=== PATIENT | female | born 1975 | race Caucasian/White ===

== ENCOUNTER 2019-09-02 22:47 | Emergency (ER) | payer OTHER, SELFPAY ==
[2019-09-02 22:51] VITALS: BP 122/77; PULSE 116; RESP 20; TEMP 36.3; O2SAT 97
--- NOTE | 2019-09-02 23:15 | ED.DENTAL ---
HPI - Dental/Oral General Chief complaint: Dental/Oral Stated complaint: bleeding from mouth/18 teeth removed today Time Seen by Provider: 09/02/19 23:15 Source: patient Mode of arrival: ambulatory Limitations: no limitations History of Present Illness HPI Narrative: The pt is a 44 y/o female who presents to the ED with c/o bleeding from the gums that began today. The pt states that she had 18 teeth extracted earlier today by a [facility] oral surgeon and her gums have not stopped bleeding since. She notes that she has been biting down on gauze and that she is not on blood thinners. MD Complaint: tooth injury (bleeding from gums after tooth extraction) Onset (ago): hour(s) (today) Context: other (tooth extraction earlier today) Associated symptoms: other (none) Treatment prior to arrival: other (gauze) Related Data Allergies Allergy/AdvReac Type Severity Reaction Status Date / Time codeine Allergy Intermediate HIVES, Verified 03/24/18 22:32 TONGUE SWELLING cephalexin Allergy Mild Verified 03/24/18 22:32 clavulanic acid Allergy Mild BETA Verified 03/24/18 22:32 LACTAMASE INHIBITORS doxycycline Allergy Mild Verified 03/24/18 22:32 erythromycin base Allergy Mild Verified 03/24/18 22:32 prochlorperazine Allergy Mild Verified 03/24/18 22:32 Sulfa (Sulfonamide Allergy Mild Verified 03/24/18 22:32 Antibiotics) tetracycline Allergy Mild Verified 03/24/18 22:32 AMOXICILLIN TRIHYDRATE Allergy Mild Uncoded 03/24/18 22:32 POTASSIUM CLAVULANATE Allergy Mild Uncoded 03/24/18 22:32 Contrast Media Allergy Unknown Uncoded 03/24/18 22:32 Review of Systems Review of Systems: All systems reviewed & are unremarkable except as noted in HPI and below ENT: Reports other (bleeding from gums) [facility] Past Medical History Medical History (Updated 09/03/19 @ 02:31 by Coy Cole DO) Anemia Anxiety Asthma Back pain Bipolar disorder Bronchitis Cervical cancer COPD (chronic obstructive pulmonary disease) Depression Emphysema lung Endometriosis Fibroids Fractures bilateral legs, ribs GERD (gastroesophageal reflux disease) Gum disease peridontal Hepatitis C Hypertension Kidney stones Neuropathy Peptic ulcer PID (acute pelvic inflammatory disease) Pneumonia PTSD (post-traumatic stress disorder) Seizures Shingles Sinus problem Surgical History Surgical History (Updated 09/02/19 @ 23:20 by Jamia Tabares) H/O tubal ligation History of partial hysterectomy Hx of section Hx of cholecystectomy Social History Social History (Updated 09/02/19 @ 23:20 by Jamia Tabares) Smoking packs per day: 1 Smoking cigarettes per day: 20.0 Smoking status: Current every day smoker Tobacco type: cigarettes Gender identity (if verbalized by the patient): Female Exam Narrative: Exam Narrative: APPEARANCE: No acute distress, nontoxic, resting in bed EYES: EOMI HEENT: Normocephalic, atraumatic, all teeth removed from upper and lower gumline, there is blood clots and oozing throughout the gums airway patent oral mucosa moist RESPIRATORY: No respiratory distress Clear to auscultation bilaterally with no rhonchi wheezing or rales. CARDIOVASCULAR: Regular rate and rhythm without murmurs rubs or gallops. ABDOMINAL: Soft, nontender, MUSCULOSKELETAl: Moves all extremities. No clubbing, cyanosis or edema. NEURO: Awake and alert. Following commands, speech normal, no focal deficits SKIN:: Warm, dry. No rashes lesions or abrasions PSYCHIATRIC: Normal affect/mood, Course Course Emergency Course: Called and discussed with Dr. Villar at [facility]. Recommends using Afrin-soaked gauze. States that if this does not work may use any sort of direct pressure and/or suturing After thorough evaluation of the gumline and able to remove several areas of clotting patient was noted to have oozing out of the front gum where the gum had been from tooth removal anteriorly. Direct pressure was a
[2019-09-03 00:02] LABS: Blood Urea Nitrogen 13 mg/dL (7-17); Carbon Dioxide 27 mmol/L (22-30); Chloride 100 mmol/L (98-107); Estimated Glomerular Filt Rate > 60; Glucose 124 mg/dL (65-105); Potassium 3.6 mmol/L (3.4-5.0); Sodium 139 mmol/L (137-145)
[2019-09-03 00:05] LABS: Prothrombin Time 13.2 Seconds (11.1-14.7)
[2019-09-03 00:06] LABS: Partial Thromboplastin Time 32.2 SECONDS (22.3-36.8)
[2019-09-03 00:13] LABS: Basophils Absolute Auto 0.1 K/mm3 (0.0-0.1); Basophils Percent Auto 0.5 % (0.2-1.2); Eosinophils Absolute Auto 0.3 K/mm3 (0-0.3); Eosinophils Percent Auto 2.3 % (0-4.4); Hematocrit 47.3 % (37.0-47.0); Hemoglobin 15.5 g/dL (12.0-15.0); Immature Granulocyte Absolute 0.05 K/mm3 (0.00-0.031); Immature Granulocyte Percent A 0.3 % (0-0.5); Lymphocytes Percent Auto 16.8 % (18.3-44.2); Mean Corpuscular HGB Conc 32.8 g/dl (32-36); Mean Corpuscular Hemoglobin 27.6 pg (26-34); Mean Corpuscular Volume 84.3 fl (80-100); Mean Platelet Volume 8.9 fl (7.4-10.4); Monocytes Percent Auto 6.8 % (2.6-8.5); Neutrophils Absolute Auto 10.9 K/mm3 (1.3-6.7); Neutrophils Percent Auto 73.3 % (45.5-73.1); Platelet Count Result 476 k/mm3 (150-375); Red Blood Count 5.61 M/mm3 (4.2-5.4); Red Cell Distribution Width 15.2 % (11.5-14.5); White Blood Count 14.8 K/mm3 (4.5-10.0)
[2019-09-03 00:48] VITALS: BP 127/87; PULSE 78; RESP 15; TEMP 36.7; O2SAT 97
[2019-09-03] MEDS: LIDO 1%/EPINEPHRINE 1:100,000 20 ML VIAL (01:08)
[2019-09-03 02:39] VITALS: BP 117/79; PULSE 88; RESP 17; O2SAT 97
== END 2019-09-03 02:40 | disposition home or self-care (01) ==
PROVIDERS: Emergency Provider Emergency Medicine; PCP Family Medicine
DX: K91.840 Postprocedural hemorrhage of a digestive system organ or structure following a digestive system procedure (principal); J45.909 Unspecified asthma, uncomplicated; Z85.41 Personal history of malignant neoplasm of cervix uteri; K21.9 Gastro-esophageal reflux disease without esophagitis; Z86.19 Personal history of other infectious and parasitic diseases; Z87.442 Personal history of urinary calculi; J43.9 Emphysema, unspecified; N80.9 Endometriosis, unspecified; F17.210 Nicotine dependence, cigarettes, uncomplicated
CPT/HCPCS: 36415; 41899; 80048; 85025; 85610; 85730; 99283; A9270

== ENCOUNTER 2019-11-29 15:11 | Outpatient (CLI) | payer OTHER, SELFPAY ==
--- NOTE | ~2019-11-29 | MM_ITS ---
EXAMINATION: MM screening alek BI w harshad HISTORY: Screening mammogram TECHNIQUE: Craniocaudal and mediolateral oblique 3-D tomosynthesis images were obtained and synthetic 2-D images were generated. CAD analysis was submitted and interpreted. COMPARISON: No prior mammogram is available for comparison at this institution. BREAST PARENCHYMAL COMPOSITION: There are scattered areas of fibroglandular density. FINDINGS: There is a low-density mass measuring 1.9 cm in the lower inner quadrant of the right breas t. There is no mammographic evidence for malignancy in the left breast. IMPRESSION: 1. 1.9 cm right breast mass, lower inner quadrant. 2. Additional mammographic views and possible breast ultrasound are recommended. BI-RADS Category 0: Incomplete: Needs additional imaging evaluation. Reviewed, dictated and finalized at location A. IMPRESSION: 1. 1.9 cm right breast mass, lower inner quadrant. 2. Additional mammographic views and possible breast ultrasound are recommended . BI-RADS Category 0: Incomplete: Needs additional imaging evaluation.
== END 2019-11-29 15:12 | disposition home or self-care (01) ==
PROVIDERS: PCP Family Medicine; Visit Provider Family Medicine
DX: Z12.31 Encounter for screening mammogram for malignant neoplasm of breast (principal); R92.8 Other abnormal and inconclusive findings on diagnostic imaging of breast
CPT/HCPCS: 77063; 77067

== ENCOUNTER 2020-01-21 17:10 | Emergency (ER) | payer OTHER, SELFPAY ==
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
[2020-01-21 17:17] VITALS: BP 125/94; PULSE 82; RESP 20; TEMP 36.8; O2SAT 96
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
[2020-01-21] MEDS: ACETAMINOPHEN 500 MG TABLET 1000 MG PO (19:26)
[2020-01-21 19:32] VITALS: BP 131/84; PULSE 75; RESP 16; O2SAT 99
[2020-01-21 20:01] VITALS: BP 130/85; PULSE 79; RESP 16; O2SAT 99
== END 2020-01-21 20:02 | disposition home or self-care (01) ==
PROVIDERS: Emergency Provider Emergency Medicine; PCP Family Medicine
DX: S16.1XXA Strain of muscle, fascia and tendon at neck level, initial encounter (principal); M54.5 Low back pain; R07.81 Pleurodynia; Z85.41 Personal history of malignant neoplasm of cervix uteri; J43.9 Emphysema, unspecified; N80.9 Endometriosis, unspecified; Z87.442 Personal history of urinary calculi; F17.210 Nicotine dependence, cigarettes, uncomplicated; M47.816 Spondylosis without myelopathy or radiculopathy, lumbar region; V49.40XA Driver injured in collision with unspecified motor vehicles in traffic accident, initial encounter
CPT/HCPCS: 70450; 71046; 71110; 72125; 72131; 73590; 96372; 99284; A9270; J3360; L0140

== ENCOUNTER 2020-01-31 13:31 | Outpatient (CLI) | payer OTHER, SELFPAY ==
--- NOTE | ~2020-01-31 | MM_ITS ---
EXAMINATION: MM diagnostic alek BI w harshad HISTORY: 1. Lower inner quadrant 1.9 cm right breast mass reported on 11/29/2019 screening mammogram 2. New complaint of left breast lump TECHNIQUE: Additional 3-D tomosynthesis images of the right breast and ML, MLO and cc Tomosynthesis v iews of the left breast were performed and synthetic 2-D images were generated. CAD analysis was subm itted and interpreted. COMPARISON: 11/29/2019 bilateral digital screening mammogram BREAST PARENCHYMAL COMPOSITION: The breasts are almost entirely fatty. FINDINGS: There is an approximately 1.6 cm circumscribed low-density opacity at mid depth in the inne r mid right breast. There are 2 additional approximately 4 mm circumscribed low-density opacities in the posterior inner right breast on CC projection. Right breast ultrasound examination is recommended. No suspicious mass, architectural distortion, malignant calcification, skin thickening or retraction of the left breast is evident. Targeted ultrasound of the left breast at the area of clinical rate of breast lump is recommended. IMPRESSION: 1. 1.6 cm and two 4 mm circumscribed opacities of the inner right breast 2. Ultrasound of the inner right breast for correlation with mammographic findings and targeted ultra sound of left breast at the area of complaint of left breast lump is recommended. BI-RADS Category 0: Incomplete: Needs additional imaging evaluation. Reviewed, dictated and finalized at location A. IMPRESSION: 1. 1.6 cm and two 4 mm circumscribed opacities of the inner right breast 2. Ultrasound of the inner right breast for correlation with mammographic findi ngs and targeted ultrasound of left breast at the area of complaint of left sergio ast lump is recommended. BI-RADS Category 0: Incomplete: Needs additional imaging evaluation.
== END 2020-01-31 13:32 | disposition home or self-care (01) ==
LOC: ANHIMG 13:34
PROVIDERS: PCP Family Medicine; Visit Provider Family Medicine
DX: R92.8 Other abnormal and inconclusive findings on diagnostic imaging of breast (principal)
CPT/HCPCS: 77062; 77066; G0279

== ENCOUNTER 2020-03-02 23:30 | Emergency (ER) | payer OTHER, SELFPAY ==
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
[2020-03-02 23:34] VITALS: BP 127/76; PULSE 100; RESP 20; TEMP 36.7; O2SAT 95
[2020-03-03 00:54] VITALS: BP 126/86; PULSE 86; RESP 20; O2SAT 98
[2020-03-03] MEDS: ONDANSETRON HCL ODT 4 MG TABLET PO (02:03)
[2020-03-03] MEDS: KETOROLAC (*BKC) 60 MG/2 ML VIAL IM (02:52)
[2020-03-03 02:55] LABS: Basophils Absolute Auto 0.1 K/mm3 (0.0-0.1); Basophils Percent Auto 0.5 % (0.2-1.2); Eosinophils Absolute Auto 0.2 K/mm3 (0-0.3); Eosinophils Percent Auto 0.6 % (0-4.4); Hematocrit 49.2 % (37.0-47.0); Hemoglobin 16.4 g/dL (12.0-15.0); Immature Granulocyte Absolute 0.26 K/mm3 (0.00-0.031); Immature Granulocyte Percent A 1.1 % (0-0.5); Lymphocytes Absolute Auto 2.81 K/mm3 (0.9-3.2); Lymphocytes Percent Auto 11.3 % (18.3-44.2); Mean Corpuscular HGB Conc 33.3 g/dl (32-36); Mean Corpuscular Hemoglobin 28.2 pg (26-34); Mean Corpuscular Volume 84.7 fl (80-100); Mean Platelet Volume 8.8 fl (7.4-10.4); Monocytes Absolute Auto 1.7 K/mm3 (0.1-0.6); Monocytes Percent Auto 6.9 % (2.6-8.5); Neutrophils Absolute Auto 19.7 K/mm3 (1.3-6.7); Neutrophils Percent Auto 79.6 % (45.5-73.1); Platelet Count Result 488 k/mm3 (150-375); Red Blood Count 5.81 M/mm3 (4.2-5.4); Red Cell Distribution Width 13.3 % (11.5-14.5); White Blood Count 24.8 K/mm3 (4.5-10.0)
[2020-03-03 02:59] VITALS: BP 124/89; PULSE 84; RESP 18; TEMP 36.4; O2SAT 98
[2020-03-03 03:11] LABS: Alkaline Phosphatase 114 U/L (38-126); Anion Gap 13 mmol/L (8-16); Aspartate Amino Transferase 46 U/L (14-36); Bilirubin,Total 0.6 mg/dL (0.2-1.3); Blood Urea Nitrogen 6 mg/dL (7-17); Calcium 9.9 mg/dL (8.4-10.2); Carbon Dioxide 22 mmol/L (22-30); Chloride 101 mmol/L (98-107); Creatine Kinase 35 U/L (30-135); Estimated CRCL calculation 110 ml/min; Estimated Glomerular Filt Rate > 60; Glucose 195 mg/dL (65-105); Potassium 3.5 mmol/L (3.4-5.0); Sodium 136 mmol/L (137-145)
[2020-03-03 03:16] LABS: Alanine Aminotransferase 27 U/L (4-35)
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
[2020-03-03 03:38] VITALS: BP 124/83; PULSE 82; RESP 16; O2SAT 96
--- NOTE | 2020-03-03 07:31 | ED.OVERDOSE ---
HPI - Overdose General Chief Complaint: Overdose Stated Complaint: od Time Seen by Provider: 03/03/20 01:47 Source: patient Mode of arrival: EMS History of Present Illness HPI Narrative: This patient is a 45 year old female with history of heroin, fentanyl addition who presents via EMS for accidental overdose. Patient reports she has been using fentanyl for a long time due to an addition. Tonight she took 3 fentanyl pills and she reports she felt as if she was going to pass out so she gave herself narcan. She called 911 and she was given some more narcan. . She now complains of pain all over, nausea, vomiting, and diarrhea. complaint: accidental overdose Related Data Allergies Allergy/AdvReac Type Severity Reaction Status Date / Time codeine Allergy Intermediate HIVES, Verified 01/21/20 18:13 TONGUE SWELLING cephalexin Allergy Mild Unknown Verified 01/21/20 18:13 clavulanic acid Allergy Mild BETA Verified 01/21/20 18:13 LACTAMASE INHIBITORS doxycycline Allergy Mild Unknown Verified 01/21/20 18:13 erythromycin base Allergy Mild Unknown Verified 01/21/20 18:13 prochlorperazine Allergy Mild Unknown Verified 01/21/20 18:13 Sulfa (Sulfonamide Allergy Mild Unknown Verified 01/21/20 18:13 Antibiotics) tetracycline Allergy Mild Unknown Verified 01/21/20 18:13 Contrast Media Allergy Unknown Unknown Uncoded 01/21/20 18:13 Review of Systems Constitutional: Constitutional: Denies chills, Reports fatigue and Denies fever(s) Cardiovascular: Cardiovascular: Denies chest pain Respiratory: Respiratory: Denies cough and Denies dyspnea Gastrointestinal: Gastrointestinal: Reports abdominal pain, Reports diarrhea, Reports nausea and Reports vomiting Musculoskeletal: Musculoskeletal: Reports myalgias PMFSH Past Medical History Medical History Anemia Anxiety Asthma Back pain Bipolar disorder Bronchitis Cervical cancer COPD (chronic obstructive pulmonary disease) Depression Emphysema lung Endometriosis Fibroids Fractures bilateral legs, ribs GERD (gastroesophageal reflux disease) Gum disease peridontal Hepatitis C Hypertension Kidney stones Neuropathy Peptic ulcer PID (acute pelvic inflammatory disease) Pneumonia PTSD (post-traumatic stress disorder) Seizures Shingles Sinus problem Surgical History Surgical History (Updated 09/02/19 @ 23:20 by Jamia Tabares) H/O tubal ligation History of partial hysterectomy Hx of section Hx of cholecystectomy Social History Social History (Updated 09/02/19 @ 23:20 by Jamia Tabares) Smoking packs per day: 1 Smoking cigarettes per day: 20.0 Smoking status: Current every day smoker Tobacco type: cigarettes Gender identity (if verbalized by the patient): Female Exam Const: Orientation/consciousness: patient oriented x3 Other: disheveled, lethargic HENMT: Head: normocephalic and atraumatic Face and sinus: face symmetric Eyes: Pupils: Equal, round and reactive pupils present EOM: EOMs intact bilaterally Chest: Chest palpation & inspection: normal inspection of the chest Resp: Effort & Inspection: normal respiratory effort and no retractions Auscultation: clear to auscultation bilaterally Cardio: Rate: regular rate Rhythm: regular rhythm Heart sounds: no murmurs GI: GI Palp: Yes Soft to palpation, Yes Tenderness to palpation present (GI) (diffuse), No Guarding due to palpation present (GI) and No Rigid due to palpation Back/Spine/Pelvis: Back: no CVA tenderness Skin: General skin exam: normal color Rashes: no rashes Neuro: General: patient oriented x3 and moves all extremities Extrem: Other: bruising to all extremities and track rosario to bilateral arms. Course Reevaluation(s) Reevaluation #1: Nursing staff reports patient's daughter placed patient in wheelchair and they have left department. PAtient going out door before i could talk to
== END 2020-03-03 03:38 | disposition left against medical advice (07) ==
PROVIDERS: Emergency Provider General Practice; PCP Family Medicine
DX: T40.4X1A Poisoning by other synthetic narcotics, accidental (unintentional), initial encounter (principal); J43.9 Emphysema, unspecified; F31.9 Bipolar disorder, unspecified; Z85.41 Personal history of malignant neoplasm of cervix uteri; N80.9 Endometriosis, unspecified; K21.9 Gastro-esophageal reflux disease without esophagitis; I10 Essential (primary) hypertension; Z86.19 Personal history of other infectious and parasitic diseases; G62.9 Polyneuropathy, unspecified; F43.10 Post-traumatic stress disorder, unspecified; F17.210 Nicotine dependence, cigarettes, uncomplicated
CPT/HCPCS: 36415; 71045; 80053; 82550; 85025; 96372; 99283; A9270; J1885

== ENCOUNTER 2020-03-04 06:37 | Inpatient (IN) | payer OTHER, SELFPAY ==
--- NOTE | ~2020-03-04 | CT_ITS ---
EXAMINATION: CT brain wo con DATE: 03/04/2020 08:51 INDICATION: Fall with head injury TECHNIQUE: Computed tomography (CT) of the head was performed without intravenous contrast. Sagittal and coronal reconstructions were performed. The mA was adjusted according to patient size. Iterative reconstruction technique was employed. The dose-length product was 605.33 mGy-cm. COMPARISON: head CT dated 01/21/2020 FINDINGS: No fracture. No acute intracranial hemorrhage, acute infarction or abnormal extra axial fluid collect ion. Ventricles are normal and symmetric. No mass/mass effect. The orbits, paranasal sinuses and mast oid air cells are normal. IMPRESSION: 1. No fracture. Normal brain. Reviewed, dictated and finalized at location A.
--- NOTE | ~2020-03-04 | XR_ITS ---
EXAMINATION: XR chest 2V DATE: 03/04/2020 08:53 INDICATION: Chest pain TECHNIQUE: frontal and lateral views of the chest were obtained. COMPARISON: Chest radiograph dated 03/03/2020 FINDINGS: Mild bibasilar atelectasis. No pulmonary edema, pleural effusion or pneumothorax. The cardiomediastin al silhouette is normal. Visualized bones and soft tissues are unremarkable. IMPRESSION: 1. Minimal bibasilar atelectasis. Reviewed, dictated and finalized at location A.
--- NOTE | ~2020-03-04 | MMUS_ITS ---
EXAMINATION: US GUIDED NEEDLE BIOPSY WITH VACUUM ASSISTANCE DATE: 03/07/2020 12:33 CDT INDICATION: Right breast mass seen on prior examination. Ultrasound-guided core biopsy is requested to evaluate for malignancy. TECHNIQUE AND FINDINGS: The risks and potential benefits of the procedure were discussed with the patient, and written inform ed consent was obtained. After sterile preparation of the right breast, 1% lidocaine was utilized fo r local anesthesia. 1% lidocaine with epinephrine was used for deep anesthesia. A 10G vacuum-assisted biopsy gun needle was advanced through to the outer edge of the region of inter est from a medial approach utilizing sonographic guidance. The mass is located in the upper inner jose antonio drant. A total of three tissue core samples were obtained through the lesion. An Inrad tissue marker clip was then placed at the biopsy site. Hemostasis was achieved. The patient tolerated procedure well and there was no evidence of immediate complication. The patien t was given verbal instructions partly is from the department. Right breast mammograms to document t issue marker clip placement. The tissue samples were submitted to surgical pathology for histologic a nalysis.] IMPRESSION: 1. Successful ultrasound-guided vacuum-assisted biopsy of right breast mass with tissue marker place ment. Please refer to pathology report for histologic analysis. Reviewed, dictated and finalized at location A. IMPRESSION: 1. Successful ultrasound-guided vacuum-assisted biopsy of right breast mass wi th tissue marker placement. Please refer to pathology report for histologic augusto lysis.
--- NOTE | ~2020-03-04 | CT_ITS ---
EXAMINATION: CT abdomen pelvis wo con DATE: 03/04/2020 08:52 INDICATION: Left lower quadrant abdominal pain. TECHNIQUE: Computed tomography (CT) of the abdomen and pelvis was performed without intravenous contr ast. Automated exposure control and iterative reconstruction technique were employed. The dose-length product was 1253.32 mGy-cm. COMPARISON: 05/17/2017 FINDINGS: Mild atelectasis anteriorly at the lingula and right middle lobe and in the dependent bilateral lower lobes. 6 mm nodule in the right lower lobe. Heart size is normal. No pericardial or pleural effusion . 1.5 cm mass with smooth margins at the medial right breast. Focal hepatic steatosis at the ligament um teres. 8 mm low-attenuation hepatic cyst. Cholecystectomy clips at the gallbladder fossa. Spleen, pancreas and bilateral adrenal glands are normal. Punctate bilateral nephrolithiasis with single 1 mm stone at the lower pole of the right kidney and a couple 1 mm stones in the mid and lower left kidne y. No hydronephrosis. No stones seen along the normal ureters. Normal appendix. There is fluid throug hout the mid to distal colon with mild wall thickening at the sigmoid colon. There is additional wall thickening along a couple segments of ileum. No pneumatosis. No abscess or free intraperitoneal gas or fluid. Bladder is normal. The uterus is not identified and has likely been surgically resected. No pathologically enlarged abdominal or pelvic lymphadenopathy. Very small fat-containing umbilical her harpreet. Bone island at the greater trochanter of the right femur. IMPRESSION: 1. Wall thickening along a couple segments of ileum including the terminal ileum as well as at the si gmoid colon suggesting an enterocolitis which could be either infectious or Crohn's disease. 2. Bilateral nonobstructing nephrolithiasis. 3. 1.5 cm mass with smooth margins at the inner right breast. Further review of prior mammography rep ort this was identified and further evaluation with directed breast ultrasound was recommended. 4. 6 mm nodule in the right lower lobe. Recommend follow-up 612 month low-dose noncontrast chest CT. Reviewed, dictated and finalized at location A. IMPRESSION: 1. Wall thickening along a couple segments of ileum including the terminal ileu m as well as at the sigmoid colon suggesting an enterocolitis which could be ei ther infectious or Crohn's disease. 2. Bilateral nonobstructing nephrolithiasis. 3. 1.5 cm mass with smooth margins at the inner right breast. Further review of prior mammography report this was identified and further evaluation with [facility] breast ultrasound was recommended. 4. 6 mm nodule in the right lower lobe. Recommend follow-up 612 month low-dose noncontrast chest CT.
--- NOTE | ~2020-03-04 | CT_ITS ---
EXAMINATION: CT cervical spine wo con DATE: 03/04/2020 08:51 INDICATION: Fall with head injury TECHNIQUE: Computed tomography (CT) of the cervical spine was performed without intravenous contrast. Automated exposure control and iterative reconstruction technique were employed. The dose-length pro duct was 481.19 mGy-cm. COMPARISON: None FINDINGS: Mild cervical levocurvature. Reversal of the normal cervical lordosis. Vertebral body heights are nor mal. Moderate disc height loss at C5-C6 with associated posterior disc osteophyte complex resulting i n mild central canal stenosis at this level. Moderate right-sided and mild to moderate left-sided unc overtebral osteoarthritis resulting in mild bilateral neural foraminal stenosis at this level. Mild d isc height loss at C4-C5 and C6-C7. There is mild uncovertebral and mild facet osteoarthritis through out much of the remaining cervical spine. There are a few tiny nodules and tree-in-bud opacities at t he bilateral apices. IMPRESSION: 1. No acute osseous abnormality. 2. Moderate spondylosis with mild central canal stenosis at C5-C6. Mild spondylosis throughout the re mainder of the cervical spine. 3. A few tiny nodules and scattered tree-in-bud pattern at the bilateral apices which could represent respiratory bronchiolitis interstitial lung disease or sequela of infection. Reviewed, dictated and finalized at location A. IMPRESSION: 1. No acute osseous abnormality. 2. Moderate spondylosis with mild central canal stenosis at C5-C6. Mild spondyl osis throughout the remainder of the cervical spine. 3. A few tiny nodules and scattered tree-in-bud pattern at the bilateral apices which could represent respiratory bronchiolitis interstitial lung disease or s equela of infection.
--- NOTE | ~2020-03-04 | US_ITS ---
US breast BI limited 03/05/2020 13:53 Indication: Follow-up right breast mass. Palpable left breast lump. Procedure: High-resolution bilateral breast ultrasound Comparison: Mammogram dated 01/31/2020 Findings: Right breast ultrasound: At 2:00, 6 cm from the nipple, there is an oval hypoechoic mass with posterior shadowing. No signific ant internal vascularity. This mass measures 1.3 x 1.3 x 1 cm. This corresponds to the mass identifie d on mammography. Left breast ultrasound: At 12:00 there is a 6 mm cyst. No suspicious masses to suggest malignancy. Impression: 1: Oval hypoechoic shadowing 1.3 cm right breast mass at 2:00, 6 cm from the nipple corresponding to the mass seen on mammogram. Ultrasound-guided right breast biopsy recommended. BI-RADS CATEGORY 4-SUSPICIOUS ABNORMALITY RECOMMENDATION: Ultrasound-guided right breast biopsy recommended. Reviewed, dictated and finalized at location A. Impression: 1: Oval hypoechoic shadowing 1.3 cm right breast mass at 2:00, 6 cm from the ni pple corresponding to the mass seen on mammogram. Ultrasound-guided right breas t biopsy recommended. BI-RADS CATEGORY 4-SUSPICIOUS ABNORMALITY RECOMMENDATION: Ultrasound-guided right breast biopsy recommended.
[2020-03-04 06:40] VITALS: BP 141/107; PULSE 96; RESP 20; TEMP 36.9; O2SAT 97
--- NOTE | 2020-03-04 07:02 | ED.NAVMDI ---
HPI - Nausea/Vomiting/Diarrhea General Chief complaint: Nausea/Vomiting/Diarrhea Stated complaint: n/v/d, abd pain Time Seen by Provider: 03/04/20 07:02 Source: patient and family Mode of arrival: ambulatory Limitations: no limitations History of Present Illness HPI Narrative: Patient is a 45-year-old female with a history of opiate substance abuse, hypertension who presents for evaluation of headache pain, chest pain, abdominal pain. Patient reports her abdominal pain is located in her left lower abdomen, described as a sharp, stabbing pain which is been present and worsening over the past 24 hours. Is associated with numerous episodes of nonbloody, nonbilious emesis. Patient also reports watery diarrhea that is not black nor does appear to have any blood present per the patient. Patient denies fever, she reports chills. She also reports chest pain over the center of her chest for over the past 24 hours. Pain is minimal currently, she stays her abdominal pain is severe. No jaw pain or neck pain. No shoulder pain. No current shortness of breath. No cough, fever, recent loss of taste of sense or smell. Patient's daughter also reports that initially when they called an ambulance on the to come to the emergency department for all of the symptoms, the ambulance reportedly dropped to the patient and she fall and hit her head. She has been reporting headache pain and neck pain since that fall. Related Data Home Medications Medication Instructions Recorded Confirmed albuterol sulfate 90 mcg INHALATION 03/04/20 clonidine HCl 0.1 mg PO 03/04/20 gabapentin 300 mg PO 03/04/20 hydroxyzine pamoate 50 mg PO 03/04/20 mirtazapine 45 mg PO 03/04/20 montelukast 10 mg PO 03/04/20 ondansetron 8 mg PO 03/04/20 Allergies Allergy/AdvReac Type Severity Reaction Status Date / Time codeine Allergy Intermediate HIVES, Verified 03/04/20 06:45 TONGUE SWELLING cephalexin Allergy Mild Unknown Verified 03/04/20 06:45 clavulanic acid Allergy Mild BETA Verified 03/04/20 06:45 LACTAMASE INHIBITORS doxycycline Allergy Mild Unknown Verified 03/04/20 06:45 erythromycin base Allergy Mild Unknown Verified 03/04/20 06:45 prochlorperazine Allergy Mild Unknown Verified 03/04/20 06:45 Sulfa (Sulfonamide Allergy Mild Unknown Verified 03/04/20 06:45 Antibiotics) tetracycline Allergy Mild Unknown Verified 03/04/20 06:45 Contrast Media Allergy Unknown Unknown Uncoded 01/21/20 18:13 Review of Systems Review of Systems: Narrative: CONSTITUTIONAL: Denies fever, chills, or sweats. EYES: Denies visual changes, redness, or discharge. ENT: Denies rhinorrhea, congestion, sore throat, or otalgia. CARDIOVASCULAR: Reports mild chest pain RESPIRATORY: Denies cough or dyspnea. GASTROINTESTINAL: Reports abdominal pain, nausea vomiting and diarrhea GENITOURINARY: Denies dysuria or hematuria. SKIN: Denies rash or itching. MUSCULOSKELETAL: Denies back pain, joint pain, or myalgia. NEUROLOGIC: Denies headache, numbness, or weakness. FOR[facility]LY [facility] Past Medical History Medical History (Updated 03/04/20 @ 10:19 by Viviane Burns MD) Anemia Anxiety Asthma Back pain Bipolar disorder Bronchitis Cervical cancer COPD (chronic obstructive pulmonary disease) Depression Emphysema lung Endometriosis Fibroids Fractures bilateral legs, ribs GERD (gastroesophageal reflux disease) Gum disease peridontal Hepatitis C Hypertension Kidney stones Neuropathy Opioid abuse Peptic ulcer PID (acute pelvic inflammatory disease) Pneumonia PTSD (post-traumatic stress disorder) Seizures Shingles Sinus problem Surgical History Surgical History H/O tubal ligation History of partial hysterectomy Hx of section Hx of cholecystectomy Social History Social History Smoking packs per day: 1 Smoking cigarettes per day: 20.0 Smoking status:
--- NOTE | 2020-03-04 07:24 | ECG_ITS ---
Measurements Intervals [place] Rate: 78 P: -4 MD: 152 QRS: 31 QRSD: 92 T: 67 QT: 423 QTc: 483 Interpretive Statements SINUS RHYTHM BORDERLINE ST-T WAVE ABNORMALITY- ANTEROLAT/HIGH LAT LEADS BORDERLINE ECG Electronically Signed On 03-04-2020 12:32:20 CDT by Korey Carbajal D.O.
[2020-03-04] MEDS: SODIUM CHLORIDE 0.9% IV 2,000 ML 999 ML IV CONT (07:41)
[2020-03-04] MEDS: ONDANSETRON INJ 4 MG/2 ML VIAL IV PUSH ×3 (07:41→23:07)
[2020-03-04] MEDS: diphenhydrAMINE HCl INJ 50 MG/ML VIAL 25 MG IV PUSH (07:41)
[2020-03-04 07:58] LABS: Hematocrit 51.5 % (37.0-47.0); Hemoglobin 17.6 g/dL (12.0-15.0); Mean Corpuscular HGB Conc 34.2 g/dl (32-36); Mean Corpuscular Hemoglobin 28.1 pg (26-34); Mean Corpuscular Volume 82.3 fl (80-100); Mean Platelet Volume 8.6 fl (7.4-10.4); Platelet Count Result 548 k/mm3 (150-375); Red Blood Count 6.26 M/mm3 (4.2-5.4); Red Cell Distribution Width 13.7 % (11.5-14.5); White Blood Count 23.4 K/mm3 (4.5-10.0)
[2020-03-04 08:17] LABS: Eosinophils Absolute Manual 0.23 K/mm3 (0.02-0.5); Eosinophils Percent Manual 1 % (0-4); INR 1.1; Lymphocytes Absolute Manual 3.74 K/mm3 (1.1-4.5); Monocytes Absolute Manual 1.63 K/mm3 (0.1-0.90); Monocytes Percent Manual 7 % (3-9); Neutrophils Percent Manual 76 % (46-73); Platelet Estimate Increased (Adequate); Prothrombin Time 13.5 Seconds (11.1-14.7); Total Cells Counted 100
[2020-03-04 08:18] LABS: Hypochromasia 2+ (NORMAL); Partial Thromboplastin Time 29.7 SECONDS (22.3-36.8)
[2020-03-04 08:25] LABS: Lactic Acid Reflex 3.7 mmol/L (0.7-2.1)
[2020-03-04 08:26] LABS: Alanine Aminotransferase 40 U/L (4-35); Albumin Level 4.7 g/dL (3.5-5.1); Alkaline Phosphatase 130 U/L (38-126); Anion Gap 15 mmol/L (8-16); Aspartate Amino Transferase 36 U/L (14-36); Bilirubin,Total 0.7 mg/dL (0.2-1.3); Blood Urea Nitrogen 18 mg/dL (7-17); Calcium 9.8 mg/dL (8.4-10.2); Carbon Dioxide 30 mmol/L (22-30); Chloride 92 mmol/L (98-107); Estimated CRCL calculation 72 ml/min; Estimated Glomerular Filt Rate > 60; Glucose 144 mg/dL (65-105); Lipase 44 U/L (23-300); Potassium 3.5 mmol/L (3.4-5.0); Sodium 137 mmol/L (137-145)
[2020-03-04 08:35] LABS: Troponin I < 0.012 ng/mL (0.000-0.034)
[2020-03-04 09:14] VITALS: BP 151/99; PULSE 83; RESP 18; O2SAT 94
[2020-03-04 09:39] LABS: Add Urine Microscopic? YES; Appearance Urine Cloudy (Clear); Bacteria Urine Trace /hpf; Bilirubin Urine Negative (Negative); Blood Urine Negative (Negative); Color Urine Amber (Yellow); Glucose Urine UA Negative (Negative); Ketones Urine Negative (Negative); Leukocyte Esterase Ur Trace LEU/UL (Negative); Mucus Urine Few /lpf; Nitrate Urine Negative (Negative); Protein Urine 1+ mg/dL (Negative); RBC Urine 0-2 /hpf (0-2); Specific Grav Ur 1.026 (1.001-1.035); Squamous Epithelial Cell Urine Many /hpf (Few)
[2020-03-04] MEDS: METOCLOPRAMIDE HCL INJ 10 MG/2 ML VIAL IV PUSH (09:40)
[2020-03-04] MEDS: SODIUM CHLORIDE 0.9% IV 1,000 ML 999 ML IV CONT (10:39)
[2020-03-04 10:42] VITALS: BP 113/70; PULSE 69; RESP 18; O2SAT 98
[2020-03-04 10:55] LABS: Reflex Lactic Acid Yes or No Add Lactic
--- NOTE | 2020-03-04 11:58 | PC.NURSE ---
This patient, Sheri Dunne, was admitted to Medical Room 251-. Patient/family oriented to hospital policies and general routines including ID bracelet, bed and alarms, visiting hours, pain management, procedures, bathroom and other care routines, personal items, smoking policy, room service/diet, and visiting hours. Valuables list has been completed. Information on how to activate the Rapid Response Team has been discussed. Patient/Family are encouraged to report perceived risks to care and to ask questions if they do not understand what they are told or what they should do.
[2020-03-04] MEDS: LACTATED RINGERS 1,000 ML 125 ML IV CONT ×2 (12:35→21:42)
[2020-03-04 13:42] VITALS: BP 114/77; PULSE 64; RESP 17; TEMP 37.5; O2SAT 94; BMI 33.3
[2020-03-04 14:00] VITALS: BP 101/59; PULSE 59; RESP 15; TEMP 37.2; O2SAT 94
--- NOTE | 2020-03-04 17:57 | PM.IMHP ---
H&P: HPI History of Present Illness Date/Time: 03/04/20 17:57 Chief complaint: Sepsis, Colitis Narrative: Sheri Dunne is a 45 year old female Has a history of heroin abuse. The patient was in the emergency room here yesterday where she had taken 3 pills of fentanyl. The patient felt like she had overdosed in taken too much. She said she took 2 fentanyl pills and did feel anything so she took the 3rd 1 and felt that it was really junky and that she had gotten a lot of fentanyl and felt like she was going to so she gave herself narcan and called the ambulance. The patient stated that she fell and hit her head yesterday in our neck is hurting. 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 The patient stated that she had been on subaxone for a long time and had just gotten off of it. the patient stated that she had a relapse and use the fentanyl. Today the patient is hurting all over. She denies any fever chills. She does have a history of depression and anxiety. Patient stated that she was anxious about a breast nodule that she found that she fears that she may have breast cancer. She had cervical cancer in the past and had to have chemotherapy. The patient stated that her drug addiction started after she had her partial hysterectomy. She stated that she had been and a lot of pain and got addicted to the opioids at that time. The patient stated that she has been addicted to narcotics for a long time. She would like to seek help for her addiction. This is the 2nd time that patient has overdosed on narcotics. Patient is very tearful and is asking for help. The patient came into the emergency room today complaining of left lower abdominal pain that is sharp and stabbing and worsened last [address] of the abdomen was read as a following 1. Wall thickening along a couple segments of ileum including the terminal ileum as well as at the sigmoid colon suggesting an enterocolitis which could be either infectious or Crohn's disease. 2. Bilateral nonobstructing nephrolithiasis. 3. 1.5 cm mass with smooth margins at the inner right breast. Further review of prior mammography report this was identified and further evaluation with directed breast ultrasound was recommended. 4. 6 mm nodule in the right lower lobe. Recommend follow-up 612 month low-dose noncontrast chest CT. CT of the spine cervical was read as the following 1. No acute osseous abnormality. 2. Moderate spondylosis with mild central canal stenosis at C5-C6. Mild spondylosis throughout the remainder of the cervical spine. 3. A few tiny nodules and scattered tree-in-bud pattern at the bilateral apices which could represent respiratory bronchiolitis interstitial lung disease or sequela of infection. the patient was given IV Ativan, IV fluids, Zofran, Benadryl, Reglan, and started on Zosyn. Date of service 03/04/2020 Review of Systems Review of Systems: All systems reviewed & are unremarkable except as noted in HPI and below Constitutional: Constitutional: Reports as per HPI and Reports no additional constitutional complaints Eyes: Eyes: Reports as per HPI and Reports no additional eye complaints ENT: Reports system reviewed and no additional complaints, except as documented and Reports Normal hearing present Cardiovascular: Cardiovascular: Reports no additional cardiovascular complaints Respiratory: Respiratory: Reports no additional respiratory complaints and Reports no additional respiratory complaints Gastrointestinal: Gastrointestinal: Reports as per HPI and Reports no additional gastrointestinal complaints Musculoskeletal: Musculoskeletal: Reports no additional musculoskeletal complaints Integumentary/Breasts: Skin/Breast: Reports system reviewed and no additional complaints, except as docu and Reports as per HPI Neurologic: Reports system reviewed and no additional complaints, except as documented, Reports as per HPI and Reports Normal hearing present Psychiatric:
[2020-03-04] MEDS: NICOTINE (*PBKC) 21 MG PATCH 1 PATCH TRANSDERM (18:47)
[2020-03-04] MEDS: hydrOXYzine pamoate 25 MG CAPSULE 100 MG PO (18:58)
[2020-03-04 22:00] VITALS: BP 116/64; PULSE 68; RESP 18; TEMP 36.3; O2SAT 97
[2020-03-05 00:04] LABS: IFOB Positive Control Positive; Immunochemical Fecal Occult Bl Negative (N)
[2020-03-05] MEDS: ONDANSETRON INJ 4 MG/2 ML VIAL IV PUSH ×2 (05:17→09:32)
[2020-03-05] MEDS: traZODone HCL 50 MG TABLET 200 MG PO (05:17)
[2020-03-05 06:00] VITALS: BP 144/82; PULSE 60; RESP 21; TEMP 36.6; O2SAT 100
[2020-03-05] MEDS: NICOTINE (*PBKC) 21 MG PATCH 1 PATCH TRANSDERM (08:06)
[2020-03-05] MEDS: cloNIDine 0.1 MG/24 HR PATCH 1 PATCH TRANSDERM (08:43)
[2020-03-05] MEDS: HYOSCYAMINE SULFATE 0.125 MG TABLET SUBLINGUAL (08:49)
[2020-03-05] MEDS: LACTATED RINGERS 1,000 ML 125 ML IV CONT ×2 (09:28→23:43)
--- NOTE | 2020-03-05 09:34 | WPDGICN ---
Assessment and Plan Assessment and plan (1) Enterocolitis: Code(s): K52.9 - Noninfective gastroenteritis and colitis, unspecified Status: Acute Assessment and Plan: Enterocolitis identified by CT scan. Manifested by diarrhea. Likely infectious in etiology. Plan is for stool cultures agree with broad-spectrum antibiotic coverage. Would defer GI endoscopy unless symptoms persist long-term. Continue follow and treat symptomatic Kothari at this time. IV rehydration. (2) Hepatitis C: Code(s): B19.20 - Unspecified viral hepatitis C without hepatic coma Status: Chronic Assessment and Plan: Patient is reported to be hepatitis C positive. Would recommend referral to [facility] as an outpatient electively for treatment. (3) Opioid abuse: Code(s): F11.10 - Opioid abuse, uncomplicated Status: Chronic (4) Anxiety: Code(s): F41.9 - Anxiety disorder, unspecified Status: Chronic GI Consult Note Consult date/time: 03/05/20 09:34 HPI: Sheri Dunne is a 45 year old female Seen in evaluation at the request of the emergency room. Patient reports diarrhea for 1 week. She has a history of substance abuse. Recently has had significant abuse of narcotic medications. She states her stools have been loose and watery over the last week. She denies any bleeding or weight loss. Upon presenting to the emergency room a CT scan suggested thickening of the ileum in portions of the sigmoid colon. She states she usually does not have diarrhea. She denies any fever or bleeding in her stools. Patient states she is known to have been tested positive for hepatitis C. she has not yet been treated. Review of Systems Review of Systems: All systems reviewed & are unremarkable except as noted in HPI and below PMFSH Past Medical History Medical History Anemia Anxiety Asthma Back pain Bipolar disorder Bronchitis Cervical cancer with chemotherapy and partial hysterectomy COPD (chronic obstructive pulmonary disease) Depression Emphysema lung Endometriosis Fibroids Fractures bilateral legs, ribs GERD (gastroesophageal reflux disease) Gum disease peridontal Hepatitis C not yet treated History of cervical cancer Hypertension Kidney stones Neuropathy Opioid abuse last used yesterday fentanyl 03/03/2020 Peptic ulcer PID (acute pelvic inflammatory disease) Pneumonia PTSD (post-traumatic stress disorder) Seizures Shingles Sinus problem Surgical History Surgical History H/O tubal ligation History of partial hysterectomy Hx of section x1 Hx of cholecystectomy Family History Family History Sibling Acute myocardial infarction Father Hypertension Lung cancer Mother Hypertension Lung cancer Social History Social History (Updated 03/04/20 @ 18:23 by Skyla Harmon NP) Social History: the patient is single and has two children. one is 17 and the other one is 20. she lives in the same house with the father for children but they are not together in a relationship. 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 She has shot up heroin in the past but states that she cannot find heroin. She said that she initially got addicted to narcotics after her hysterectomy. She denies any alcohol use. She smokes a pack a cigarettes a day. She desires to be a full code. She does not have a durable power tax attorney for healthcare. She does occasionally use marijuana. Smoking packs per day: 1 Smoking cigarettes per day: 20.0 Years smoked: 20 Smoking pack-years: 20.00 Smoking status: Current every day smoker Tobacco type: cigarettes Alcohol intake: never Substance use: current Substance use type: misty
[2020-03-05 09:45] LABS: Basophils Absolute Auto 0.1 K/mm3 (0.0-0.1); Basophils Percent Auto 0.4 % (0.2-1.2); Eosinophils Absolute Auto 0.4 K/mm3 (0-0.3); Eosinophils Percent Auto 3.2 % (0-4.4); Hematocrit 39.9 % (37.0-47.0); Hemoglobin 13.4 g/dL (12.0-15.0); Immature Granulocyte Absolute 0.07 K/mm3 (0.00-0.031); Immature Granulocyte Percent A 0.5 % (0-0.5); Lymphocytes Absolute Auto 2.88 K/mm3 (0.9-3.2); Lymphocytes Percent Auto 21.4 % (18.3-44.2); Mean Corpuscular HGB Conc 33.6 g/dl (32-36); Mean Corpuscular Hemoglobin 27.7 pg (26-34); Mean Corpuscular Volume 82.6 fl (80-100); Mean Platelet Volume 8.6 fl (7.4-10.4); Monocytes Absolute Auto 0.8 K/mm3 (0.1-0.6); Monocytes Percent Auto 5.9 % (2.6-8.5); Neutrophils Absolute Auto 9.2 K/mm3 (1.3-6.7); Neutrophils Percent Auto 68.6 % (45.5-73.1); Platelet Count Result 394 k/mm3 (150-375); Red Blood Count 4.83 M/mm3 (4.2-5.4); Red Cell Distribution Width 13.5 % (11.5-14.5); White Blood Count 13.5 K/mm3 (4.5-10.0)
[2020-03-05 10:04] LABS: Lactic Acid Reflex 1.9 mmol/L (0.7-2.1)
[2020-03-05 10:06] LABS: Alanine Aminotransferase 30 U/L (4-35); Albumin Level 3.6 g/dL (3.5-5.1); Alkaline Phosphatase 95 U/L (38-126); Anion Gap 7 mmol/L (8-16); Aspartate Amino Transferase 40 U/L (14-36); Bilirubin,Total 1.1 mg/dL (0.2-1.3); Blood Urea Nitrogen 9 mg/dL (7-17); Calcium 8.4 mg/dL (8.4-10.2); Carbon Dioxide 24 mmol/L (22-30); Chloride 106 mmol/L (98-107); Estimated CRCL calculation 92 ml/min; Estimated Glomerular Filt Rate > 60; Glucose 132 mg/dL (65-105); Potassium 3.3 mmol/L (3.4-5.0); Sodium 137 mmol/L (137-145)
[2020-03-05] MEDS: GABAPENTIN 300 MG CAPSULE PO ×2 (12:39→17:48)
[2020-03-05] MEDS: POTASSIUM CHLORIDE 20 MEQ PACKET (FOR LIQUID) 40 MEQ PO (17:47)
[2020-03-05 18:57] VITALS: BP 110/60; PULSE 72; RESP 18; TEMP 36.7; O2SAT 96
--- NOTE | 2020-03-05 21:22 | PM.IMPN ---
Progress Note: A&P Assessment and Plan (1) Enterocolitis: Code(s): K52.9 - Noninfective gastroenteritis and colitis, unspecified Status: Acute Assessment and Plan: presumed to be bacterial. Patient was started on Zosyn and I continued with that. She does have an elevated white count however she had overdosed on fentanyl yesterday and had a traumatic event as well. So it is difficult to tell as the white count is from infectious process or reactive. . Continue with IV fluids and will have a trial of clear liquids. GI has seen and feels that her symptoms are more acute and not related to any Crohn's. Cultures are pending and concern a lot of her GI symptoms may simply be withdrawal from narcotics to although that would not account for her CT findings (2) Dehydration: Code(s): E86.0 - Dehydration Status: Acute Assessment and Plan: Continue with IV fluids. bun already falling with rehydration. replace K+ (3) Opioid abuse: Code(s): F11.10 - Opioid abuse, uncomplicated Status: Chronic Assessment and Plan: The patient had been on suboxone in the past and she had been on these for 1 year and was going to transition to something different. However the patient had a relapse and started using fentanyl again. Yesterday was the 2nd time that the patient had overdose. . She is agreeable to go to drug rehab. she states that her symptoms are identical to symptoms she has had with withdrawal in the past. she is very agitated and will continue with clonidine, anti spasmatics, and a 3 date tapering course of methadone (4) Hepatitis C: Code(s): B19.20 - Unspecified viral hepatitis C without hepatic coma Status: Chronic Assessment and Plan: The patient was IV drug user and now uses pill form and snorts it. She has multiple rosario on her arms and was diagnosed with hepatitis C. She stated that she is not able to get treatment for hepatitis C as she is not been clean From using drugs. as per GI should follow-up for hep C treatment after discharge (5) Asthma: Code(s): J45.909 - Unspecified asthma, uncomplicated Status: Chronic Assessment and Plan: Continue with her inhaler (6) Bipolar disorder: Code(s): F31.9 - Bipolar disorder, unspecified Status: Chronic Assessment and Plan: patient needs to seek professional help from his psychiatric facility. She is on trazodone at night as needed. I gave her some p.r.n. Ativan of her blood pressure will allow for this. Patient will need treatment for her underlying mental disease. (7) Anxiety: Code(s): F41.9 - Anxiety disorder, unspecified Status: Chronic Assessment and Plan: P.r.n. Ativan. and continue trazodone (8) COPD (chronic obstructive pulmonary disease): Code(s): J44.9 - Chronic obstructive pulmonary disease, unspecified Status: Chronic Assessment and Plan: Continue with her inhaler (9) Breast mass: Code(s): N63.0 - Unspecified lump in unspecified breast Status: Acute Assessment and Plan: sonogram confirmed recent mammogram lesion and biopsy is indicated probable a later date when is over present illness Subjective Date/time seen: 03/05/20 21:22 Interval history: 45-year-old with narcotic addiction admitted with abdominal cramping and diarrhea. CT T scan revealed but looked to be enteritis around the terminal ileum. She now complains of abdominal pain and diarrhea and states I am going through withdrawal she will not tell me exactly how much narcotics she has been recently using and when she did last use. Exam Narrative: Exam Narrative: blood pressure 150/ 76 pulse is 84 and regular she is afebrile pupils are equal and reactive sclera is anicteric lungs clear CV tachy no murmurs abdomen soft bowel sounds are present no local tenderness extremities without edema distal pulses 1+ neuro aler
[2020-03-05 21:26] VITALS: BP 115/72; PULSE 56; RESP 16; TEMP 37; O2SAT 97
[2020-03-06] MEDS: HYOSCYAMINE SULFATE 0.125 MG TABLET SUBLINGUAL (04:03)
[2020-03-06] MEDS: ONDANSETRON INJ 4 MG/2 ML VIAL IV PUSH ×2 (04:05→20:32)
[2020-03-06] MEDS: hydrOXYzine pamoate 25 MG CAPSULE 100 MG PO (04:21)
[2020-03-06 05:42] LABS: Basophils Absolute Auto 0.1 K/mm3 (0.0-0.1); Basophils Percent Auto 0.6 % (0.2-1.2); Eosinophils Absolute Auto 0.7 K/mm3 (0-0.3); Eosinophils Percent Auto 6.4 % (0-4.4); Hematocrit 38.3 % (37.0-47.0); Hemoglobin 12.6 g/dL (12.0-15.0); Immature Granulocyte Absolute 0.03 K/mm3 (0.00-0.031); Immature Granulocyte Percent A 0.3 % (0-0.5); Lymphocytes Absolute Auto 4.14 K/mm3 (0.9-3.2); Lymphocytes Percent Auto 39.2 % (18.3-44.2); Mean Corpuscular HGB Conc 32.9 g/dl (32-36); Mean Corpuscular Hemoglobin 27.9 pg (26-34); Mean Corpuscular Volume 84.9 fl (80-100); Mean Platelet Volume 8.9 fl (7.4-10.4); Monocytes Absolute Auto 0.6 K/mm3 (0.1-0.6); Monocytes Percent Auto 5.5 % (2.6-8.5); Neutrophils Absolute Auto 5.1 K/mm3 (1.3-6.7); Platelet Count Result 373 k/mm3 (150-375); Red Blood Count 4.51 M/mm3 (4.2-5.4); Red Cell Distribution Width 13.8 % (11.5-14.5); White Blood Count 10.6 K/mm3 (4.5-10.0)
[2020-03-06 06:00] VITALS: BP 117/97; PULSE 62; RESP 16; TEMP 37.2; O2SAT 98
[2020-03-06 06:03] LABS: Hemoglobin A1C 5.1 % (<5.7)
[2020-03-06 06:08] LABS: Alanine Aminotransferase 27 U/L (4-35); Albumin Level 3.3 g/dL (3.5-5.1); Alkaline Phosphatase 73 U/L (38-126); Anion Gap 5 mmol/L (8-16); Aspartate Amino Transferase 36 U/L (14-36); Blood Urea Nitrogen 10 mg/dL (7-17); Calcium 8.3 mg/dL (8.4-10.2); Carbon Dioxide 25 mmol/L (22-30); Chloride 107 mmol/L (98-107); Creatine Kinase 32 U/L (30-135); Estimated CRCL calculation 92 ml/min; Estimated Glomerular Filt Rate > 60; Glucose 95 mg/dL (65-105); Magnesium 1.7 mg/dL (1.6-2.3); Phosphorus 3.9 mg/dL (2.5-4.5); Potassium 3.6 mmol/L (3.4-5.0); Sodium 137 mmol/L (137-145)
--- NOTE | 2020-03-06 08:16 | WPDGIPROGNO ---
Progress Note: A&P Additional Plan Patient more alert and appropriate this morning. Less anxious. She reports diarrhea is gone and no longer present. She denies abdominal pain. Tolerating regular diet. Physical exam reveals patient to be alert. Vital signs stable. HEENT exam unremarkable. Lungs are clear to auscultation and percussion. Heart is without murmur or extra sounds. Abdominal exam is soft nontender with no hepatosplenomegaly. Impression 1. Diarrhea. This appears to correlate with colitis seen on CT scan. Infectious etiology is likely. Plan is to compete 7-10 day course of broad-spectrum antibiotics. High-fiber diet advised. No additional workup warranted at this time. 2. Drug abuse. This likely contributes to her overall poor health. Rehab is strongly encouraged and avoidance of narcotics encouraged. 3. Hepatitis C. patient followed by hepatology elsewhere. She has been encouraged to abstain from alcohol prior to treatment. Follow up with her established residence director after discharge encouraged. Subjective Date/time seen: 03/06/20 08:16 Objective Data Vital Signs Vital Signs: Vital Signs - 24 hr 03/05/20 18:57 03/05/20 21:26 03/06/20 06:00 Temperature 98.1 F 98.6 F 98.9 F Pulse Rate 72 56 L 62 Respiratory Rate 18 16 16 Blood Pressure 110/60 115/72 117/97 H Pulse Oximetry 96 97 98 Intake/Output Intake/Output: Intake & Output 03/03/20 03/04/20 03/05/20 03/06/20 23:59 23:59 23:59 23:59 Intake Total 3600 3440 200 Output Total 1100 300 Balance 3600 2340 -100 Meds/Results Medications: Active Medications Generic Name Dose Route Start Last Admin Trade Name Freq PRN Reason Stop Dose Admin Albuterol 2 puff 03/04/20 17:44 Proventil Hfa INHALATION Q4H PRN Shortness Of Breath Clonidine HCl 1 patch 03/05/20 09:00 03/05/20 08:43 [id number] TRANSDERM 1 patch WEEKLY JULIANA Administration Cyclobenzaprine HCl 10 mg 03/04/20 17:44 Flexeril PO TID PRN Muscle Spasm Gabapentin 300 mg 03/05/20 09:00 03/05/20 17:48 Neurontin PO 300 mg TID JULIANA Administration Hydroxyzine Pamoate 100 mg 03/04/20 17:56 03/06/20 04:21 Vistaril Capsule PO 100 mg QID PRN Administration Anxiety Hyoscyamine 0.125 mg 03/05/20 08:11 03/06/20 04:03 Levsin Tablet SUBLINGUAL 0.125 mg Q4H PRN Administration Abdominal Cramping Lactated Ringer's 1,000 mls @ 125 mls/hr 03/04/20 10:25 03/05/20 23:43 Lr - Lactated Ringers Iv IV CONT 125 mls/hr .Q8H JULIANA Administration Piperacillin/Tazobactam/Dextrose 3.375 gm in 50 mls @ 100 mls/hr 03/04/20 18:00 03/06/20 06:00 Zosyn 3.375 Gm/D5w 50ml Pm IVPB Infused Q6HR JULIANA Infusion Lorazepam 1 mg 03/05/20 09:51 03/05/20 17:48 Ativan Inj IV PUSH 1 mg Q4H PRN Administration Anxiety Methadone HCl 10 mg 03/07/20 09:00 Methadone Hcl PO 03/07/20 22:00 BID JULIANA Methadone HCl 15 mg 03/06/20 09:00 Methadone Hcl PO 03/06/20 22:00 BID JULIANA Mirtazapine 45 mg 03/05/20 09:00 03/05/20 08:05 Remeron PO Not Given DAILY JULIANA Montelukast Sodium 10 mg 03/05/20 09:00 03/05/20 08:05 Singulair PO Not Given DAILY [facility] Nicotine 1 patch 03/04/20 17:55 03/05/20 08:06 Nicoderm Cq 21 Mg TRANSDERM 1 patch QAM JULIANA Administration Ondansetron HCl 4 mg 03/04/20 10:22 03/06/20 04:05 Zofran Inj IV PUSH 4 mg Q4H PRN Administration Nausea Tizanidine HCl 4 mg 03/04/20 17:44 Zanaflex PO Q8H PRN Muscle Pain Trazodone HCl 200 mg 03/04/20 17:44 03/05/20 05:17 Desyrel PO 200 mg HS PRN Administration Insomnia Radiology Results: ITS Impressions Head CT 03/04/20 08:55 IMPRESSION: 1. No fracture. Normal brain. Chest X-Ray 03/04/20 09:02 IMPRESSION: 1. Minimal bibasilar atelectasis. Cervical Spine CT 03/04/20 09:03 IMPRESSION: 1. No acute osseous abnormality. 2. Modera
[2020-03-06] MEDS: METHADONE HCL 5 MG 15 MG PO ×2 (08:33→16:58)
[2020-03-06] MEDS: LACTATED RINGERS 1,000 ML 125 ML IV CONT (08:34)
[2020-03-06] MEDS: MONTELUKAST SODIUM 10 MG TABLET PO (08:37)
[2020-03-06] MEDS: GABAPENTIN 300 MG CAPSULE PO ×3 (08:37→16:58)
[2020-03-06] MEDS: MIRTAZAPINE 15 MG TABLET 45 MG PO (08:38)
[2020-03-06] MEDS: NICOTINE (*PBKC) 21 MG PATCH 1 PATCH TRANSDERM (08:38)
[2020-03-06 14:00] VITALS: BP 137/90; PULSE 72; RESP 16; TEMP 36.7; O2SAT 96
[2020-03-06] MEDS: VANCOMYCIN ORAL 500 MG/10 ML SYRUP PO (18:59)
--- NOTE | 2020-03-06 19:52 | PM.IMPN ---
Progress Note: A&P Assessment and Plan (1) Sepsis: Code(s): A41.9 - Sepsis, unspecified organism Status: Acute Assessment and Plan: Present on admission with elevated WBC and elevated lactic acid. No evidence of organ disfunction. Korbel related to the infectious enterocolitis. (2) Enterocolitis: Code(s): K52.9 - Noninfective gastroenteritis and colitis, unspecified Status: Acute Assessment and Plan: Presumed to be bacterial but consider ischemic related to recent drug use and possible HoTN. BP stable here since admission. Patient was started on Zosyn. She does have an elevated white count however she had overdosed on fentanyl and had a traumatic event as well. GI folowing and feel that her symptoms are more acute and not related to any Crohn's. Stool studies showing indeterminate for CDiff so will add oral Vanco until results known. (3) Dehydration: Code(s): E86.0 - Dehydration Status: Acute Assessment and Plan: Labs are normal. WIll stop IV fluids. (4) Opioid abuse: Code(s): F11.10 - Opioid abuse, uncomplicated Status: Chronic Assessment and Plan: The patient had been on suboxone in the past and she had been on these for 1 year and was going to transition to something different. However the patient had a relapse and started using fentanyl again. This was the 2nd time that the patient had overdose. She is agreeable to go to drug rehab. she states that her symptoms are identical to symptoms she has had with withdrawal in the past. She is currently more stable. Continue with clonidine, anti spasmatics, and a 3 date tapering course of methadone. (5) Hepatitis C: Code(s): B19.20 - Unspecified viral hepatitis C without hepatic coma Status: Chronic Assessment and Plan: The patient was IV drug user and now uses pill form and snorts it. She has multiple rosario on her arms and legs some relatively neew appearing. She was diagnosed with hepatitis C. She stated that she is not able to get treatment for hepatitis C as she is not been clean from using drugs. Plan per GI is for patient to follow-up for hep C treatment after discharge. (6) Asthma: Code(s): J45.909 - Unspecified asthma, uncomplicated Status: Chronic Assessment and Plan: Stable. Continue with her inhaler (7) Bipolar disorder: Code(s): F31.9 - Bipolar disorder, unspecified Status: Chronic Assessment and Plan: Patient needs to seek professional help from his psychiatric facility. She is on trazodone at night as needed. Patient will need treatment for her underlying mental disease. (8) Anxiety: Code(s): F41.9 - Anxiety disorder, unspecified Status: Chronic Assessment and Plan: Mood stable. Continue P.r.n. Ativan; continue prn trazodone (9) COPD (chronic obstructive pulmonary disease): Code(s): J44.9 - Chronic obstructive pulmonary disease, unspecified Status: Chronic Assessment and Plan: Lungs clear. Continue with her inhaler (10) Breast mass: Code(s): N63.0 - Unspecified lump in unspecified breast Status: Acute Assessment and Plan: sonogram confirmed recent mammogram lesion and biopsy is indicated. Khalif arrange for general surgery to see. (11) DVT prophylaxis: Code(s): Z29.9 - Encounter for prophylactic measures, unspecified Status: Acute Assessment and Plan: SCDs Subjective Date/time seen: 03/06/20 19:52 Interval history: 45-year-old female with narcotic addiction admitted with abdominal cramping and diarrhea. CT scan of the abdomen revealed enteritis around the terminal ileum. assuming care. Chart reviewed. Patient having occasional abdominal pain at this time. Overall her abdominal pain is better. She is eating okay. No nausea or vomiting with the exception that she has slight nausea after eati
[2020-03-06 20:00] VITALS: BP 143/81; PULSE 68; RESP 20; TEMP 36.6; O2SAT 95
[2020-03-07] MEDS: VANCOMYCIN ORAL 500 MG/10 ML SYRUP PO ×5 (00:46→23:36)
[2020-03-07] MEDS: traZODone HCL 50 MG TABLET 200 MG PO (01:13)
[2020-03-07 04:00] VITALS: BP 142/93; PULSE 63; RESP 18; TEMP 36.4; O2SAT 96
[2020-03-07] MEDS: MIRTAZAPINE 15 MG TABLET 45 MG PO (08:12)
[2020-03-07] MEDS: GABAPENTIN 300 MG CAPSULE PO ×3 (08:12→17:22)
[2020-03-07] MEDS: MONTELUKAST SODIUM 10 MG TABLET PO (08:12)
[2020-03-07] MEDS: NICOTINE (*PBKC) 21 MG PATCH 1 PATCH TRANSDERM (08:13)
--- NOTE | 2020-03-07 08:18 | PM.CNGS ---
Assessment and Plan Assessment and plan (1) Abnormal finding on breast imaging: Code(s): R92.8 - Other abnormal and inconclusive findings on diagnostic imaging of breast Status: Chronic Assessment and Plan: breast exam negative. The nodule is not palpable. There are no palpable nodules in either breast. There is no lymphadenopathy of the axilla with cervical or supraclavicular areas either. Will proceed with ultrasound-guided needle core biopsy of right breast lesion. Patient does not have to stay in the hospital for this. If suitable for discharge, she can follow up with me as an outpatient. (2) Opioid abuse: Code(s): F11.10 - Opioid abuse, uncomplicated Status: Chronic (3) Enterocolitis: Code(s): K52.9 - Noninfective gastroenteritis and colitis, unspecified Status: Acute (4) Hepatitis C: Code(s): B19.20 - Unspecified viral hepatitis C without hepatic coma Status: Chronic (5) Bipolar disorder: Code(s): F31.9 - Bipolar disorder, unspecified Status: Chronic History of Present Illness Consult details Consult date: 03/07/20 Reason for consult: other ( Abnormal breast imaging) Narrative: patient is a 45-year-old woman who is currently admitted with left lower quadrant pain thought to be due to colitis. She is also a heroin addict and has bipolar affective disorder. She had a mammogram around the end of January which showed a concerning lesion in the right breast. This lesion showed up on her CT scan of the abdomen and pelvis on admission. A right breast ultrasound was done on 03/05/2020 which showed a 1.3 cm lesion at 2:00 a.m., upper inner quadrant, of the right breast. Left breast imaging is negative although there is a benign cyst at 12:00 p.m. in the left breast. Patient is seen in consultation regarding this right breast lesion which has been designated BI-RADS 4. Patient has family history of breast cancer in that hurt too and says, her mother's sisters, have both had bilateral mastectomies for cancer. Her mother did not have breast cancer but did of lung cancer in her 60s. The patient does have a history of cervical cancer. Review of Systems Review of Systems: All systems reviewed & are unremarkable except as noted in HPI and below Constitutional: Constitutional: Reports as per HPI, Denies headache(s) and Denies weakness Integumentary/Breasts: Skin/Breast: Denies breast skin changes, Denies breast pain, Denies breast mass, Denies change in breast shape, Denies non-healing lesions, Denies erythema and Denies rash Neurologic: Denies Sensory deficit (Neuro) [facility] Past Medical History Medical History Anemia Anxiety Asthma Back pain Bipolar disorder Bronchitis Cervical cancer with chemotherapy and partial hysterectomy COPD (chronic obstructive pulmonary disease) Depression Emphysema lung Endometriosis Fibroids Fractures bilateral legs, ribs GERD (gastroesophageal reflux disease) Gum disease peridontal Hepatitis C not yet treated History of cervical cancer Hypertension Kidney stones Neuropathy Opioid abuse last used yesterday fentanyl 03/03/2020 Peptic ulcer PID (acute pelvic inflammatory disease) Pneumonia PTSD (post-traumatic stress disorder) Seizures Shingles Sinus problem Surgical History Surgical History H/O tubal ligation History of partial hysterectomy Hx of section x1 Hx of cholecystectomy Family History Family History Sibling Acute myocardial infarction Father Hypertension Lung cancer Mother Hypertension Lung cancer Social History Social History Social History: the patient is single and has two children. one is 17 and the other one is 20. she lives in the same house with the father f
--- NOTE | 2020-03-07 08:41 | WPDGIPROGNO ---
Progress Note: A&P Additional Plan Patient alert and comfortable this morning. She reports no additional diarrhea. Has not had a formed stool yet however. Physical exam reveals her to be alert. She remains at bed rest. HEENT exam she is anicteric. Abdomen is soft and nontender. Impression 1. Diarrhea appears resolved. Nonspecific colitis on CT scan. Would recommend high-fiber diet. Complete 7-10 day course of broad-spectrum antibiotics as an outpatient. I would defer vancomycin Unless C difficile infection is confirmed. 2. Hepatitis-C. Patient followed by hepatology elsewhere. Agree with her plans to treat this after she abstains from alcohol and other drugs. 3. Drug abuse. Rehab strongly encourage. 4. Bipolar illness. Subjective Date/time seen: 03/07/20 08:41 Objective Data Vital Signs Vital Signs: Vital Signs - 24 hr 03/06/20 14:00 03/06/20 20:00 03/07/20 04:00 Temperature 98.0 F 97.8 F 97.6 F Pulse Rate 72 68 63 Respiratory Rate 16 20 18 Blood Pressure 137/90 143/81 H 142/93 H Pulse Oximetry 96 95 96 Intake/Output Intake/Output: Intake & Output 03/04/20 03/05/20 03/06/20 03/07/20 23:59 23:59 23:59 23:59 Intake Total 3600 3440 2380 790 Output Total 1100 1150 2200 Balance 3600 2340 1230 -1410 Meds/Results Medications: Active Medications Generic Name Dose Route Start Last Admin Trade Name Freq PRN Reason Stop Dose Admin Albuterol 2 puff 03/04/20 17:44 Proventil Hfa INHALATION Q4H PRN Shortness Of Breath Clonidine HCl 1 patch 03/05/20 09:00 03/05/20 08:43 [id number] TRANSDERM 1 patch WEEKLY JULIANA Administration Cyclobenzaprine HCl 10 mg 03/04/20 17:44 Flexeril PO TID PRN Muscle Spasm Gabapentin 300 mg 03/05/20 09:00 03/07/20 08:12 Neurontin PO 300 mg TID JULIANA Administration Hydroxyzine Pamoate 100 mg 03/04/20 17:56 03/06/20 04:21 Vistaril Capsule PO 100 mg QID PRN Administration Anxiety Hyoscyamine 0.125 mg 03/05/20 08:11 03/06/20 04:03 Levsin Tablet SUBLINGUAL 0.125 mg Q4H PRN Administration Abdominal Cramping Piperacillin/Tazobactam/Dextrose 3.375 gm in 50 mls @ 100 mls/hr 03/04/20 18:00 03/07/20 06:40 Zosyn 3.375 Gm/D5w 50ml Pm IVPB Infused Q6HR JULIANA Infusion Lorazepam 1 mg 03/05/20 09:51 03/06/20 20:24 Ativan Inj IV PUSH 1 mg Q4H PRN Administration Anxiety Methadone HCl 10 mg 03/07/20 09:00 03/07/20 08:12 Methadone Hcl PO 03/07/20 22:00 10 mg BID JULIANA Administration Mirtazapine 45 mg 03/05/20 09:00 03/07/20 08:12 Remeron PO 45 mg DAILY JULIANA Administration Montelukast Sodium 10 mg 03/05/20 09:00 03/07/20 08:12 Singulair PO 10 mg DAILY JULIANA Administration Nicotine 1 patch 03/04/20 17:55 03/07/20 08:13 Nicoderm Cq 21 Mg TRANSDERM 1 patch QAM JULIANA Administration Ondansetron HCl 4 mg 03/04/20 10:22 03/06/20 20:32 Zofran Inj IV PUSH 4 mg Q4H PRN Administration Nausea Tizanidine HCl 4 mg 03/04/20 17:44 Zanaflex PO Q8H PRN Muscle Pain Trazodone HCl 200 mg 03/04/20 17:44 03/07/20 01:13 Desyrel PO 200 mg HS PRN Administration Insomnia Vancomycin HCl 500 mg 03/06/20 18:00 03/07/20 06:00 Vancomycin Oral PO 500 mg Q6HR JULIANA Administration Radiology Results: ITS Impressions Head CT 03/04/20 08:55 IMPRESSION: 1. No fracture. Normal brain. Chest X-Ray 03/04/20 09:02 IMPRESSION: 1. Minimal bibasilar atelectasis. Cervical Spine CT 03/04/20 09:03 IMPRESSION: 1. No acute osseous abnormality. 2. Moderate spondylosis with mild central canal stenosis at C5-C6. Mild spondylosis throughout the remainder of the cervical spine. 3. A few tiny nodules and scattered tree-in-bud pattern at the bilateral apices which could represent respiratory bronchiolitis interstitial lung disease or sequela of infection. Abdomen/Pelvis CT 03/04/20 09:
--- NOTE | 2020-03-07 10:08 | PM.IMPN ---
Progress Note: A&P Assessment and Plan (1) Sepsis: Code(s): A41.9 - Sepsis, unspecified organism Status: Acute Assessment and Plan: Present on admission with elevated WBC and elevated lactic acid. No evidence of organ disfunction. [place] related to the infectious enterocolitis. (2) Enterocolitis: Code(s): K52.9 - Noninfective gastroenteritis and colitis, unspecified Status: Acute Assessment and Plan: Presumed to be bacterial but consider ischemic related to recent drug use and possible HoTN. BP stable here since admission. Patient was started on Zosyn. Elevated white count to 25K and has since dropped to near normal. GI following and feel that her symptoms are more acute and not related to Crohn's. Stool studies showing indeterminate for CDiff so oral Vanco added. BCx NGTD. Other stool studies pending. (3) Dehydration: Code(s): E86.0 - Dehydration Status: Acute Assessment and Plan: Labs are normal. IV fluids stopped. She is eating well. (4) Opioid abuse: Code(s): F11.10 - Opioid abuse, uncomplicated Status: Chronic Assessment and Plan: The patient was educated about the benefits of abstaining from drug use. The patient had been on suboxone in the past and she had been on these for 1 year and was going to transition to something different. However the patient had a relapse and started using fentanyl again. This was the 2nd time that the patient had overdose. She is agreeable to go to drug rehab. she states that her symptoms are identical to symptoms she has had with withdrawal in the past. She is currently more stable. Continue with clonidine, anti spasmatics, and a 3 day tapering course of methadone. She is requesting the methadone be continued but will stop this after today and monitor. (5) Hepatitis C: Code(s): B19.20 - Unspecified viral hepatitis C without hepatic coma Status: Chronic Assessment and Plan: The patient was IV drug user and now uses pill form and snorts it. She has multiple rosario on her arms and legs some relatively new appearing. She was diagnosed with hepatitis C. She stated that she is not able to get treatment for hepatitis C as she is not been clean from using drugs. Plan per GI is for patient to follow-up for HepC treatment after discharge. (6) Asthma: Code(s): J45.909 - Unspecified asthma, uncomplicated Status: Chronic Assessment and Plan: Stable. Continue with her inhaler (7) Bipolar disorder: Code(s): F31.9 - Bipolar disorder, unspecified Status: Chronic Assessment and Plan: Patient needs to follow up with psychiatria. She is on trazodone at night as needed. Patient will need treatment for her underlying psychiatric disorder and for her addiction. (8) Anxiety: Code(s): F41.9 - Anxiety disorder, unspecified Status: Chronic Assessment and Plan: Mood stable. Continue P.r.n. Ativan. (9) COPD (chronic obstructive pulmonary disease): Code(s): J44.9 - Chronic obstructive pulmonary disease, unspecified Status: Chronic Assessment and Plan: Lungs clear. Continue with her inhaler (10) Breast mass: Code(s): N63.0 - Unspecified lump in unspecified breast Status: Acute Assessment and Plan: Sonogram confirmed recent mammogram lesion and biopsy is indicated. General surgery consult for biopsy (11) DVT prophylaxis: Code(s): Z29.9 - Encounter for prophylactic measures, unspecified Status: Acute Assessment and Plan: SCDs Subjective Date/time seen: 03/07/20 10:08 Interval history: Date of service: 03/07 45-year-old female with narcotic addiction admitted with abdominal cramping and diarrhea. CT scan of the abdomen revealed enteritis around the terminal ileum. Patient slept poorly. She feels depressed denies suicidal ideation. She denie
--- NOTE | 2020-03-07 10:24 | PCPTNOTE ---
Attempted PT eval. Pt refused, states she didn't sleep well last night and is too tired. Will try agaiin at later time.
[2020-03-07] MEDS: TIZANIDINE HCL 4 MG TABLET PO (10:35)
[2020-03-07] MEDS: hydrOXYzine pamoate 25 MG CAPSULE 100 MG PO (12:36)
--- NOTE | 2020-03-07 13:19 | PCPTNOTE ---
Attempted PT eval. Pt refused, states she had biopsy done and did not want to do therapy. Will try again tomorrow.
[2020-03-07 14:00] VITALS: BP 122/74; PULSE 60; RESP 14; TEMP 36.8; O2SAT 96
--- NOTE | 2020-03-07 16:04 | PC.NURSE ---
DR ORDOÑEZ NOTIFIED OF POSITIVE C DIFF RESULTS
[2020-03-07] MEDS: ONDANSETRON INJ 4 MG/2 ML VIAL IV PUSH (17:25)
[2020-03-07] MEDS: LORazepam 0.5 MG TABLET PO ×2 (17:25→23:38)
[2020-03-07 20:00] VITALS: PULSE 55; RESP 16; O2SAT 95
[2020-03-07 21:19] VITALS: BP 143/89; PULSE 55; RESP 16; TEMP 36.4; O2SAT 95
[2020-03-08] MEDS: ONDANSETRON INJ 4 MG/2 ML VIAL IV PUSH (04:08)
[2020-03-08 05:17] VITALS: BP 140/82; PULSE 67; RESP 16; TEMP 36.4; O2SAT 95
[2020-03-08 05:55] LABS: Basophils Absolute Auto 0.1 K/mm3 (0.0-0.1); Basophils Percent Auto 0.6 % (0.2-1.2); Eosinophils Absolute Auto 0.6 K/mm3 (0-0.3); Eosinophils Percent Auto 5.9 % (0-4.4); Hematocrit 39.1 % (37.0-47.0); Hemoglobin 12.8 g/dL (12.0-15.0); Immature Granulocyte Absolute 0.04 K/mm3 (0.00-0.031); Immature Granulocyte Percent A 0.4 % (0-0.5); Lymphocytes Absolute Auto 3.51 K/mm3 (0.9-3.2); Lymphocytes Percent Auto 34.3 % (18.3-44.2); Mean Corpuscular HGB Conc 32.7 g/dl (32-36); Mean Corpuscular Hemoglobin 27.8 pg (26-34); Mean Platelet Volume 9.6 fl (7.4-10.4); Monocytes Absolute Auto 0.5 K/mm3 (0.1-0.6); Monocytes Percent Auto 5.2 % (2.6-8.5); Neutrophils Absolute Auto 5.5 K/mm3 (1.3-6.7); Neutrophils Percent Auto 53.6 % (45.5-73.1); Platelet Count Result 331 k/mm3 (150-375); Red Cell Distribution Width 13.4 % (11.5-14.5); White Blood Count 10.2 K/mm3 (4.5-10.0)
[2020-03-08] MEDS: VANCOMYCIN ORAL 500 MG/10 ML SYRUP PO ×2 (06:04→12:55)
[2020-03-08 06:08] LABS: Anion Gap 7 mmol/L (8-16); Blood Urea Nitrogen 8 mg/dL (7-17); Calcium 8.7 mg/dL (8.4-10.2); Carbon Dioxide 29 mmol/L (22-30); Chloride 103 mmol/L (98-107); Estimated CRCL calculation 92 ml/min; Estimated Glomerular Filt Rate > 60; Glucose 123 mg/dL (65-105); Potassium 3.8 mmol/L (3.4-5.0); Sodium 139 mmol/L (137-145)
[2020-03-08] MEDS: HYOSCYAMINE SULFATE 0.125 MG TABLET SUBLINGUAL (06:36)
[2020-03-08] MEDS: LORazepam 0.5 MG TABLET PO (06:36)
--- NOTE | 2020-03-08 06:44 | PM.PNGS ---
Progress Note: A&P Assessment and Plan (1) Abnormal finding on breast imaging: Code(s): R92.8 - Other abnormal and inconclusive findings on diagnostic imaging of breast Status: Chronic Assessment and Plan: ultrasound-guided core biopsy done yesterday. Will follow peripherally. If pathology comes back tomorrow will discuss with patient. Probably it won't come back until next week. If patient still in the hospital, will discuss with her at that time. Otherwise she will need to see me in the office in 7-10 days to discuss. Subjective Subjective Date/Time Seen: 03/08/20 06:44 Patient reports: no new complaints ( Had ultrasound-guided core biopsy right breast yesterday) Review of Systems Review of Systems: All systems reviewed & are unremarkable except as noted in HPI and below Constitutional: Constitutional: Denies headache(s) Cardiovascular: Cardiovascular: Denies chest pain and Denies dyspnea Respiratory: Respiratory: Denies cough and Denies dyspnea Gastrointestinal: Gastrointestinal: Reports as per HPI and Reports other ( stool tested positive for C diff, on precautions) Neurologic: Denies confusion and Denies headache(s) Exam Chest: Breast/axilla inspection: abnormal inspection of the breast ( right breast dressing dry and intact, no hematoma) Objective Data Vital Signs Vital Signs: Vital Signs - 24 hr 03/07/20 14:00 03/07/20 20:00 03/07/20 21:19 Temperature 36.8 C 36.4 C L Pulse Rate 60 55 L 55 L Respiratory Rate 14 16 16 Blood Pressure 122/74 143/89 H Pulse Oximetry 96 95 95 03/08/20 05:17 Temperature 36.4 C Pulse Rate 67 Respiratory Rate 16 Blood Pressure 140/82 Pulse Oximetry 95 Intake/Output Intake/Output: Intake & Output 03/05/20 03/06/20 03/07/20 03/08/20 23:59 23:59 23:59 23:59 Intake Total 3440 2380 2360 340 Output Total 1100 1150 3700 700 Balance 2340 1230 -5400 -360 Meds/Results Medications: Active Medications Generic Name Dose Route Start Last Admin Trade Name Freq PRN Reason Stop Dose Admin Albuterol 2 puff 03/04/20 17:44 Proventil Hfa INHALATION Q4H PRN Shortness Of Breath Clonidine HCl 1 patch 03/05/20 09:00 03/05/20 08:43 [id number] TRANSDERM 1 patch WEEKLY JULIANA Administration Cyclobenzaprine HCl 10 mg 03/04/20 17:44 Flexeril PO TID PRN Muscle Spasm Gabapentin 300 mg 03/05/20 09:00 03/07/20 17:22 Neurontin PO 300 mg TID JULIANA Administration Hydroxyzine Pamoate 100 mg 03/04/20 17:56 03/07/20 12:36 Vistaril Capsule PO 100 mg QID PRN Administration Anxiety Hyoscyamine 0.125 mg 03/05/20 08:11 03/08/20 06:36 Levsin Tablet SUBLINGUAL 0.125 mg Q4H PRN Administration Abdominal Cramping Lorazepam 0.5 mg 03/07/20 10:17 03/08/20 06:36 Ativan Tablet PO 0.5 mg Q6H PRN Administration Anxiety Mirtazapine 45 mg 03/05/20 09:00 03/07/20 08:12 Remeron PO 45 mg DAILY JULIANA Administration Montelukast Sodium 10 mg 03/05/20 09:00 03/07/20 08:12 Singulair PO 10 mg DAILY JULIANA Administration Nicotine 1 patch 03/04/20 17:55 03/07/20 08:13 Nicoderm Cq 21 Mg TRANSDERM 1 patch QAM JULIANA Administration Ondansetron HCl 4 mg 03/04/20 10:22 03/08/20 04:08 Zofran Inj IV PUSH 4 mg Q4H PRN Administration Nausea Tizanidine HCl 4 mg 03/04/20 17:44 03/07/20 10:35 Zanaflex PO 4 mg Q8H PRN Administration Muscle Pain Trazodone HCl 200 mg 03/04/20 17:44 03/07/20 01:13 Desyrel PO 200 mg HS PRN Administration Insomnia Vancomycin HCl 500 mg 03/06/20 18:00 03/08/20 06:04 Vancomycin Oral PO 500 mg Q6HR JULIANA Administration Radiology Results: ITS Impressions Head CT 03/04/20 08:55 IMPRESSION: 1. No fracture. Normal brain. Chest X-Ray 03/04/20 09:02 IMPRESSION: 1. Minimal bibasilar atelectasis. Cervical Spine CT 03/04/20 09:03 IMPRESSION: 1. No acute osseou
--- NOTE | 2020-03-08 09:05 | PCOTNOTE ---
Per RN, patient wanting to leave AMA. Patient not seen this AM. Will attempt again later if patient does not discharge.
[2020-03-08] MEDS: MONTELUKAST SODIUM 10 MG TABLET PO (09:07)
[2020-03-08] MEDS: GABAPENTIN 300 MG CAPSULE PO ×2 (09:07→12:55)
[2020-03-08] MEDS: MIRTAZAPINE 15 MG TABLET 45 MG PO (09:08)
[2020-03-08] MEDS: NICOTINE (*PBKC) 21 MG PATCH 1 PATCH TRANSDERM (09:08)
[2020-03-08] MEDS: hydrOXYzine pamoate 25 MG CAPSULE 100 MG PO (09:10)
--- NOTE | 2020-03-08 09:14 | PCPTNOTE ---
Attempted PT evaluation. Patient requesting to leave AMA. Will attempt again at later time if pt not discharged.
--- NOTE | 2020-03-08 09:36 | WPDGIPROGNO ---
Progress Note: A&P Additional Plan Patient reports diarrhea has improved. Physical exam reveals abdomen to be benign. Stool for C difficile toxin confirms positive reason results. Impression 1. Diarrhea likely related C difficile infection. Agree with vancomycin for 10 day course. 2. Hepatitis- C. Patient followed by hepatology elsewhere. Plan for patient to follow up to consider treatment for hepatitis C after discharge. 3. Drug abuse. Rehab strongly encourage for this patient. 4. Breast mass. Status post biopsy. Dr. Teran following. Subjective Date/time seen: 03/08/20 09:36 Objective Data Vital Signs Vital Signs: Vital Signs - 24 hr 03/07/20 14:00 03/07/20 20:00 03/07/20 21:19 Temperature 98.3 F 97.5 F L Pulse Rate 60 55 L 55 L Respiratory Rate 14 16 16 Blood Pressure 122/74 143/89 H Pulse Oximetry 96 95 95 03/08/20 05:17 Temperature 97.6 F Pulse Rate 67 Respiratory Rate 16 Blood Pressure 140/82 Pulse Oximetry 95 Intake/Output Intake/Output: Intake & Output 03/05/20 03/06/20 03/07/20 03/08/20 23:59 23:59 23:59 23:59 Intake Total 3440 2380 2360 340 Output Total 1100 1150 3700 1100 Balance 2340 1230 -1340 -760 Meds/Results Medications: Active Medications Generic Name Dose Route Start Last Admin Trade Name Freq PRN Reason Stop Dose Admin Albuterol 2 puff 03/04/20 17:44 Proventil Hfa INHALATION Q4H PRN Shortness Of Breath Clonidine HCl 1 patch 03/05/20 09:00 03/05/20 08:43 [id number] TRANSDERM 1 patch WEEKLY JULIANA Administration Cyclobenzaprine HCl 10 mg 03/04/20 17:44 Flexeril PO TID PRN Muscle Spasm Gabapentin 300 mg 03/05/20 09:00 03/08/20 09:07 Neurontin PO 300 mg TID JULIANA Administration Hydroxyzine Pamoate 100 mg 03/04/20 17:56 03/08/20 09:10 Vistaril Capsule PO 100 mg QID PRN Administration Anxiety Hyoscyamine 0.125 mg 03/05/20 08:11 03/08/20 06:36 Levsin Tablet SUBLINGUAL 0.125 mg Q4H PRN Administration Abdominal Cramping Lorazepam 0.5 mg 03/07/20 10:17 03/08/20 06:36 Ativan Tablet PO 0.5 mg Q6H PRN Administration Anxiety Mirtazapine 45 mg 03/05/20 09:00 03/08/20 09:08 Remeron PO 45 mg DAILY JULIANA Administration Montelukast Sodium 10 mg 03/05/20 09:00 03/08/20 09:07 Singulair PO 10 mg DAILY JULIANA Administration Nicotine 1 patch 03/04/20 17:55 03/08/20 09:08 Nicoderm Cq 21 Mg TRANSDERM 1 patch QAM JULIANA Administration Ondansetron HCl 4 mg 03/04/20 10:22 03/08/20 04:08 Zofran Inj IV PUSH 4 mg Q4H PRN Administration Nausea Tizanidine HCl 4 mg 03/04/20 17:44 03/07/20 10:35 Zanaflex PO 4 mg Q8H PRN Administration Muscle Pain Trazodone HCl 200 mg 03/04/20 17:44 03/07/20 01:13 Desyrel PO 200 mg HS PRN Administration Insomnia Vancomycin HCl 500 mg 03/06/20 18:00 03/08/20 06:04 Vancomycin Oral PO 500 mg Q6HR JULIANA Administration Radiology Results: ITS Impressions Head CT 03/04/20 08:55 IMPRESSION: 1. No fracture. Normal brain. Chest X-Ray 03/04/20 09:02 IMPRESSION: 1. Minimal bibasilar atelectasis. Cervical Spine CT 03/04/20 09:03 IMPRESSION: 1. No acute osseous abnormality. 2. Moderate spondylosis with mild central canal stenosis at C5-C6. Mild spondylosis throughout the remainder of the cervical spine. 3. A few tiny nodules and scattered tree-in-bud pattern at the bilateral apices which could represent respiratory bronchiolitis interstitial lung disease or sequela of infection. Abdomen/Pelvis CT 03/04/20 09:10 IMPRESSION: 1. Wall thickening along a couple segments of ileum including the terminal ileum as well as at the sigmoid colon suggesting an enterocolitis which could be either infectious or Crohn's disease. 2. Bilateral nonobstructing nephrolithiasis. 3. 1.5 cm mass with smooth margins at the inner right breast. Further review of p
--- NOTE | 2020-03-08 11:00 | PM.DS ---
DS: Admitting Diagnosis Admitting Diagnosis Admitting Diagnosis: Sepsis, Colitis DS: Discharge Diagnosis Discharge Diagnosis (1) Sepsis: Code(s): A41.9 - Sepsis, unspecified organism Status: Acute Assessment and Plan: Present on admission with elevated WBC and elevated lactic acid. No evidence of organ disfunction. [place] related to the infectious enterocolitis. (2) Enterocolitis: Code(s): K52.9 - Noninfective gastroenteritis and colitis, unspecified Status: Acute Assessment and Plan: Patient presented with abdominal pain. CT of the abdomen in the ER showing wall thickening along a couple segments of ileum including the terminal ileum as well as at the sigmoid colon suggesting an enterocolitis which could be either infectious or Crohn's disease. Presumed to be bacterial but we did also consider ischemic related to recent drug use and possible HoTN. BP stable here since admission. Patient was started on Zosyn. Elevated white count to 25K but then dropped to near normal. GI following and felt that her symptoms are more acute related to infection and not related to Crohn's. Stool studies showing indeterminate for CDiff so oral Vanco added. BCx NGTD. Stool culture negative; [place] pending. CDiff Toxin B PCR positive. Zosyn stopped. (3) Dehydration: Code(s): E86.0 - Dehydration Status: Acute Assessment and Plan: Labs are normal. IV fluids stopped. She is eating well. (4) Opioid abuse: Code(s): F11.10 - Opioid abuse, uncomplicated Status: Chronic Assessment and Plan: The patient was educated about the benefits of abstaining from drug use. The patient had been on suboxone in the past and she had been on these for 1 year. However the patient had a relapse and started using fentanyl again. This was the 2nd time that the patient had overdose. She is agreeable to go to drug rehab - this was arranged by care coordination. She was treated with clonidine, anti spasmatics, and a 3 day tapering course of methadone. No evidence of withdrawal (5) Hepatitis C: Code(s): B19.20 - Unspecified viral hepatitis C without hepatic coma Status: Chronic Assessment and Plan: The patient was IV drug user and now uses pill form and snorts it. She has multiple rosario on her arms and legs some relatively new appearing. She was diagnosed with hepatitis C. She stated that she is not able to get treatment for hepatitis C as she is not been clean from using drugs. Plan per GI is for patient to follow-up for HepC treatment after discharge. (6) Asthma: Code(s): J45.909 - Unspecified asthma, uncomplicated Status: Chronic Assessment and Plan: Stable. Continue with her inhaler (7) Bipolar disorder: Code(s): F31.9 - Bipolar disorder, unspecified Status: Chronic Assessment and Plan: Patient needs to follow up with psychiatry. She is on trazodone at night as needed. Patient will need treatment for her underlying psychiatric disorder and for her addiction. (8) Anxiety: Code(s): F41.9 - Anxiety disorder, unspecified Status: Chronic Assessment and Plan: Mood stable. Continue P.r.n. Ativan. (9) COPD (chronic obstructive pulmonary disease): Code(s): J44.9 - Chronic obstructive pulmonary disease, unspecified Status: Chronic Assessment and Plan: Lungs clear. Continue with her inhaler (10) Breast mass: Code(s): N63.0 - Unspecified lump in unspecified breast Status: Acute Assessment and Plan: Sonogram confirmed recent mammogram lesion and biopsy is indicated. General surgery consulted for biopsy. Biopsy performed 03/07/20. Patient to follow up with Gen Surgery for results. (11) Fall: Code(s): W19.XXXA - Unspecified fall, initial encounter Status: Acute Assessment and Plan: Per the ER notes: Patient's lesli
--- NOTE | 2020-03-15 14:06 | PC.NURSE ---
Breast bx shows fibroglandular nodule and microcalcifications. Stool cx is negative.
--- NOTE | 2020-03-20 08:23 | PC.NURSE ---
stool cx is negative. Dr. Francis yates.
--- NOTE | 2020-03-20 08:25 | PC.NURSE ---
Faxed Breast biopsy to Dr. Cerna.
== END 2020-03-08 13:15 | disposition home or self-care (01) | DRG 720 ==
LOC: ANHED 10:26 → ANH2MED 10:43
PROVIDERS: Internal Medicine; Internal Medicine Gastroenterology; Nurse Practitioner; Admitting Provider Family Medicine; Emergency Provider Emergency Medicine; PCP Family Medicine; Visit Provider Internal Medicine
DX: A41.9 Sepsis, unspecified organism (principal); F11.20 Opioid dependence, uncomplicated; A09 Infectious gastroenteritis and colitis, unspecified; E86.0 Dehydration; B19.20 Unspecified viral hepatitis C without hepatic coma; J43.9 Emphysema, unspecified; J45.909 Unspecified asthma, uncomplicated; F31.9 Bipolar disorder, unspecified; F41.9 Anxiety disorder, unspecified; N63.0 Unspecified lump in unspecified breast; F17.210 Nicotine dependence, cigarettes, uncomplicated; K21.9 Gastro-esophageal reflux disease without esophagitis; I10 Essential (primary) hypertension; M47.812 Spondylosis without myelopathy or radiculopathy, cervical region; M48.02 Spinal stenosis, cervical region; M54.2 Cervicalgia; W19.XXXA Unspecified fall, initial encounter; Z79.899 Other long term (current) drug therapy; Z80.1 Family history of malignant neoplasm of trachea, bronchus and lung; Z85.41 Personal history of malignant neoplasm of cervix uteri; Z88.1 Allergy status to other antibiotic agents; Z88.2 Allergy status to sulfonamides
CPT/HCPCS: 19083; 36415; 70450; 71046; 72125; 74176; 76642; 80048; 80053; 81001; 82274; 82550; 83036; 83605; 83690; 83735; 84100; 84443; 84484; 85025; 85610; 85730; 86140; 87040; 87045; 87046; 87324; 87427; 87493; 88305; 88342; 89055; 93005; 96361; 96365; 96367; 96375; 96376; 97165; 97535; 99285; A9270; G0378; G0379; J0131; J1200; J2060; J2405; J2543; J2765; J3480; J7030; J7120

== ENCOUNTER 2020-03-09 16:02 | Observation (INO) | payer OTHER, SELFPAY ==
--- NOTE | ~2020-03-09 | XR_ITS ---
XR abdomen/kub 1V DATE: 03/09/2020 19:07 INDICATION: Abdominal pain. C. difficile colitis TECHNIQUE: Portable supine AP view on 03/09/2020 at 1853 hours COMPARISON: 03/04/2020 CT abdomen pelvis FINDINGS: Surgical clips, right upper quadrant, consistent with cholecystectomy. Nonspecific bowel gas pattern without evidence of obstruction. The psoas shadows are intact. No visce romegaly is detected. IMPRESSION: Status post cholecystectomy Nonspecific abdomen Reviewed, dictated and finalized at [facility]. Reviewed, dictated and finalized at [facility].
[2020-03-09 16:33] VITALS: BP 147/95; PULSE 90; RESP 16; TEMP 37; O2SAT 97
[2020-03-09 18:47] LABS: Basophils Absolute Auto 0.1 K/mm3 (0.0-0.1); Basophils Percent Auto 0.6 % (0.2-1.2); Eosinophils Absolute Auto 0.6 K/mm3 (0-0.3); Eosinophils Percent Auto 4.5 % (0-4.4); Hematocrit 44.6 % (37.0-47.0); Hemoglobin 14.7 g/dL (12.0-15.0); Immature Granulocyte Absolute 0.05 K/mm3 (0.00-0.031); Immature Granulocyte Percent A 0.4 % (0-0.5); Lymphocytes Absolute Auto 4.32 K/mm3 (0.9-3.2); Lymphocytes Percent Auto 32.6 % (18.3-44.2); Mean Corpuscular Hemoglobin 28.3 pg (26-34); Mean Corpuscular Volume 85.8 fl (80-100); Mean Platelet Volume 8.9 fl (7.4-10.4); Monocytes Absolute Auto 0.8 K/mm3 (0.1-0.6); Monocytes Percent Auto 6.2 % (2.6-8.5); Neutrophils Absolute Auto 7.4 K/mm3 (1.3-6.7); Neutrophils Percent Auto 55.7 % (45.5-73.1); Platelet Count Result 426 k/mm3 (150-375); White Blood Count 13.3 K/mm3 (4.5-10.0)
--- NOTE | 2020-03-09 18:50 | ED.NAVMDI ---
HPI - Nausea/Vomiting/Diarrhea General Chief complaint: Nausea/Vomiting/Diarrhea Stated complaint: n/v/d, fatigue Time Seen by Provider: 03/09/20 18:21 Source: patient Mode of arrival: wheelchair Limitations: no limitations History of Present Illness HPI Narrative: This is a 45-year-old female that presents to the emergency department for generalized weakness. Reports she was admitted to the hospital for C. difficile. Reports she has continued to have abdominal pain, nausea and vomiting. Reports 4 loose stools today. Reports her symptoms are improving, but she feels generally weak. Reports she should not have left the hospital as she cannot care for herself. Denies fever. Related Data Home Medications Medication Instructions Recorded Confirmed albuterol sulfate 2 puff INHALATION Q4H PRN 03/04/20 03/04/20 clonidine HCl 0.1 mg PO TID PRN 03/04/20 03/04/20 cyclobenzaprine 10 mg PO TID PRN 03/04/20 03/04/20 gabapentin 300 mg PO TID 03/04/20 03/04/20 hydroxyzine pamoate 100 mg PO QID PRN 03/04/20 03/04/20 mirtazapine 45 mg PO DAILY 03/04/20 03/04/20 montelukast 10 mg PO DAILY 03/04/20 03/04/20 ondansetron 8 mg PO TID PRN 03/04/20 03/04/20 tizanidine 4 mg PO Q8H PRN 03/04/20 03/04/20 trazodone 200 mg PO HS PRN 03/04/20 03/04/20 Allergies Allergy/AdvReac Type Severity Reaction Status Date / Time codeine Allergy Intermediate HIVES, Verified 03/09/20 18:25 TONGUE SWELLING cephalexin Allergy Mild Unknown Verified 03/09/20 18:25 clavulanic acid Allergy Mild BETA Verified 03/09/20 18:25 LACTAMASE INHIBITORS doxycycline Allergy Mild Unknown Verified 03/09/20 18:25 erythromycin base Allergy Mild Unknown Verified 03/09/20 18:25 prochlorperazine Allergy Mild Unknown Verified 03/09/20 18:25 Sulfa (Sulfonamide Allergy Mild Unknown Verified 03/09/20 18:25 Antibiotics) tetracycline Allergy Mild Unknown Verified 03/09/20 18:25 Iodinated Contrast Media Allergy Unknown Unknown Verified 03/09/20 18:25 Review of Systems Review of Systems: Narrative: CONSTITUTIONAL: Denies fever ENT: Denies rhinorrhea, congestion CARDIOVASCULAR: Denies chest pain RESPIRATORY: Denies cough or dyspnea. GASTROINTESTINAL: Reports abdominal pain, nausea, vomiting, and diarrhea. GENITOURINARY: Denies dysuria or hematuria. NEUROLOGIC: Reports weakness. All systems reviewed & are unremarkable except as noted in HPI and below PMFSH Social History Social History Social History: the patient is single and has two children. one is 17 and the other one is 20. she lives in the same house with the father for children but they are not together in a relationship. 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 She has shot up heroin in the past but states that she cannot find heroin. She said that she initially got addicted to narcotics after her hysterectomy. She denies any alcohol use. She smokes a pack a cigarettes a day. She desires to be a full code. She does not have a durable power insurance attorney for healthcare. She does occasionally use marijuana. Smoking packs per day: 1 Smoking cigarettes per day: 20.0 Years smoked: 20 Smoking pack-years: 20.00 Smoking status: Current every day smoker Tobacco type: cigarettes Alcohol intake: never Substance use: current Substance use type: marijuana, heroin, opiates and IV drugs Other substance usage details: fentanyl last used 03/03/2020 Gender identity (if verbalized by the patient): Female Spiritual care concerns: No Exam Narrative: Exam Narrative: GENERAL: Disheveled, well-nourished, and in no acute distress. HEAD: Normocephalic, atraumatic. EYES: PERRLA and EOMI. ENT: Mucous membranes moist. Oropharynx without tonsillar hypertrophy exudate or other lesions. NECK: Supple. No adenopathy or masses. No carotid bruits or JVD CHEST: Clear to auscultati
[2020-03-09 18:59] LABS: Alanine Aminotransferase 31 U/L (4-35); Albumin Level 4.2 g/dL (3.5-5.1); Alkaline Phosphatase 90 U/L (38-126); Anion Gap 8 mmol/L (8-16); Aspartate Amino Transferase 31 U/L (14-36); Bilirubin,Total 0.8 mg/dL (0.2-1.3); Blood Urea Nitrogen 10 mg/dL (7-17); Calcium 9.1 mg/dL (8.4-10.2); Carbon Dioxide 29 mmol/L (22-30); Chloride 104 mmol/L (98-107); Estimated CRCL calculation 90 ml/min; Estimated Glomerular Filt Rate > 60; Glucose 92 mg/dL (65-105); Lipase 111 U/L (23-300); Potassium 3.8 mmol/L (3.4-5.0); Sodium 141 mmol/L (137-145)
[2020-03-09 19:19] LABS: Lactic Acid Reflex 0.9 mmol/L (0.7-2.1)
[2020-03-09 19:34] LABS: CRP 1.2 mg/dL (<1.0)
[2020-03-09 19:39] LABS: Add Urine Microscopic? YES; Appearance Urine Cloudy (Clear); Bacteria Urine Trace /hpf; Bilirubin Urine Negative (Negative); Blood Urine Negative (Negative); Color Urine Yellow (Yellow); Glucose Urine UA Negative (Negative); Ketones Urine Negative (Negative); Leukocyte Esterase Ur Trace LEU/UL (Negative); Mucus Urine Few /lpf; Nitrate Urine Negative (Negative); Protein Urine Negative (Negative); Specific Grav Ur 1.017 (1.001-1.035); Squamous Epithelial Cell Urine Many /hpf (Few); Urobilinogen Urine Negative mg/dL (<2.0)
[2020-03-09] MEDS: SODIUM CHLORIDE 0.9% IV 1,000 ML 999 ML IV CONT (19:46)
[2020-03-09] MEDS: ONDANSETRON INJ 4 MG/2 ML VIAL IV PUSH (19:46)
[2020-03-09 21:16] VITALS: BP 124/88; PULSE 58
[2020-03-09 21:18] VITALS: BP 140/99; PULSE 63
[2020-03-09 21:20] VITALS: BP 140/99; PULSE 60; RESP 20; O2SAT 99
[2020-03-09] MEDS: VANCOMYCIN ORAL 500 MG/10 ML SYRUP PO (23:34)
[2020-03-09 23:40] VITALS: BP 145/93; PULSE 58; RESP 20; O2SAT 95
--- NOTE | 2020-03-10 00:11 | ADMGEN ---
This patient, Sheri Dunne, was admitted to Medical Room 248-. Patient/family oriented to hospital policies and general routines including ID bracelet, bed and alarms, visiting hours, pain management, procedures, bathroom and other care routines, personal items, smoking policy, room service/diet, and visiting hours. Valuables list has been completed. Information on how to activate the Rapid Response Team has been discussed. Patient/Family are encouraged to report perceived risks to care and to ask questions if they do not understand what they are told or what they should do.
[2020-03-10] MEDS: SODIUM CHLORIDE 0.9% IV 1,000 ML 125 ML IV CONT ×2 (00:27→09:08)
[2020-03-10 00:53] VITALS: BP 133/83; PULSE 55; RESP 18; TEMP 36.4; O2SAT 98; BMI 34.1
[2020-03-10] MEDS: VANCOMYCIN ORAL 500 MG/10 ML SYRUP PO (05:33)
[2020-03-10 06:00] VITALS: BP 160/91; PULSE 60; RESP 20; TEMP 36.1; O2SAT 97
[2020-03-10 06:13] VITALS: BP 155/88
--- NOTE | 2020-03-10 08:38 | PCPTNOTE ---
Attempted PT eval. Pt refused therapy, states I just can't do it. Explained purpose of therapy and she still refused. Jennifer WATKINS encouraged pt to participate w/ therapy and she still refused. Will try again at later time.
[2020-03-10] MEDS: ACETAMINOPHEN 325 MG TABLET 650 MG PO (09:08)
--- NOTE | 2020-03-10 09:20 | PM.IMHP ---
H&P: HPI History of Present Illness Date/Time: 03/10/20 09:20 Chief complaint: Weakness, c diff colitis Narrative: Sheri Dunne is a 45 year old female with bipolar disorder, hx of opioid abuse and recent diagnosis of CDff who returns for feeling weak; she states, I can't take care of myself . Patient initially seen in ED on 03/04/20 for diarrhea and found to have colitis. She was admitted and stool studies positive for CDiff. She was on Zosyn but changed to oral Vanco. She has a fentanyl addiction and was treated here with a methadone taper. She was up walking in the room but still felt weak and was eating normally (50-100% of meals). Her stools were soft. She was discharged home on 03/08/20 with oral Vanco (CM verified patient could afford this). She also was given Ativan. She did not want home health but agreed for outpatient PT which was arranged. Patient did well initially but by the next day patient was super weak and dizzy . She also states that she is not used to being sober . She states her stools are still soft. She did have nausea and vomiting. No melena, hematochezia or hematemesis. She initially had recurrent abdominal pain but now her pain is all over . She states her pain is in her legs, back and neck which seems to be more chronic. She has chronic neuropathy symptoms but states this is worse with her legs on fire the past day. No fever but does feel chilled. No chest pain. She does feel dizzy and headache weakness and anxiety symptoms. No dysuria or hematuria. Abdominal pain today is 5/10. She presented back to the emergency room afternoon of March 09. Vital signs are stable. [place] 462[address], CBC otherwise was unremarkable. She has a mild eosinophilia but this is trending downward. CRP was 1.2. UA not consistent with UTI. Abdominal x-ray showed nonspecific bowel gas pattern. She was treated with IV fluids and acetaminophen. She was given 1 dose of Zofran. She was admitted for further care. This morning, patient has already refused therapy. She states that she hurts too much. She denies that she has been using drugs since discharge. She only took 2 doses of the Ativan. Review of Systems Review of Systems: All systems reviewed & are unremarkable except as noted in HPI and below PMFSH Past Medical History Medical History Anemia Anxiety Asthma Back pain Bipolar disorder Bronchitis Cervical cancer with chemotherapy and partial hysterectomy COPD (chronic obstructive pulmonary disease) Depression Emphysema lung Endometriosis Fibroids Fractures bilateral legs, ribs GERD (gastroesophageal reflux disease) Gum disease peridontal Hepatitis C not yet treated History of cervical cancer Hypertension Kidney stones Neuropathy Opioid abuse last used yesterday fentanyl 03/03/2020 Peptic ulcer PID (acute pelvic inflammatory disease) Pneumonia PTSD (post-traumatic stress disorder) Seizures Shingles Sinus problem Surgical History Surgical History H/O tubal ligation History of partial hysterectomy Hx of section x1 Hx of cholecystectomy Family History Family History Sibling Acute myocardial infarction Father Hypertension Lung cancer Mother Hypertension Lung cancer Social History Social History (Updated 03/10/20 @ 09:49 by Yamil Blanco MD) Social History: the patient is single and has two children. one is 17 and the other one is 20. she lives in the same house with the father for children but they are not together in a relationship. 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 She has shot up heroin in the past but states that she cannot find heroin. She said that she initially got addicted to narcotics after h
--- NOTE | 2020-03-10 09:40 | PC.NURSE ---
Patient stated she was weak and didn't know if she could get up. Patient encouraged to transfer to the bedside commode with assistance of 2 people, gait belt and walker. There was not a gait belt in the room at the time. I called for the OT, Theresa, to get a gait belt. She came back with it and we transferred her to the commode. Patient stated I was mistreating her because she wanted to transfer without safety equipment. Patient educated on the necessity of using safety equipment. She then wanted to leave against medical. Dr. Blanco notified. Patient signed AMA form. IV removed. Patient left in the care of her daughter.
== END 2020-03-10 09:40 | disposition left against medical advice (07) ==
LOC: ANHED 22:24 → ANH2MED 22:52
PROVIDERS: Physician Assistant; Admitting Provider Internal Medicine; Emergency Provider Emergency Medicine; PCP Family Medicine; Visit Provider Internal Medicine
DX: R53.1 Weakness (principal); A04.72 Enterocolitis due to Clostridium difficile, not specified as recurrent; F11.10 Opioid abuse, uncomplicated; I10 Essential (primary) hypertension; F31.9 Bipolar disorder, unspecified; J44.9 Chronic obstructive pulmonary disease, unspecified; F41.8 Other specified anxiety disorders; K21.9 Gastro-esophageal reflux disease without esophagitis; B19.20 Unspecified viral hepatitis C without hepatic coma; G62.9 Polyneuropathy, unspecified; F43.10 Post-traumatic stress disorder, unspecified; F17.210 Nicotine dependence, cigarettes, uncomplicated; Z85.41 Personal history of malignant neoplasm of cervix uteri; Z92.21 Personal history of antineoplastic chemotherapy; Z53.29 Procedure and treatment not carried out because of patient's decision for other reasons
CPT/HCPCS: 36415; 74018; 80053; 81001; 81025; 83605; 83690; 85025; 86140; 96360; 96361; 96365; 96375; 99285; A9270; G0378; G0379; J0131; J2405; J7030

== ENCOUNTER 2020-07-26 14:35 | Inpatient (IN) | payer OTHER, SELFPAY ==
--- NOTE | ~2020-07-26 | XR_ITS ---
EXAMINATION: XR chest port-a-cath/central INDICATION: Central line insertion TECHNIQUE: Portable AP chest at 2154 hours COMPARISON: 1834 hours FINDINGS: A right internal jugular central venous catheter is been inserted which ends with its tip i n the distal superior vena cava. There is no pneumothorax. Patchy bilateral airspace opacities persis t without significant change. There is no pleural effusion. The cardiomediastinal silhouette is rusty l. IMPRESSION: 1. Right internal jugular central venous catheter insertion without pneumothorax. 2. Stable patchy opacities, consistent with pneumonia. Reviewed, dictated and finalized at location A. TER BARREL IMPRESSION: 1. Right internal jugular central venous catheter insertion without pneumothora x. 2. Stable patchy opacities, consistent with pneumonia.
--- NOTE | ~2020-07-26 | XR_ITS ---
EXAMINATION: XR chest 2V DATE: 07/29/2020 09:03 INDICATION: Cough and fever TECHNIQUE: PA and lateral views of the chest are obtained. COMPARISON: 07/26/2020 FINDINGS: A right internal jugular catheter ends with its tip in the distal superior vena cava. There are persistent but improved patchy bilateral airspace opacities. There is no pleural effusion or pne umothorax. The cardiomediastinal silhouette is normal. There is mild thoracic spondylosis. IMPRESSION: 1. Persistent but improving patchy bilateral airspace opacities, consistent with pneumonia. Reviewed, dictated and finalized at location A. NSED PLUMBER IMPRESSION: 1. Persistent but improving patchy bilateral airspace opacities, consistent wit h pneumonia.
--- NOTE | ~2020-07-26 | XR_ITS ---
EXAMINATION: XR chest 1V portable INDICATION: Cough and fever TECHNIQUE: Portable AP chest at 1834 hours COMPARISON: 03/04/2020 FINDINGS: There are patchy opacities of the mid and lower lung zones. No pleural effusion or pneumoth orax is identified. The cardiomediastinal silhouette is normal. IMPRESSION: 1. Patchy opacities of the mid and lower lung zones, consistent with atelectasis versus pneumonia. Reviewed, dictated and finalized at location A. SMISSION WORKER IMPRESSION: 1. Patchy opacities of the mid and lower lung zones, consistent with atelectasi s versus pneumonia.
--- NOTE | ~2020-07-26 | CT_ITS ---
EXAMINATION: CT abdomen pelvis wo con DATE: 07/26/2020 19:57 INDICATION: Right lower abdominal pain TECHNIQUE: Computed tomography (CT) of the abdomen and pelvis was performed without intravenous contr ast. The dose-length product (DLP) was 918.16 mGy-cm. Automated exposure control and iterative recons truction technique were employed. COMPARISON: 03/04/2020, 10/21/2013 FINDINGS: There are patchy groundglass opacities of the visualized lung bases. A 5 mm nodule of the r ight lower lobe demonstrates little interval change since the 2013 comparison, most consistent with o ld granulomatous disease. The heart size is normal. The gallbladder is surgically absent. Again noted is focal steatosis adjacent to the ligamentum teres in the liver. The spleen, pancreas, and adrenal glands are normal. There are punctate nonobstructing stones of the kidneys. No stones are identified in the ureters or bladder. There is no hydronephrosis or hydroureter. No pathologically enlarged abdo shahid or pelvic lymph nodes are identified. There is no free intraperitoneal gas or evidence of bowel obstruction. A large volume of colonic stool is present. The appendix is normal. Fat-containing umbi lical hernia is noted. There is mild lumbar spondylosis. IMPRESSION: 1. No acute findings in the abdomen or pelvis. 2. Patchy groundglass opacities of the visualized lung bases, consistent with pneumonia, with an appe arance commonly seen in COVID 19 pneumonia. Reviewed, dictated and finalized at location A. EY VALET IMPRESSION: 1. No acute findings in the abdomen or pelvis. 2. Patchy groundglass opacities of the visualized lung bases, consistent with p neumonia, with an appearance commonly seen in COVID 19 pneumonia.
[2020-07-26 16:26] VITALS: BP 141/87; PULSE 114; RESP 19; TEMP 37.3; O2SAT 96
[2020-07-26 16:40] LABS: Hemoglobin 15.1 g/dL (12.0-15.0); Mean Corpuscular HGB Conc 32.8 g/dl (32-36); Mean Corpuscular Hemoglobin 28.1 pg (26-34); Mean Corpuscular Volume 85.7 fl (80-100); Mean Platelet Volume 8.4 fl (7.4-10.4); Platelet Count Result 416 k/mm3 (150-375); Red Blood Count 5.37 M/mm3 (4.2-5.4); Red Cell Distribution Width 13.6 % (11.5-14.5); White Blood Count 21.9 K/mm3 (4.5-10.0)
[2020-07-26 16:56] LABS: Alanine Aminotransferase 12 U/L (4-35); Albumin Level 3.9 g/dL (3.5-5.1); Alkaline Phosphatase 141 U/L (38-126); Anion Gap 4 mmol/L (8-16); Aspartate Amino Transferase 24 U/L (14-36); Bilirubin,Total 1.2 mg/dL (0.2-1.3); Blood Urea Nitrogen 9 mg/dL (7-17); Calcium 9.2 mg/dL (8.4-10.2); Carbon Dioxide 28 mmol/L (22-30); Chloride 101 mmol/L (98-107); Estimated CRCL calculation 105 ml/min; Estimated Glomerular Filt Rate > 60; Glucose 128 mg/dL (65-105); Lipase 19 U/L (23-300); Potassium 4.4 mmol/L (3.4-5.0); Sodium 133 mmol/L (137-145)
[2020-07-26 17:04] LABS: Eosinophils Absolute Manual 0.21 K/mm3 (0.02-0.5); Eosinophils Percent Manual 1 % (0-4); Lymphocytes Absolute Manual 3.72 K/mm3 (1.1-4.5); Monocytes Absolute Manual 0.87 K/mm3 (0.1-0.90); Monocytes Percent Manual 4 % (3-9); Neutrophils Percent Manual 78 % (46-73); Platelet Estimate Increased (Adequate); Total Cells Counted 100
[2020-07-26 17:43] LABS: Add Urine Microscopic? YES; Appearance Urine Clear (Clear); Bacteria Urine Trace /hpf; Bilirubin Urine Negative (Negative); Blood Urine Negative (Negative); Color Urine Amber (Yellow); Glucose Urine UA Negative (Negative); Ketones Urine Negative (Negative); Leukocyte Esterase Ur 1+ LEU/UL (Negative); Mucus Urine Moderate /lpf; Nitrate Urine Negative (Negative); Protein Urine 2+ mg/dL (Negative); Specific Grav Ur 1.027 (1.001-1.035); Squamous Epithelial Cell Urine Few /hpf (Few); WBC Urine 16-20 /hpf
--- NOTE | 2020-07-26 18:41 | ED.ABDPAIN ---
HPI - Abdominal Pain General Chief Complaint: Abdominal Pain <BRADY Narayan Last Filed: 07/26/20 20:21> Stated Complaint: Multiple Complaints <BRADY Narayan Last Filed: 07/26/20 20:21> Time Seen by Provider: 07/26/20 18:14 <BRADY Narayan Last Filed: 07/26/20 20:21> Source: patient and old records reviewed <BRADY Narayan Last Filed: 07/26/20 20:21> Mode of arrival: ambulatory <BRADY Narayan Last Filed: 07/26/20 20:21> Limitations: no limitations <BRADY Narayan Last Filed: 07/26/20 20:21> History of Present Illness HPI narrative: Patient is a 45-year-old female who presents with multiple complaints to include not feeling well for weeks had just finished a Z-Louis with no improvement for her upper respiratory symptoms also having had recent negative Covid test patient on arrival is ill-appearing noting that she has had a cough with shortness of breath productive of phlegm coupled with urinary symptoms and suprapubic abdominal discomfort patient denies vomiting diarrhea. Patient with longstanding history of IV drug abuse currently in remission. Patient has had hospitalizations in the past. Patient notes discomfort of the abdomen as well as the chest. Patient with history of tobacco abuse as well denies alcohol abuse or illicit drug abuse. Patient denies sick contacts. Patient notes right lower back and flank discomfort during this period as well localizing the majority of the pain to the right lower back denies injury or trauma <BRADY Narayan Last Filed: 07/26/20 20:21> Related Data Home Medications: Home Medications Medication Instructions Recorded Confirmed albuterol sulfate 2 puff INHALATION Q4H PRN 03/04/20 07/27/20 clonidine HCl 0.1 mg PO TID PRN 03/04/20 07/27/20 cyclobenzaprine 10 mg PO TID PRN 03/04/20 07/27/20 gabapentin 300 mg PO TID 03/04/20 07/27/20 hydroxyzine pamoate 100 mg PO QID PRN 03/04/20 07/27/20 mirtazapine 45 mg PO DAILY 03/04/20 07/27/20 montelukast 10 mg PO DAILY 03/04/20 07/27/20 ondansetron 8 mg PO TID PRN 03/04/20 07/27/20 tizanidine 4 mg PO Q8H PRN 03/04/20 07/27/20 trazodone 200 mg PO HS PRN 03/04/20 07/27/20 <Alfredo Mcgraw PA-C - Last Filed: 07/26/20 20:21> Allergies/Adverse Reactions: Allergies Allergy/AdvReac Type Severity Reaction Status Date / Time codeine Allergy Intermediate HIVES, Verified 07/27/20 01:44 TONGUE SWELLING cephalexin Allergy Mild Unknown Verified 07/27/20 01:44 clavulanic acid Allergy Mild BETA Verified 07/27/20 01:44 LACTAMASE INHIBITORS doxycycline Allergy Mild Unknown Verified 07/27/20 01:44 erythromycin base Allergy Mild Unknown Verified 07/27/20 01:44 prochlorperazine Allergy Mild Unknown Verified 07/27/20 01:44 Sulfa (Sulfonamide Allergy Mild Unknown Verified 07/27/20 01:44 Antibiotics) tetracycline Allergy Mild Unknown Verified 07/27/20 01:44 Iodinated Contrast Media Allergy Unknown Unknown Verified 07/27/20 01:44 <Alfredo Mcgraw PA-C - Last Filed: 07/26/20 20:21> Review of Systems Review of Systems: All systems reviewed & are unremarkable except as noted in HPI and below <Alfredo Mcgraw PA-C - Last Filed: 07/26/20 20:21> [facility] Past Medical History Medical History: Medical History (Updated 07/27/20 @ 02:01 by Andra Strauss MD) Anemia Anxiety Asthma Back pain Bipolar disorder Bronchitis Cervical cancer with chemotherapy and partial hysterectomy COPD (chronic obstructive pulmonary disease) Depression Emphysema lung Endometriosis Fibroids Fractures bilateral legs, ribs GERD (gastroesophageal reflux disease) Gum disease peridontal Hepatitis C not yet treated History of cervical cancer Hypertension Kidney stones Neuropathy Opioid abuse last used yesterday fentanyl 03/03/2020 Peptic ulcer PID (acute pelvic inflammatory disease) Pneumonia PTSD (post-traumatic stress disorde
[2020-07-26 18:46] LABS: Alveolar/Arterial O2 Gradient 40.8 mmHg; Base Excess ABG 3.8 mEq/l (+/-2.0); Carboxyhemoglobin 5.2 % THb (0-2.0); Fractional Inspired Oxygen 21 %; HCO3 ABG 29.3 mEq/l (22.0-26.0); Methemoglobin ABG 0.2 %THb (0-1.5); Oxygen Content ABG 17.7 %vol (16.0-22.0); Oxygen Saturation ABG 87.2 % (95.0-100.0); Oxyhemoglobin 84.3 % THb (90.0-100.0); PCO2 ABG 47.1 mmHg (35.0-45.0); PO2 ABG 52.5 mmHg (80.0-100.0); Reduced Hemoglobin 10.3 %THb (0-5.0); pH ABG 7.411 (7.350-7.450)
[2020-07-26 18:47] LABS: Device ROOM AIR; Modified Allen's Test Pass; Site Drawn RIGHT RADIAL
[2020-07-26 19:31] LABS: Lactic Acid Reflex 0.7 mmol/L (0.7-2.1)
[2020-07-26 20:40] VITALS: BP 150/95; PULSE 90; RESP 16; O2SAT 97
[2020-07-26 21:05] VITALS: BP 145/98; PULSE 94; RESP 16; O2SAT 97
[2020-07-26] MEDS: LACTATED RINGERS 1,000 ML 75 ML IV CONT (22:36)
--- NOTE | 2020-07-26 23:10 | PC.NURSE ---
Floor unable to take report on patient, states will call back.
[2020-07-26 23:45] VITALS: BMI 32.6
[2020-07-27] VITALS (13 sets, daily range): BP systolic 126–145; BP diastolic 68–94; PULSE 62–89; RESP 16–20; TEMP 36.4–37.1; O2SAT 90–100
[2020-07-27] MEDS: DEXAMETHASONE SOD PHOS INJ 4 MG/ML VIAL 6 MG IV PUSH (00:50)
[2020-07-27] MEDS: FAMOTIDINE 20 MG/2 ML VIAL IV PUSH (00:55)
[2020-07-27] MEDS: CENTRAL LINE FLUSH 10 ML IV PUSH ×4 (01:22→21:46)
--- NOTE | 2020-07-27 01:27 | ADMGEN ---
AT 2345 This patient, Sheri Dunne, was admitted to [facility] Room 311-01. Patient/family oriented to hospital policies and general routines including ID bracelet, bed and alarms, visiting hours, pain management, procedures, bathroom and other care routines, personal items, smoking policy, room service/diet, and visiting hours. Information on how to activate the Rapid Response Team has been discussed. Patient/Family are encouraged to report perceived risks to care and to ask questions if they do not understand what they are told or what they should do.
--- NOTE | 2020-07-27 03:04 | PM.IMHP ---
H&P: HPI History of Present Illness Date/Time: 07/27/20 04:15 Chief Complaint: Cough, congestion and abdominal pain Narrative: Sheri Dunne is a 45 year old female with a past medical history of IV narcotic abuse, hepatitis-C, C diff colitis, and COPD who presented to the ER with cough, congestion for 1 month and right flank pain for the last several days. That she has been having intermittent cough, shortness of breath and upper respiratory congestion for 1 month. She called her primary care physician on July 02 and received a Z-Louis. She reports that she felt like her symptoms improved somewhat and then returned. Over the last 7-10 days she has been having intermittent subjective fevers. She has continued to have a cough that is nonproductive. She has noticed wheezing but her and wheezing has actually improved since she received azithromycin. She reports of burning chest pain with deep breathing and coughing. She denies any recent ill contacts or exposures to COVID-19. She has continued to snort 6 tablets of fentanyl each day. She denies any nausea and vomiting as long as she stays on her fentanyl. She reported some right lower abdominal discomfort with some loose stools about 10 days ago. She was afraid she had colitis again but the symptoms only lasted for 1 day. Since that time her stools have been back to normally formed. She denies any dysuria but reports that is felt odd when she urinates. She often has issues with urinary hesitancy. She noticed some flank pain in the last couple of days. She reports that the pain is in her right lower back near her SI joint. She reports that the pain is better since she has arrived to the hospital. Otherwise she does hurts all over. She thought that her abdominal pain may have been due to her pancreas or liver. She does have a history of hepatitis-C but has not received treatment. She states that she cannot received treatment until she is off of opiates. She has been having some sore throat that is worse with coughing. She reports that her tongue often feels like it is covered in sandpaper. She is anxious and worried that she is going to start going through withdrawal in the morning. She is asking for Ativan and methadone so that she does not have withdrawal symptoms. She was prescribed Suboxone from her psychiatrist but she has not been taking it. Review of Systems Review of Systems: Narrative: 12 systems were reviewed with pertinent positives and negatives per HPI. Except as documented in the HPI, all other systems were reviewed and are negative. [facility] Past Medical History Medical History (Updated 07/27/20 @ 03:21 by Jennifer Jo DO) Anemia Anxiety Asthma Back pain Bipolar disorder C. difficile colitis February 2020 Cervical cancer with chemotherapy and partial hysterectomy COPD (chronic obstructive pulmonary disease) Depression Emphysema lung Endometriosis Fibroids Fractures bilateral legs, ribs GERD (gastroesophageal reflux disease) Gum disease peridontal Hepatitis C not yet treated Hypertension Infection of skin due to methicillin resistant Staphylococcus aureus (MRSA) Associated with IV drug use Kidney stones Neuropathy Opioid abuse Heroin and fentanyl abuse Peptic ulcer PID (acute pelvic inflammatory disease) Pneumonia PTSD (post-traumatic stress disorder) Seizures Shingles Sinus problem Surgical History Surgical History (Updated 07/27/20 @ 03:13 by Jennifer Jo DO) H/O tubal ligation History of laparoscopic cholecystectomy History of partial hysterectomy Hysterectomy with unilateral salpingo oophorectomy 2002 Hx of section x1 Family History Family History (Updated 07/27/20 @ 03:12 by Jennifer Jo DO) Sibling Acute myocardial infarction Father Hypertension Lung cancer Mother Hypertension Lung cancer Other Liver disease Social History Social History (Updated 07/27/20 @ 05:18 by Jennifer Jo
[2020-07-27] MEDS: LACTATED RINGERS 1,000 ML 999 ML IV CONT (05:34)
[2020-07-27] MEDS: LACTATED RINGERS 1,000 ML 75 ML IV CONT (05:37)
[2020-07-27] MEDS: LORazepam (*CRX) 0.5 MG TABLET PO ×3 (05:41→20:50)
[2020-07-27 05:54] LABS: Amphetamine Screen Urine Negative (Negative); Barbiturate Screen Urine Negative (Negative); Benzodiazepines Screen Urine Negative (Negative); Cannabinoid Screen Urine Negative (Negative); Cocaine Screen Urine Negative (Negative); Methadone Screen Urine Negative (Negative); Opiate Screen Urine Negative (Negative); Phencyclidine Screen Urine Negative (Negative)
[2020-07-27] MEDS: NICOTINE (*PBKC) 4 MG GUM PO (06:00)
[2020-07-27 06:41] LABS: Basophils Absolute Auto 0.1 K/mm3 (0.0-0.1); Basophils Percent Auto 0.5 % (0.2-1.2); Eosinophils Absolute Auto 0.2 K/mm3 (0-0.3); Eosinophils Percent Auto 1.6 % (0-4.4); Hematocrit 43.8 % (37.0-47.0); Hemoglobin 14.3 g/dL (12.0-15.0); Immature Granulocyte Absolute 0.19 K/mm3 (0.00-0.031); Immature Granulocyte Percent A 1.4 % (0-0.5); Lymphocytes Absolute Auto 1.24 K/mm3 (0.9-3.2); Lymphocytes Percent Auto 8.9 % (18.3-44.2); Mean Corpuscular HGB Conc 32.6 g/dl (32-36); Mean Corpuscular Hemoglobin 28.1 pg (26-34); Mean Corpuscular Volume 86.2 fl (80-100); Mean Platelet Volume 8.6 fl (7.4-10.4); Monocytes Absolute Auto 0.4 K/mm3 (0.1-0.6); Monocytes Percent Auto 2.6 % (2.6-8.5); Neutrophils Absolute Auto 11.8 K/mm3 (1.3-6.7); Platelet Count Result 429 k/mm3 (150-375); Red Blood Count 5.08 M/mm3 (4.2-5.4); Red Cell Distribution Width 13.4 % (11.5-14.5); White Blood Count 13.9 K/mm3 (4.5-10.0)
[2020-07-27 06:46] LABS: D Dimer 0.51 ug/mL (<0.48)
[2020-07-27 07:00] LABS: Lactate Dehydrogenase 575 U/L (313-618)
[2020-07-27 07:03] LABS: Alanine Aminotransferase 11 U/L (4-35); Albumin Level 3.5 g/dL (3.5-5.1); Alkaline Phosphatase 133 U/L (38-126); Anion Gap 0 mmol/L (8-16); Aspartate Amino Transferase 27 U/L (14-36); Bilirubin,Total 1.5 mg/dL (0.2-1.3); Blood Urea Nitrogen 11 mg/dL (7-17); Carbon Dioxide 36 mmol/L (22-30); Chloride 101 mmol/L (98-107); Estimated CRCL calculation 105 ml/min; Estimated Glomerular Filt Rate > 60; Glucose 175 mg/dL (65-105); Potassium 4.2 mmol/L (3.4-5.0); Sodium 137 mmol/L (137-145)
[2020-07-27 07:16] LABS: CRP 23.4 mg/dL (<1.0)
[2020-07-27] MEDS: ALBUTEROL SULFATE (*SP) AEROSOL 1 PUFF 4 PUFF INHALATION ×4 (08:34→21:44)
[2020-07-27] MEDS: methADONE HCL (*CRX) 10 MG TABLET 20 MG PO (09:04)
[2020-07-27] MEDS: TIZANIDINE HCL 4 MG TABLET PO (09:05)
[2020-07-27] MEDS: cloNIDine HCL 0.1 MG TABLET PO ×3 (09:06→17:38)
[2020-07-27] MEDS: GABAPENTIN 300 MG CAPSULE PO ×3 (09:06→17:37)
[2020-07-27] MEDS: ENOXAPARIN 40 MG/0.4 ML SYRINGE SUB-Q (09:07)
--- NOTE | 2020-07-27 15:28 | PM.IMPN ---
Progress Note: A&P Assessment and Plan (1) Pneumonia: Qualifiers: Laterality: bilateral Lung location: unspecified part of lung Pneumonia type: due to unspecified organism Qualified Code(s): J18.9 - Pneumonia, unspecified organism Code(s): J18.9 - Pneumonia, unspecified organism Status: Acute Assessment and Plan: Patient has bilateral pneumonia on chest x-ray -suspicious for COVID-19, await PCR -continue Zosyn and vancomycin as this could be bacterial pneumonia until PCR comes back -patient is currently utilizing 1 L of oxygen and doing okay -will stop fluids -continue Lovenox daily, if positive for COVID-19, will increase the dose (2) Leukocytosis: Qualifiers: Leukocytosis type: bandemia Qualified Code(s): D72.825 - Bandemia Code(s): D72.829 - Elevated white blood cell count, unspecified Status: Acute Assessment and Plan: White blood cell count 21.9 on admission now down to 13.9 -could be due to pneumonia as above -UA somewhat suspicious for UTI, await urine culture -patient has used IV drugs in the past, blood cultures have been drawn and are pending -continue vancomycin and Zosyn at this time (3) Suspected 2019-nCoV infection: Code(s): Z20.822 - Contact with and (suspected) exposure to COVID-19 Status: Acute Assessment and Plan: As above (4) Bacteriuria with pyuria: Code(s): R82.71 - Bacteriuria; R82.81 - Pyuria Status: Acute Assessment and Plan: As above (5) Opioid abuse: Code(s): F11.10 - Opioid abuse, uncomplicated Status: Chronic Assessment and Plan: Continue methadone at this time -no signs of withdrawal (6) Tobacco abuse disorder: Code(s): Z72.0 - Tobacco use Status: Acute Assessment and Plan: Tobacco cessation advised (7) Acute respiratory failure with hypoxia: Code(s): J96.01 - Acute respiratory failure with hypoxia Status: Acute Assessment and Plan: Secondary to pneumonia -continue oxygen as needed -continue as above Time Spent With Patient Time with patient: 25 - 35 minutes Subjective Date/time seen: 07/27/20 15:28 Interval history: Pt is a 45-year-old female here for pneumonia. Patient was seen today and states she is feeling better on the 1 L of oxygen. She feels mildly short of breath but is a little anxious with everything going on. She took methadone this morning and feels like she is doing okay and not currently and withdrawal. She has some chronic back pain which she says the bed does not help. She has an intermittent headache which so far is tolerable. No chest pain or diarrhea. Patient is eating and drinking okay Review of Systems Review of Systems: All systems reviewed & are unremarkable except as noted in HPI and below Exam Narrative: Exam Narrative: General: Well developed well nourished patient in NAD HEENT: normocephalic Neck: supple Neuro: Alert and oriented x4 CV:RRR Resp: Shallow breaths at times but overall clear to auscultation Abd: Soft, non distended. No pain to palpation. Positive bowel sounds Extremities: No swelling, erythema, or pain to palpation. Objective Data Vital Signs Vital Signs: Vital Signs - 24 hr 07/26/20 16:26 07/26/20 20:40 07/26/20 21:05 Temperature 99.1 F Pulse Rate 114 H 90 94 Respiratory Rate 19 16 16 Blood Pressure 141/87 H 150/95 H 145/98 H Pulse Oximetry 96 97 97 07/27/20 00:00 07/27/20 04:00 07/27/20 06:00 Temperature 98.8 F 97.5 F L 97.5 F L Pulse Rate 89 70 70 Respiratory Rate 20 20 20 Blood Pressure 126/68 145/94 H 145/94 H Pulse Oximetry 94 91 91 07/27/20 08:00 07/27/20 08:35 07/27/20 09:05 Temperature 97.9 F Pulse Rate 72 Respiratory Rate 16 Blood Pressure 145/92 H Pulse Oximetry 100 93 91 07/27/20 12:00 07/27/20 12:55 07/27/20 13:00 Temperature 97.8 F Pulse Rate 62 Respiratory Rate 1
[2020-07-27 17:38] LABS: SARS-CoV-2 RNA PCR Negative
[2020-07-27] MEDS: MIRTAZAPINE 15 MG TABLET 45 MG PO (21:46)
[2020-07-27] MEDS: ACETAMINOPHEN 325 MG TABLET 650 MG PO (21:46)
[2020-07-27] MEDS: traZODone HCL 50 MG TABLET 200 MG PO (22:49)
--- NOTE | 2020-07-28 | ECHO_ITS ---
Patient Info Name: Sheri Dunne Age: 45 years : 1975 Gender: Female Ht: 64 in Wt: 190 lbs BSA: 2.01 m2 HR: 64 bpm BP: 146 / 68 mmHg Technical Quality: Good Exam Date: 07/28/2020 8:58 AM Exam Location: [facility] Patient Status: Inpatient Admit Date: 07/26/2020 Staff Ordering Physician: Roseann Oneill PA-C Senior Estimator: Chaya Martinez RDCS Attending Provider: Roseann Oneill PA-C Referring Physician: Nino TERRY; Exam Type: CA echo doppler color flow Study Info Complete two-dimensional, color flow and Doppler transthoracic echocardiogram is performed. Summary 1. Complete two-dimensional, color flow and Doppler transthoracic echocardiogram is performed. 2. Left ventricular chamber size, wall thickness, systolic and diastolic function are normal with no regional wall motion abnormalities with an estimated ejection fraction of 65-70%. 3. No valve disease present. 4. No vegetations seen. 5. Normal sinus rhythm. Left Ventricle Left ventricular chamber dimension is normal. Left ventricular systolic function is normal, estimated at 65-70%. There is no increased left ventricular wall thickness. Left ventricular septal wall motion is normal. The left ventricular diastolic function is normal. Left ventricular chamber size, wall thickness, systolic and diastolic function are normal with no regional wall motion abnormalities with an estimated ejection fraction of 65-70%. Right Ventricle Right ventricular chamber dimension is normal. Right ventricular systolic function is normal. Left Atria Left atrial chamber dimension is normal. Right Atria Right atrial chamber dimension is normal. Aortic Valve The aortic valve is trileaflet. There is no aortic valve sclerosis. There is no aortic valve stenosis. There is no aortic valve regurgitation. Pulmonic Valve The pulmonic valve is normal. There is no pulmonic valve stenosis. There is no pulmonic regurgitation. Mitral Valve The mitral valve has normal leaflets. There is no mitral valve stenosis. There is no mitral valve regurgitation. Tricuspid Valve The tricuspid valve leaflets are normal. There is no significant tricuspid valve stenosis. There is trace tricuspid valve regurgitation. No pulmonary hypertension, estimated pulmonary arterial systolic pressure is Empty. Pericardium/Pleural The pericardium appears normal. There is no pericardial effusion. Inferior Vena Cava Normal inferior vena cava with >50% collapse upon inspiration consistent with Empty right atrial pressure, Empty. Aorta The aortic root size at the sinus of Valsalva is normal. The prox ascending aorta size is normal. Left Ventricular Outflow Tract Name Value Normal LVOT 2D LVOT Diameter 2.2 cm LVOT Doppler LVOT Peak Velocity 108 cm/s LVOT Peak Gradient 4 mmHg LVOT Mean Gradient 2 mmHg LVOT VTI 23 cm LVOT VTI/AV VTI Ratio 0.9 LVOT Stroke Volume 90 ml
[2020-07-28] MEDS: CENTRAL LINE FLUSH 20 ML IV PUSH (05:40)
[2020-07-28] MEDS: CENTRAL LINE FLUSH 10 ML IV PUSH ×3 (05:45→20:10)
[2020-07-28 06:00] VITALS: BP 146/88; PULSE 71; RESP 18; TEMP 36.6; O2SAT 91
[2020-07-28 06:39] LABS: Basophils Absolute Auto 0.1 K/mm3 (0.0-0.1); Basophils Percent Auto 0.4 % (0.2-1.2); Eosinophils Absolute Auto 0.4 K/mm3 (0-0.3); Eosinophils Percent Auto 2.6 % (0-4.4); Hematocrit 39.2 % (37.0-47.0); Hemoglobin 12.6 g/dL (12.0-15.0); Immature Granulocyte Absolute 0.24 K/mm3 (0.00-0.031); Immature Granulocyte Percent A 1.4 % (0-0.5); Lymphocytes Absolute Auto 3.86 K/mm3 (0.9-3.2); Lymphocytes Percent Auto 22.8 % (18.3-44.2); Mean Corpuscular HGB Conc 32.1 g/dl (32-36); Mean Corpuscular Hemoglobin 27.5 pg (26-34); Mean Corpuscular Volume 85.6 fl (80-100); Mean Platelet Volume 8.7 fl (7.4-10.4); Monocytes Absolute Auto 1.1 K/mm3 (0.1-0.6); Monocytes Percent Auto 6.3 % (2.6-8.5); Neutrophils Absolute Auto 11.2 K/mm3 (1.3-6.7); Neutrophils Percent Auto 66.5 % (45.5-73.1); Platelet Count Result 451 k/mm3 (150-375); Red Blood Count 4.58 M/mm3 (4.2-5.4); Red Cell Distribution Width 13.5 % (11.5-14.5); White Blood Count 16.9 K/mm3 (4.5-10.0)
[2020-07-28 07:02] LABS: Alanine Aminotransferase 11 U/L (4-35); Albumin Level 3.1 g/dL (3.5-5.1); Alkaline Phosphatase 97 U/L (38-126); Anion Gap 0 mmol/L (8-16); Aspartate Amino Transferase 26 U/L (14-36); Bilirubin,Total 0.4 mg/dL (0.2-1.3); Blood Urea Nitrogen 13 mg/dL (7-17); Calcium 8.7 mg/dL (8.4-10.2); Carbon Dioxide 38 mmol/L (22-30); Chloride 102 mmol/L (98-107); Estimated CRCL calculation 105 ml/min; Estimated Glomerular Filt Rate > 60; Glucose 118 mg/dL (65-105); Lactate Dehydrogenase 474 U/L (313-618); Magnesium 1.9 mg/dL (1.6-2.3); Potassium 3.5 mmol/L (3.4-5.0); Sodium 140 mmol/L (137-145)
[2020-07-28 08:00] VITALS: PULSE 71; RESP 18; O2SAT 91
--- NOTE | 2020-07-28 08:08 | PM.IMPN ---
Progress Note: A&P Assessment and Plan (1) Pneumonia: Qualifiers: Laterality: bilateral Lung location: unspecified part of lung Pneumonia type: due to unspecified organism Qualified Code(s): J18.9 - Pneumonia, unspecified organism Code(s): J18.9 - Pneumonia, unspecified organism Status: Acute Assessment and Plan: Patient has bilateral pneumonia on chest x-ray -suspicious for COVID-19 but negative PCR -will check for influenza, Legionella antigen, pneumococcal antigen, HIV, and obtain sputum cx -continue Zosyn and vancomycin -patient is currently off oxygen and able to take and deeper breaths -continue Lovenox daily -continue albuterol (2) Leukocytosis: Qualifiers: Leukocytosis type: bandemia Qualified Code(s): D72.825 - Bandemia Code(s): D72.829 - Elevated white blood cell count, unspecified Status: Acute Assessment and Plan: White blood cell count 21.9 on admission and is trending down but today's labs are still pending -could be due to pneumonia as above -UA shows multiple organisms, none being identified. No urinary symptoms -patient has used IV drugs in the past, blood cultures have been drawn and are pending -continue vancomycin and Zosyn at this time (3) Suspected 2019-nCoV infection: Code(s): Z20.822 - Contact with and (suspected) exposure to COVID-19 Status: Acute Assessment and Plan: As above -if further workup is negative and patient worsens, consider retesting (4) Bacteriuria with pyuria: Code(s): R82.71 - Bacteriuria; R82.81 - Pyuria Status: Acute Assessment and Plan: As above (5) Opioid abuse: Code(s): F11.10 - Opioid abuse, uncomplicated Status: Chronic Assessment and Plan: Continue methadone at this time -no signs of withdrawal (6) Tobacco abuse disorder: Code(s): Z72.0 - Tobacco use Status: Acute Assessment and Plan: Tobacco cessation advised (7) Acute respiratory failure with hypoxia: Code(s): J96.01 - Acute respiratory failure with hypoxia Status: Acute Assessment and Plan: Resolved, Secondary to pneumonia -continue oxygen as needed -continue as above Subjective Date/time seen: 07/28/20 08:08 Interval history: Pt is a 45-year-old female here for pneumonia. Patient was seen today and states she is feeling somewhat better but does not feel good. She states she still has shortness of breath especially when she lays flat but does better on her side. She feels lightheaded when she walks to the bathroom occasionally but does not feel short of breath. She is eating and drinking okay and feels a bit constipated. She is able to take deeper breaths and her cough is better. She has no chest pain. No significant withdrawal symptoms Exam Narrative: Exam Narrative: General: Well developed well nourished patient in NAD HEENT: normocephalic Neck: supple Neuro: Alert and oriented x4 CV:RRR Resp: Slight Rhonchi and expiratory wheezing to both lungs Abd: Soft, non distended. No pain to palpation. Positive bowel sounds Extremities: No swelling, erythema, or pain to palpation. Objective Data Vital Signs Vital Signs: Vital Signs - 24 hr 07/27/20 08:35 07/27/20 09:05 07/27/20 12:00 Temperature 97.8 F Pulse Rate 62 Respiratory Rate 18 Blood Pressure 134/86 Pulse Oximetry 93 91 90 07/27/20 12:55 07/27/20 13:00 07/27/20 16:00 Temperature 98.1 F Pulse Rate 72 Respiratory Rate 16 Blood Pressure 141/82 H Pulse Oximetry 90 92 98 07/27/20 18:00 07/27/20 20:00 07/27/20 22:00 Temperature 97.8 F Pulse Rate 79 79 Respiratory Rate 18 18 Blood Pressure 128/87 Pulse Oximetry 92 93 93 07/28/20 06:00 Temperature 97.8 F Pulse Rate 71 Respiratory Rate 18 Blood Pressure 146/88 H Pulse Oximetry 91 Intake/Output Intake/Output: Intake & Output 07/25/20 07/26/20
[2020-07-28] MEDS: GABAPENTIN 300 MG CAPSULE PO ×3 (09:39→17:58)
[2020-07-28] MEDS: cloNIDine HCL 0.1 MG TABLET PO ×3 (09:39→17:58)
[2020-07-28] MEDS: methADONE HCL (*CRX) 10 MG TABLET PO (09:39)
[2020-07-28] MEDS: NICOTINE (*PBKC) 4 MG GUM PO (09:40)
[2020-07-28] MEDS: LORazepam (*CRX) 0.5 MG TABLET PO ×2 (09:43→17:58)
[2020-07-28] MEDS: ALBUTEROL SULFATE (*SP) AEROSOL 1 PUFF 4 PUFF INHALATION ×4 (09:43→20:18)
[2020-07-28] MEDS: ENOXAPARIN 40 MG/0.4 ML SYRINGE SUB-Q (09:43)
[2020-07-28 10:38] LABS: Hemoglobin A1C 5.4 % (<5.7)
[2020-07-28 10:58] LABS: HIV 1/2 Ab P24 Ag Result Negative (Negative)
[2020-07-28] MEDS: polyethylene glycoL 3350 17 GM POWD.PACK PO (12:25)
[2020-07-28 14:00] VITALS: BP 122/86; PULSE 82; RESP 18; TEMP 36.1; O2SAT 91
[2020-07-28] MEDS: ONDANSETRON INJ 4 MG/2 ML VIAL IV PUSH (18:32)
[2020-07-28] MEDS: MIRTAZAPINE 15 MG TABLET 45 MG PO (20:09)
[2020-07-28] MEDS: traZODone HCL 50 MG TABLET 200 MG PO (20:19)
[2020-07-28 20:20] VITALS: PULSE 81; RESP 16; O2SAT 95
[2020-07-28] MEDS: methADONE HCL (*CRX) 5 MG TABLET PO (20:22)
[2020-07-28 21:47] VITALS: BP 108/74; PULSE 81; RESP 16; TEMP 36.1; O2SAT 95
[2020-07-29] MEDS: LORazepam (*CRX) 0.5 MG TABLET PO (01:37)
[2020-07-29 06:00] VITALS: BP 118/71; PULSE 69; RESP 18; TEMP 35.9; O2SAT 91
[2020-07-29 06:05] LABS: Basophils Absolute Auto 0.1 K/mm3 (0.0-0.1); Basophils Percent Auto 0.6 % (0.2-1.2); Eosinophils Absolute Auto 0.7 K/mm3 (0-0.3); Eosinophils Percent Auto 6.3 % (0-4.4); Hematocrit 38.1 % (37.0-47.0); Hemoglobin 12.2 g/dL (12.0-15.0); Immature Granulocyte Absolute 0.11 K/mm3 (0.00-0.031); Lymphocytes Absolute Auto 3.73 K/mm3 (0.9-3.2); Lymphocytes Percent Auto 34.5 % (18.3-44.2); Mean Corpuscular Hemoglobin 27.7 pg (26-34); Mean Corpuscular Volume 86.6 fl (80-100); Mean Platelet Volume 8.4 fl (7.4-10.4); Neutrophils Absolute Auto 5.3 K/mm3 (1.3-6.7); Neutrophils Percent Auto 48.6 % (45.5-73.1); Platelet Count Result 444 k/mm3 (150-375); Red Cell Distribution Width 13.8 % (11.5-14.5); White Blood Count 10.8 K/mm3 (4.5-10.0)
[2020-07-29 06:13] LABS: Influenza Control Positive
[2020-07-29 06:20] LABS: Anion Gap 0 mmol/L (8-16); Blood Urea Nitrogen 11 mg/dL (7-17); CRP 5.3 mg/dL (<1.0); Calcium 8.3 mg/dL (8.4-10.2); Carbon Dioxide 38 mmol/L (22-30); Chloride 100 mmol/L (98-107); Estimated CRCL calculation 80 ml/min; Estimated Glomerular Filt Rate > 60; Glucose 86 mg/dL (65-105); Potassium 3.4 mmol/L (3.4-5.0); Sodium 138 mmol/L (137-145)
[2020-07-29 08:00] VITALS: PULSE 69; RESP 18; O2SAT 91
[2020-07-29] MEDS: ONDANSETRON INJ 4 MG/2 ML VIAL IV PUSH (08:42)
[2020-07-29] MEDS: CENTRAL LINE FLUSH 10 ML IV PUSH ×3 (08:42→21:25)
[2020-07-29] MEDS: GABAPENTIN 300 MG CAPSULE PO ×3 (08:43→17:28)
[2020-07-29] MEDS: NICOTINE (*PBKC) 4 MG GUM PO (08:43)
[2020-07-29] MEDS: polyethylene glycoL 3350 17 GM POWD.PACK PO (08:43)
[2020-07-29] MEDS: ALBUTEROL SULFATE (*SP) AEROSOL 1 PUFF 4 PUFF INHALATION ×4 (08:43→21:25)
[2020-07-29] MEDS: ENOXAPARIN 40 MG/0.4 ML SYRINGE SUB-Q (08:44)
[2020-07-29] MEDS: methADONE HCL (*CRX) 5 MG TABLET PO (08:44)
[2020-07-29] MEDS: cloNIDine HCL 0.1 MG TABLET PO ×3 (08:44→17:28)
--- NOTE | 2020-07-29 10:58 | ECG_ITS ---
Measurements Intervals [place] Rate: 80 P: 47 MA: 157 QRS: 13 QRSD: 90 T: 31 QT: 384 QTc: 444 Interpretive Statements SINUS RHYTHM DELAYED PRECORDIAL R/S TRANSITION LOW QRS VOLTAGE IN PRECORDIAL LEADS BORDERLINE ST-T WAVE ABNORMALITY- DIFFUSE LEADS BORDERLINE ECG Electronically Signed On 07-29-2020 16:22:27 [employer] by Korey Carbajal D.O.
--- NOTE | 2020-07-29 10:58 | PM.IMPN ---
Progress Note: A&P Assessment and Plan (1) Pneumonia: Qualifiers: Laterality: bilateral Lung location: unspecified part of lung Pneumonia type: due to unspecified organism Qualified Code(s): J18.9 - Pneumonia, unspecified organism Code(s): J18.9 - Pneumonia, unspecified organism Status: Acute Assessment and Plan: Patient has bilateral pneumonia on chest x-ray -suspicious for COVID-19 but negative PCR -negative for influenza, await Legionella antigen and pneumococcal antigens. -HIV negative -continue Zosyn and vancomycin -patient is back on 1 L of oxygen -continue Lovenox daily -continue albuterol (2) Leukocytosis: Qualifiers: Leukocytosis type: bandemia Qualified Code(s): D72.825 - Bandemia Code(s): D72.829 - Elevated white blood cell count, unspecified Status: Acute Assessment and Plan: White blood cell count 21.9 on admission and is trending down today 10.8 -could be due to pneumonia as above -UA shows multiple organisms, none being identified. No urinary symptoms -patient has used IV drugs in the past, blood cultures have been drawn and have no growth to date -continue vancomycin and Zosyn at this time (3) Suspected 2019-nCoV infection: Code(s): Z20.822 - Contact with and (suspected) exposure to COVID-19 Status: Acute Assessment and Plan: As above -if further workup is negative and patient worsens, consider retesting (4) Bacteriuria with pyuria: Code(s): R82.71 - Bacteriuria; R82.81 - Pyuria Status: Acute Assessment and Plan: As above (5) Opioid abuse: Code(s): F11.10 - Opioid abuse, uncomplicated Status: Chronic Assessment and Plan: Continue methadone at this time -increase dose -check EKG for QTC (6) Tobacco abuse disorder: Code(s): Z72.0 - Tobacco use Status: Acute Assessment and Plan: Tobacco cessation advised (7) Acute respiratory failure with hypoxia: Code(s): J96.01 - Acute respiratory failure with hypoxia Status: Acute Assessment and Plan: Resolved, Secondary to pneumonia -continue oxygen as needed -continue as above Subjective Date/time seen: 07/29/20 10:58 Interval history: Pt is a 45-year-old female here for pneumonia. Patient was seen today and states she feels a little run down and exhausted. She is sleeping okay but gets interrupted so she is not getting continuously. She has had mild withdrawal symptoms but overall okay. She would like an increased dose of her methadone. She is feeling slightly short of breath and is requiring 1 L of oxygen but did not have it on right when I was in the room. She denies chest pain, nausea, vomiting, fevers, chills or abdominal pain. Exam Narrative: Exam Narrative: General: Well developed well nourished patient in NAD HEENT: normocephalic Neck: supple Neuro: Alert and oriented x4 CV:RRR Resp: CTA today, improved Abd: Soft, non distended. No pain to palpation. Positive bowel sounds Extremities: No swelling, erythema, or pain to palpation. Objective Data Vital Signs Vital Signs: Vital Signs - 24 hr 07/28/20 14:00 07/28/20 20:20 07/28/20 21:47 Temperature 96.9 F L 96.9 F L Pulse Rate 82 81 81 Respiratory Rate 18 16 16 Blood Pressure 122/86 108/74 Pulse Oximetry 91 95 95 07/29/20 06:00 07/29/20 08:00 Temperature 96.7 F L Pulse Rate 69 69 Respiratory Rate 18 18 Blood Pressure 118/71 Pulse Oximetry 91 91 Intake/Output Intake/Output: Intake & Output 07/26/20 07/27/20 07/28/20 07/29/20 23:59 23:59 23:59 23:59 Intake Total 5610 2040 1510 Output Total 1800 1 950 Balance 3810 2039 560 Meds/Results Medications: Active Medications Generic Name Dose Route Start Last Admin Trade Name Freq PRN Reason Stop Dose Admin Acetaminophen 650 mg 07/27/20 21:02 07/27/20 21:46 Acetaminophen 325 Mg Tablet PO 650 mg
[2020-07-29] MEDS: LORazepam (*CRX) 1 MG TABLET PO ×2 (11:36→23:16)
[2020-07-29 14:00] VITALS: BP 120/64; PULSE 73; RESP 18; TEMP 36.6; O2SAT 92
[2020-07-29] MEDS: methADONE HCL (*CRX) 10 MG TABLET PO ×2 (17:29→23:16)
[2020-07-29 20:00] VITALS: O2SAT 92
[2020-07-29] MEDS: MIRTAZAPINE 15 MG TABLET 45 MG PO (21:25)
[2020-07-29 22:00] VITALS: BP 114/77; PULSE 69; RESP 20; TEMP 36.4; O2SAT 91
[2020-07-30 05:43] LABS: Basophils Absolute Auto 0.1 K/mm3 (0.0-0.1); Basophils Percent Auto 0.5 % (0.2-1.2); Eosinophils Absolute Auto 0.8 K/mm3 (0-0.3); Eosinophils Percent Auto 7.8 % (0-4.4); Hematocrit 36.1 % (37.0-47.0); Hemoglobin 11.6 g/dL (12.0-15.0); Immature Granulocyte Absolute 0.13 K/mm3 (0.00-0.031); Immature Granulocyte Percent A 1.2 % (0-0.5); Lymphocytes Absolute Auto 3.59 K/mm3 (0.9-3.2); Lymphocytes Percent Auto 34.3 % (18.3-44.2); Mean Corpuscular HGB Conc 32.1 g/dl (32-36); Mean Corpuscular Hemoglobin 27.8 pg (26-34); Mean Corpuscular Volume 86.4 fl (80-100); Mean Platelet Volume 8.2 fl (7.4-10.4); Monocytes Absolute Auto 0.7 K/mm3 (0.1-0.6); Monocytes Percent Auto 6.4 % (2.6-8.5); Neutrophils Absolute Auto 5.2 K/mm3 (1.3-6.7); Neutrophils Percent Auto 49.8 % (45.5-73.1); Platelet Count Result 421 k/mm3 (150-375); Red Blood Count 4.18 M/mm3 (4.2-5.4); Red Cell Distribution Width 13.8 % (11.5-14.5); White Blood Count 10.5 K/mm3 (4.5-10.0)
[2020-07-30 05:58] LABS: Alanine Aminotransferase 10 U/L (4-35); Alkaline Phosphatase 84 U/L (38-126); Anion Gap 1 mmol/L (8-16); Aspartate Amino Transferase 24 U/L (14-36); Bilirubin,Total 0.4 mg/dL (0.2-1.3); Blood Urea Nitrogen 11 mg/dL (7-17); CRP 4.9 mg/dL (<1.0); Calcium 8.2 mg/dL (8.4-10.2); Carbon Dioxide 36 mmol/L (22-30); Chloride 97 mmol/L (98-107); Estimated CRCL calculation 65 ml/min; Estimated Glomerular Filt Rate 59; Glucose 202 mg/dL (65-105); Potassium 3.2 mmol/L (3.4-5.0); Sodium 134 mmol/L (137-145)
[2020-07-30 06:00] VITALS: BP 134/81; PULSE 80; RESP 18; TEMP 36.3; O2SAT 93
[2020-07-30] MEDS: CENTRAL LINE FLUSH 10 ML IV PUSH (06:42)
[2020-07-30] MEDS: methADONE HCL (*CRX) 10 MG TABLET PO (08:01)
[2020-07-30] MEDS: LORazepam (*CRX) 1 MG TABLET PO (08:01)
[2020-07-30] MEDS: ALBUTEROL SULFATE (*SP) AEROSOL 1 PUFF 4 PUFF INHALATION ×2 (08:40→11:41)
[2020-07-30] MEDS: cloNIDine HCL 0.1 MG TABLET PO ×2 (08:40→11:46)
[2020-07-30] MEDS: POTASSIUM CHLORIDE 20 MEQ TABLET 40 MEQ PO (08:40)
[2020-07-30] MEDS: ENOXAPARIN 40 MG/0.4 ML SYRINGE SUB-Q (08:40)
[2020-07-30] MEDS: GABAPENTIN 300 MG CAPSULE PO ×2 (08:41→11:46)
--- NOTE | 2020-07-30 13:36 | PM.DS ---
DS: Admitting Diagnosis Admitting Diagnosis Admitting Diagnosis: PNA DS: Discharge Diagnosis Discharge Diagnosis (1) Pneumonia: Qualifiers: Laterality: bilateral Lung location: unspecified part of lung Pneumonia type: due to unspecified organism Qualified Code(s): J18.9 - Pneumonia, unspecified organism Code(s): J18.9 - Pneumonia, unspecified organism Status: Acute Assessment and Plan: Patient has bilateral pneumonia on chest x-ray -suspicious for COVID-19 but negative PCR -negative for influenza, await Legionella antigen and pneumococcal antigens. -HIV negative -patient received Zosyn and vancomycin while hospitalized. She was transition to Levaquin at discharge. She has many allergies and she was told to follow-up with her primary care physician to ensure that she continues to improve with the medication change outpatient -she no longer requires oxygen (2) Leukocytosis: Qualifiers: Leukocytosis type: bandemia Qualified Code(s): D72.825 - Bandemia Code(s): D72.829 - Elevated white blood cell count, unspecified Status: Acute Assessment and Plan: White blood cell count 21.9 on admission and is trending down today 10.5 -likely due to pneumonia as above -UA shows multiple organisms, none being identified. No urinary symptoms -patient has used IV drugs in the past, blood cultures have been drawn and have no growth to date (3) Suspected 2019-nCoV infection: Code(s): Z20.822 - Contact with and (suspected) exposure to COVID-19 Status: Acute Assessment and Plan: As above (4) Bacteriuria with pyuria: Code(s): R82.71 - Bacteriuria; R82.81 - Pyuria Status: Acute Assessment and Plan: As above (5) Opioid abuse: Code(s): F11.10 - Opioid abuse, uncomplicated Status: Chronic Assessment and Plan: Patient seen methadone while she was hospitalized and did well. She understands the risk of narcotic use and wants to quit. She needs medication to help do this. I am unable to prescribe methadone but she said she is going to try and find a clinic where she can do this. I have given her a few days worth of Ativan to help with her withdrawal but I discussed that if she goes back on her fentanyl/ heroin, she must not take this together as it can have serious side effects. She understands and plans to quit in get help. (6) Tobacco abuse disorder: Code(s): Z72.0 - Tobacco use Status: Acute Assessment and Plan: Tobacco cessation advised (7) Acute respiratory failure with hypoxia: Code(s): J96.01 - Acute respiratory failure with hypoxia Status: Acute Assessment and Plan: Resolved, Secondary to pneumonia DS: Summary Hospital Course Hospital Course: Patient is a 45-year-old chronic narcotic user who presented emergency room for upper respiratory symptoms such as cough, shortness of breath, and abdominal pain. VITALS IN THE ER WERE TEMPERATURE 99.1?, PULSE 114, RESPIRATORY RATE 19, BLOOD PRESSURE 141/87, PULSE OX 96 ON ROOM AIR. She has a leukocytosis of 21.9 in all other labs were stable. Findings in the abdomen or pelvis but did show patchy ground-glass opacities of the lung bases. She was admitted to the hospitalist service and started on vancomycin and Zosyn. Her COVID-19 and influenza test were negative. COVID was less likely since the patient had a leukocytosis but was still in the differential given the high false negativity rate of some of the test. She received IV antibiotics and improved clinically and her leukocytosis almost resolved at 10.5. She required 1 L of oxygen intermittently throughout her stay. Her flank pain resolved. The day of discharge she was tired but feeling a lot better. She was no longer requiring oxygen in her cough had improved. Note, she has a chronic narcotic user and was placed on methadone during her stay. She
[2020-07-30 14:00] VITALS: BP 142/97; PULSE 70; RESP 16; TEMP 36.4; O2SAT 94
[2020-07-31 19:26] LABS: Legionella pneumophila Ag Ur Not Detected (Not Detected)
[2020-08-01 05:32] LABS: Pneumococcal Antigen Urine Not Detected (Not Detected)
--- NOTE | 2020-08-24 09:22 | PC.NURSE ---
blood cx is negative
--- NOTE | 2020-08-24 09:23 | PC.NURSE ---
blood cx are negative.
== END 2020-07-30 14:55 | disposition home or self-care (01) | DRG 139 ==
LOC: ANHED 20:07 → ANH3MEDSUR 07-27 05:23
PROVIDERS: Emergency Medicine Emergency Medical Services; Internal Medicine; Admitting Provider Internal Medicine; Emergency Provider General Practice; PCP Family Medicine; Visit Provider Physician Assistant
DX: J18.9 Pneumonia, unspecified organism (principal); J43.9 Emphysema, unspecified; Z20.822 Contact with and (suspected) exposure to COVID-19; D72.829 Elevated white blood cell count, unspecified; R82.71 Bacteriuria; R82.81 Pyuria; F11.10 Opioid abuse, uncomplicated; I10 Essential (primary) hypertension; K21.9 Gastro-esophageal reflux disease without esophagitis; F31.9 Bipolar disorder, unspecified; F41.9 Anxiety disorder, unspecified; B19.20 Unspecified viral hepatitis C without hepatic coma; F17.210 Nicotine dependence, cigarettes, uncomplicated; Z79.899 Other long term (current) drug therapy; Z88.1 Allergy status to other antibiotic agents; Z88.2 Allergy status to sulfonamides; Z88.5 Allergy status to narcotic agent; Z88.8 Allergy status to other drugs, medicaments and biological substances; Z91.041 Radiographic dye allergy status; Z85.41 Personal history of malignant neoplasm of cervix uteri
CPT/HCPCS: 36415; 36556; 36600; 71045; 71046; 74176; 80048; 80053; 80076; 80202; 80307; 81001; 82375; 82728; 82805; 83036; 83050; 83605; 83615; 83690; 83735; 85025; 85380; 86140; 86703; 87040; 87086; 87088; 87449; 87804; 87899; 93005; 93306; 94640; 99285; A9270; C1751; C9803; G0432; J0131; J1100; J1650; J2405; J2543; J3370; J7120; U0003; U0005

== ENCOUNTER 2020-11-02 22:26 | Emergency (ER) | payer OTHER, SELFPAY ==
--- NOTE | ~2020-11-02 | XR_ITS ---
EXAMINATION: XR chest 1V portable DATE: 11/02/2020 23:50 INDICATION: Shortness of breath. Fever. TECHNIQUE: frontal view of the chest was obtained. COMPARISON: Chest radiograph dated 07/29/2020 FINDINGS: Minimal streaky left basilar atelectasis. No other airspace opacities, pulmonary edema, pleural effus ion or pneumothorax. The cardiomediastinal silhouette is normal. Cholecystectomy clips in right upper quadrant. IMPRESSION: 1. Minimal streaky left basilar atelectasis. Reviewed, dictated and finalized at location A.
[2020-11-02 22:36] VITALS: BP 145/119; PULSE 94; RESP 18; TEMP 37.2; O2SAT 97
--- NOTE | 2020-11-02 22:49 | ED.NAVMDI ---
HPI - Nausea/Vomiting/Diarrhea General Chief complaint: Nausea/Vomiting/Diarrhea <Holger Parsons MD - Last Filed: 11/05/20 18:35> Stated complaint: n/v, sob, <Holger Parsons MD - Last Filed: 11/05/20 18:35> Time Seen by Provider: 11/02/20 22:29 <Holger Parsons MD - Last Filed: 11/05/20 18:35> History of Present Illness HPI Narrative: Nausea, vomiting, SOB since yesterday. Subjective fever and chills. Not tolerating any fluid. This is associated with low back pain radiating into the legs bilaterally. She has not tried anything for her symtpoms. <Holger Parsons MD - Last Filed: 11/05/20 18:35> Related Data Home medications: Home Medications Medication Instructions Recorded Confirmed albuterol sulfate 2 puff INHALATION Q4H PRN 03/04/20 07/27/20 clonidine HCl 0.1 mg PO TID PRN 03/04/20 07/27/20 gabapentin 300 mg PO TID 03/04/20 07/27/20 mirtazapine 45 mg PO DAILY 03/04/20 07/27/20 montelukast 10 mg PO DAILY 03/04/20 07/27/20 ondansetron 8 mg PO TID PRN 03/04/20 07/27/20 tizanidine 4 mg PO Q8H PRN 03/04/20 07/27/20 trazodone 200 mg PO HS PRN 03/04/20 07/27/20 <Holger Parsons MD - Last Filed: 11/05/20 18:35> Allergies/Adverse reactions: Allergies Allergy/AdvReac Type Severity Reaction Status Date / Time codeine Allergy Intermediate HIVES, Verified 11/02/20 22:43 TONGUE SWELLING cephalexin Allergy Mild Unknown Verified 11/02/20 22:43 clavulanic acid Allergy Mild BETA Verified 11/02/20 22:43 LACTAMASE INHIBITORS doxycycline Allergy Mild Unknown Verified 11/02/20 22:43 erythromycin base Allergy Mild Unknown Verified 11/02/20 22:43 prochlorperazine Allergy Mild Unknown Verified 11/02/20 22:43 Sulfa (Sulfonamide Allergy Mild Unknown Verified 11/02/20 22:43 Antibiotics) tetracycline Allergy Mild Unknown Verified 11/02/20 22:43 Iodinated Contrast Media Allergy Unknown Unknown Verified 11/02/20 22:43 <Holger Parsons MD - Last Filed: 11/05/20 18:35> Review of Systems Review of Systems: All systems reviewed & are unremarkable except as noted in HPI and below <Holger Parsons MD - Last Filed: 11/05/20 18:35> Constitutional: Constitutional: Reports chills, Reports fatigue, Reports fever(s) and Reports weakness <Holger Parsons MD - Last Filed: 11/05/20 18:35> ENT: Reports system reviewed and no additional complaints, except as documented <Holger Parsons MD - Last Filed: 11/05/20 18:35> Cardiovascular: Cardiovascular: Denies chest pain <Holger Parsons MD - Last Filed: 11/05/20 18:35> Respiratory: Respiratory: Reports chest congestion, Reports cough and Reports dyspnea <Holger Parsons MD - Last Filed: 11/05/20 18:35> Gastrointestinal: Gastrointestinal: Denies abdominal pain, Reports nausea and Reports vomiting <Holger Parsons MD - Last Filed: 11/05/20 18:35> Genitourinary: Genitourinary: Reports no additional female genitourinary complaints <Holger Parsons MD - Last Filed: 11/05/20 18:35> Neurologic: Reports dizziness and Reports weakness <Holger Parsons MD - Last Filed: 11/05/20 18:35> [facility] Past Medical History Medical History: Medical History Anemia Anxiety Asthma Back pain Bipolar disorder C. difficile colitis February 2020 Cervical cancer with chemotherapy and partial hysterectomy COPD (chronic obstructive pulmonary disease) Depression Emphysema lung Endometriosis Fibroids Fractures bilateral legs, ribs GERD (gastroesophageal reflux disease) Gum disease peridontal Hepatitis C not yet treated Hypertension Infection of skin due to methicillin resistant Staphylococcus aureus (MRSA) Associated with IV drug use Kidney stones Neuropathy Opioid abuse Heroin and fentanyl abuse Peptic ulcer PID (acute pelvic inflammatory disease) Pneumonia PTSD (post-traumatic stress disorder) Seizures Shingles Sinus problem
[2020-11-02] MEDS: SODIUM CHLORIDE 0.9% IV 1,000 ML 999 ML IV CONT (23:51)
[2020-11-02] MEDS: ONDANSETRON INJ 4 MG/2 ML VIAL IV PUSH (23:51)
[2020-11-03 00:13] LABS: Basophils Absolute Auto 0.1 K/mm3 (0.0-0.1); Basophils Percent Auto 0.5 % (0.2-1.2); Eosinophils Absolute Auto 0.1 K/mm3 (0-0.3); Eosinophils Percent Auto 1.5 % (0-4.4); Hematocrit 48.6 % (37.0-47.0); Hemoglobin 16.1 g/dL (12.0-15.0); Immature Granulocyte Absolute 0.03 K/mm3 (0.00-0.031); Immature Granulocyte Percent A 0.3 % (0-0.5); Lymphocytes Absolute Auto 1.83 K/mm3 (0.9-3.2); Lymphocytes Percent Auto 19.4 % (18.3-44.2); Mean Corpuscular HGB Conc 33.1 g/dl (32-36); Mean Corpuscular Hemoglobin 28.2 pg (26-34); Mean Corpuscular Volume 85.3 fl (80-100); Mean Platelet Volume 8.7 fl (7.4-10.4); Monocytes Absolute Auto 0.5 K/mm3 (0.1-0.6); Monocytes Percent Auto 5.1 % (2.6-8.5); Neutrophils Absolute Auto 6.9 K/mm3 (1.3-6.7); Neutrophils Percent Auto 73.2 % (45.5-73.1); Platelet Count Result 423 k/mm3 (150-375); Red Cell Distribution Width 14.1 % (11.5-14.5); White Blood Count 9.4 K/mm3 (4.5-10.0)
[2020-11-03 00:24] LABS: Alanine Aminotransferase 12 U/L (4-35); Albumin Level 4.5 g/dL (3.5-5.1); Alkaline Phosphatase 116 U/L (38-126); Anion Gap 5 mmol/L (8-16); Aspartate Amino Transferase 22 U/L (14-36); Bilirubin,Total 0.6 mg/dL (0.2-1.3); Blood Urea Nitrogen 11 mg/dL (7-17); Calcium 9.5 mg/dL (8.4-10.2); Carbon Dioxide 29 mmol/L (22-30); Chloride 104 mmol/L (98-107); Estimated CRCL calculation 73 ml/min; Estimated Glomerular Filt Rate > 60; Glucose 121 mg/dL (65-105); Lipase 31 U/L (23-300); Potassium 4.4 mmol/L (3.4-5.0); Sodium 138 mmol/L (137-145)
[2020-11-03 00:51] LABS: Add Urine Microscopic? YES; Appearance Urine Cloudy (Clear); Bacteria Urine Trace /hpf; Bilirubin Urine Negative (Negative); Blood Urine Negative (Negative); Color Urine Yellow (Yellow); Glucose Urine UA Negative (Negative); Ketones Urine Negative (Negative); Leukocyte Esterase Ur Negative LEU/UL (Negative); Mucus Urine Rare /lpf; Nitrate Urine Negative (Negative); Protein Urine 1+ mg/dL (Negative); RBC Urine 0-2 /hpf (0-2); Specific Grav Ur 1.011 (1.001-1.035); Squamous Epithelial Cell Urine Many /hpf (Few); Urobilinogen Urine Negative mg/dL (<2.0); WBC Urine 0-3 /hpf
[2020-11-03] MEDS: ACETAMINOPHEN 500 MG TABLET 1000 MG PO (00:54)
[2020-11-03 00:55] VITALS: BP 152/106; PULSE 74; RESP 16; O2SAT 96
[2020-11-03 02:47] VITALS: BP 149/103; PULSE 76; RESP 18; O2SAT 98
[2020-11-03 19:15] LABS: SARS-CoV-2 RNA PCR Negative
== END 2020-11-03 02:35 | disposition home or self-care (01) ==
PROVIDERS: Emergency Medicine; Emergency Provider Emergency Medicine; PCP Family Medicine
DX: R11.10 Vomiting, unspecified (principal); E86.0 Dehydration; Z20.822 Contact with and (suspected) exposure to COVID-19; J43.9 Emphysema, unspecified; I10 Essential (primary) hypertension; F31.9 Bipolar disorder, unspecified; F41.9 Anxiety disorder, unspecified; F43.10 Post-traumatic stress disorder, unspecified; K21.9 Gastro-esophageal reflux disease without esophagitis; B19.20 Unspecified viral hepatitis C without hepatic coma; G62.9 Polyneuropathy, unspecified; Z85.41 Personal history of malignant neoplasm of cervix uteri; Z87.442 Personal history of urinary calculi; Z92.21 Personal history of antineoplastic chemotherapy; Z87.11 Personal history of peptic ulcer disease
CPT/HCPCS: 36415; 71045; 80053; 81001; 81025; 83690; 85025; 96374; 99284; A9270; C9803; J2405; J7030; U0003; U0005

== ENCOUNTER 2021-01-02 17:17 | Outpatient (CLI) | payer OTHER, SELFPAY ==
--- NOTE | ~2021-01-02 | CT_ITS ---
EXAMINATION:CT diagnostic chest wo con DATE: 01/02/2021 18:08 INDICATION: Abnormal lung findings on prior imaging. TECHNIQUE: Computed tomography (CT) of the chest was performed without intravenous contrast. Automate d exposure control and iterative reconstruction technique were employed. The dose-length product (DLP ) was 276.00 mGy-cm. COMPARISON: CT abdomen and pelvis 07/26/2020, chest single view 11/02/2020, chest CT 10/21/2013 FINDINGS: There is mild scarring at right lung apex. There is mild atelectasis bilaterally. There are scattered pulmonary nodules measuring up to 5 mm, stable from 10/21/2013. No pleural effusion. There is a 16 x 15 mm mass in right upper inner breast that measured 18 x 14 mm on 10/21/2013, likely benign . The heart size is normal. No pericardial effusion. There are coronary artery calcifications. There are changes of cholecystectomy. There is a 9 mm cyst in the liver. There is mild thoracic spondylosis . IMPRESSION: 1. Chronic small pulmonary nodules, likely benign. Reviewed, dictated and finalized at location A.
== END 2021-01-02 17:18 | disposition home or self-care (01) ==
LOC: ANHIMG 17:18
PROVIDERS: PCP Family Medicine; Visit Provider Nurse Practitioner Family
DX: R91.8 Other nonspecific abnormal finding of lung field (principal)
CPT/HCPCS: 71250

== ENCOUNTER 2022-04-09 15:56 | Inpatient (IN) | payer OTHER, SELFPAY ==
--- NOTE | ~2022-04-09 | XR_ITS ---
EXAMINATION: XR chest 2V Exam Date/Time: 04/09/2022 17:10 CDT HISTORY: DRUG INDUCED CHEST PAIN X 5 HRS. HX HTN, COPD, ASTHMA Comparison: 11/02/2020. RESULT: Lines, tubes, and devices: None. Lungs and pleura: Increased streaky bibasilar opacities. Cardiomediastinal silhouette: Stable. Other: No acute osseous or upper abdominal finding. IMPRESSION: Subsegmental bibasilar atelectasis/consolidation. Reviewed, dictated and finalized at location K.
--- NOTE | ~2022-04-09 | CT_ITS ---
EXAMINATION: CT abdomen pelvis wo con DATE: 04/09/2022 19:48 INDICATION: R sided Abd pain, Hx of Hep C, leukocytosis TECHNIQUE: Computed tomography (CT) of the abdomen and pelvis was performed without intravenous contr ast. Automated exposure control and iterative reconstruction technique were employed. The dose-length product was 962.70 mGy-cm. COMPARISON: 07/26/2020. FINDINGS: Lower thorax: Bibasilar scar/atelectasis. Post infectious/inflammatory nodular opacities and intrapul monary lymph nodes. Liver: Hepatomegaly. Subcentimeter hypodensities, likely representing cysts. Biliary/Gallbladder: Gallbladder is absent. No bile duct dilation. Pancreas: No mass or duct dilation. Spleen: Normal. Adrenals:No mass. Kidneys: No mass, stone, or hydronephrosis. Excreted contrast in the bilateral collecting systems. GI tract: No small or large bowel dilation. Normal appendix. Mesentery/Peritoneum: No ascites, mass, or free air. Retroperitoneum: No mass. Atherosclerotic abdominal aortic and/or arterial calcifications. Pelvis: Mild bladder wall thickening with surrounding fat stranding. Intraluminal contrast. Uterus is absent.. Soft Tissues: Soft tissues and body wall unremarkable. Bones: No acute osseous finding. IMPRESSION: Hepatomegaly. Possible cystitis. No other acute abdominopelvic process detected Reviewed, dictated and finalized at location K.
--- NOTE | ~2022-04-09 | CT_ITS ---
EXAMINATION: CTA chest PE protocol DATE: 04/09/2022 18:56 INDICATION: CP, SOB, elev Trop, IVDA, r/o PE/endocard TECHNIQUE: Computed tomography angiography (CTA) of the chest was performed with 100 mL Omnipaque-350 intravenous contrast timed to evaluate the pulmonary arteries. Coronal maximum intensity projection 3D-reconstructions were created by the technologist. The dose-length product (DLP) was 414.45 mGy-cm. Automated exposure control and iterative reconstruction technique were employed. COMPARISON: None. FINDINGS: Lung parenchyma and airways: Dependent atelectasis. Multiple scattered sub-5 mm nodular opacities, li alejo postinfectious or inflammatory, requiring no additional follow-up. Pleura: Unremarkable. Thoracic inlet, axillae and chest wall: Unremarkable. Right breast nodule, benign on prior biopsy. Thoracic aorta: Normal. Mediastinum: Normal. Heart and pericardium: Normal. Coronary artery calcifications: Absent. Upper abdomen: No significant finding. Bones: No acute osseous finding. Pulmonary arteries: Study quality: Adequate. No pulmonary emboli detected. IMPRESSION: No CT evidence of acute pulmonary embolus. Reviewed, dictated and finalized at location K.
--- NOTE | ~2022-04-09 | XR_ITS ---
XR chest 1V portable 04/10/2022 16:52 Indication: Chest pain Procedure: AP portable chest Comparison: Comparison to multiple prior studies sequentially, with oldest reviewed study dated 07/26. Findings: Heart size normal for technique. There are bilateral interstitial infiltrates with peribron chial thickening. More focal consolidation present in the lung bases. Impression: 1: Bilateral perihilar interstitial infiltrates with consolidation in the lung bases. This may repres ent edema, pneumonia and/or atelectasis. Reviewed, dictated and finalized at location A. Impression: 1: Bilateral perihilar interstitial infiltrates with consolidation in the lung bases. This may represent edema, pneumonia and/or atelectasis.
[2022-04-09 16:23] VITALS: BP 170/70; PULSE 110; RESP 16; TEMP 36.8; O2SAT 97
--- NOTE | 2022-04-09 16:46 | ECG_ITS ---
Measurements Intervals [place] Rate: 116 P: 50 [place]: 155 QRS: 5 QRSD: 93 T: 153 QT: 355 QTc: 494 Interpretive Statements SINUS TACHYCARDIA LOW QRS VOLTAGE IN PRECORDIAL LEADS [QRS DEFLECTION < 1.0 mV IN CHEST LEADS] POSSIBLE ANTERIOR MYOCARDIAL INFARCTION , OF INDETERMINATE AGE [30 ms Q WAVE IN V3/V4, OR R < 0.2 mV IN V4] COMPARED TO ECG 07/29/2020 11:56:11 SINUS TACHYCARDIA NOW PRESENT POSSIBLE ANTERIOR MYOCARDIAL INFARCTION NOW PRESENT Electronically Signed On 04-10-2022 17:09:11 CDT by Rosey Carmona M.D.
[2022-04-09 16:58] LABS: Basophils Absolute Auto 0.1 K/mm3 (0.0-0.1); Basophils Percent Auto 0.4 % (0.2-1.2); Eosinophils Absolute Auto 0.3 K/mm3 (0-0.3); Eosinophils Percent Auto 1.7 % (0-4.4); Hematocrit 51.3 % (37.0-47.0); Hemoglobin 17.2 g/dL (12.0-15.0); Immature Granulocyte Absolute 0.09 K/mm3 (0.00-0.031); Immature Granulocyte Percent A 0.5 % (0-0.5); Lymphocytes Absolute Auto 2.84 K/mm3 (0.9-3.2); Lymphocytes Percent Auto 15.1 % (18.3-44.2); Mean Corpuscular HGB Conc 33.5 g/dl (32-36); Mean Corpuscular Hemoglobin 29.1 pg (26-34); Mean Corpuscular Volume 86.8 fl (80-100); Mean Platelet Volume 8.9 fl (7.4-10.4); Monocytes Absolute Auto 1.1 K/mm3 (0.1-0.6); Monocytes Percent Auto 5.9 % (2.6-8.5); Neutrophils Absolute Auto 14.4 K/mm3 (1.3-6.7); Neutrophils Percent Auto 76.4 % (45.5-73.1); Platelet Count Result 422 k/mm3 (150-375); Red Blood Count 5.91 M/mm3 (4.2-5.4); Red Cell Distribution Width 13.9 % (11.5-14.5); White Blood Count 18.8 K/mm3 (4.5-10.0)
[2022-04-09 17:12] LABS: Alanine Aminotransferase 18 U/L (6-35); Albumin Level 4.6 g/dL (3.5-5.1); Alkaline Phosphatase 105 U/L (38-126); Anion Gap 14 mmol/L (8-16); Aspartate Amino Transferase 34 U/L (14-36); Bilirubin,Total 1.1 mg/dL (0.2-1.3); Blood Urea Nitrogen 10 mg/dL (7-17); Calcium 9.4 mg/dL (8.4-10.2); Carbon Dioxide 28 mmol/L (22-30); Chloride 100 mmol/L (98-107); Estimated CRCL calculation 80 ml/min; Estimated Glomerular Filt Rate > 60; Glucose 136 mg/dL (65-110); Lipase 46 U/L (23-300); Potassium 3.6 mmol/L (3.4-5.0); Sodium 142 mmol/L (137-145)
[2022-04-09 17:19] LABS: INR 1.1; Prothrombin Time 13.9 Seconds (11.1-14.7)
[2022-04-09 17:20] LABS: Partial Thromboplastin Time 39.2 SECONDS (22.3-36.8)
--- NOTE | 2022-04-09 17:47 | ED.CHESTPAIN ---
HPI - Chest Pain General Chief Complaint: Chest Pain <Roseann Jeffers PA-C - Last Filed: 04/09/22 21:29> Stated Complaint: CP <Roseann Jeffers PA-C - Last Filed: 04/09/22 21:29> Time Seen by Provider: 04/09/22 17:40 <Roseann Jeffers PA-C - Last Filed: 04/09/22 21:29> Source: patient <Roseann Jeffers PA-C - Last Filed: 04/09/22 21:29> Mode of arrival: EMS <Roseann Jeffers PA-C - Last Filed: 04/09/22 21:29> Limitations: no limitations <Roseann Jeffers PA-C - Last Filed: 04/09/22 21:29> History of Present Illness HPI narrative: Patient is a 47-year-old female, with a PMHx of Hepatits C, daily Fentanyl use, COPD, and HTN, who presents the ED with report of left-sided chest pain. Patient reports the pain began yesterday afternoon and has been persistent since then. She has been resting at home. She was woken up with worsening pain around 3 AM this morning. Pain is still present currently in the ED bed. She states pain is in her left-sided chest, radiates through to her back and left shoulder and down to her left elbow. Pain is aggravated with exertion and she also feels increasingly short of breath with racing heart palpitations with exertion. Patient has never had pain like this before. History of hypertension and smoking, but denies high cholesterol, diabetes. Patient also reports feeling nauseous and dizzy with pain, but denies abdominal pain, fever, cough, vomiting, headache. Patient last used fentanyl around 11:30 AM this morning. She does snort and inject. She last injected 3 days ago. <Roseann Jeffers PA-C - Last Filed: 04/09/22 21:29> Related Data Home Medications: Home Medications Medication Instructions Recorded Confirmed albuterol sulfate 90 mcg/actuation 2 puff inhalation Q4H PRN 03/04/20 07/27/20 aerosol inhaler Shortness Of Breath clonidine HCl 0.1 mg tablet 0.1 mg PO TID PRN Anxiety 03/04/20 07/27/20 gabapentin 300 mg capsule 300 mg PO TID 03/04/20 07/27/20 mirtazapine 45 mg tablet 45 mg PO DAILY 03/04/20 07/27/20 montelukast 10 mg tablet 10 mg PO DAILY 03/04/20 07/27/20 ondansetron 8 mg disintegrating 8 mg PO TID PRN Nausea 03/04/20 07/27/20 tablet tizanidine 4 mg capsule 4 mg PO Q8H PRN Muscle Pain 03/04/20 07/27/20 trazodone 100 mg tablet 200 mg PO HS PRN Insomnia 03/04/20 07/27/20 <BRADY Mcleod Last Filed: 04/09/22 21:29> Allergies/Adverse Reactions: Allergies Allergy/AdvReac Type Severity Reaction Status Date / Time codeine Allergy Intermediate HIVES, Verified 11/02/20 22:43 TONGUE SWELLING cephalexin Allergy Mild Unknown Verified 11/02/20 22:43 clavulanic acid Allergy Mild BETA Verified 11/02/20 22:43 LACTAMASE INHIBITORS doxycycline Allergy Mild Unknown Verified 11/02/20 22:43 erythromycin base Allergy Mild Unknown Verified 11/02/20 22:43 prochlorperazine Allergy Mild Unknown Verified 11/02/20 22:43 Sulfa (Sulfonamide Allergy Mild Unknown Verified 11/02/20 22:43 Antibiotics) tetracycline Allergy Mild Unknown Verified 11/02/20 22:43 Iodinated Contrast Media Allergy Unknown Unknown Verified 11/02/20 22:43 <BRADY Mcleod Last Filed: 04/09/22 21:29> Review of Systems Review of Systems: CONSTITUTIONAL: Denies fever, chills, or sweats. CARDIOVASCULAR: Reports chest pain - through to back and LUE, palpitations RESPIRATORY: Reports BOYKIN, dyspnea. Denies cough. GASTROINTESTINAL: Reports nausea. Denies abdominal pain, vomiting, or diarrhea. MUSCULOSKELETAL: Reports back pain from CP. NEUROLOGIC: Reports dizziness. <BRADY Mcleod Last Filed: 04/09/22 21:29> All systems reviewed & are unremarkable except as noted in HPI and below <BRADY Mcleod Last Filed: 04/09/22 21:29> [facility] Past Medical History Medical History: Medical History Anemia Anxiety Asthma Back
[2022-04-09 18:28] VITALS: PULSE 117
[2022-04-09 18:30] VITALS: BP 129/94; PULSE 118; RESP 18; O2SAT 98
[2022-04-09] MEDS: NITROGLYCERIN SL 0.4 MG TABLET SUBLINGUAL ×2 (18:35→19:49)
[2022-04-09] MEDS: SODIUM CHLORIDE 0.9% IV 1,000 ML 999 ML IV CONT (18:35)
[2022-04-09 18:51] LABS: Lactic Acid Reflex 2.8 mmol/L (0.7-2.0)
[2022-04-09 19:14] LABS: SARS-CoV-2 RNA PCR Negative
[2022-04-09 19:19] LABS: D Dimer 0.66 ug/mL (<0.48)
[2022-04-09] MEDS: ONDANSETRON INJ 4 MG/2 ML VIAL IV PUSH (19:40)
[2022-04-09 19:44] LABS: Appearance Urine Clear (Clear); Bilirubin Urine 1+ (Negative); Blood Urine Negative (Negative); Color Urine Amber (Yellow); Glucose Urine UA Negative (Negative); Ketones Urine Trace mg/dL (Negative); Leukocyte Esterase Ur Negative LEU/UL (Negative); Nitrate Urine Negative (Negative); Protein Urine Negative (Negative); Specific Grav Ur 1.015 (1.001-1.035)
[2022-04-09 19:49] LABS: Mucus Urine Rare /lpf; Squamous Epithelial Cell Urine Many /hpf (Few)
[2022-04-09 19:54] LABS: Add Urine Microscopic? YES
[2022-04-09 20:01] LABS: Amphetamine Screen Urine Negative (Negative); Barbiturate Screen Urine Negative (Negative); Benzodiazepines Screen Urine Negative (Negative); Cannabinoid Screen Urine Negative (Negative); Cocaine Screen Urine Negative (Negative); Methadone Screen Urine Negative (Negative); Opiate Screen Urine Negative (Negative); Phencyclidine Screen Urine Negative (Negative)
[2022-04-09 20:25] LABS: Creatine Kinase 91 U/L (30-135)
--- NOTE | 2022-04-09 20:42 | PM.IMHP ---
H&P: HPI History of Present Illness Date/Time: 04/09/22 20:42 Chief Complaint: Chest pain Narrative: This is a 47-year-old female with past medical history significant for IV drug use, patient snorts and injects fentanyl, hepatitis-C, tobacco dependence, COPD/emphysema, patient smokes 1 pack of cigarettes daily. Patient admits to daily fentanyl use. Patient comes to the emergency room due to left-sided chest pain localized to the precordial area and left ribcage with radiation up to the shoulder around to the back and arm, patient denies any syncope or near syncope gets short of breath with minimal activity no shortness of breath while at rest has had poor appetite denies any nausea, vomiting, diarrhea, no fevers, no rigors, no chills, No leg swelling, no pedal swelling, no night sweats, at the time of my visit patient denied any discomfort. preliminary workup was significant for: CT angiogram of the chest: IMPRESSION: No CT evidence of acute pulmonary embolus. CT of abdomen and pelvis: IMPRESSION: Hepatomegaly. Possible cystitis. No other acute abdominopelvic process detected chest x-ray IMPRESSION: Subsegmental bibasilar atelectasis/consolidation. WBC 18,000, lactic acid 2.8 troponin 1.370 SINUS TACHYCARDIA LOW QRS VOLTAGE IN PRECORDIAL LEADS [QRS DEFLECTION < 1.0 mV IN CHEST LEADS] POSSIBLE ANTERIOR MYOCARDIAL INFARCTION , OF INDETERMINATE AGE [30 ms Q WAVE IN V3/V4, OR R < 0.2 mV IN V4] COMPARED TO ECG 07/29/2020 11:56:11 SINUS TACHYCARDIA NOW PRESENT Review of Systems Review of Systems: chest pain, shortness of breath. Constitutional: Constitutional: Denies chills, Denies fever(s), Denies night sweats, Reports poor appetite and Denies weakness Eyes: Eyes: Denies change in vision ENT: Denies dysphagia, Denies vertigo, Denies dizziness and Denies odynophagia Cardiovascular: Cardiovascular: Reports chest pain, Denies syncope, Denies irregular heart rhythm, Denies lightheadedness, Denies palpitations and Reports dyspnea on exertion Respiratory: Respiratory: Denies change in phlegm color, Denies chest congestion, Reports cough, Denies excessive phlegm production and Denies pain on inspiration Gastrointestinal: Gastrointestinal: Denies abdominal pain, Denies dyspepsia, Denies heartburn, Denies diarrhea and Denies nausea Genitourinary: Genitourinary: Denies dysuria Musculoskeletal: Musculoskeletal: Denies arthralgias and Denies joint swelling Integumentary/Breasts: Skin/Breast: Reports sores Neurologic: Denies vertigo, Denies dizziness, Denies focal weakness and Denies Sensory deficit (Neuro) Psychiatric: Psychiatric: Reports no additional psychiatric complaints and Reports as per HPI Endocrine: Endocrine: Denies cold intolerance, Denies flushing, Denies heat intolerance, Denies polyphagia, Denies polydipsia and Denies palpitations Hematologic/Lymphatic: Hematologic/Lymphatic: Reports no additional hematologic/lymphatic complaints and Reports as per HPI Allergic/Immunologic: Allergic/Immunologic: Reports no additional allergic/immunologic complaints and Reports as per HPI PMFSH Past Medical History Medical History Anemia Anxiety Asthma Back pain Bipolar disorder C. difficile colitis February 2020 Cervical cancer with chemotherapy and partial hysterectomy COPD (chronic obstructive pulmonary disease) Depression Emphysema lung Endometriosis Fibroids Fractures bilateral legs, ribs GERD (gastroesophageal reflux disease) Gum disease peridontal Hepatitis C not yet treated Hypertension Infection of skin due to methicillin resistant Staphylococcus aureus (MRSA) Associated with IV drug use Kidney stones Neuropathy Opioid abuse Heroin and fentanyl abuse Peptic ulcer PID (acute pelvic inflammatory disease) Pneumonia PTSD (post-traumatic stress disorder) Seizures Shingles Sinus problem Surgical History Surgical History (Re
[2022-04-09] MEDS: ATORVASTATIN 40 MG TABLET PO (21:20)
[2022-04-09] MEDS: ENOXAPARIN 100 MG/ML SYRINGE 90 MG SUB-Q (21:20)
[2022-04-09] MEDS: NITROGLYCERIN OINTMENT 1 INCH DOSE (21:21)
[2022-04-09] MEDS: AZTREONAM 2 GM in SODIUM CHLORIDE 0.9% IV 100 ML 200 ML IVPB (21:24)
[2022-04-09 21:35] LABS: Reflex Lactic Acid Yes or No Add Lactic
--- NOTE | 2022-04-09 22:33 | PC.NURSE ---
Called IMU and floor stated they were not sure if that room was clean yet. Stated the staff was working on a stemi.
--- NOTE | 2022-04-09 22:50 | ECG_ITS ---
Measurements Intervals [place] Rate: 110 P: 49 NC: 165 QRS: 18 QRSD: 90 T: 151 QT: 358 QTc: 485 Interpretive Statements SINUS TACHYCARDIA LOW QRS VOLTAGE IN PRECORDIAL LEADS [QRS DEFLECTION < 1.0 mV IN CHEST LEADS] Cannot rule out old anterior septal CA nonspecific T-wave changes COMPARED TO ECG 04/09/2022 17:27:04 NO SIGNIFICANT CHANGES Electronically Signed On 04-15-2022 12:47:23 CDT by Maribell Up M.D.
[2022-04-09 23:00] VITALS: BP 106/73; PULSE 105; RESP 18; TEMP 36.6; O2SAT 92; BMI 32.7
[2022-04-09 23:16] VITALS: BMI 32.7
[2022-04-10] VITALS (19 sets, daily range): BP systolic 104–127; BP diastolic 66–92; PULSE 80–120; RESP 16–24; TEMP 36.3–36.5; O2SAT 90–98
--- NOTE | 2022-04-10 | ECHO_ITS ---
Patient Info Name: Sheri Dunne Age: 47 years : 1975 Gender: Female Ht: 64 in Wt: 198 lbs BSA: 2.05 m2 HR: 114 bpm BP: 108 / 66 mmHg Heart Rhythm: Sinus Rhythm, Tachycardia Exam Date: 04/10/2022 8:23 AM Exam Location: [facility] Pulmonary Patient Status: Inpatient Admit Date: 04/09/2022 Staff Ordering Physician: Roseann Jeffers PA-C Professor Of Practice: Patel Avilez RDCS, RT Attending Provider: Thanh Bullard MD Referring Physician: Zeyad ORTEGA; Exam Type: CA echo dop color flow w con Study Info Indications R07.9 - Chest pain, unspecified Complete two-dimensional, color flow and Doppler transthoracic echocardiogram is performed with contrast to opacify the left ventricle and to improve the deliniation of the left ventricle endocardial borders. Summary 1. Left ventricular systolic function is severely reduced, estimated at 15-20%. 2. Left ventricular chamber dimension is moderately enlarged. 3. Regional wall motion abnormalities are present. There is hypokinesis-akinesis of the mid inferoseptum, apical septum, apical cap, apical lateral, mid anterolateral, mid inferolateral, apical lateral, mid anteroseptum denney. Regional wall motion abnormalities concerning for LAD territory infarction or stress cardiomyopathy. 4. Right ventricular systolic function is normal. 5. There is mild mitral valve regurgitation. 6. There is mild tricuspid valve regurgitation. Recommendations * Recommend Cardiology consultation. Left Ventricle Left ventricular chamber dimension is moderately enlarged. Left ventricular systolic function is severely reduced, estimated at 15-20%. There is mildly increased left ventricular wall thickness. Regional wall motion abnormalities are present. There is hypokinesis-akinesis of the mid inferoseptum, apical septum, apical cap, apical lateral, mid anterolateral, mid inferolateral, apical lateral, mid anteroseptum denney. Regional wall motion abnormalities concerning for LAD territory infarction or stress cardiomyopathy. Right Ventricle Right ventricular chamber dimension is normal. Right ventricular systolic function is normal. Left Atria Left atrial chamber dimension is normal. Right Atria Right atrial chamber dimension is normal. Aortic Valve The aortic valve is not well visualized. There is no aortic valve stenosis. There is trace aortic valve regurgitation. Pulmonic Valve The pulmonic valve is not well visualized. Mitral Valve The mitral valve has normal leaflets. There is no mitral valve stenosis. There is mild mitral valve regurgitation. Tricuspid Valve The tricuspid valve leaflets are not well visualized. There is no significant tricuspid valve stenosis. There is mild tricuspid valve regurgitation. Pericardium/Pleural There is trivial pericardial effusion. Aorta The aortic root size at the sinus of Valsalva is normal. Left Ventricular Outflow Tract Name Value Normal LVOT 2D LVOT Diameter 2.01 cm LVOT Doppler LVOT Peak Gradient 2 mmHg LVOT Mean Gradient 1 mmHg LVOT VTI 10.00
[2022-04-10] MEDS: NICOTINE (*PBKC) 21 MG PATCH 1 PATCH TRANSDERM ×2 (00:24→08:15)
[2022-04-10] MEDS: LORazepam INJ (*CRX) 2 MG/ML VIAL 1 MG IV PUSH ×3 (00:24→12:41)
[2022-04-10] MEDS: NITROGLYCERIN SL 0.4 MG TABLET SUBLINGUAL (00:30)
[2022-04-10] MEDS: MIRTAZAPINE 15 MG TABLET 45 MG PO ×2 (00:30→21:00)
[2022-04-10 03:29] LABS: Basophils Absolute Auto 0.1 K/mm3 (0.0-0.1); Basophils Percent Auto 0.4 % (0.2-1.2); Eosinophils Absolute Auto 0.3 K/mm3 (0-0.3); Eosinophils Percent Auto 2.2 % (0-4.4); Hemoglobin 15.8 g/dL (12.0-15.0); Immature Granulocyte Absolute 0.07 K/mm3 (0.00-0.031); Immature Granulocyte Percent A 0.5 % (0-0.5); Lymphocytes Absolute Auto 3.15 K/mm3 (0.9-3.2); Mean Corpuscular HGB Conc 32.9 g/dl (32-36); Mean Corpuscular Hemoglobin 28.9 pg (26-34); Mean Corpuscular Volume 87.9 fl (80-100); Mean Platelet Volume 8.8 fl (7.4-10.4); Monocytes Absolute Auto 0.8 K/mm3 (0.1-0.6); Monocytes Percent Auto 5.7 % (2.6-8.5); Neutrophils Absolute Auto 9.9 K/mm3 (1.3-6.7); Neutrophils Percent Auto 69.2 % (45.5-73.1); Platelet Count Result 342 k/mm3 (150-375); Red Blood Count 5.46 M/mm3 (4.2-5.4); White Blood Count 14.3 K/mm3 (4.5-10.0)
[2022-04-10 03:39] LABS: Anion Gap 12 mmol/L (8-16); Blood Urea Nitrogen 9 mg/dL (7-17); Calcium 8.7 mg/dL (8.4-10.2); Carbon Dioxide 26 mmol/L (22-30); Chloride 101 mmol/L (98-107); Estimated CRCL calculation 103 ml/min; Estimated Glomerular Filt Rate > 60; Glucose 135 mg/dL (65-110); Potassium 3.3 mmol/L (3.4-5.0); Sodium 139 mmol/L (137-145)
--- NOTE | 2022-04-10 03:56 | ADMGEN ---
This patient, Sheri Dunne, was admitted to IMU Room 211-01 on 04/09/22 at 2255. Patient/family oriented to hospital policies and general routines including ID bracelet, bed and alarms, visiting hours, pain management, procedures, bathroom and other care routines, personal items, smoking policy, room service/diet, and visiting hours. Information on how to activate the Rapid Response Team has been discussed. Patient/Family are encouraged to report perceived risks to care and to ask questions if they do not understand what they are told or what they should do.
[2022-04-10 04:05] LABS: Troponin I 0.883 ng/mL (0.000-0.034)
[2022-04-10] MEDS: HEPARIN SODIUM 5,000 UNITS/ML VIAL 5000 UNITS SUB-Q (05:01)
[2022-04-10] MEDS: AZTREONAM 2 GM in SODIUM CHLORIDE 0.9% IV 100 ML 200 ML IVPB ×3 (05:05→21:01)
[2022-04-10] MEDS: ONDANSETRON INJ 4 MG/2 ML VIAL IV PUSH (06:40)
[2022-04-10] MEDS: GABAPENTIN 300 MG CAPSULE PO ×3 (08:15→18:29)
[2022-04-10] MEDS: MONTELUKAST SODIUM 10 MG TABLET PO (08:15)
[2022-04-10] MEDS: PERFLUTREN LIPID MICROSPHERES 1.5 ML VIAL DILUTED TO 10 ML TOTAL VOLUME IV PUSH (08:30)
[2022-04-10] MEDS: POTASSIUM CHLORIDE 20 MEQ PACKET (FOR LIQUID) 40 MEQ PO (09:26)
--- NOTE | 2022-04-10 11:17 | PM.IMPN ---
Progress Note: A&P Assessment and Plan (1) Chest pain: Qualifiers: Chest pain type: chest pain due to myocardial ischemia Ischemic chest pain type: unstable angina pectoris Qualified Code(s): I20.0 - Unstable angina Code(s): R07.9 - Chest pain, unspecified Status: Acute Assessment and Plan: No plan for cardiac workup at this time. Medical management per Cardiology (2) Elevated troponin: Code(s): R77.8 - Other specified abnormalities of plasma proteins Status: Acute Assessment and Plan: see plan above (3) Opioid dependence: Qualifiers: Substance use status: uncomplicated Qualified Code(s): F11.20 - Opioid dependence, uncomplicated Code(s): F11.20 - Opioid dependence, uncomplicated Status: Acute Assessment and Plan: supportive care (4) Tobacco abuse disorder: Code(s): Z72.0 - Tobacco use Status: Acute Assessment and Plan: nicotine patch as needed (5) Opioid abuse: Code(s): F11.10 - Opioid abuse, uncomplicated Status: Chronic Assessment and Plan: Consul about substance of abuse cessation (6) Hepatitis C: Code(s): B19.20 - Unspecified viral hepatitis C without hepatic coma Status: Chronic Assessment and Plan: not treated follow-up in outpatient setting (7) COPD (chronic obstructive pulmonary disease): Code(s): J44.9 - Chronic obstructive pulmonary disease, unspecified Status: Chronic Assessment and Plan: not actively wheezing continue home med (8) Leukocytosis: Qualifiers: Leukocytosis type: bandemia Qualified Code(s): D72.825 - Bandemia Code(s): D72.829 - Elevated white blood cell count, unspecified Status: Acute Assessment and Plan: this could be multifactorial as patient is a chronic IV drug user and has chronic hepatitis C as well will continue to trend started on aztreonam and vancomycin cultures in progress await for cultures, likely does not need any antibiotics (9) Sepsis: Qualifiers: Sepsis acute organ dysfunction status: unspecified Sepsis type: sepsis due to unspecified organism Qualified Code(s): A41.9 - Sepsis, unspecified organism Code(s): A41.9 - Sepsis, unspecified organism Status: Acute Assessment and Plan: unknown primary source however patient is IV drug user cultures in progress early goal-directed therapy in progress on broad-spectrum antibiotic lactic acid is elevated will continue to trend Subjective Date/time seen: 04/10/22 11:17 mild chest pain. Exam Const: General: cooperative, comfortable, no acute distress, well developed, alert, awake, ill appearing chronically, poor hygiene and average body habitus Nutritional Appearance: average body habitus Orientation/consciousness: patient oriented x3 HENMT: Head: normal to inspection, normocephalic and atraumatic Ears: hearing grossly normal bilaterally Face/Nose/Sinus: normal facial exam Face and sinus: normal facial exam Eyes: General: appearance normal, both eyes and all related structures Pupils: Equal, round and reactive pupils present EOM: EOMs intact bilaterally Neck: Neck: full ROM, no lymphadenopathy and no JVD Thyroid: thyroid normal Lymphatic: no lymphadenopathy noted Resp: Effort & Inspection: normal respiratory effort and able to speak in complete sentences Auscultation: clear to auscultation bilaterally Cardio: Jugular venous distension: no JVD Rate: regular rate Rhythm: regular rhythm Heart sounds: S1 normal heart sound present and S2 normal heart sound present GI: Inspection: normal to inspection : General: Yes deferred Skin: Rashes: no rashes Other: scabs distributed a alone antecubital fossa bilateral upper extremities Neuro: General: patient oriented x3, CN's II-XI intact bilaterally and Unable to assess gait Cranial nerves: Yes CN's II-XII intact
--- NOTE | 2022-04-10 11:22 | PM.PNCARD ---
Progress Note: A&P Assessment and Plan (1) Chest pain: Qualifiers: Chest pain type: chest pain due to myocardial ischemia Ischemic chest pain type: unstable angina pectoris Qualified Code(s): I20.0 - Unstable angina Code(s): R07.9 - Chest pain, unspecified Status: Acute (2) Elevated troponin: Code(s): R77.8 - Other specified abnormalities of plasma proteins Status: Acute (3) Opioid dependence: Qualifiers: Substance use status: uncomplicated Qualified Code(s): F11.20 - Opioid dependence, uncomplicated Code(s): F11.20 - Opioid dependence, uncomplicated Status: Acute (4) Sepsis: Qualifiers: Sepsis acute organ dysfunction status: unspecified Sepsis type: sepsis due to unspecified organism Qualified Code(s): A41.9 - Sepsis, unspecified organism Code(s): A41.9 - Sepsis, unspecified organism Status: Acute (5) Acute respiratory failure with hypoxia: Code(s): J96.01 - Acute respiratory failure with hypoxia Status: Acute (6) Tobacco abuse disorder: Code(s): Z72.0 - Tobacco use Status: Acute (7) Leukocytosis: Qualifiers: Leukocytosis type: bandemia Qualified Code(s): D72.825 - Bandemia Code(s): D72.829 - Elevated white blood cell count, unspecified Status: Acute (8) Hepatitis C: Code(s): B19.20 - Unspecified viral hepatitis C without hepatic coma Status: Chronic (9) COPD (chronic obstructive pulmonary disease): Code(s): J44.9 - Chronic obstructive pulmonary disease, unspecified Status: Chronic Plan Echocardiogram pending - will follow up on results. At this time, would medically treat for NSTEMI with therapeutic Lovenox x 48 hours, ASA, Plavix, high-intensity statin. Given patient's ongoing active drug use, she would not be a candidate for PCI, therefore, will defer cardiac cath for now. Subjective Date/time seen: 04/10/22 11:22 Interval history: Patient is a 47-year-old female with a history of ongoing drug use, hepatitis C, tobacco dependence, COPD who presented with chest pain. Patient reports that she began having chest pain since yesterday morning. Chest pain started underneath left breath and radiation to the left shoulder. Developed shortness of breath with it as well. Chest pain occurred off and on yesterday. Does not have chest pain currently at this time upon my evaluation. EKG shows sinus rhythm with low-voltage complexes, possible old anteroseptal infarct with Q waves in leads V1-3. Her prior EKG from 07/2020 did not show the Q waves in all three leads. Labs significant for WBC 18. Troponin trend: 1.520 --> 1.370 --> 0.883 CTA negative for PE. Blood cultures are pending. Echocardiogram pending. Patient reports that she is a current drug user. Snorts on average 10 pills of Fentanyl daily. Not sure if the pills are laced with anything else. Does IV fentanyl every few weeks or so, last IV use was a couple weeks ago. Patient is asking for ativan this AM. Review of Systems Review of Systems: All systems reviewed & are unremarkable except as noted in HPI and below (subjective) Exam Const: General: no acute distress Neck: Neck: no JVD Resp: Effort & Inspection: normal respiratory effort Auscultation: diminished lung sounds Cardio: Rate: regular rate and tachycardic Heart sounds: no murmurs Skin: General skin exam: normal color Neuro: Speech: normal speech Extrem: General: no edema Psych: Mental Status: mental status grossly normal Affect: Anxious affect present Objective Data Vital Signs Vital Signs: Vital Signs - 24 hr 04/09/22 16:23 04/09/22 18:28 04/09/22 18:28 Temperature 36.8 C Pulse Rate 110 H 117 H Respiratory Rate 16 Blood Pressure 170/70 H Pulse Oximetry 97 Oxygen Delivery Room Air Room Air 04/09/22 18:30 04/09/22 23:00 04/10/22 00:00 Temperature 36.6 C Pulse Rate 118 H 105 H 80 R
[2022-04-10] MEDS: CLOPIDOGREL BISULFATE 300 MG TABLET PO (13:05)
[2022-04-10] MEDS: ATORVASTATIN 40 MG TABLET 80 MG PO (13:05)
[2022-04-10] MEDS: ASPIRIN 81 MG ENTERIC TABLET PO (14:37)
--- NOTE | 2022-04-10 14:44 | PC.NURSE ---
On 04/10/22, the student, [Alise Wolf], provided care and completed [facility] documentation on this patient. I have reviewed the student's documentation and agree with the findings.
--- NOTE | 2022-04-10 16:38 | ECG_ITS ---
Measurements Intervals [place] Rate: 114 P: 44 OR: 164 QRS: 57 QRSD: 89 T: 152 QT: 355 QTc: 490 Interpretive Statements SINUS TACHYCARDIA LOW QRS VOLTAGE IN EXTREMITY LEADS [QRS DEFLECTION < 0.5 mV IN LIMB LEADS] MODERATE T-WAVE ABNORMALITY, CONSIDER ANTEROLATERAL ISCHEMIA [-0.1+ mV T WAVE IN V3- V6] POSSIBLE OLD ANTEROSEPTAL MYOCARDIAL INFARCTION COMPARED TO ECG 04/09/2022 17:27:04 NO SIGNIFICANT CHANGES Electronically Signed On 04-10-2022 17:52:38 CDT by Rosey Carmona M.D.
[2022-04-10 17:52] LABS: Troponin I 0.492 ng/mL (0.000-0.034)
[2022-04-10] MEDS: LOSARTAN POTASSIUM 25 MG TABLET PO (18:28)
[2022-04-10] MEDS: METOPROLOL SUCCINATE EXT REL 12.5 MG TABCR PO (18:29)
[2022-04-10] MEDS: ENOXAPARIN 100 MG/ML SYRINGE 90 MG SUB-Q (21:01)
[2022-04-10] MEDS: traZODone HCL 50 MG TABLET 200 MG PO (21:02)
[2022-04-10] MEDS: LORazepam INJ (*CRX) 2 MG/ML VIAL 0.5 MG IV PUSH (21:02)
[2022-04-11] VITALS (16 sets, daily range): BP systolic 58–102; BP diastolic 33–71; PULSE 64–91; RESP 18–24; TEMP 36.3–36.8; O2SAT 88–98
[2022-04-11] MEDS: AZTREONAM 2 GM in SODIUM CHLORIDE 0.9% IV 100 ML 200 ML IVPB ×3 (04:46→21:08)
[2022-04-11] MEDS: LORazepam INJ (*CRX) 2 MG/ML VIAL 0.5 MG IV PUSH ×3 (04:47→21:02)
[2022-04-11] MEDS: ONDANSETRON INJ 4 MG/2 ML VIAL IV PUSH (04:48)
[2022-04-11] MEDS: ENOXAPARIN 100 MG/ML SYRINGE 90 MG SUB-Q ×2 (09:08→20:56)
[2022-04-11] MEDS: TIZANIDINE HCL 4 MG TABLET PO ×2 (09:09→18:08)
[2022-04-11] MEDS: GABAPENTIN 300 MG CAPSULE PO ×3 (09:09→17:40)
[2022-04-11] MEDS: CLOPIDOGREL BISULFATE 75 MG TABLET PO (09:10)
[2022-04-11] MEDS: MONTELUKAST SODIUM 10 MG TABLET PO (09:10)
[2022-04-11] MEDS: ATORVASTATIN 40 MG TABLET 80 MG PO (09:11)
[2022-04-11] MEDS: ASPIRIN 81 MG ENTERIC TABLET PO (09:11)
[2022-04-11] MEDS: NICOTINE (*PBKC) 21 MG PATCH 1 PATCH TRANSDERM (09:12)
[2022-04-11 10:14] LABS: Anion Gap 13 mmol/L (8-16); Blood Urea Nitrogen 11 mg/dL (7-17); Calcium 8.9 mg/dL (8.4-10.2); Carbon Dioxide 24 mmol/L (22-30); Chloride 104 mmol/L (98-107); Estimated CRCL calculation 89 ml/min; Estimated Glomerular Filt Rate > 60; Glucose 90 mg/dL (65-110); Potassium 3.5 mmol/L (3.4-5.0); Sodium 141 mmol/L (137-145)
[2022-04-11 10:46] LABS: Vancomycin Trough 18.1 ug/mL (10.0-20.0)
[2022-04-11] MEDS: METOPROLOL SUCCINATE EXT REL 12.5 MG TABCR PO (10:59)
[2022-04-11] MEDS: LOSARTAN POTASSIUM 25 MG TABLET PO (10:59)
--- NOTE | 2022-04-11 11:00 | PM.IMPN ---
Progress Note: A&P Assessment and Plan (1) Chest pain: Qualifiers: Chest pain type: chest pain due to myocardial ischemia Ischemic chest pain type: unstable angina pectoris Qualified Code(s): I20.0 - Unstable angina Code(s): R07.9 - Chest pain, unspecified Status: Acute Assessment and Plan: No plan for cardiac workup at this time. Medical management per Cardiology (2) Elevated troponin: Code(s): R77.8 - Other specified abnormalities of plasma proteins Status: Acute Assessment and Plan: see plan above (3) Opioid dependence: Qualifiers: Substance use status: uncomplicated Qualified Code(s): F11.20 - Opioid dependence, uncomplicated Code(s): F11.20 - Opioid dependence, uncomplicated Status: Acute Assessment and Plan: supportive care (4) Tobacco abuse disorder: Code(s): Z72.0 - Tobacco use Status: Acute Assessment and Plan: nicotine patch as needed (5) Opioid abuse: Code(s): F11.10 - Opioid abuse, uncomplicated Status: Chronic Assessment and Plan: Consul about substance of abuse cessation (6) Hepatitis C: Code(s): B19.20 - Unspecified viral hepatitis C without hepatic coma Status: Chronic Assessment and Plan: not treated follow-up in outpatient setting (7) COPD (chronic obstructive pulmonary disease): Code(s): J44.9 - Chronic obstructive pulmonary disease, unspecified Status: Chronic Assessment and Plan: not actively wheezing continue home med (8) Leukocytosis: Qualifiers: Leukocytosis type: bandemia Qualified Code(s): D72.825 - Bandemia Code(s): D72.829 - Elevated white blood cell count, unspecified Status: Acute Assessment and Plan: this could be multifactorial as patient is a chronic IV drug user and has chronic hepatitis C as well will continue to trend started on aztreonam and vancomycin cultures in progress await for cultures, likely does not need any antibiotics (9) Sepsis: Qualifiers: Sepsis acute organ dysfunction status: unspecified Sepsis type: sepsis due to unspecified organism Qualified Code(s): A41.9 - Sepsis, unspecified organism Code(s): A41.9 - Sepsis, unspecified organism Status: Acute Assessment and Plan: unknown primary source however patient is IV drug user cultures in progress early goal-directed therapy in progress on broad-spectrum antibiotic lactic acid is elevated will continue to trend Subjective Date/time seen: 04/11/22 11:00 no new complaints Exam Narrative: patient is laying in a stretcher Const: General: cooperative, comfortable, no acute distress, well developed, alert, awake, ill appearing chronically, poor hygiene and average body habitus Nutritional Appearance: average body habitus Orientation/consciousness: patient oriented x3 HENMT: Head: normal to inspection, normocephalic and atraumatic Ears: hearing grossly normal bilaterally Face/Nose/Sinus: normal facial exam Face and sinus: normal facial exam Eyes: General: appearance normal, both eyes and all related structures Pupils: Equal, round and reactive pupils present EOM: EOMs intact bilaterally Neck: Neck: full ROM, no lymphadenopathy and no JVD Thyroid: thyroid normal Lymphatic: no lymphadenopathy noted Resp: Effort & Inspection: normal respiratory effort and able to speak in complete sentences Auscultation: clear to auscultation bilaterally Cardio: Jugular venous distension: no JVD Rate: regular rate Rhythm: regular rhythm Heart sounds: S1 normal heart sound present and S2 normal heart sound present GI: Inspection: normal to inspection : General: Yes deferred Skin: Rashes: no rashes Other: scabs distributed a alone antecubital fossa bilateral upper extremities Neuro: General: patient oriented x3, CN's II-XI intact bilaterally and Unable to as
--- NOTE | 2022-04-11 12:12 | PM.PNCARD ---
Progress Note: A&P Assessment and Plan (1) Chest pain: Qualifiers: Chest pain type: chest pain due to myocardial ischemia Ischemic chest pain type: unstable angina pectoris Qualified Code(s): I20.0 - Unstable angina Code(s): R07.9 - Chest pain, unspecified Status: Acute (2) Elevated troponin: Code(s): R77.8 - Other specified abnormalities of plasma proteins Status: Acute Plan 47-year-old patient with chest pain and evidence of myocardial injury with low ejection fraction. She is being treated with guideline directed medical therapy as she is not a candidate for invasive evaluation as per my partner's note. Hemodynamically stable today no dysrhythmias. Will continue the regimen of metoprolol and losartan. No dysrhythmias noted on telemetry thus far. Would anticipate discharge in the next 24-48 hours if there are no complications of which arise as there are no plans to bring this patient for catheterization Neo Chery MD [facility] Subjective Date/time seen: Date of service: 04/11/22 12:12 Interval history: Follow-up visit in this 47-year-old patient with: Evidence either acute coronary syndrome/WI verses takotsubo stress cardiomyopathy. Patient has chest pain with elevated troponin and severely reduced left ventricular systolic function. As stated in my partner's notes she is not a candidate for invasive evaluation because of active drug abuse. She is therefore being treated with guideline directed medical therapy. She has no cardiovascular complaints was sleeping flat in bed when I came in the room to see her offers no complaints upon awakening. Exam Const: General: comfortable Other: Overweight chronically ill-appearing woman in no distress HENMT: Mouth: Yes moist mucous membranes Eyes: Sclera: sclerae normal Neck: Neck: supple and no JVD Resp: Effort & Inspection: normal respiratory effort Auscultation: clear to auscultation bilaterally Cardio: Rate: regular rate Rhythm: regular rhythm Other: PMI difficult to palpate, no discernible rhythm GI: GI Palp: Yes Soft to palpation Auscultation: normal bowel sounds Skin: General skin exam: normal color Neuro: Other: Alert and oriented Extrem: General: normal to inspection Objective Data Vital Signs Vital Signs: Vital Signs - 24 hr 04/10/22 14:00 04/10/22 16:09 04/10/22 16:00 Temperature 36.4 C L Pulse Rate 111 H 108 H 105 H Respiratory Rate 24 H Blood Pressure 116/92 H Pulse Oximetry 94 Oxygen Delivery 04/10/22 16:00 04/10/22 17:54 04/10/22 18:29 Temperature Pulse Rate 120 H 113 H Respiratory Rate Blood Pressure Pulse Oximetry Oxygen Delivery Room Air 04/10/22 18:00 04/10/22 20:00 04/10/22 21:07 Temperature 36.4 C Pulse Rate 113 H 107 H Respiratory Rate 20 Blood Pressure 107/70 Pulse Oximetry 92 94 Oxygen Delivery Room Air 04/10/22 20:00 04/10/22 20:00 04/10/22 22:00 Temperature Pulse Rate 106 H 99 Respiratory Rate Blood Pressure Pulse Oximetry Oxygen Delivery Room Air 04/10/22 23:45 04/11/22 00:00 04/11/22 00:00 Temperature 36.5 C Pulse Rate 106 H 91 Respiratory Rate 20 Blood Pressure 104/76 Pulse Oximetry 90 Oxygen Delivery Room Air 04/11/22 02:00 04/11/22 04:00 04/11/22 04:00 Temperature Pulse Rate 88 83 88 Respiratory Rate 20 Blood Pressure Pulse Oximetry 90 Oxygen Delivery Room Air 04/11/22 04:00 04/11/22 06:00 04/11/22 08:00 Temperature 36.6 C Pulse Rate 88 77 81 Respiratory Rate 18 Blood Pressure 95/65 L Pulse Oximetry 90 Oxygen Delivery 04/11/22 08:00 04/11/22 10:59 Temperature 36.4 C L Pulse Rate 84 79 Respiratory Rate 24 H Blood Pressure 102/70 Pulse Oximetry 88 L Oxygen Delivery Intake/Output Intake/Output: Intake & Output 04/08/22 04/09/22 04/10/22 04/11/22 23:59 23:59 23:59 23:59 Intake Total 1100 1680 470 Outpu
[2022-04-11] MEDS: SODIUM CHLORIDE 0.9% IV 250 ML (12:56)
[2022-04-11] MEDS: SODIUM CHLORIDE 0.9% IV 250 ML 999 ML IV CONT (17:35)
[2022-04-11] MEDS: MIRTAZAPINE 15 MG TABLET 45 MG PO (20:55)
[2022-04-12] VITALS (18 sets, daily range): BP systolic 76–140; BP diastolic 50–92; PULSE 58–89; RESP 12–20; TEMP 36.2–37.1; O2SAT 93–100
[2022-04-12] MEDS: MIDODRINE HCL 2.5 MG TABLET 5 MG PO (01:53)
[2022-04-12] MEDS: MIDODRINE HCL 10 MG TABLET PO (01:53)
[2022-04-12] MEDS: AZTREONAM 2 GM in SODIUM CHLORIDE 0.9% IV 100 ML 200 ML IVPB (05:07)
[2022-04-12] MEDS: ATORVASTATIN 40 MG TABLET 80 MG PO (09:03)
[2022-04-12] MEDS: ASPIRIN 81 MG ENTERIC TABLET PO (09:03)
[2022-04-12] MEDS: CLOPIDOGREL BISULFATE 75 MG TABLET PO (09:04)
[2022-04-12] MEDS: GABAPENTIN 300 MG CAPSULE PO ×3 (09:04→17:07)
[2022-04-12] MEDS: ENOXAPARIN 100 MG/ML SYRINGE 90 MG SUB-Q ×2 (09:05→21:01)
[2022-04-12] MEDS: MONTELUKAST SODIUM 10 MG TABLET PO (09:05)
[2022-04-12] MEDS: LORazepam (*CRX) 0.5 MG TABLET PO ×2 (09:08→17:07)
[2022-04-12] MEDS: NICOTINE (*PBKC) 21 MG PATCH 1 PATCH TRANSDERM (09:09)
[2022-04-12] MEDS: lisinopriL 2.5 MG TABLET PO (09:45)
[2022-04-12] MEDS: METOPROLOL SUCCINATE EXT REL 12.5 MG TABCR PO (09:45)
--- NOTE | 2022-04-12 10:00 | PM.PNCARD ---
Progress Note: A&P Assessment and Plan (1) Elevated troponin: Code(s): R77.8 - Other specified abnormalities of plasma proteins Status: Acute (2) Left ventricular systolic dysfunction: Code(s): I51.9 - Heart disease, unspecified Status: Acute Plan 47-year-old lady with chest pain and poor left ventricular systolic function. She is clinically stable on CAIT-inhibitor and beta-karol therapy and there are no plans for additional cardiac evaluation while she is here. She is a reasonable candidate for discharge at this time. She mentioned to me today that there were some plans in place to considered discharging her to a skilled care facility. Told the patient I do not have a cardiac reason that she would require skilled care nursing facility she seems to be functional and able to take care of herself in her own home. Obviously are principal concern is that she will return to illicit drug use and not be compliant with her medication. That is nothing I can change by keeping her in the hospital. Appropriate follow-up in our office will be arranged. I will continue to follow her on daily rounds while she is in the hospital Neo Chery MD [facility] Subjective Date/time seen: Date of service: 04/12/22 10:00 Interval history: Follow-up visit in this 47-year-old lady with chest pain, elevated troponin and very poor left ventricular systolic function. Being treated with medical therapy and not felt to be a candidate for invasive evaluation because of her history of illicit drug abuse. This morning patient is very comfortable denies any complaints no chest pain no dyspnea. Receiving low doses of beta-karol and CAIT-inhibitor and had a variety of questions regarding her diagnosis and treatment plan. She did have some questions about the impression that she is not a candidate for angiography of as per my partner's notes. Exam Const: General: comfortable and no acute distress Other: Overweight chronically ill-appearing woman in no distress HENMT: Mouth: Yes moist mucous membranes Eyes: Sclera: sclerae normal Neck: Neck: supple and no JVD Resp: Effort & Inspection: normal respiratory effort Auscultation: clear to auscultation bilaterally and diminished lung sounds Cardio: Rate: regular rate and tachycardic Rhythm: regular rhythm Heart sounds: no murmurs Other: PMI difficult to palpate, no discernible rhythm GI: Auscultation: normal bowel sounds Skin: General skin exam: normal color Neuro: Speech: normal speech Other: Alert and oriented Extrem: General: normal to inspection and no edema Psych: Mental Status: mental status grossly normal Affect: Anxious affect present Objective Data Vital Signs Vital Signs: Vital Signs - 24 hr 04/11/22 10:59 04/11/22 12:30 04/11/22 12:00 Temperature 36.3 C L Pulse Rate 79 73 73 Respiratory Rate 18 20 Blood Pressure 58/33 L 58/33 L Pulse Oximetry 88 L 92 Oxygen Delivery Nasal Cannula Oxygen Flow Rate 2 04/11/22 15:00 04/11/22 12:00 04/11/22 14:00 Temperature Pulse Rate 78 76 64 Respiratory Rate 18 Blood Pressure 73/52 L Pulse Oximetry Oxygen Delivery Oxygen Flow Rate 04/11/22 16:00 04/11/22 12:00 04/11/22 16:00 Temperature Pulse Rate 78 Respiratory Rate Blood Pressure Pulse Oximetry 90 95 Oxygen Delivery Nasal Cannula Room Air Oxygen Flow Rate 3 04/11/22 16:00 04/11/22 18:00 04/11/22 16:00 Temperature 36.8 C Pulse Rate 79 88 78 Respiratory Rate 20 20 Blood Pressure 87/45 L 78/47 L Pulse Oximetry 98 95 Oxygen Delivery Oxygen Flow Rate 04/11/22 17:59 04/11/22 20:00 04/11/22 20:00 Temperature 36.6 C Pulse Rate 89 87 87 Respiratory Rate 20 20 20 Blood Pressure 87/63 L 99/71 L Pulse Oximetry 94 94 94 Oxygen Delivery Room Air Oxygen Flow Rate 04/11/22 20:00 04/11/22 22:00 04/12/22 00:00 Temperature 36.6 C Pulse Rate 86 68 64 Respiratory Rate
--- NOTE | 2022-04-12 11:30 | PM.IMPN ---
Progress Note: A&P Assessment and Plan (1) Chest pain: Qualifiers: Chest pain type: chest pain due to myocardial ischemia Ischemic chest pain type: unstable angina pectoris Qualified Code(s): I20.0 - Unstable angina Code(s): R07.9 - Chest pain, unspecified Status: Acute Assessment and Plan: No plan for cardiac workup at this time. Medical management per Cardiology (2) Elevated troponin: Code(s): R77.8 - Other specified abnormalities of plasma proteins Status: Acute Assessment and Plan: see plan above (3) Opioid dependence: Qualifiers: Substance use status: uncomplicated Qualified Code(s): F11.20 - Opioid dependence, uncomplicated Code(s): F11.20 - Opioid dependence, uncomplicated Status: Acute Assessment and Plan: supportive care (4) Tobacco abuse disorder: Code(s): Z72.0 - Tobacco use Status: Acute Assessment and Plan: nicotine patch as needed (5) Opioid abuse: Code(s): F11.10 - Opioid abuse, uncomplicated Status: Chronic Assessment and Plan: Consul about substance of abuse cessation (6) Hepatitis C: Code(s): B19.20 - Unspecified viral hepatitis C without hepatic coma Status: Chronic Assessment and Plan: not treated follow-up in outpatient setting (7) COPD (chronic obstructive pulmonary disease): Code(s): J44.9 - Chronic obstructive pulmonary disease, unspecified Status: Chronic Assessment and Plan: not actively wheezing continue home med (8) Leukocytosis: Qualifiers: Leukocytosis type: bandemia Qualified Code(s): D72.825 - Bandemia Code(s): D72.829 - Elevated white blood cell count, unspecified Status: Acute Assessment and Plan: DC antibiotics. No source of infection (9) Sepsis: Qualifiers: Sepsis acute organ dysfunction status: unspecified Sepsis type: sepsis due to unspecified organism Qualified Code(s): A41.9 - Sepsis, unspecified organism Code(s): A41.9 - Sepsis, unspecified organism Status: Acute Assessment and Plan: Do not think the patient has sepsis. (10) Left ventricular systolic dysfunction: Code(s): I51.9 - Heart disease, unspecified Status: Acute Assessment and Plan: Acute Appears euvolemic Continue appropriate cardiac regimen. Patient had significant drop of blood pressure after losartan likely. I have stopped her losartan upon low-dose lisinopril. Continue beta-karol. And continue other cardiac medications. Question plan for LifeVest. She was given midodrine for her low blood pressure I have stop this if her blood pressure remains stable she can likely be discharged tomorrow if no further recommendations from Cardiology. Subjective Date/time seen: 04/12/22 11:30 Patient was very hypotensive yesterday. Midodrine was started last night blood pressure is better. Exam Const: General: cooperative, comfortable, no acute distress, well developed, alert, awake, ill appearing chronically, poor hygiene and average body habitus Nutritional Appearance: average body habitus Orientation/consciousness: patient oriented x3 HENMT: Head: normal to inspection, normocephalic and atraumatic Ears: hearing grossly normal bilaterally Face/Nose/Sinus: normal facial exam Face and sinus: normal facial exam Eyes: General: appearance normal, both eyes and all related structures Pupils: Equal, round and reactive pupils present EOM: EOMs intact bilaterally Neck: Neck: full ROM, no lymphadenopathy and no JVD Thyroid: thyroid normal Lymphatic: no lymphadenopathy noted Resp: Effort & Inspection: normal respiratory effort and able to speak in complete sentences Auscultation: clear to auscultation bilaterally Cardio: Jugular venous distension: no JVD Rate: regular rate Rhythm: regular rhythm Heart sounds: S1 normal heart sound present and S2 norm
[2022-04-12] MEDS: TIZANIDINE HCL 4 MG TABLET PO ×2 (12:44→21:02)
[2022-04-12] MEDS: MIRTAZAPINE 15 MG TABLET 45 MG PO (21:01)
[2022-04-12] MEDS: traZODone HCL 50 MG TABLET 200 MG PO (21:01)
[2022-04-13] VITALS (7 sets, daily range): BP systolic 122–136; BP diastolic 79–99; PULSE 69–96; RESP 14–20; TEMP 36.1–37.1; O2SAT 96–99
[2022-04-13] MEDS: LORazepam (*CRX) 0.5 MG TABLET PO ×2 (00:36→08:29)
[2022-04-13] MEDS: TIZANIDINE HCL 4 MG TABLET PO (05:50)
[2022-04-13 07:53] LABS: Anion Gap 13 mmol/L (8-16); Blood Urea Nitrogen 10 mg/dL (7-17); Calcium 9.1 mg/dL (8.4-10.2); Carbon Dioxide 23 mmol/L (22-30); Chloride 106 mmol/L (98-107); Estimated CRCL calculation 104 ml/min; Estimated Glomerular Filt Rate > 60; Glucose 135 mg/dL (65-110); Sodium 142 mmol/L (137-145)
[2022-04-13] MEDS: ATORVASTATIN 40 MG TABLET 80 MG PO (08:23)
[2022-04-13] MEDS: CLOPIDOGREL BISULFATE 75 MG TABLET PO (08:23)
[2022-04-13] MEDS: GABAPENTIN 300 MG CAPSULE PO (08:24)
[2022-04-13] MEDS: ASPIRIN 81 MG ENTERIC TABLET PO (08:24)
[2022-04-13] MEDS: METOPROLOL SUCCINATE EXT REL 12.5 MG TABCR PO (08:24)
[2022-04-13] MEDS: MONTELUKAST SODIUM 10 MG TABLET PO (08:24)
[2022-04-13] MEDS: lisinopriL 2.5 MG TABLET PO (08:25)
[2022-04-13] MEDS: NICOTINE (*PBKC) 21 MG PATCH 1 PATCH TRANSDERM (08:25)
[2022-04-13] MEDS: ENOXAPARIN 100 MG/ML SYRINGE 90 MG SUB-Q (08:25)
--- NOTE | 2022-04-13 09:00 | PM.DS ---
DS: Admitting Diagnosis Discharge Date April 13, 2022 Admitting Diagnosis CHF DS: Discharge Diagnosis Discharge Diagnosis (1) Chest pain: Qualifiers: Chest pain type: chest pain due to myocardial ischemia Ischemic chest pain type: unstable angina pectoris Qualified Code(s): I20.0 - Unstable angina Code(s): R07.9 - Chest pain, unspecified Status: Acute Assessment and Plan: No plan for cardiac workup at this time. Medical management per Cardiology (2) Elevated troponin: Code(s): R77.8 - Other specified abnormalities of plasma proteins Status: Acute Assessment and Plan: see plan above (3) Opioid dependence: Qualifiers: Substance use status: uncomplicated Qualified Code(s): F11.20 - Opioid dependence, uncomplicated Code(s): F11.20 - Opioid dependence, uncomplicated Status: Acute Assessment and Plan: supportive care (4) Tobacco abuse disorder: Code(s): Z72.0 - Tobacco use Status: Acute Assessment and Plan: nicotine patch as needed (5) Opioid abuse: Code(s): F11.10 - Opioid abuse, uncomplicated Status: Chronic Assessment and Plan: Consul about substance of abuse cessation (6) Hepatitis C: Code(s): B19.20 - Unspecified viral hepatitis C without hepatic coma Status: Chronic Assessment and Plan: not treated follow-up in outpatient setting (7) COPD (chronic obstructive pulmonary disease): Code(s): J44.9 - Chronic obstructive pulmonary disease, unspecified Status: Chronic Assessment and Plan: not actively wheezing continue home med (8) Leukocytosis: Qualifiers: Leukocytosis type: bandemia Qualified Code(s): D72.825 - Bandemia Code(s): D72.829 - Elevated white blood cell count, unspecified Status: Acute Assessment and Plan: DC antibiotics. No source of infection (9) Sepsis: Qualifiers: Sepsis acute organ dysfunction status: unspecified Sepsis type: sepsis due to unspecified organism Qualified Code(s): A41.9 - Sepsis, unspecified organism Code(s): A41.9 - Sepsis, unspecified organism Status: Acute Assessment and Plan: Do not think the patient has sepsis. (10) Left ventricular systolic dysfunction: Code(s): I51.9 - Heart disease, unspecified Status: Acute Assessment and Plan: Acute Appears euvolemic Continue appropriate cardiac regimen. Patient had significant drop of blood pressure after losartan likely. I have stopped her losartan upon low-dose lisinopril. Continue beta-karol. And continue other cardiac medications. Question plan for LifeVest. She was given midodrine for her low blood pressure I have stop this if her blood pressure remains stable she can likely be discharged tomorrow if no further recommendations from Cardiology. DS: Summary Hospital Course Hospital Course: patient is a 47-year-old female with history of polysubstance abuse including IV drug use. Came in with chest pain. Evaluation revealed patient has systolic ejection fraction of 50% and has heart failure. No intervention was pursued because of her history of drug abuse. She was started on cardiac regimen had a little drop in blood pressure we have adjusted her medications and she is on all the appropriate cardiac preventive medication she needs to follow-up with cardiology for evaluation. Time Spent with Patient Time attestation: Total time spent providing and/or coordinating discharge services: Exam Const: General: cooperative, comfortable, no acute distress, well developed, alert, awake, ill appearing chronically, poor hygiene and average body habitus Nutritional Appearance: average body habitus Orientation/consciousness: patient oriented x3 HENMT: Head: normal to inspection, normocephalic and atraumatic Ears: hearing grossly normal bilaterally Face/Nose/Sinus: normal
== END 2022-04-13 10:05 | disposition home or self-care (01) | DRG 198 ==
LOC: ANHED 19:42 → ANHIMU 22:39
PROVIDERS: Emergency Medicine; Physician Assistant; Admitting Provider Internal Medicine; Emergency Provider Emergency Medicine; PCP Family Medicine; Visit Provider Chiropractor
DX: I20.0 Unstable angina (principal); I50.22 Chronic systolic (congestive) heart failure; F11.20 Opioid dependence, uncomplicated; G62.9 Polyneuropathy, unspecified; J43.9 Emphysema, unspecified; D64.9 Anemia, unspecified; I10 Essential (primary) hypertension; D72.829 Elevated white blood cell count, unspecified; F41.9 Anxiety disorder, unspecified; Z20.822 Contact with and (suspected) exposure to COVID-19; J45.909 Unspecified asthma, uncomplicated; F31.9 Bipolar disorder, unspecified; K21.9 Gastro-esophageal reflux disease without esophagitis; B18.2 Chronic viral hepatitis C; F43.10 Post-traumatic stress disorder, unspecified; F17.210 Nicotine dependence, cigarettes, uncomplicated; E66.9 Obesity, unspecified; Z68.33 Body mass index [BMI] 33.0-33.9, adult; Z85.41 Personal history of malignant neoplasm of cervix uteri; Z87.442 Personal history of urinary calculi; Z87.11 Personal history of peptic ulcer disease; Z90.49 Acquired absence of other specified parts of digestive tract
CPT/HCPCS: 36415; 71045; 71046; 71275; 74176; 80048; 80053; 80202; 80307; 81001; 82550; 83605; 83690; 84484; 85025; 85380; 85610; 85730; 87040; 87086; 87088; 93005; 96361; 96365; 96366; 96372; 96374; 96375; 96376; 99285; A9270; C8929; C9803; G0378; G0379; J1644; J1650; J2060; J2405; J3370; J7030; J7050; Q9957; Q9967; U0003; U0005

== ENCOUNTER 2022-09-12 03:20 | Inpatient (IN) | payer OTHER, SELFPAY ==
[2022-09-12] VITALS (8 sets, daily range): BP systolic 128–145; BP diastolic 66–99; PULSE 77–117; RESP 13–20; TEMP 36.4–37.2; O2SAT 95–100; BMI 34.5
--- NOTE | ~2022-09-12 | CT_ITS ---
Clinical Indication: Chest pain, abdominal pain, IV drug abuse CT Scan of the Chest, Abdomen, and Pelvis with Contrast: Technique: Contiguous sections were acquired throughout the chest, abdomen, and pelvis after intraven ous administration of 100 cc of Omnipaque 350. Dose reduction technique was used on this scan by uti lizing automated exposure control and iterative reconstruction technique. The dose-length product (DL P) was 1027.66 mGy-cm. COMPARISON: 04/09/2022 and 01/02/2021 Findings: There is no evidence of any significant mediastinal, hilar or axillary lymphadenopathy. The mediastin al soft tissues and vascular structures appear normal. Small mass in the right breast is stable datin g back at least to 01/02/2021. There is no evidence of pleural or pericardial effusion. The lungs are clear. No pulmonary nodules or infiltrates are noted. The liver, spleen, pancreas, adrenals and kidneys are within normal limits. Cholecystectomy clips pre sent. No evidence of aortic aneurysm. No lymphadenopathy. No bowel obstruction or bowel wall thickening. There is no evidence to suggest acute appendicitis. Urinary bladder is unremarkable. No adnexal mass seen. No ascites. Impression: No significant abnormalities seen. Reviewed, dictated and finalized at [facility]. SURGERY TECHNICIAN Impression: No significant abnormalities seen.
--- NOTE | ~2022-09-12 | MR_ITS ---
EXAMINATION: MR lumbar spine wo/w con DATE: 09/12/2022 12:35 INDICATION: Low back pain. TECHNIQUE: Magnetic resonance imaging (MRI) of the lumbar spine was performed without and with 17 mL MultiHance intravenous contrast. COMPARISON: CT 09/12/2022 FINDINGS: There is 7 degrees levocurvature of lumbar spine. Vertebral body heights and intervertebral disc heights are normal. The distal spinal cord signal intensity is normal. The conus medullaris is at L1. There is an 11 mm cyst in left kidney. The following disc levels are specifically discussed: L1-L2: The disc does not extend beyond the endplate margin. There is no facet joint osteoarthritis. T here is no neural foraminal stenosis. There is no central canal stenosis. L2-L3: The disc does not extend beyond the endplate margin. There is no facet joint osteoarthritis. T here is no neural foraminal stenosis. There is no central canal stenosis. L3-L4: The disc is bulging. There is mild bilateral facet joint osteoarthritis. There is mild bilater al neural foraminal stenosis. There is mild central canal stenosis. L4-L5: The disc is bulging. There is mild right and moderate left facet joint osteoarthritis. There i s mild bilateral neural foraminal stenosis. There is mild central canal stenosis. L5-S1: The disc does not extend beyond the endplate margin. There is moderate bilateral facet joint o steoarthritis. There is no neural foraminal stenosis. There is no central canal stenosis. IMPRESSION: 1. Mild lumbar spondylosis. Reviewed, dictated and finalized at location A. [employer] IMPRESSION: 1. Mild lumbar spondylosis.
--- NOTE | ~2022-09-12 | US_ITS ---
EXAMINATION: US soft tissue UE RT DATE: 09/12/2022 12:43 INDICATION: Right forearm erythema. TECHNIQUE: Multiple grayscale and Doppler ultrasound images of the right forearm were obtained. COMPARISON: None FINDINGS: In the patient's area of concern in the right forearm, there is edema and hyperechoic fat, consistent with cellulitis. IMPRESSION: 1. Right forearm cellulitis. No drainable abscess. Reviewed, dictated and finalized at location A. TENANCE TEAM MEMBER
--- NOTE | ~2022-09-12 | XR_ITS ---
Portable chest x-ray Comparison: 04/10/2022 Clinical History: Chest pain Findings: Lungs are clear, without focal consolidation or pleural effusion. Cardiomediastinal silho uette is stable. Bones and soft tissues are unremarkable. Impression: Normal chest. Reviewed, dictated and finalized at [facility]. PAINTER Impression: Normal chest.
--- NOTE | ~2022-09-12 | MR_ITS ---
EXAMINATION: MR thoracic spine wo/w con DATE: 09/12/2022 12:35 INDICATION: Thoracic back pain. IV drug use. TECHNIQUE: Magnetic resonance imaging (MRI) of the thoracic spine was performed without and with 17 m L MultiHance intravenous contrast. COMPARISON: CT 09/12/2022 FINDINGS: There is 6 degrees dextrocurvature of thoracic spine. Vertebral body heights and interverte bral disc heights are normal. The discs do not extend beyond the endplate margins. There is multileve l mild facet joint osteoarthritis. On the right, there is mild neural foraminal stenosis at T9-T10. N o central canal stenosis. The spinal cord signal intensity is normal. IMPRESSION: 1. Mild thoracic spondylosis. Reviewed, dictated and finalized at location A. ER PRESS CLIPPING
--- NOTE | 2022-09-12 04:22 | ECG_ITS ---
Measurements Intervals [place] Rate: 74 P: 28 FL: 128 QRS: 11 QRSD: 90 T: 81 QT: 424 QTc: 473 Interpretive Statements SINUS RHYTHM BORDERLINE ST-T WAVE ABNORMALITY- ANT/HIGH LAT LEADS BASELINE ARTIFACT- I, III NORMAL ECG COMPARED TO ECG 04/10/2022 16:50:35 SINUS RHYTHM NOW PRESENT Electronically Signed On 09-12-2022 6:53:06 [employer]ARRYING MANAGER by Korey Carbajal D.O.
--- NOTE | 2022-09-12 04:25 | ED.GENADULT ---
HPI - General Adult General Chief complaint: Abdominal Pain Stated complaint: n/v Time Seen by Provider: 09/12/22 04:04 History of Present Illness HPI narrative: Is a 47-year-old female with a daily IV drug abuse presenting to ED with a chief complaint of right upper quadrant abdomen/ flank pain. Pain has been going on for the last 2 or 3 days, is scribed as both dull and occasionally sharp. It is nonradiating, 8/10 intensity and constant but fluctuates in intensity. She says she has never experienced pain like this in the past. It is worse with movement. There are no alleviating factors. Patient notes chills, persistent nausea vomiting for 3 days and is unable to keep down food or liquid. She also admits to chronic constipation from her opiate use. She is also complaining of shortness of breath and chest pain. The chest pain is located on the left side of her chest, is dull nonradiating 5/10 intensity and constant. Patient said she felt this pain before when she had a heart attack but also when she has her frequent panic attacks. Patient has an abscess in her left forearm. She refuses to let me drain it. Related Data Home Medications Medication Instructions Recorded Confirmed albuterol sulfate 90 mcg/actuation 2 puff inhalation Q4H PRN 03/04/20 04/09/22 aerosol inhaler Shortness Of Breath gabapentin 300 mg capsule 300 mg PO TID 03/04/20 04/09/22 mirtazapine 45 mg tablet 45 mg PO HS 03/04/20 04/09/22 montelukast 10 mg tablet 10 mg PO DAILY 03/04/20 04/09/22 ondansetron 8 mg disintegrating 8 mg PO TID PRN Nausea 03/04/20 04/09/22 tablet tizanidine 4 mg capsule 4 mg PO Q8H PRN Muscle Pain 03/04/20 04/09/22 trazodone 100 mg tablet 200 mg PO HS PRN Insomnia 03/04/20 04/09/22 Allergies Allergy/AdvReac Type Severity Reaction Status Date / Time codeine Allergy Intermediate HIVES, Verified 11/02/20 22:43 TONGUE SWELLING cephalexin Allergy Mild Unknown Verified 11/02/20 22:43 clavulanic acid Allergy Mild BETA Verified 11/02/20 22:43 LACTAMASE INHIBITORS doxycycline Allergy Mild Unknown Verified 11/02/20 22:43 erythromycin base Allergy Mild Unknown Verified 11/02/20 22:43 prochlorperazine Allergy Mild Unknown Verified 11/02/20 22:43 Sulfa (Sulfonamide Allergy Mild Unknown Verified 11/02/20 22:43 Antibiotics) tetracycline Allergy Mild Unknown Verified 11/02/20 22:43 [facility] Past Medical History Medical History Anemia Anxiety Asthma Back pain Bipolar disorder C. difficile colitis February 2020 Cervical cancer with chemotherapy and partial hysterectomy COPD (chronic obstructive pulmonary disease) Depression Emphysema lung Endometriosis Fibroids Fractures bilateral legs, ribs GERD (gastroesophageal reflux disease) Gum disease peridontal Hepatitis C not yet treated Hypertension Infection of skin due to methicillin resistant Staphylococcus aureus (MRSA) Associated with IV drug use Kidney stones Neuropathy Opioid abuse Heroin and fentanyl abuse Peptic ulcer PID (acute pelvic inflammatory disease) Pneumonia PTSD (post-traumatic stress disorder) Seizures Shingles Sinus problem Surgical History Surgical History H/O tubal ligation History of laparoscopic cholecystectomy History of partial hysterectomy Hysterectomy with unilateral salpingo oophorectomy 2002 Hx of section x1 Family History Family History Sibling Acute myocardial infarction Father Hypertension Lung cancer Mother Hypertension Lung cancer Other Liver disease Social History Social History Social History: She has 2 children. Her children her age 17 and 20 respectively. Her and the father of the children live in the same home but they are no longer in a relationship. Patient s
[2022-09-12 04:38] LABS: Basophils Absolute Auto 0.1 K/mm3 (0.0-0.1); Basophils Percent Auto 0.3 % (0.2-1.2); Eosinophils Absolute Auto 0.1 K/mm3 (0-0.3); Eosinophils Percent Auto 0.5 % (0-4.4); Hemoglobin 14.8 g/dL (12.0-15.0); Immature Granulocyte Absolute 0.08 K/mm3 (0.00-0.031); Immature Granulocyte Percent A 0.5 % (0-0.5); Lymphocytes Absolute Auto 1.48 K/mm3 (0.9-3.2); Lymphocytes Percent Auto 9.3 % (18.3-44.2); Mean Corpuscular HGB Conc 32.9 g/dl (32-36); Mean Corpuscular Hemoglobin 27.7 pg (26-34); Mean Corpuscular Volume 84.1 fl (80-100); Mean Platelet Volume 8.7 fl (7.4-10.4); Monocytes Absolute Auto 0.6 K/mm3 (0.1-0.6); Monocytes Percent Auto 3.6 % (2.6-8.5); Neutrophils Absolute Auto 13.7 K/mm3 (1.3-6.7); Neutrophils Percent Auto 85.8 % (45.5-73.1); Platelet Count Result 474 k/mm3 (150-375); Red Blood Count 5.35 M/mm3 (4.2-5.4); Red Cell Distribution Width 13.5 % (11.5-14.5)
[2022-09-12 04:47] LABS: Lactic Acid Reflex 2.1 mmol/L (0.7-2.0)
[2022-09-12 04:48] LABS: Alanine Aminotransferase 23 U/L (6-35); Albumin Level 4.8 g/dL (3.5-5.1); Alkaline Phosphatase 142 U/L (38-126); Anion Gap 8 mmol/L (8-16); Aspartate Amino Transferase 28 U/L (14-36); Bilirubin,Total 1.4 mg/dL (0.2-1.3); Blood Urea Nitrogen 11 mg/dL (7-17); Calcium 9.3 mg/dL (8.4-10.2); Carbon Dioxide 29 mmol/L (22-30); Chloride 99 mmol/L (98-107); Creatine Kinase 33 U/L (30-135); Estimated CRCL calculation 89 ml/min; Estimated Glomerular Filt Rate > 60; Glucose 142 mg/dL (65-110); Lipase 32 U/L (23-300); Magnesium 1.9 mg/dL (1.6-2.3); Sodium 136 mmol/L (137-145)
[2022-09-12 04:49] LABS: Prothrombin Time 13.2 Seconds (11.1-14.7)
[2022-09-12 04:50] LABS: Partial Thromboplastin Time 35.1 SECONDS (22.3-36.8)
[2022-09-12 04:52] LABS: Ethanol < 10 mg/dL (<10)
[2022-09-12] MEDS: IPRATROPIUM BR 0.02% INH SOLN 0.5 MG/2.5 ML VIAL 1.5 MG INHALATION (04:52)
[2022-09-12] MEDS: ALBUTEROL SULFATE NEB 2.5 MG/3 ML INH 10 MG INHALATION (04:52)
[2022-09-12 04:59] LABS: NT Pro B Type Natriuretic Pept 810 pg/mL (19.9-100); Troponin I < 0.012 ng/mL (0.000-0.034)
[2022-09-12] MEDS: SODIUM CHLORIDE 0.9% IV 3,000 ML 999 ML IV CONT (05:11)
[2022-09-12] MEDS: MAGNESIUM SULF 2 GM/WATER 50ML 2 GM/50 ML BAG IVPB (05:11)
[2022-09-12] MEDS: LORazepam INJ (*CRX) 2 MG/ML VIAL 1 MG IV PUSH ×3 (05:12→20:34)
[2022-09-12 05:13] LABS: Influenza A QL RT-PCR Negative (Negative); Influenza B QL RT-PCR Negative (Negative); RSV RNA, RT-PCR Negative (Negative); SARS-CoV-2 RNA PCR Negative
[2022-09-12] MEDS: PIPERACILLN/TAZ 3.375GM/NS50ML 3.375 GM/50 ML BAG IVPB ×3 (05:30→18:24)
[2022-09-12 05:31] LABS: Amphetamine Screen Urine Negative (Negative); Barbiturate Screen Urine Negative (Negative); Benzodiazepines Screen Urine Negative (Negative); Cannabinoid Screen Urine Positive (Negative); Cocaine Screen Urine Negative (Negative); Methadone Screen Urine Negative (Negative); Opiate Screen Urine Positive (Negative); Phencyclidine Screen Urine Negative (Negative)
[2022-09-12 05:40] LABS: Appearance Urine Cloudy (Clear); Bacteria Urine 1+ /hpf; Bilirubin Urine 1+ (Negative); Color Urine Dark Yellow (Yellow); Glucose Urine UA Negative (Negative); Ketones Urine Trace mg/dL (Negative); Leukocyte Esterase Ur Trace LEU/UL (Negative); Nitrate Urine Negative (Negative); Protein Urine 1+ mg/dL (Negative); RBC Urine 0-2 /hpf (0-2); Specific Grav Ur 1.024 (1.001-1.035); Squamous Epithelial Cell Urine Many /hpf (Few); pH Urine 5.5 (5.0-9.0)
[2022-09-12 05:43] LABS: CRP 0.8 mg/dL (<1.0)
[2022-09-12 05:44] LABS: Add Urine Microscopic? YES
[2022-09-12 06:04] LABS: Erythrocyte Sedimentation Rate 18 mm/hr (0-20)
[2022-09-12 07:35] LABS: Reflex Lactic Acid Yes or No Add Lactic
--- NOTE | 2022-09-12 07:45 | ADMGEN ---
This patient, Sheri Dunne, was admitted to 2 Medical Room 242-. Patient/family oriented to hospital policies and general routines including ID bracelet, bed and alarms, visiting hours, pain management, procedures, bathroom and other care routines, personal items, smoking policy, room service/diet, and visiting hours. Information on how to activate the Rapid Response Team has been discussed. Patient/Family are encouraged to report perceived risks to care and to ask questions if they do not understand what they are told or what they should do.
--- NOTE | 2022-09-12 07:46 | PM.IMHP ---
H&P: HPI History of Present Illness Date/Time: 09/12/22 07:46 Chief Complaint: flank pain Narrative: This is a 47-year-old female with history of IV drug abuse and fentanyl use presents with complaint of generalized pain particularly in right upper quadrant and flank. This been going ongoing for 2-3 days now dull to sharp in quality. 8 x 10 in intensity. Worse with movement no elevating factor nausea and vomiting reports chills no fever. She also had swelling or right arm were seen injected. Review of Systems Review of Systems: - CONSTITUTIONAL: Denies weight loss, fever and reports chills. - HEENT: Denies changes in vision and hearing - RESPIRATORY: Reports sOB and denies cough. - CV: Denies palpitations and CP. - GI: Reports abdominal pain, nausea, vomiting and denies diarrhea. - : Denies dysuria and urinary frequency. - MSK: Reports generalized myalgia and joint pain. - SKIN: Denies rash and pruritus. - NEUROLOGICAL: Denies headache and syncope. - PSYCHIATRIC: Denies recent changes in mood. Denies anxiety and depression. [facility] Past Medical History Medical History Anemia Anxiety Asthma Back pain Bipolar disorder C. difficile colitis February 2020 Cervical cancer with chemotherapy and partial hysterectomy COPD (chronic obstructive pulmonary disease) Depression Emphysema lung Endometriosis Fibroids Fractures bilateral legs, ribs GERD (gastroesophageal reflux disease) Gum disease peridontal Hepatitis C not yet treated Hypertension Infection of skin due to methicillin resistant Staphylococcus aureus (MRSA) Associated with IV drug use Kidney stones Neuropathy Opioid abuse Heroin and fentanyl abuse Peptic ulcer PID (acute pelvic inflammatory disease) Pneumonia PTSD (post-traumatic stress disorder) Seizures Shingles Sinus problem Surgical History Surgical History H/O tubal ligation History of laparoscopic cholecystectomy History of partial hysterectomy Hysterectomy with unilateral salpingo oophorectomy 2002 Hx of section x1 Family History Family History Sibling Acute myocardial infarction Father Hypertension Lung cancer Mother Hypertension Lung cancer Other Liver disease Social History Social History Social History: She has 2 children. Her children her age 17 and 20 respectively. Her and the father of the children live in the same home but they are no longer in a relationship. 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 She has been addicted to IV narcotics since her hysterectomy in 2002. She denies any alcohol use. She smokes a pack a cigarettes a day. She does occasionally use marijuana. Primary care physician: Dr. Marina Cerna Code status: Full code Surrogate decision maker: Daughter Smoking packs per day: 2 Smoking cigarettes per day: 40.0 Years smoked: 28 Smoking pack-years: 56.00 Smoking status: Current every day smoker Tobacco type: cigarettes Second hand tobacco smoke exposure: Yes Alcohol intake: never Substance use: current Substance use type: marijuana, heroin, opiates and IV drugs Other substance usage details: Fentanyl Last use: 07/26/2020 Lack of Transportation: YES Lack of Food: Never True Current Housing: I Have Housing Concerned About Future Housing: No Difficulty Paying Gas/Electric Bills: No Difficulty Paying for Meds: No Currently Unemployed: No Education: Bachelor's Degree Difficulty w/ Childcare or Family Care: No Gender identity (if verbalized by the patient): Female Spiritual care concerns: No Meds Home Medications and Allergies Home Medications Medication Instru
[2022-09-12] MEDS: NICOTINE (*PBKC) 21 MG PATCH 1 PATCH TRANSDERM (14:14)
[2022-09-12 14:48] LABS: Hyaline Casts Urine Present /lpf
[2022-09-12] MEDS: cloNIDine HCL 0.1 MG TABLET PO (20:33)
[2022-09-12] MEDS: ONDANSETRON INJ 4 MG/2 ML VIAL IV PUSH (20:33)
[2022-09-13] VITALS (11 sets, daily range): BP systolic 125–145; BP diastolic 81–88; PULSE 82–101; RESP 20–21; TEMP 36.2–36.9; O2SAT 95–100
[2022-09-13] MEDS: PIPERACILLN/TAZ 3.375GM/NS50ML 3.375 GM/50 ML BAG IVPB ×5 (00:14→23:49)
[2022-09-13] MEDS: LORazepam INJ (*CRX) 2 MG/ML VIAL 1 MG IV PUSH ×4 (03:42→23:50)
[2022-09-13 05:35] LABS: Basophils Absolute Auto 0.1 K/mm3 (0.0-0.1); Basophils Percent Auto 0.4 % (0.2-1.2); Eosinophils Absolute Auto 0.4 K/mm3 (0-0.3); Eosinophils Percent Auto 3.9 % (0-4.4); Hematocrit 41.5 % (37.0-47.0); Hemoglobin 13.4 g/dL (12.0-15.0); Immature Granulocyte Absolute 0.07 K/mm3 (0.00-0.031); Immature Granulocyte Percent A 0.6 % (0-0.5); Lymphocytes Absolute Auto 3.33 K/mm3 (0.9-3.2); Lymphocytes Percent Auto 29.7 % (18.3-44.2); Mean Corpuscular HGB Conc 32.3 g/dl (32-36); Mean Corpuscular Hemoglobin 27.5 pg (26-34); Mean Corpuscular Volume 85.2 fl (80-100); Mean Platelet Volume 8.8 fl (7.4-10.4); Monocytes Absolute Auto 0.6 K/mm3 (0.1-0.6); Monocytes Percent Auto 5.3 % (2.6-8.5); Neutrophils Absolute Auto 6.7 K/mm3 (1.3-6.7); Neutrophils Percent Auto 60.1 % (45.5-73.1); Platelet Count Result 378 k/mm3 (150-375); Red Blood Count 4.87 M/mm3 (4.2-5.4); Red Cell Distribution Width 13.4 % (11.5-14.5); White Blood Count 11.2 K/mm3 (4.5-10.0)
[2022-09-13 05:50] LABS: Alanine Aminotransferase 17 U/L (6-35); Albumin Level 4.3 g/dL (3.5-5.1); Alkaline Phosphatase 106 U/L (38-126); Anion Gap 7 mmol/L (8-16); Aspartate Amino Transferase 20 U/L (14-36); Bilirubin,Total 1.3 mg/dL (0.2-1.3); Blood Urea Nitrogen 7 mg/dL (7-17); Calcium 8.8 mg/dL (8.4-10.2); Carbon Dioxide 27 mmol/L (22-30); Chloride 100 mmol/L (98-107); Estimated CRCL calculation 88 ml/min; Estimated Glomerular Filt Rate > 60; Glucose 113 mg/dL (65-110); Magnesium 2.4 mg/dL (1.6-2.3); Potassium 3.9 mmol/L (3.4-5.0); Sodium 134 mmol/L (137-145)
[2022-09-13] MEDS: cloNIDine HCL 0.1 MG TABLET PO ×2 (08:08→20:28)
--- NOTE | 2022-09-13 08:56 | PM.IMPN ---
Progress Note: A&P Assessment and Plan (1) Sepsis: Code(s): A41.9 - Sepsis, unspecified organism Status: Acute (2) Opioid dependence: Qualifiers: Substance use status: uncomplicated Qualified Code(s): F11.20 - Opioid dependence, uncomplicated Code(s): F11.20 - Opioid dependence, uncomplicated Status: Acute (3) Left ventricular systolic dysfunction: Code(s): I51.9 - Heart disease, unspecified Status: Acute (4) Bipolar disorder: Code(s): F31.9 - Bipolar disorder, unspecified Status: Chronic (5) Asthma: Code(s): J45.909 - Unspecified asthma, uncomplicated Status: Chronic (6) Seizures: Code(s): R56.9 - Unspecified convulsions Status: Chronic (7) Leukocytosis: Code(s): D72.829 - Elevated white blood cell count, unspecified Status: Acute Plan 47-year-old chronically unwell appearing IV drug abuser presenting with abdominal pain chest pain and difficulty breathing chills Sepsis unclear etiology but with IV drug use rule out bacteremia. MRI thoracic and lumbar spine With mild lumbar and thoracic spondylosis with no evidence of infection. IV fluid as ordered broad-spectrum antibiotic with vancomycin and Zosyn Right arm ultrasound with findings of cellulitis without any drainable abscess Abdominal pain chest pain shortness of breath CT chest abdomen pelvis unremarkable. These all could be related to underlying sepsis versus opioid withdrawal Back pain: MRI spine with mild spondylosis Right arm abscess refused to get drained in the ER. Currently on vancomycin and Zosyn. General surgery consultation if needed. ultrasound right arm with findings of cellulitis without any drainable abscess leukocytosis improved down to 11,000 today. Blood culture no growth to date Opiate withdrawal patient symptoms currently consistent with opioid withdrawal. continue clonidine as ordered. Allergic to codeine. Lorazepam p.r.n. for agitation/restlessness. Patient used to be on methadone however methadone clinic too far away is what she says. She is allergic to Suboxone history of cardiomyopathy ejection fraction 15-20% BNP 810 Leukocytosis Lactic acidosis Marijuana use Opiate dependence DVT prophylaxis Code status full code Subjective Date/time seen: 09/13/22 08:56 Interval history: No overnight events. Labs reviewed. Discussed with nursing staff. feeling better. No nausea vomiting. Review of Systems Review of Systems: All systems reviewed & are unremarkable except as noted in HPI and below Exam Narrative: ? APPEARANCE: ? Patient appears far older than her stated age, chronically unwell Uncomfortable Head: atraumatic. normocephalic EYES:? EOMI, NOSE: Atraumatic NECK/back:? patient has midline tenderness in the T and L-spine area. RESPIRATORY: No increased rate of breathing,?coarse breath sounds mild rhonchi. CARDIOVASCULAR: RRR,? No peripheral edema ABDOMINAL:? mild tenderness to palpation in the right upper quadrant,? the rest of the abdomen is obese, nontender no guarding or rebound MUSCULOSKELETAl: No obvious deformities NEURO: Alert. Moving 4/4 extremities pupil dilated reactive SKIN::? Right forearm with swelling tender to touch no fluctuation noted PSYCHIATRIC: ? Anxious and restless Objective Data Vital Signs Vital Signs: Vital Signs - 24 hr 09/12/22 14:00 09/12/22 16:00 09/12/22 20:00 Temperature 97.9 F Pulse Rate 82 81 80 Respiratory Rate 16 Blood Pressure 141/78 H Pulse Oximetry 98 Oxygen Delivery 09/12/22 20:00 09/12/22 21:45 09/13/22 00:00 Temperature 97.5 F L Pulse Rate 77 82 Respiratory Rate 18 Blood Pressure 132/66 Pulse Oximetry 95 Oxygen Delivery Room Air 09/13/22 04:00 09/13/22 06:00 Temperature 97.7 F Pulse Rate 85 84 Respiratory Rate 21 H Blood Pressure 145/88 H Pulse Oximetry 100 Oxygen Delivery Intake/Output Intake/Output: Intake & Outp
[2022-09-13] MEDS: ONDANSETRON INJ 4 MG/2 ML VIAL IV PUSH (17:23)
[2022-09-13 17:31] LABS: Vancomycin Trough 21.5 ug/mL (10.0-20.0)
[2022-09-14] VITALS (10 sets, daily range): BP systolic 126–151; BP diastolic 65–94; PULSE 73–94; RESP 18; TEMP 36.3–36.9; O2SAT 95–97
[2022-09-14 04:46] LABS: Basophils Absolute Auto 0.1 K/mm3 (0.0-0.1); Basophils Percent Auto 0.6 % (0.2-1.2); Eosinophils Absolute Auto 0.7 K/mm3 (0-0.3); Eosinophils Percent Auto 6.1 % (0-4.4); Hematocrit 36.6 % (37.0-47.0); Hemoglobin 12.1 g/dL (12.0-15.0); Immature Granulocyte Percent A 0.9 % (0-0.5); Lymphocytes Absolute Auto 3.27 K/mm3 (0.9-3.2); Lymphocytes Percent Auto 30.6 % (18.3-44.2); Mean Corpuscular HGB Conc 33.1 g/dl (32-36); Mean Corpuscular Hemoglobin 28.1 pg (26-34); Mean Corpuscular Volume 85.1 fl (80-100); Mean Platelet Volume 8.8 fl (7.4-10.4); Monocytes Absolute Auto 0.7 K/mm3 (0.1-0.6); Monocytes Percent Auto 6.6 % (2.6-8.5); Neutrophils Absolute Auto 5.9 K/mm3 (1.3-6.7); Neutrophils Percent Auto 55.2 % (45.5-73.1); Platelet Count Result 353 k/mm3 (150-375); Red Cell Distribution Width 13.5 % (11.5-14.5); White Blood Count 10.7 K/mm3 (4.5-10.0)
[2022-09-14 04:58] LABS: Alanine Aminotransferase 15 U/L (6-35); Albumin Level 3.7 g/dL (3.5-5.1); Alkaline Phosphatase 76 U/L (38-126); Anion Gap 2 mmol/L (8-16); Aspartate Amino Transferase 23 U/L (14-36); Bilirubin,Total 0.8 mg/dL (0.2-1.3); Blood Urea Nitrogen 8 mg/dL (7-17); Calcium 8.6 mg/dL (8.4-10.2); Carbon Dioxide 31 mmol/L (22-30); Chloride 102 mmol/L (98-107); Estimated CRCL calculation 78 ml/min; Estimated Glomerular Filt Rate > 60; Glucose 124 mg/dL (65-110); Magnesium 1.9 mg/dL (1.6-2.3); Potassium 4.3 mmol/L (3.4-5.0); Sodium 135 mmol/L (137-145)
[2022-09-14] MEDS: LORazepam INJ (*CRX) 2 MG/ML VIAL 1 MG IV PUSH ×4 (06:00→21:12)
[2022-09-14] MEDS: PIPERACILLN/TAZ 3.375GM/NS50ML 3.375 GM/50 ML BAG IVPB ×3 (06:00→17:42)
[2022-09-14] MEDS: NICOTINE (*PBKC) 21 MG PATCH 1 PATCH TRANSDERM (09:19)
[2022-09-14] MEDS: ONDANSETRON INJ 4 MG/2 ML VIAL IV PUSH ×2 (09:21→21:11)
[2022-09-14] MEDS: cloNIDine HCL 0.1 MG TABLET PO ×2 (09:22→21:11)
--- NOTE | 2022-09-14 09:45 | PM.IMPN ---
Progress Note: A&P Assessment and Plan (1) Sepsis: Code(s): A41.9 - Sepsis, unspecified organism Status: Acute (2) Opioid dependence: Qualifiers: Substance use status: uncomplicated Qualified Code(s): F11.20 - Opioid dependence, uncomplicated Code(s): F11.20 - Opioid dependence, uncomplicated Status: Acute (3) Left ventricular systolic dysfunction: Code(s): I51.9 - Heart disease, unspecified Status: Acute (4) Bipolar disorder: Code(s): F31.9 - Bipolar disorder, unspecified Status: Chronic (5) Asthma: Code(s): J45.909 - Unspecified asthma, uncomplicated Status: Chronic (6) Seizures: Code(s): R56.9 - Unspecified convulsions Status: Chronic (7) Leukocytosis: Code(s): D72.829 - Elevated white blood cell count, unspecified Status: Acute Plan 47-year-old chronically unwell appearing IV drug abuser presenting with abdominal pain chest pain and difficulty breathing chills # sepsis unclear etiology but with IV drug use rule out bacteremia. MRI thoracic and lumbar spine With mild lumbar and thoracic spondylosis with no evidence of infection. IV fluid as ordered broad-spectrum antibiotic with vancomycin and Zosyn Right arm ultrasound with findings of cellulitis without any drainable abscess this is improving clinically. Continue antibiotics for now cultures has been no growth to date # abdominal pain chest pain shortness of breath CT chest abdomen pelvis unremarkable. These all could be related to underlying sepsis versus opioid withdrawal # back pain: MRI spine with mild spondylosis # right arm abscess refused to get drained in the ER. Currently on vancomycin and Zosyn. General surgery consultation if needed. ultrasound right arm with findings of cellulitis without any drainable abscess leukocytosis improved down to 11,000 today. Blood culture no growth to date # opiate withdrawal patient symptoms currently consistent with opioid withdrawal. continue clonidine as ordered. Allergic to codeine. Lorazepam p.r.n. for agitation/restlessness. Patient used to be on methadone however methadone clinic too far away is what she says. She is allergic to Suboxone # history of cardiomyopathy ejection fraction 15-20% BNP 810 # leukocytosis this is improving # lactic acidosis # marijuana use # opiate dependence # dVT prophylaxis # code status full code Subjective Date/time seen: 09/14/22 09:45 Interval history: No overnight events. Labs reviewed. Discussed with nursing staff. She feeling better still has aches and pains all over body. No nausea vomiting tolerating diet. Right forearm is less swollen and less painful Review of Systems Review of Systems: All systems reviewed & are unremarkable except as noted in HPI and below Exam Narrative: ? APPEARANCE: ? Patient appears far older than her stated age, chronically unwell Uncomfortable Head: atraumatic. normocephalic EYES:? EOMI, NOSE: Atraumatic NECK/back:? patient has midline tenderness in the T and L-spine area. RESPIRATORY: No increased rate of breathing,?coarse breath sounds mild rhonchi. CARDIOVASCULAR: RRR,? No peripheral edema ABDOMINAL:? mild tenderness to palpation in the right upper quadrant,? the rest of the abdomen is obese, nontender no guarding or rebound MUSCULOSKELETAl: No obvious deformities NEURO: Alert. Moving 4/4 extremities pupil dilated reactive SKIN::? Right forearm with swelling tender to touch no fluctuation noted PSYCHIATRIC: ? Anxious and restless Objective Data Vital Signs Vital Signs: Vital Signs - 24 hr 09/13/22 08:51 09/13/22 14:11 09/13/22 14:00 Temperature 98.5 F Pulse Rate 84 101 H Respiratory Rate 20 Blood Pressure 134/84 Pulse Oximetry 95 96 Oxygen Delivery Room Air 09/13/22 16:00 09/13/22 12:00 09/13/22 20:00 Temperature Pulse Rate 89 92 93 Respiratory Rate Blood Pressure Pulse Oximetry Ox
[2022-09-14] MEDS: ACETAMINOPHEN 500 MG TABLET 1000 MG PO ×2 (10:07→21:05)
[2022-09-14] MEDS: DOCUSATE SODIUM 100 MG CAPSULE PO (17:42)
[2022-09-15] VITALS (11 sets, daily range): BP systolic 118–125; BP diastolic 72–94; PULSE 73–95; RESP 17–20; TEMP 36–36.5; O2SAT 95–98
[2022-09-15] MEDS: PIPERACILLN/TAZ 3.375GM/NS50ML 3.375 GM/50 ML BAG IVPB ×5 (00:05→23:44)
[2022-09-15] MEDS: DOCUSATE SODIUM 100 MG CAPSULE PO ×2 (00:07→20:13)
[2022-09-15 05:54] LABS: Basophils Absolute Auto 0.1 K/mm3 (0.0-0.1); Basophils Percent Auto 0.5 % (0.2-1.2); Eosinophils Absolute Auto 0.8 K/mm3 (0-0.3); Eosinophils Percent Auto 7.4 % (0-4.4); Hematocrit 42.2 % (37.0-47.0); Hemoglobin 13.5 g/dL (12.0-15.0); Immature Granulocyte Absolute 0.04 K/mm3 (0.00-0.031); Immature Granulocyte Percent A 0.4 % (0-0.5); Lymphocytes Absolute Auto 3.81 K/mm3 (0.9-3.2); Lymphocytes Percent Auto 34.5 % (18.3-44.2); Mean Corpuscular Volume 87.4 fl (80-100); Mean Platelet Volume 8.6 fl (7.4-10.4); Monocytes Absolute Auto 0.6 K/mm3 (0.1-0.6); Monocytes Percent Auto 5.8 % (2.6-8.5); Neutrophils Absolute Auto 5.7 K/mm3 (1.3-6.7); Neutrophils Percent Auto 51.4 % (45.5-73.1); Platelet Count Result 374 k/mm3 (150-375); Red Blood Count 4.83 M/mm3 (4.2-5.4); Red Cell Distribution Width 13.2 % (11.5-14.5)
[2022-09-15 06:09] LABS: Alanine Aminotransferase 16 U/L (6-35); Albumin Level 4.3 g/dL (3.5-5.1); Alkaline Phosphatase 99 U/L (38-126); Anion Gap 6 mmol/L (8-16); Aspartate Amino Transferase 23 U/L (14-36); Bilirubin,Total 0.8 mg/dL (0.2-1.3); Blood Urea Nitrogen 5 mg/dL (7-17); Calcium 9.1 mg/dL (8.4-10.2); Carbon Dioxide 36 mmol/L (22-30); Chloride 99 mmol/L (98-107); Estimated CRCL calculation 78 ml/min; Estimated Glomerular Filt Rate > 60; Glucose 87 mg/dL (65-110); Magnesium 2.2 mg/dL (1.6-2.3); Potassium 4.2 mmol/L (3.4-5.0); Sodium 141 mmol/L (137-145)
[2022-09-15] MEDS: cloNIDine HCL 0.1 MG TABLET PO ×2 (08:56→20:07)
[2022-09-15] MEDS: LORazepam INJ (*CRX) 2 MG/ML VIAL 1 MG IV PUSH ×3 (08:57→20:07)
[2022-09-15] MEDS: NICOTINE (*PBKC) 21 MG PATCH 1 PATCH TRANSDERM (08:57)
[2022-09-15 11:54] LABS: Vancomycin Trough 28.6 ug/mL (10.0-20.0)
--- NOTE | 2022-09-15 14:34 | PM.IMPN ---
Progress Note: A&P Assessment and Plan (1) Sepsis: Code(s): A41.9 - Sepsis, unspecified organism Status: Acute (2) Opioid dependence: Qualifiers: Substance use status: uncomplicated Qualified Code(s): F11.20 - Opioid dependence, uncomplicated Code(s): F11.20 - Opioid dependence, uncomplicated Status: Acute (3) Left ventricular systolic dysfunction: Code(s): I51.9 - Heart disease, unspecified Status: Acute (4) Bipolar disorder: Code(s): F31.9 - Bipolar disorder, unspecified Status: Chronic (5) Asthma: Code(s): J45.909 - Unspecified asthma, uncomplicated Status: Chronic (6) Seizures: Code(s): R56.9 - Unspecified convulsions Status: Chronic (7) Leukocytosis: Code(s): D72.829 - Elevated white blood cell count, unspecified Status: Acute Plan 47-year-old chronically unwell appearing IV drug abuser presenting with abdominal pain chest pain and difficulty breathing chills # sepsis unclear etiology but with IV drug use rule out bacteremia. MRI thoracic and lumbar spine With mild lumbar and thoracic spondylosis with no evidence of infection. IV fluid as ordered broad-spectrum antibiotic with vancomycin and Zosyn Right arm ultrasound with findings of cellulitis without any drainable abscess this is improving clinically. Continue antibiotics for now cultures has been no growth to date # abdominal pain chest pain shortness of breath CT chest abdomen pelvis unremarkable. These all could be related to underlying sepsis versus opioid withdrawal # back pain: MRI spine with mild spondylosis # right arm abscess refused to get drained in the ER. Currently on vancomycin and Zosyn. General surgery consultation if needed. ultrasound right arm with findings of cellulitis without any drainable abscess leukocytosis improved down to 11,000 today. Blood culture no growth to date # opiate withdrawal patient symptoms currently consistent with opioid withdrawal. continue clonidine as ordered. Allergic to codeine. Lorazepam p.r.n. for agitation/restlessness. Patient used to be on methadone however methadone clinic too far away is what she says. She is allergic to Suboxone # history of cardiomyopathy ejection fraction 15-20% BNP 810 # leukocytosis this is improving # lactic acidosis # marijuana use # opiate dependence # dVT prophylaxis # code status full code 09/15/2022 interval history: No overnight events. Labs reviewed. Discussed with nursing staff. She feeling better still has aches and pains all over body. No nausea vomiting tolerating diet. Right forearm is less swollen and less painful, patient stats she still feels tired and weak, will have PT/OT evaluate the patient, patient will beneift going to acute rehab, will continue to monitor. Subjective Date/time seen: 09/15/22 14:34 09/15/2022 interval history: No overnight events. Labs reviewed. Discussed with nursing staff. She feeling better still has aches and pains all over body. No nausea vomiting tolerating diet. Right forearm is less swollen and less painful, patient stats she still feels tired and weak, will have PT/OT evaluate the patient, patient will beneift going to acute rehab, will continue to monitor. Review of Systems Review of Systems: All systems reviewed & are unremarkable except as noted in HPI and below Objective Data Vital Signs Vital Signs: Vital Signs - 24 hr 09/14/22 16:00 09/14/22 21:00 09/14/22 20:00 Temperature Pulse Rate 82 81 Pulse Rate [Apical] 94 Respiratory Rate Blood Pressure Pulse Oximetry Oxygen Delivery 09/14/22 20:00 09/14/22 22:00 09/15/22 00:00 Temperature 97.4 F L Pulse Rate 82 80 73 Pulse Rate [Apical] Respiratory Rate 18 18 Blood Pressure 126/65 Pulse Oximetry 97 97 Oxygen Delivery Room Air 09/15/22 04:00 09/15/22 06:00 09/15/22 08:57 Temperature 97.5 F L Pulse Rate 76 78 78 Pu
--- NOTE | 2022-09-15 16:13 | PCOTNOTE ---
Attempted to see pt for occupational therapy evaluation. Pt. is independent in room per nursing, follow up with doctor and care coordination confirmed no skilled need for therapy services at this time. Canceling orders.
[2022-09-15] MEDS: MELATONIN 3 MG TABLET PO (20:07)
[2022-09-16] VITALS (11 sets, daily range): BP systolic 117–131; BP diastolic 59–89; PULSE 73–124; RESP 18–22; TEMP 36.3–36.8; O2SAT 94–99
[2022-09-16] MEDS: LORazepam INJ (*CRX) 2 MG/ML VIAL 1 MG IV PUSH ×4 (02:05→23:57)
[2022-09-16] MEDS: PIPERACILLN/TAZ 3.375GM/NS50ML 3.375 GM/50 ML BAG IVPB ×2 (06:18→11:26)
[2022-09-16] MEDS: chlordiazePOXIDE (*CRX) 25 MG CAPSULE PO ×3 (08:28→20:23)
[2022-09-16] MEDS: cloNIDine HCL 0.1 MG TABLET PO ×2 (08:28→20:23)
[2022-09-16] MEDS: NICOTINE (*PBKC) 21 MG PATCH 1 PATCH TRANSDERM (08:29)
[2022-09-16] MEDS: DOCUSATE SODIUM 100 MG CAPSULE PO ×2 (08:29→20:23)
--- NOTE | 2022-09-16 09:44 | PCPTNOTE ---
Spoke with hospitalist - OK to DC orders due to pt being independent in room.
--- NOTE | 2022-09-16 13:09 | PM.IMPN ---
Progress Note: A&P Assessment and Plan (1) Sepsis: Code(s): A41.9 - Sepsis, unspecified organism Status: Acute (2) Opioid dependence: Qualifiers: Substance use status: uncomplicated Qualified Code(s): F11.20 - Opioid dependence, uncomplicated Code(s): F11.20 - Opioid dependence, uncomplicated Status: Acute (3) Left ventricular systolic dysfunction: Code(s): I51.9 - Heart disease, unspecified Status: Acute (4) Bipolar disorder: Code(s): F31.9 - Bipolar disorder, unspecified Status: Chronic (5) Asthma: Code(s): J45.909 - Unspecified asthma, uncomplicated Status: Chronic (6) Seizures: Code(s): R56.9 - Unspecified convulsions Status: Chronic (7) Leukocytosis: Code(s): D72.829 - Elevated white blood cell count, unspecified Status: Acute Plan 47-year-old chronically unwell appearing IV drug abuser presenting with abdominal pain chest pain and difficulty breathing chills # sepsis unclear etiology but with IV drug use rule out bacteremia. MRI thoracic and lumbar spine With mild lumbar and thoracic spondylosis with no evidence of infection. IV fluid as ordered broad-spectrum antibiotic with vancomycin and Zosyn Right arm ultrasound with findings of cellulitis without any drainable abscess this is improving clinically. Continue antibiotics for now cultures has been no growth to date # abdominal pain chest pain shortness of breath CT chest abdomen pelvis unremarkable. These all could be related to underlying sepsis versus opioid withdrawal # back pain: MRI spine with mild spondylosis # right arm abscess refused to get drained in the ER. Currently on vancomycin and Zosyn. General surgery consultation if needed. ultrasound right arm with findings of cellulitis without any drainable abscess leukocytosis improved down to 11,000 today. Blood culture no growth to date # opiate withdrawal patient symptoms currently consistent with opioid withdrawal. continue clonidine as ordered. Allergic to codeine. Lorazepam p.r.n. for agitation/restlessness. Patient used to be on methadone however methadone clinic too far away is what she says. She is allergic to Suboxone # history of cardiomyopathy ejection fraction 15-20% BNP 810 # leukocytosis this is improving # lactic acidosis # marijuana use # opiate dependence # dVT prophylaxis # code status full code 09/16/2022 interval history: No overnight events. Labs reviewed. Discussed with nursing staff. She anxious, nursing staff feels patient is going into withdrawl still has aches and pains all over body. No nausea vomiting tolerating diet. Right forearm is less swollen and less painful, patient stats she still feels tired and weak, upon arrival there was concern patient may have sepsis, all the culture are no growth so far, will monitor one more day, if not agitated will discharge her tomorrow, will have PT/OT evaluate the patient, patient will beneift going to acute rehab, will continue to monitor. Subjective Date/time seen: 09/16/22 13:09 47-year-old chronically unwell appearing IV drug abuser presenting with abdominal pain chest pain and difficulty breathing chills # sepsis unclear etiology but with IV drug use rule out bacteremia. MRI thoracic and lumbar spine With mild lumbar and thoracic spondylosis with no evidence of infection. IV fluid as ordered broad-spectrum antibiotic with vancomycin and Zosyn Right arm ultrasound with findings of cellulitis without any drainable abscess this is improving clinically. Continue antibiotics for now cultures has been no growth to date # abdominal pain chest pain shortness of breath CT chest abdomen pelvis unremarkable. These all could be related to underlying sepsis versus opioid withdrawal # back pain: MRI spine with mild spondylosis # right arm abscess refused to get drained in the ER. Currently on vancomycin and Zosyn. General surgery consu
[2022-09-16] MEDS: ONDANSETRON INJ 4 MG/2 ML VIAL IV PUSH (17:56)
[2022-09-16] MEDS: MELATONIN 3 MG TABLET PO (20:23)
[2022-09-17] VITALS: PULSE 91
[2022-09-17] MEDS: chlordiazePOXIDE (*CRX) 25 MG CAPSULE PO (03:20)
[2022-09-17 03:30] VITALS: BP 112/63; PULSE 88; RESP 18; TEMP 36.4; O2SAT 98
[2022-09-17 04:00] VITALS: PULSE 75
[2022-09-17] MEDS: LORazepam INJ (*CRX) 2 MG/ML VIAL 1 MG IV PUSH (06:04)
[2022-09-17 08:15] VITALS: PULSE 94
[2022-09-17 08:19] VITALS: BP 126/87; PULSE 96
[2022-09-17] MEDS: cloNIDine HCL 0.1 MG TABLET PO (08:21)
[2022-09-17] MEDS: DOCUSATE SODIUM 100 MG CAPSULE PO (08:22)
[2022-09-17 08:24] LABS: Hematocrit 37.7 % (37.0-47.0); Hemoglobin 12.2 g/dL (12.0-15.0); Mean Corpuscular HGB Conc 32.4 g/dl (32-36); Mean Corpuscular Hemoglobin 27.6 pg (26-34); Mean Corpuscular Volume 85.3 fl (80-100); Mean Platelet Volume 8.6 fl (7.4-10.4); Platelet Count Result 388 k/mm3 (150-375); Red Blood Count 4.42 M/mm3 (4.2-5.4); Red Cell Distribution Width 13.2 % (11.5-14.5); White Blood Count 13.3 K/mm3 (4.5-10.0)
[2022-09-17] MEDS: ACETAMINOPHEN 500 MG TABLET 1000 MG PO (08:26)
[2022-09-17 08:57] LABS: Anion Gap 4 mmol/L (8-16); Blood Urea Nitrogen 12 mg/dL (7-17); Carbon Dioxide 34 mmol/L (22-30); Chloride 96 mmol/L (98-107); Estimated CRCL calculation 88 ml/min; Estimated Glomerular Filt Rate > 60; Glucose 161 mg/dL (65-110); Magnesium 1.9 mg/dL (1.6-2.3); Sodium 134 mmol/L (137-145)
--- NOTE | 2022-09-17 11:15 | PM.DS ---
DS: Admitting Diagnosis Discharge Date 09/17/2022 Admitting Diagnosis flank pain DS: Discharge Diagnosis Discharge Diagnosis (1) Sepsis: Code(s): A41.9 - Sepsis, unspecified organism Status: Acute (2) Opioid dependence: Qualifiers: Substance use status: uncomplicated Qualified Code(s): F11.20 - Opioid dependence, uncomplicated Code(s): F11.20 - Opioid dependence, uncomplicated Status: Acute (3) Left ventricular systolic dysfunction: Code(s): I51.9 - Heart disease, unspecified Status: Acute (4) Bipolar disorder: Code(s): F31.9 - Bipolar disorder, unspecified Status: Chronic (5) Asthma: Code(s): J45.909 - Unspecified asthma, uncomplicated Status: Chronic (6) Seizures: Code(s): R56.9 - Unspecified convulsions Status: Chronic (7) Leukocytosis: Code(s): D72.829 - Elevated white blood cell count, unspecified Status: Acute Plan 47-year-old chronically unwell appearing IV drug abuser presenting with abdominal pain chest pain and difficulty breathing chills # sepsis unclear etiology but with IV drug use rule out bacteremia. MRI thoracic and lumbar spine With mild lumbar and thoracic spondylosis with no evidence of infection. IV fluid as ordered broad-spectrum antibiotic with vancomycin and Zosyn Right arm ultrasound with findings of cellulitis without any drainable abscess this is improving clinically. Continue antibiotics for now cultures has been no growth to date # abdominal pain chest pain shortness of breath CT chest abdomen pelvis unremarkable. These all could be related to underlying sepsis versus opioid withdrawal # back pain: MRI spine with mild spondylosis # right arm abscess refused to get drained in the ER. Currently on vancomycin and Zosyn. General surgery consultation if needed. ultrasound right arm with findings of cellulitis without any drainable abscess leukocytosis improved down to 11,000 today. Blood culture no growth to date # opiate withdrawal patient symptoms currently consistent with opioid withdrawal. continue clonidine as ordered. Allergic to codeine. Lorazepam p.r.n. for agitation/restlessness. Patient used to be on methadone however methadone clinic too far away is what she says. She is allergic to Suboxone # history of cardiomyopathy ejection fraction 15-20% BNP 810 # leukocytosis this is improving # lactic acidosis # marijuana use # opiate dependence # dVT prophylaxis # code status full code 09/16/2022 interval history: No overnight events. Labs reviewed. Discussed with nursing staff. She anxious, nursing staff feels patient is going into withdrawl still has aches and pains all over body. No nausea vomiting tolerating diet. Right forearm is less swollen and less painful, patient stats she still feels tired and weak, upon arrival there was concern patient may have sepsis, all the culture are no growth so far, will monitor one more day, if not agitated will discharge her tomorrow, will have PT/OT evaluate the patient, patient will beneift going to acute rehab, will continue to monitor. DS: Summary Hospital Course Reason for hospitalization: flank pain Narrative: This is a 47-year-old female with history of IV drug abuse and fentanyl use presents with complaint of generalized pain particularly in right upper quadrant and flank.? This been going ongoing for 2-3 days now dull to sharp in quality.? 8 x 10 in intensity.? Worse with movement no elevating factor nausea and vomiting reports chills no fever.? She also had swelling or right arm were seen injected. Hospital Course: 47-year-old chronically unwell appearing IV drug abuser presenting with abdominal pain chest pain and difficulty breathing chills # sepsis unclear etiology but with IV drug use rule out bacteremia.? MRI thoracic and lumbar spine ? With mild lumbar and thoracic spondylosis with no evidence of infection. IV fluid as ordere
== END 2022-09-17 11:59 | disposition home or self-care (01) | DRG 720 ==
LOC: ANHED 06:18 → ANH2MED 07:17
PROVIDERS: Internal Medicine; Admitting Provider Internal Medicine; Emergency Provider Emergency Medicine; PCP Family Medicine; Visit Provider Family Medicine
DX: A41.9 Sepsis, unspecified organism (principal); I43 Cardiomyopathy in diseases classified elsewhere; F11.20 Opioid dependence, uncomplicated; I11.9 Hypertensive heart disease without heart failure; J43.9 Emphysema, unspecified; B19.20 Unspecified viral hepatitis C without hepatic coma; D64.9 Anemia, unspecified; F41.9 Anxiety disorder, unspecified; F31.9 Bipolar disorder, unspecified; F17.210 Nicotine dependence, cigarettes, uncomplicated; K59.09 Other constipation; K21.9 Gastro-esophageal reflux disease without esophagitis; L03.113 Cellulitis of right upper limb; M47.816 Spondylosis without myelopathy or radiculopathy, lumbar region; Z20.822 Contact with and (suspected) exposure to COVID-19; Z86.14 Personal history of Methicillin resistant Staphylococcus aureus infection; Z90.49 Acquired absence of other specified parts of digestive tract; Z85.41 Personal history of malignant neoplasm of cervix uteri; Z90.710 Acquired absence of both cervix and uterus; Z79.82 Long term (current) use of aspirin
CPT/HCPCS: 36415; 36556; 71045; 71260; 72157; 72158; 74177; 76882; 80048; 80053; 80202; 80307; 81001; 82550; 83605; 83690; 83735; 83880; 84100; 84484; 85025; 85027; 85610; 85652; 85730; 86140; 87040; 87086; 87088; 87637; 93005; 94640; 96365; 96367; 96375; 99285; 99291; A9270; A9577; J0131; J2060; J2405; J2543; J3370; J3475; J7030; Q9967

== ENCOUNTER 2022-10-05 14:14 | Emergency (ER) | payer OTHER, SELFPAY ==
--- NOTE | ~2022-10-05 | XR_ITS ---
EXAM: XR ankle RT min 3V DATE: 10/05/2022 14:44 HISTORY: fall - swelling and pain X 3DAYS AGO INJ . COMPARISON: 05/11/2017, x-ray tib-fib 01/21/2020. FINDINGS: Normal mineralization. Small acute lateral malleolus avulsion fracture fragment. Larger, m ore distal chronic avulsion fracture of the lateral malleolus tip, with anterior displacement. No lyt ic or blastic lesion. Joint spaces are maintained. No erosion or periosteal change. Marked ankle soft tissue swelling, extending to the foot. Moderate ankle joint effusion. IMPRESSION: Mildly displaced acute lateral malleolus avulsion fracture. Extensive soft tissue swellin g about the ankle and foot. Reviewed, dictated and finalized at location K. IMPRESSION: Mildly displaced acute lateral malleolus avulsion fracture. Extensi ve soft tissue swelling about the ankle and foot.
[2022-10-05 14:49] VITALS: BP 143/94; PULSE 88; RESP 18; TEMP 36.5; O2SAT 96
--- NOTE | 2022-10-05 17:58 | ED.LOWEXIN ---
HPI - Extremity Injury (Lower) General Chief Complaint: Extremity Injury, Lower Stated Complaint: fell yesterday - RIGHT ankle pain Time Seen by Provider: 10/05/22 14:45 History of Present Illness HPI Narrative: 47-year-old female with a history of IVDU here for evaluation of right ankle pain and swelling over the past 3 days. Patient states that she had a fall 3 days ago and since then the ankle has been hurting her. States that she tripped and fell, landing with her foot in eversion. Denies further injuries. She has been walking on the ankle for 3 days but states it is painful. She has been icing the area and using ibuprofen as needed with good relief but presents today due to swelling. No paresthesias. Related Data Home Medications Medication Instructions Recorded Confirmed trazodone 100 mg tablet 200 mg PO HS PRN Insomnia 03/04/20 09/12/22 Allergies Allergy/AdvReac Type Severity Reaction Status Date / Time codeine Allergy Intermediate HIVES, Verified 10/05/22 18:14 TONGUE SWELLING cephalexin Allergy Mild Unknown Verified 10/05/22 18:14 clavulanic acid Allergy Mild BETA Verified 10/05/22 18:14 LACTAMASE INHIBITORS doxycycline Allergy Mild Unknown Verified 10/05/22 18:14 erythromycin base Allergy Mild Unknown Verified 10/05/22 18:14 prochlorperazine Allergy Mild Unknown Verified 10/05/22 18:14 Sulfa (Sulfonamide Allergy Mild Unknown Verified 10/05/22 18:14 Antibiotics) tetracycline Allergy Mild Unknown Verified 10/05/22 18:14 Review of Systems Review of Systems: Gen.: Denies fevers or chills Eyes: Denies eye pain or visual change ENT: Denies congestion Respiratory: Denies shortness of breath or cough CV: Denies chest pain or palpitations GI: Denies abdominal pain nausea, emesis or diarrhea denies burning, urgency, frequency or hematuria Musculoskeletal:reports right ankle pain Neuro: Denies numbness, tingling, weakness or focal weakness Skin: Denies rash Except as documented, all other systems reviewed and negative [facility] Past Medical History Medical History Anemia Anxiety Asthma Back pain Bipolar disorder C. difficile colitis February 2020 Cervical cancer with chemotherapy and partial hysterectomy COPD (chronic obstructive pulmonary disease) Depression Emphysema lung Endometriosis Fibroids Fractures bilateral legs, ribs GERD (gastroesophageal reflux disease) Gum disease peridontal Hepatitis C not yet treated Hypertension Infection of skin due to methicillin resistant Staphylococcus aureus (MRSA) Associated with IV drug use Kidney stones Neuropathy Opioid abuse Heroin and fentanyl abuse Peptic ulcer PID (acute pelvic inflammatory disease) Pneumonia PTSD (post-traumatic stress disorder) Seizures Shingles Sinus problem Surgical History Surgical History H/O tubal ligation History of laparoscopic cholecystectomy History of partial hysterectomy Hysterectomy with unilateral salpingo oophorectomy 2002 Hx of section x1 Family History Family History Sibling Acute myocardial infarction Father Hypertension Lung cancer Mother Hypertension Lung cancer Other Liver disease Social History Social History Social History: She has 2 children. Her children her age 17 and 20 respectively. Her and the father of the children live in the same home but they are no longer in a relationship. 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 She has been addicted to IV narcotics since her hysterectomy in 2002. She denies any alcohol use. She smokes a pack a cigarettes a day. She does occasionally use marijuana. Primary care physician: Dr. Marina Cook
== END 2022-10-05 18:42 | disposition home or self-care (01) ==
PROVIDERS: Emergency Provider Physician Assistant
DX: S82.61XA Displaced fracture of lateral malleolus of right fibula, initial encounter for closed fracture (principal); I10 Essential (primary) hypertension; J43.9 Emphysema, unspecified; F17.210 Nicotine dependence, cigarettes, uncomplicated; W01.0XXA Fall on same level from slipping, tripping and stumbling without subsequent striking against object, initial encounter
CPT/HCPCS: 29515; 73610; 99284

== ENCOUNTER 2022-10-09 19:52 | Emergency (ER) | payer OTHER, SELFPAY ==
--- NOTE | ~2022-10-09 | XR_ITS ---
EXAMINATION: XR ankle RT min 3V DATE: 10/10/2022 01:43 INDICATION: Right ankle fracture TECHNIQUE: Anteroposterior, oblique, mortise, and lateral views of the right ankle were obtained. COMPARISON: 10/05/2022 FINDINGS: Casting material about the right ankle and visualized lower leg. Again seen are a couple small ossifi c densities at the tip of the lateral malleolus, one core spine to a subacute minimally displaced avu lsion fracture fragment. The second represent either a more chronic mildly displaced avulsion fractur e fragment or heterotopic ossification related to an earlier anterior talofibular ligament sprain. No new fractures identified. Joint spaces are normal. Decreased soft tissue swelling about the right an kle. IMPRESSION: 1. No interval change in a small minimally displaced subacute avulsion fracture at the tip of the lat eral malleolus or of a second adjacent chronic corticated ossicle which could represent either an ear lier nonunited avulsion fracture or heterotopic ossification related to prior ankle sprain. Reviewed, dictated and finalized at location A. IMPRESSION: 1. No interval change in a small minimally displaced subacute avulsion fracture at the tip of the lateral malleolus or of a second adjacent chronic corticated ossicle which could represent either an earlier nonunited avulsion fracture or heterotopic ossification related to prior ankle sprain.
--- NOTE | ~2022-10-09 | XR_ITS ---
EXAMINATION: XR chest 2V DATE: 10/10/2022 01:43 INDICATION: Fall while intoxicated TECHNIQUE: frontal and lateral views of the chest were obtained. COMPARISON: Chest radiograph and CT dated 09/12/2022 FINDINGS: Lung volumes are decreased with minimal basilar atelectasis. No pulmonary edema, pleural effusion or pneumothorax. The cardiomediastinal silhouette is normal. Mild thoracic dextrocurvature. IMPRESSION: 1. Small lung volumes. Otherwise no acute cardiopulmonary disease. Reviewed, dictated and finalized at location A.
--- NOTE | ~2022-10-09 | CT_ITS ---
EXAMINATION: CT brain wo con DATE: 10/09/2022 21:13 INDICATION: Fall. Intoxication. TECHNIQUE: Computed tomography (CT) of the head was performed without intravenous contrast. The mA wa s adjusted according to patient size. Iterative reconstruction technique was employed. Exam dose: 60 5.33 mGy-cm total exam DLP. COMPARISON: 03/04/2020 CT brain FINDINGS: No intracranial mass lesion or hemorrhage, midline shift or mass effect. Bilateral mild car otid siphon internal carotid artery calcification. No subdural or epidural hematoma. Ventricular size is within normal range. The mastoid air cells and paranasal sinuses included in examination are clear and normally developed. No fracture or bone destruction of the cranial vault. IMPRESSION: No skull fracture or acute intracranial finding Reviewed, dictated and finalized at Location A. Reviewed, dictated and finalized at location A.
--- NOTE | ~2022-10-09 | CT_ITS ---
EXAMINATION: CT cervical spine wo con DATE: 10/10/2022 01:25 INDICATION: Fall with head injury TECHNIQUE: Computed tomography (CT) of the cervical spine was performed without intravenous contrast. Automated exposure control and iterative reconstruction technique were employed. The dose-length pro duct was 595.16 mGy-cm. COMPARISON: 03/04/2020 FINDINGS: There is reversal of the normal cervical lordosis which could be positional or due to muscle spasm. N o spondylolisthesis or facet subluxation. Vertebral body heights are normal. Moderate disc height los s at C5-C6. There is associated posterior disc osteophyte complex and moderate right right-sided and mild left-sided uncovertebral osteoarthritis which contributes to mild central canal and mild bilater al neural foraminal stenosis. Mild disc height loss at the remaining cervical levels. Cervical soft t issues are unremarkable. Again seen are several likely benign chronic <4 mm nodule at the bilateral a pices. IMPRESSION: 1. No interval change in cervical spondylosis, moderate at C5-C6 and otherwise mild. No acute osseous abnormality. Reviewed, dictated and finalized at location A.
[2022-10-09 20:21] VITALS: BP 131/90; PULSE 94; RESP 20; TEMP 36.1; O2SAT 99
[2022-10-09 23:35] VITALS: BP 150/86; PULSE 83; RESP 18; O2SAT 98
[2022-10-09 23:39] VITALS: BP 150/86; PULSE 91; RESP 20; TEMP 36.8; O2SAT 100
[2022-10-10 00:58] LABS: Basophils Absolute Auto 0.1 K/mm3 (0.0-0.1); Basophils Percent Auto 0.5 % (0.2-1.2); Eosinophils Absolute Auto 0.2 K/mm3 (0-0.3); Hematocrit 40.4 % (37.0-47.0); Hemoglobin 13.1 g/dL (12.0-15.0); Immature Granulocyte Absolute 0.03 K/mm3 (0.00-0.031); Immature Granulocyte Percent A 0.3 % (0-0.5); Lymphocytes Absolute Auto 2.27 K/mm3 (0.9-3.2); Lymphocytes Percent Auto 20.9 % (18.3-44.2); Mean Corpuscular HGB Conc 32.4 g/dl (32-36); Mean Corpuscular Hemoglobin 28.7 pg (26-34); Mean Corpuscular Volume 88.6 fl (80-100); Mean Platelet Volume 9.3 fl (7.4-10.4); Monocytes Absolute Auto 0.8 K/mm3 (0.1-0.6); Monocytes Percent Auto 7.6 % (2.6-8.5); Neutrophils Absolute Auto 7.5 K/mm3 (1.3-6.7); Neutrophils Percent Auto 68.7 % (45.5-73.1); Platelet Count Result 351 k/mm3 (150-375); Red Blood Count 4.56 M/mm3 (4.2-5.4); Red Cell Distribution Width 15.4 % (11.5-14.5); White Blood Count 10.9 K/mm3 (4.5-10.0)
[2022-10-10] MEDS: ACETAMINOPHEN 500 MG TABLET 1000 MG PO (01:01)
[2022-10-10 01:03] VITALS: BP 138/95; PULSE 76; RESP 18; TEMP 36.4; O2SAT 98
[2022-10-10 01:11] LABS: Anion Gap 5 mmol/L (8-16); Blood Urea Nitrogen 8 mg/dL (7-17); Calcium 9.2 mg/dL (8.4-10.2); Carbon Dioxide 33 mmol/L (22-30); Chloride 102 mmol/L (98-107); Estimated CRCL calculation 89 ml/min; Estimated Glomerular Filt Rate > 60; Ethanol < 10 mg/dL (<10); Glucose 95 mg/dL (65-110); Potassium 3.7 mmol/L (3.4-5.0); Sodium 140 mmol/L (137-145)
--- NOTE | 2022-10-10 01:11 | ED.GENADULT ---
HPI - General Adult General Chief complaint: Fall Stated complaint: fall Time Seen by Provider: 10/10/22 00:20 History of Present Illness HPI narrative: This is a 47-year-old IV drug user presenting to the ED intoxicated. The patient was seen here several days ago and was diagnosed with an ankle fracture and placed in a splint. Since then she has not followed up with Ortho. She has been using fentanyl. She is here today covered in bruises. She is unable to provide me much history other than she keeps falling. She has lost the crutches that we gave her. Today the patient is complaining of headache and neck pain because she fell and hit her head on the coffee table. She positive loss of consciousness. Patient does not use blood thinners. She is also complaining of right ankle pain. No other injuries. she denies fever, chills, chest pain difficulty breathing or abdominal pain. Related Data Home Medications Medication Instructions Recorded Confirmed trazodone 100 mg tablet 200 mg PO HS PRN Insomnia 03/04/20 09/12/22 Allergies Allergy/AdvReac Type Severity Reaction Status Date / Time codeine Allergy Intermediate HIVES, Verified 10/09/22 23:46 TONGUE SWELLING cephalexin Allergy Mild Unknown Verified 10/09/22 23:46 clavulanic acid Allergy Mild BETA Verified 10/09/22 23:46 LACTAMASE INHIBITORS doxycycline Allergy Mild Unknown Verified 10/09/22 23:46 erythromycin base Allergy Mild Unknown Verified 10/09/22 23:46 prochlorperazine Allergy Mild Unknown Verified 10/09/22 23:46 Sulfa (Sulfonamide Allergy Mild Unknown Verified 10/09/22 23:46 Antibiotics) tetracycline Allergy Mild Unknown Verified 10/09/22 23:46 [facility] Past Medical History Medical History Anemia Anxiety Asthma Back pain Bipolar disorder C. difficile colitis February 2020 Cervical cancer with chemotherapy and partial hysterectomy COPD (chronic obstructive pulmonary disease) Depression Emphysema lung Endometriosis Fibroids Fractures bilateral legs, ribs GERD (gastroesophageal reflux disease) Gum disease peridontal Hepatitis C not yet treated Hypertension Infection of skin due to methicillin resistant Staphylococcus aureus (MRSA) Associated with IV drug use Kidney stones Neuropathy Opioid abuse Heroin and fentanyl abuse Peptic ulcer PID (acute pelvic inflammatory disease) Pneumonia PTSD (post-traumatic stress disorder) Seizures Shingles Sinus problem Surgical History Surgical History H/O tubal ligation History of laparoscopic cholecystectomy History of partial hysterectomy Hysterectomy with unilateral salpingo oophorectomy 2002 Hx of section x1 Family History Family History Sibling Acute myocardial infarction Father Hypertension Lung cancer Mother Hypertension Lung cancer Other Liver disease Social History Social History Social History: She has 2 children. Her children her age 17 and 20 respectively. Her and the father of the children live in the same home but they are no longer in a relationship. 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 She has been addicted to IV narcotics since her hysterectomy in 2002. She denies any alcohol use. She smokes a pack a cigarettes a day. She does occasionally use marijuana. Primary care physician: Dr. Marina Cerna Code status: Full code Surrogate decision maker: Daughter Smoking packs per day: 2 Smoking cigarettes per day: 40.0 Years smoked: 28 Smoking pack-years: 56.00 Smoking status: Current every day smoker Tobacco type: cigarettes Second hand tobacco smoke exposure: Yes Alcohol intake: never Substance use: current Sub
[2022-10-10 03:00] VITALS: BP 130/74; PULSE 80; RESP 17; O2SAT 97
--- NOTE | 2022-10-10 04:44 | PC.NURSE ---
pt. removed cast on R lower leg despite RN educating pt. on risk of removing cast.
[2022-10-10 05:30] VITALS: BP 133/61; PULSE 70; RESP 19; O2SAT 96
[2022-10-10 08:00] VITALS: BP 133/61; PULSE 70; RESP 18; O2SAT 96
--- NOTE | 2022-10-10 11:19 | PCCCNOTE ---
met with patient bedside. patient is sitting comfortably in wheelchair. patient does not have her cell phone to call for a ride home. CC attempted several numbers. CC then received a call from patients daughter Samina whom stated she is unable to care for her mother in general due to patients drug addiction. daughter stated that patient would be able to get into her own home if the ER was able to provide patient with cab voucher. cab voucher given, CC will continue to follow for any other needs that may arise.
== END 2022-10-10 08:00 | disposition home or self-care (01) ==
PROVIDERS: Emergency Provider Emergency Medicine
DX: S06.9X9A Unspecified intracranial injury with loss of consciousness of unspecified duration, initial encounter (principal); F11.20 Opioid dependence, uncomplicated; R29.6 Repeated falls; S82.61XD Displaced fracture of lateral malleolus of right fibula, subsequent encounter for closed fracture with routine healing; J43.9 Emphysema, unspecified; I10 Essential (primary) hypertension; G62.9 Polyneuropathy, unspecified; B19.20 Unspecified viral hepatitis C without hepatic coma; K21.9 Gastro-esophageal reflux disease without esophagitis; F43.10 Post-traumatic stress disorder, unspecified; F31.9 Bipolar disorder, unspecified; F41.9 Anxiety disorder, unspecified; Z86.2 Personal history of diseases of the blood and blood-forming organs and certain disorders involving the immune mechanism; Z87.01 Personal history of pneumonia (recurrent); Z87.11 Personal history of peptic ulcer disease; Z86.14 Personal history of Methicillin resistant Staphylococcus aureus infection; Z87.442 Personal history of urinary calculi; Z90.711 Acquired absence of uterus with remaining cervical stump; Z90.722 Acquired absence of ovaries, bilateral; Z90.79 Acquired absence of other genital organ(s); M47.812 Spondylosis without myelopathy or radiculopathy, cervical region; W01.190A Fall on same level from slipping, tripping and stumbling with subsequent striking against furniture, initial encounter; X58.XXXD Exposure to other specified factors, subsequent encounter
CPT/HCPCS: 29515; 36415; 70450; 71046; 72125; 73610; 80048; 80307; 85025; 99284; A9270

== ENCOUNTER 2022-11-26 17:04 | Outpatient (CLI) | payer OTHER, SELFPAY ==
[2022-11-26 17:26] LABS: Basophils Percent Auto 0.4 % (0.2-1.2); Eosinophils Absolute Auto 1.2 K/mm3 (0-0.3); Eosinophils Percent Auto 13.8 % (0-4.4); Hematocrit 38.2 % (37.0-47.0); Hemoglobin 12.2 g/dL (12.0-15.0); Immature Granulocyte Absolute 0.04 K/mm3 (0.00-0.031); Immature Granulocyte Percent A 0.4 % (0-0.5); Lymphocytes Absolute Auto 2.65 K/mm3 (0.9-3.2); Lymphocytes Percent Auto 29.5 % (18.3-44.2); Mean Corpuscular HGB Conc 31.9 g/dl (32-36); Mean Corpuscular Hemoglobin 29.4 pg (26-34); Mean Platelet Volume 9.1 fl (7.4-10.4); Monocytes Absolute Auto 0.5 K/mm3 (0.1-0.6); Monocytes Percent Auto 5.8 % (2.6-8.5); Neutrophils Absolute Auto 4.5 K/mm3 (1.3-6.7); Neutrophils Percent Auto 50.1 % (45.5-73.1); Platelet Count Result 362 k/mm3 (150-375); Red Blood Count 4.15 M/mm3 (4.2-5.4); Red Cell Distribution Width 14.4 % (11.5-14.5)
[2022-11-26 17:39] LABS: Appearance Urine Clear (Clear); Bacteria Urine None Seen /hpf; Bilirubin Urine Negative (Negative); Blood Urine Negative (Negative); Color Urine Yellow (Yellow); Glucose Urine UA Negative (Negative); Ketones Urine Negative (Negative); Leukocyte Esterase Ur Trace LEU/UL (Negative); Nitrate Urine Negative (Negative); Non Pathogenic Casts 0-2; Protein Urine Negative (Negative); RBC Urine 0-2 /hpf (0-2); Specific Grav Ur 1.015 (1.001-1.035); Squamous Epithelial Cell Urine Few /hpf (Few); Urobilinogen Urine 0.2 mg/dL (<2.0); WBC Urine 0-5 /hpf
[2022-11-26 17:47] LABS: Add Urine Microscopic? YES
[2022-11-26 18:11] LABS: Alanine Aminotransferase 18 U/L (6-35); Alkaline Phosphatase 77 U/L (38-126); Anion Gap 7 mmol/L (8-16); Aspartate Amino Transferase 21 U/L (14-36); Bilirubin,Total 1.2 mg/dL (0.2-1.3); Blood Urea Nitrogen 12 mg/dL (7-17); Calcium 8.7 mg/dL (8.4-10.2); Carbon Dioxide 32 mmol/L (22-30); Chloride 100 mmol/L (98-107); Cholesterol 118 mg/dL (0-200); Estimated Glomerular Filt Rate > 60; Glucose 130 mg/dL (65-110); HDL Direct 32 mg/dL; Sodium 139 mmol/L (137-145); Triglycerides 135 mg/dL (<150)
[2022-11-26 18:22] LABS: LDL Cholesterol Direct 63 mg/dL
[2022-11-26 18:52] LABS: Hepatitis B Surface Antigen Negative (Negative)
[2022-11-26 18:58] LABS: HAV RESULT Negative (Negative); Hepatitis B Core IgM Result Negative (Negative)
[2022-11-26 19:13] LABS: Free T4 Free Thyroxine Reflex 1.28 ng/dL (0.78-2.19)
[2022-11-26 19:18] LABS: Hepatitis C Virus Antibody Reactive (Negative)
[2022-11-26 20:13] LABS: Total Triiodothyronine (T3) 2.01 NG/ML (0.97-1.69)
[2022-11-30 15:07] LABS: Hepatitis C RNA, Quant PCR <15 IU/mL
== END 2022-11-26 17:05 | disposition home or self-care (01) ==
LOC: ANHLAB 17:05
PROVIDERS: PCP Family Medicine Adolescent Medicine; Visit Provider Nurse Practitioner Family
DX: F31.9 Bipolar disorder, unspecified (principal); D64.9 Anemia, unspecified; B19.20 Unspecified viral hepatitis C without hepatic coma; I10 Essential (primary) hypertension; F11.10 Opioid abuse, uncomplicated; Z72.0 Tobacco use; F19.90 Other psychoactive substance use, unspecified, uncomplicated
CPT/HCPCS: 36415; 80053; 80061; 80074; 81001; 84439; 84443; 84480; 85025; 87522

== ENCOUNTER 2023-04-02 13:40 | Outpatient (CLI) | payer OTHER, SELFPAY ==
--- NOTE | ~2023-04-02 | XR_ITS ---
XR ankle RT 2V DATE: 04/02/2023 14:29 INDICATION: Right ankle pain TECHNIQUE: AP and lateral views COMPARISON: October 10, 2022) ankle FINDINGS: There are accessory ossicles and/or chronic ununited avulsion fracture fragments at the tip of the lateral malleolus. No recent fracture or dislocation of the ankle or disruption of the ankle mortise is detected. Slight posterior calcaneal enthesopathy. IMPRESSION: Accessory ossicles and/or chronic ununited avulsion fractures near the inferior tip of th e lateral ligaments Reviewed, dictated and finalized at location A. IMPRESSION: Accessory ossicles and/or chronic ununited avulsion fractures near the inferior tip of the lateral ligaments
--- NOTE | ~2023-04-02 | XR_ITS ---
EXAMINATION: XR chest 2V 04/02/2023 14:29 INDICATION: Chest pain PROCEDURE: 2 view chest COMPARISON: Comparison to multiple prior studies sequentially, with oldest reviewed study dated 11/2021. FINDINGS: The lungs are clear. The cardiomediastinal silhouette is within normal limits. There are no pleural effusions. There is no pneumothorax suspected. IMPRESSION: 1: NO ACUTE CARDIOPULMONARY DISEASE. Reviewed, dictated and finalized at location L.
[2023-04-02 15:34] LABS: Basophils Absolute Auto 0.1 K/mm3 (0.0-0.1); Basophils Percent Auto 0.4 % (0.2-1.2); Eosinophils Absolute Auto 0.5 K/mm3 (0-0.3); Eosinophils Percent Auto 4.5 % (0-4.4); Hematocrit 42.6 % (37.0-47.0); Hemoglobin 13.8 g/dL (12.0-15.0); Immature Granulocyte Absolute 0.04 K/mm3 (0.00-0.031); Immature Granulocyte Percent A 0.3 % (0-0.5); Lymphocytes Absolute Auto 3.47 K/mm3 (0.9-3.2); Lymphocytes Percent Auto 29.5 % (18.3-44.2); Mean Corpuscular HGB Conc 32.4 g/dl (32-36); Mean Corpuscular Hemoglobin 29.6 pg (26-34); Mean Corpuscular Volume 91.4 fl (80-100); Mean Platelet Volume 9.3 fl (7.4-10.4); Monocytes Absolute Auto 0.5 K/mm3 (0.1-0.6); Monocytes Percent Auto 4.3 % (2.6-8.5); Neutrophils Absolute Auto 7.2 K/mm3 (1.3-6.7); Platelet Count Result 327 k/mm3 (150-375); Red Blood Count 4.66 M/mm3 (4.2-5.4); Red Cell Distribution Width 13.4 % (11.5-14.5); White Blood Count 11.8 K/mm3 (4.5-10.0)
[2023-04-02 17:08] LABS: Free T4 Free Thyroxine 1.44 ng/mL (0.78-2.19)
[2023-04-02 17:37] LABS: Alanine Aminotransferase 21 U/L (6-35); Albumin Level 3.9 g/dL (3.5-5.1); Alkaline Phosphatase 92 U/L (38-126); Anion Gap 4 mmol/L (8-16); Aspartate Amino Transferase 25 U/L (14-36); Bilirubin,Total 0.7 mg/dL (0.2-1.3); Blood Urea Nitrogen 14 mg/dL (7-17); Calcium 8.4 mg/dL (8.4-10.2); Carbon Dioxide 31 mmol/L (22-30); Chloride 103 mmol/L (98-107); Estimated Glomerular Filt Rate > 60; Glucose 102 mg/dL (65-110); Potassium 4.1 mmol/L (3.4-5.0); Sodium 138 mmol/L (137-145)
[2023-04-05 22:08] LABS: Triiodothyronine T3 Free 4.4 pg/mL (2.3-4.2)
== END 2023-04-02 13:41 | disposition home or self-care (01) ==
PROVIDERS: PCP Family Medicine Adolescent Medicine; Visit Provider Nurse Practitioner Family
DX: E07.9 Disorder of thyroid, unspecified (principal); R07.89 Other chest pain; M25.571 Pain in right ankle and joints of right foot; R79.89 Other specified abnormal findings of blood chemistry; R11.2 Nausea with vomiting, unspecified
CPT/HCPCS: 36415; 71046; 73600; 80053; 84439; 84443; 84481; 85025; 86850

== ENCOUNTER 2023-09-25 15:55 | Outpatient (CLI) | payer OTHER, SELFPAY ==
[2023-09-25 17:44] LABS: Total Triiodothyronine (T3) 2.09 NG/ML (0.97-1.69)
[2023-09-25 18:27] LABS: Free T4 Free Thyroxine 1.53 ng/mL (0.78-2.19)
[2023-09-28 20:04] LABS: Thyrotropin Receptor Antibody <1.00 IU/L (<=2.00)
[2023-09-29 05:25] LABS: Thyroid Peroxidase Antibodies <1 IU/mL (<9)
[2023-09-30 13:39] LABS: Thyroid Stimulating Immunoglob <89 % baseline (<140)
== END 2023-09-25 15:56 | disposition home or self-care (01) ==
LOC: ANHLAB 15:58
PROVIDERS: PCP Nurse Practitioner Family; Visit Provider Internal Medicine
DX: E03.8 Other specified hypothyroidism (principal); R79.89 Other specified abnormal findings of blood chemistry
CPT/HCPCS: 36415; 83519; 84439; 84443; 84445; 84480; 86376

== ENCOUNTER 2023-10-09 15:05 | Outpatient (CLI) | payer OTHER, SELFPAY ==
--- NOTE | ~2023-10-09 | US_ITS ---
Thyroid ultrasound. Clinical History: Dysphagia Findings: Real-time sonography of the thyroid gland was performed. The right lobe measures 4.0 x 1.3 x 1.7 cm. The left lobe measures 4.3 x 1.1 x 1.5 cm. The isthmus is 2 mm in AP diameter. No discrete thyroid nodule seen. Impression: Unremarkable exam.. Reviewed, dictated and finalized at location . Impression: Unremarkable exam..
== END 2023-10-09 15:06 | disposition home or self-care (01) ==
LOC: ANHIMG 15:07
PROVIDERS: PCP Nurse Practitioner Family; Visit Provider Internal Medicine
DX: R79.89 Other specified abnormal findings of blood chemistry (principal); E03.8 Other specified hypothyroidism
CPT/HCPCS: 76536

== ENCOUNTER 2023-10-09 15:34 | Outpatient (CLI) | payer OTHER, SELFPAY ==
[2023-10-09 16:11] LABS: Basophils Absolute Auto 0.1 K/mm3 (0.0-0.1); Basophils Percent Auto 0.4 % (0.2-1.2); Eosinophils Absolute Auto 0.8 K/mm3 (0-0.3); Eosinophils Percent Auto 6.4 % (0-4.4); Hematocrit 46.8 % (37.0-47.0); Hemoglobin 15.4 g/dL (12.0-15.0); Immature Granulocyte Absolute 0.05 K/mm3 (0.00-0.031); Immature Granulocyte Percent A 0.4 % (0-0.5); Lymphocytes Absolute Auto 3.31 K/mm3 (0.9-3.2); Lymphocytes Percent Auto 27.2 % (18.3-44.2); Mean Corpuscular HGB Conc 32.9 g/dl (32-36); Mean Corpuscular Hemoglobin 29.4 pg (26-34); Mean Corpuscular Volume 89.3 fl (80-100); Mean Platelet Volume 9.8 fl (7.4-10.4); Monocytes Absolute Auto 0.5 K/mm3 (0.1-0.6); Monocytes Percent Auto 4.2 % (2.6-8.5); Neutrophils Absolute Auto 7.5 K/mm3 (1.3-6.7); Neutrophils Percent Auto 61.4 % (45.5-73.1); Platelet Count Result 378 k/mm3 (150-375); Red Blood Count 5.24 M/mm3 (4.2-5.4); White Blood Count 12.2 K/mm3 (4.5-10.0)
[2023-10-09 16:30] LABS: Alanine Aminotransferase 17 U/L (6-35); Albumin Level 4.4 g/dL (3.5-5.1); Alkaline Phosphatase 96 U/L (38-126); Anion Gap 7 mmol/L (4-12); Aspartate Amino Transferase 22 U/L (14-36); Bilirubin,Total 0.7 mg/dL (0.2-1.3); Blood Urea Nitrogen 12 mg/dL (7-17); Calcium 9.8 mg/dL (8.4-10.2); Carbon Dioxide 29 mmol/L (22-30); Chloride 102 mmol/L (98-107); Estimated Glomerular Filt Rate > 60; Glucose 114 mg/dL (65-110); Sodium 138 mmol/L (137-145)
[2023-10-14 06:28] LABS: FSH 77.7 mIU/mL (***); LH 18.7 mIU/mL (***)
== END 2023-10-09 15:35 | disposition home or self-care (01) ==
LOC: ANHLAB 15:35
PROVIDERS: PCP Nurse Practitioner Family; Visit Provider Nurse Practitioner Family
DX: R23.2 Flushing (principal)
CPT/HCPCS: 36415; 76536; 80053; 83001; 83002; 84443; 85025

== ENCOUNTER 2024-01-28 14:32 | Emergency (ER) | payer OTHER, SELFPAY ==
[2024-01-28 14:32] VITALS: BP 157/100; PULSE 62; RESP 18; TEMP 36.6; O2SAT 97
--- NOTE | 2024-01-28 15:02 | PC.NURSE ---
patient left department stating im just going to go to urgent care .
== END 2024-01-28 16:33 | disposition left against medical advice (07) ==
PROVIDERS: PCP Nurse Practitioner Family
DX: R10.31 Right lower quadrant pain (principal)
CPT/HCPCS: 99199

== ENCOUNTER 2024-09-16 22:58 | Emergency (ER) | payer OTHER, SELFPAY ==
--- OUTSIDE RECORDS SUMMARY | 2024-09-16 23:01 | XMS_ITS | Clinical Summary ---
Author Organization [facility] Address [address] [place] [id number] Care Team Providers Care District Associate Judge Name Role Phone Miscellaneous, Not In File Unavailable Unava claireable Misti Leslie Unavailable Unavailable Sagrario Devi NP Primary Care Provider [phone] Allergies Active Allergy Reactions Criticality Noted Date Comments Amoxicillin-Pot Clavulanate Hives,Rash Medium 11/13/19 17 Reaction: HIVES Doxycycline Hives Reaction: HIVES Erythromycin Unknown,Rash Medium 11/27/2017 Prochlorperazine Seizures High Reaction: OTHER ALLERGIC REACTION, Sulfa (Sulfonamide Antibiotics) Hives 11/12/2016 Reaction: HIVES Tetracycline Hives Reaction: HIVES Tetracyclines Rash Medium 11/12/2016 Medications montelukast (SINGULAIR) 10 mg tablet Take 1 tablet (10 mg total) by mouth nightly Active gabapentin (NEURONTIN) 300 mg capsuleIndications :Neuropathic Pain Take 1 capsule (300 mg total) by mouth 3 (three) times a day Active mirtazapine (REMERON) 45 mg tablet Take 1 tablet (45 mg total) by mouth nightly. 30 tablet 5 03/01/20 18 Active hydrOXYzine (VISTARIL) 100 mg capsule Take 1 capsule (100 mg total) by mouth 3 (three) times a day as needed for itching Active aspirin 81 mg enteric coated tablet Take 1 tablet (81 mg total) by mouth daily 90 tablet 3 07/18/19 23 Active albuterol HFA (PROVENTIL HFA,VENTOLIN HFA,PROAIR HFA) 90 mcg/actuation inhaler Inhale 2 puffs every 4 (four) hours as needed for wheezing or shortness of breath 1 each 10/12/19 23 Active budesonide-formote roL (SYMBICORT) 80-4.5 mcg/actuation inhaler Inhale 2 puffs 2 (two) times a day Rinse mouth with water after use. Do not swallow. 1 each 10/12/19 23 Active acetaminophen (TYLENOL) 500 mg tablet Take 1-2 tablets (500-1,000 mg total) by mouth every 6 (six) hours as needed for pain 30 tablet 10/12/19 23 Active lidocaine (LIDODERM) 5 % Place 2 patches on the skin daily Remove & discard patch within 12 hours or as directed by MD. Active chlordiazePOXIDE (LIBRIUM) 25 mg capsuleIndications :anxiety Take 1 capsule (25 mg total) by mouth 4 (four) times a day as needed for anxiety for up to 10 doses 10 capsule 11/04/19 23 Active Additional Information Patient not taking.Reported on 03/03/2024 methadone HCl (METHADONE IV) Infuse into a venous catheter Active ALPRAZolam (XANAX) 1 mg tablet Take 1 tablet (1 mg total) by mouth daily as needed 09/10/19 24 Active clopidogreL (PLAVIX) 75 mg tabletIndications: Dilated cardiomyopathy (HCC) TAKE 1 TABLET(75 MG) BY MOUTH EVERY MORNING 90 tablet 3 11/10/19 24 Active metoprolol XL (TOPROL-XL) 25 mg extended release tabletIndications: Dilated cardiomyopathy (HCC) TAKE 1/2 TABLET(12.5 MG) BY MOUTH DAILY 45 tablet 3 11/23/19 24 Active ondansetron ODT (ZOFRAN-ODT) 8 mg disintegrating tablet DISSOLVE 1 TABLET ON THE TONGUE EVERY 8 HOURS NEEDED FOR NAUSEA OR VOMITING 02/25/20 24 Active traZODone (DESYREL) 100 mg tablet Take by mouth nightly 01/26/20 24 Active atorvastatin (LIPITOR) 40 mg tabletIndications: Dilated cardiomyopathy (HCC) TAKE 1 TABLET(40 MG) BY MOUTH DAILY 90 tablet 1 06/20/20 24 Active lisinopriL (PRINIVIL,ZESTRIL) 5 mg tabletIndications: Dilated cardiomyopathy (HCC) TAKE 1 TABLET(5 MG) BY MOUTH EVERY MORNING 90 tablet 1 06/20/20 24 Active Active Problems Problem Noted Date Diagnosed Date Hyperlipidemia 09/25/2023 Opioid withdrawal 10/31/2022 Simple chronic bronchitis 10/31/2022 Hepatitis C 10/17/2022 Assessment & Plan (10/17/2022 12:06 PM CDT): Hep c ab reactive -encouraged to f/u with PCP Fracture of left foot 10/16/2022 Assessment & Plan (10/16/2022 1:57 PM CDT): -Secondary to fall, likely related to fentanyl intoxication. Xray L foot with nondisplaced L 3rd/4th metatarsal fx, minimally displaced L medial cuneiform fx -Ortho consulted, non-operative management with post op shoe. Follow up outpt 11/24 -PT/OT Polysubstance abuse 10/15/2022 Assessment & Plan (10/17/2022 12:32 PM CDT): -Patient with long history of polysubstance abuse, refused support for opioid detox at prior ED visit but is agreeable this admission. Pt states she had an appt at [facility] to establish methadone treatment, but missed it d/t hospitalization. She has tried Suboxone before but this caused vomitting and convulsions. Admits to daily, heavy use of fentanyl and benzos. - 10/16 pt OD in room, VSS, narcan given; eventually admitted to using fentanyl and xanax. 1:1 sitter placed, tox c/s, opioid w/d protocol, and PRNs ordered. See significant event note. -Tox c/s recommended starting buprenorphine patch immediately, sublingual Suboxone following day, and benzo taper. Pt was agreeable at that time. - initiated buprenorphine patch 10/16 and benzo taper. Pt refused sublingual Suboxone initation on 10/17 despite conversation with toxicology yesterday. Tox notified and was to see pt again today but pt requesting to leave AMA. She is only agreeable to stay if given more benzos and methadone, which is not an option due to prolonged QTc. She is aware of the risks of unsupervised withdrawal as well as the risks of using illegal street drugs, including seizure, overdose, and . Pt instructed to follow up with [facility], pt agreed. Narcan prescribed. Walker also ordered for pt safety per OT recs. - UDS + benzos, fentanyl, MJ Assessment & Plan (10/15/2022 10:04 PM CDT): -Patient with long history of polysubstance abuse, refused support for opioid detox at prior ED visit but is agreeable this admission. -Psych/Tox consult in AM for opioid detoxification. Intoxication with opioids 10/15/2022 Assessment & Plan (10/16/2022 12:09 PM CDT): -Hold opioid pain medication, pain control with Tylenol and toradol. Assessment & Plan (10/15/2022 10:06 PM CDT): -Hold opioid pain medication, pain control with Tylenol and Ibuprofen. Fracture of right foot 10/15/2022 Assessment & Plan (10/16/2022 1:55 PM CDT): -Secondary to fall, likely related to fentanyl intoxication. Xray R ankle with healing fracture of lateral malleolus. -Ortho consulted, non-operative management with CAM boot. Follow up outpt 11/24 -PT/OT Assessment & Plan (10/15/2022 10:07 PM CDT): -Secondary to fall, likely related to fentanyl intoxication. -Ortho consulted, non-operative management with Post-op shoe. -PT/OT. Abscess of forearm, right 10/15/2022 Assessment & Plan (10/17/2022 12:08 PM CDT): -Secondary to injection drug use. Wound healing well; no drainage, open areas or erythema - d/c clinda Assessment & Plan (10/15/2022 10:07 PM CDT): -Secondary to injection drug use, start bactrim for MRSA coverage. Dilated cardiomyopathy 07/18/2022 Assessment & Plan (10/16/2022 12:02 PM CDT): Patient was seen by cardiology, had prior admission to [facility] found to have CHF with EF of 20%, repeat TTE 07/2022 at follow up showed normal systolic function, cardiology felt likely had Takotsubo cardiomyopathy. -Unclear if patient is compliant with GDMT, will continue while inpatient. Assessment & Plan (10/15/2022 10:01 PM CDT): -Patient was seen by cardiology, had prior admission to [facility] found to have CHF with EF of 20%, repeat TTE at follow up showed normal systolic function, cardiology felt likely had Takotsubo cardiomyopathy. -Unclear if patient is compliant with GDMT, will continue while inpatient. Other fatigue 07/18/2022 Hepatic steatosis 12/15/2021 Elevated glucose 12/14/2021 SIRS (systemic inflammatory response syndrome) 0 12/13/2021 COPD exacerbation 11/14/2021 Lung nodule < 6cm on CT 11/14/2021 Breast nodule 11/14/2021 Acute respiratory failure with hypoxia Community acquired pneumonia of left lower lobe of lung 01/24/2021 Wheezing 01/23/2021 Fentanyl use disorder, moderate 10/25/2020 Smoker 10/25/2020 Opioid dependence with withdrawal (CMS/HCC) 11/04 Chronic obstructive pulmonar y disease with acute lower respiratory infection (CMS/HCC) Assessment & Plan (10/16/2022 11:59 AM CDT): -Chronic without acute exacerbation, continue home inhalers. -On RA Assessment & Plan (10/15/2022 9:56 PM CDT): -Chronic without acute exacerbation, continue home inhalers. Hypertension Anxiety Hypoxia COVID-19 Hypokalemia Assessment & Plan (10/16/2022 12:00 PM CDT): -Likely secondary to malnutrition and IV drug use, monitor and replace as needed. - now resolved - monitor BMP Assessment & Plan (10/15/2022 9:58 PM CDT): -Likely secondary to malnutrition and IV drug use, monitor and replace as needed. Candidiasis of breast Fentanyl dependence Surgical History Surgery Date Site/Laterality Comments NO PAST SURGERIES Medical History Medical History Date Comments Hypertension Anxiety Depression COPD (chronic obstructive pulmonary disease) (HC C) Infectious viral hepatitis Neuromuscular disorder (HCC) Cancer (HCC) Non-hodgkins lym phoma Family History Medical History Relation Name Comments No Known Problems Father No Known Problems Mother Relation Name Status Comments Father Mother Social History Tobacco Use Types Packs/Day Years Used Date Smoking Tobacco: Every Day Cigarettes Smokeless Tobacco: Never Tobacco Cessation:Ready to Q uit: Not Asked; Counseling Given: Not Answered Alcohol Use Standard Drinks/Week Comments Yes 0 (1 standard drink = 0.6 oz pur e alcohol) AUDIT-C Answer Date Recorded Q1: How often do you have a drink containing alcohol? Never 12/13/2021 Q2: How many drinks containi ng alcohol do you have on a typical day when you are drinking? Patient does not drink Q3: How often do you have si x or more drinks on one occasion? Never 12/13/2021 PHQ-2 Answer Date Recorded PHQ-2 Total Score (If total score is 3 or more points, staff should administer the PHQ-9) 1 01/24/2021 Personal Safety Answer Date Recorded Getting School Help Needed Not on file 04/10 Comments Unknown Sex and Gender Information Value Date Recorded Sex Assigned at Not on file Legal Sex Female 11:38 AM DOCKING PILOT Gender Identity Not on file Sexual Orientation Not on file Obstetrics History Last Filed Vital Signs Vital Sign Reading Time Taken Comments Blood Pressure 98/74 03/03/2024 3:44 PM CDT Pulse 71 03/03/2024 3:44 PM CDT Temperature 36.7 C (98.1 F) 03/19/2023 8:54 AM CDT Respiratory Rate 19 03/19/2023 8:54 AM CDT Oxygen Saturation 94% 03/03/2024 3:44 PM CDT Inhaled Oxygen Concentration - - Weight 87.1 kg (192 lb) 03/03/2024 3:44 PM CDT Height 162.6 cm (5' 4 ) 03/03/2024 3:44 PM CDT Body Mass Index 32.96 03/03/2024 3:44 PM CDT Plan of Treatment Health Maintenance Due Date Last Done Comments Breast Cancer Screening-Mammogram 1973 Cervical Cancer Screening 1973 Colon Cancer Screening-Colonoscopy 1973 DTaP/Tdap/Td Vaccine (1 - Tdap) 01/31/1984 Hepatitis B Screening 1991 Regular Well Visit/Exam 18-64 1991 Pneumococcal vaccine <65 (1 of 2 - PCV) 01/31/1992 Depression Screening 01/23/2022 01/23/2021 Lung Cancer Screening 2023 Zoster Vaccine (1 of 2) 2023 Influenza Vaccine (#1) 2024 Hepatitis C Screening Completed 10/17/2022, 023 Goals Goal Patient Goal Type Associated Problems Recent Progress Patient-Stated? Author Attend [facility] General No Shelby Kirby Note: Pt will complete an over the phone assessment with [facility] on 10/31/20 at 0800. Procedures Procedure Name Priority Date/Time Associated Diagnosis Comments HEPATITIS PANEL, ACUTE Routine 10/16/2022 10:14 PM CDT from Last 3 Months or Most Recently Relevant to Health Maintenance Results * (ABNORMAL) Hepatitis panel, acute (10/16/2022 10:14 PM CDT) Hep A IgM Nonreactive Nonreactive [facility] Hep B core IgM Nonreactive Nonreactive [facility] Hep C Ab Reactive(A) Nonreactive [facility] Comment: Reactive for HCV antibodies. This may represent current or past HCV infection. Supplemental molecular testing will be automatically performed to determine current infection status in accordance with current CDC screening recommendations. Current interpretive data was last revised on 22 HepBsAg Nonreactive Nonreactive [facility] Blood 10/16/2022 10:1 4 PM CDT 10/16/2022 11:23 PM CDT us Tamara Garcia NP LAB MICROBIOLOGY - G ENERAL ORDERABLES Final Result [facility] Department [place] [address] from Last 3 Months or Most Recently Relevant to Health Maintenance Insurance [facility] Advance Directives For more information, please contact: [phone] * Full Code (Latest Code Status on File) Date Activated Date Inactivated Comments 10/31/2022 12:34 PM 11/03/2022 6:15 PM * Full Code Date Activated Date Inactivated Comments 10/15/2022 10:12 PM 10/17/2022 5:38 PM * Full Code Date Activated Date Inactivated Comments 12/13/2021 4:17 AM 12/17/2021 12:35 AM * Full Code Date Activated Date Inactivated Comments 11/13/2021 3:22 PM 11/16/2021 3:06 AM * Full Code Date Activated Date Inactivated Comments 01/23/2021 4:55 PM 01/24/2021 9:55 PM Care Teams District Associate Judge Relationship Specialty Start Date End Date Sagrario Devi NP [address] [place] [address] PCP - General Family Practice 03/03/24 Miscellaneous, Not In File 10/27/20 Misti Leslie [employer] Addiction Medicine 10/24/20
--- OUTSIDE RECORDS SUMMARY | 2024-09-16 23:01 | XMS_ITS | Continuity of Care Document ---
Author Organization [facility] Address [address] [place] [address] Phone Care Team Providers Care Clinical Haematologist Name Role Phone Sergio Dugan MD Unavailable Unavailable Advance Directives Directive Yes / No Effective Date File Name No Information Encounters Encounter Description Practice Location Reason(s) For Visit Diagnoses Date Provider Providers Copied on Encounter [facility], [address], [place], [place], [id number], tel:[phone] Gn[facility] No Information [facility]. [address] [place] [address], [address], [place], [place], [id number], . tel:[phone] Referring Provider: Sergio Dugan, [address] [place] [address], [place], [address]. tel:[phone] Family History Family Member Type Diagnosis Age At Onset No Information Payers Payer name Insurance type Covered libertarian ID Authoriza timaged(s) [employer] CI [id number] Social History Type Description Quantity Date Captured [...]
--- OUTSIDE RECORDS SUMMARY | 2024-09-16 23:01 | XMS_ITS | Clinical Summary ---
Author Organization [facility] Care Team Providers Care Perforator Operator Oil Well Name Role Phone Unavailable Primary Care Provider Unavailabl e Social History Tobacco Use Types Packs/Day Years Used Date Smoking Tobacco: Never Assessed Comments Unknown Sex and Gender Information Value Date Recorded Sex Assigned at Not on file Legal Sex Female 12:11 AM CDT Gender Identity Not on file Sexual Orientation Not on file Plan of Treatment Health Maintenance Due Date Last Done Comments Hepatitis C Virus (HCV) Screening 1973 TdaP Immunization 1973 Hepatitis B Immunization (1 of 3 - 19+ 3-dose series) 01/31/1992 Pap Smear 1994 Cervical Cancer Screening (CCS) 2003 HPV/Cotest 2003 Colonoscopy 2018 Colorectal Cancer Screening 2018 Cologuard 2023 Immunochemical Fecal Occult Blood 2023 Mammogram 2023 Pneumococcal Immunization (5 0+ years) (1 of 1 - PCV) 2023 Zoster Immunization (1 of 2) 2023 Influenza Immunization (#1) 2024 SARS-COV-2 Immunization ( - season) 2024 Respiratory Syncytial Virus (RSV) Immunization (Adult) (1 - 1-dose 75+ series) 01/31/2048 Meningococcal Immunization (ACWY) Aged Out No longer eligible based on patient's age to complete this topic Pneumococcal Immunization Combined Aged Out No longer eligible based on patient's age to complete this topic Rotavirus Immunization Aged Out No lo nger eligible based on patient's age to complete this topic
--- OUTSIDE RECORDS SUMMARY | 2024-09-16 23:01 | XMS_ITS | Encounter Summary ---
Author Organization [facility] Address [address] [place] [address] Care Team Providers Care Comber Operator Name Role Phone Miscellaneous, Not In File Unavailable Unava claireable Misti Leslie Unavailable Unavailable Lee Bright MD Primary Care Provider + Phillip Jeff MD Primary Care Prov ider Sagrario Devi NP Primary Care Provider [phone] Encounter Details Date Type Department Care Team (Late st Contact Info) Description 12/18/2021 Documentation [facility] Warm Hand Off Program [address] [place], [place] [phone] Heather Isbell Social History Tobacco Use Types Packs/Day Years Used Date Smoking Tobacco: Every Day Cigarettes Smokeless Tobacco: Never Alcohol Use Standard Drinks/Week Comments Yes 0 [...] staff should administer the PHQ-9) 1 01/24/2021 Comments Unknown Sex and Gender Information Value Date Recorded Sex Assigned at Not on file Legal Sex Female 11:38 AM METEOROLOGY FACULTY MEMBER Gender Identity Not on file Sexual Orientation Not on file documented as of this encounter Plan of Treatment Not on file documented as of this encounter Goals Goal Patient Goal Type Associated Problems Recent Progress Patient-Stated? Author Attend [facility] No Shelby Kirby Note: Pt will complete an over the phone assessment with [facility] on 10/31/20 at 0800. documented as of this encounter Visit Diagnoses Not on filedocumented in this encounter Additional Health Concerns Infection Onset Date Last Indicated Resolved Time COVID19 Comment:Patient has documented SpO2 < 94% which required supplemental oxygen > 24 hours and is not immunocompromised. Based on a S&S onset date of 12/10/21 plus the need for supplemental oxygen this patient is first eligible for COVID: Recovered evaluation on 12/26/21. FLAVIA Rosales 12/12/2021 12/12/2021 12/26/2021 3:05 AM C DT COVID: Recovered Comment:Added based on recent COVID infection. 12/26/2021 01/21/2022 04/25/2022 3:05 AM C DT documented as of this encounter Care Teams Comber Operator Relationship Specialty Start Date End Date Lee Bright MD [address] [place] [address] [place] [address] PCP - General Family Medicine 12/16/21 05/08/22 Phillip Jeff MD [address] [place] [address] PCP - General Family Medicine 11/20/22 03/02/24 Sagrario Devi NP [address] [place] [address] PCP - General Family Practice 03/03/24 Miscellaneous, Not In File 10/27/20 Misti Leslie Network Planner Addiction Medicine 10/24/20 documented as of this encounter
--- OUTSIDE RECORDS SUMMARY | 2024-09-16 23:01 | XMS_ITS | Referral Summary ---
Author Organization [facility] Address [address] [place] [address] Care Team Providers Care Pay Per Click Strategist Name Role Phone Marina Cerna MD Primary Care Provider [phone] Source Comments [facility],non-owned Affiliates and Associated Physician Practices is amultiple site organization consisting of ambulatory clinics and hospital sitesin [place], [place], [place] and [place]. This disclosure is being madepursuant to the Care Everywhere program and may not contain all information available regarding this patient. Last updated 18.[facility] Allergies Active Allergy Reactions Criticality Noted Date Comments Augmentin 11/12/2016 Prochlorperazine 11/12/2016 Contrast-Iodinated Agents Fo r Ct/Other Rash Medium 10/14/2020 PT STATES SHE HAD CONTRAST APPROX 20 YEARS AGO AND GOT RED SPOTS ALL OVER HER BODY. Doxycycline 11/12/2016 Erythromycin 11/12/2016 Sulfa Drugs 11/12/2016 Tetracyclines 11/12/2016 Medications * Be aware that medications may not be up to date on this document. Alwaysverify current medications with the patient. Medication Sig Dispensed Refills Start Date End Date Status mirtazapine, disintegrating, (REMERON SOLTAB) 15 MG tablet Take 15 mg by mouth at bedtime Active Montelukast Sodium (SINGULAIR PO) Active hydrOXYzine hcl (ATARAX) 25 MG tablet Take 1 tablet by mouth 4 times daily as needed 15 tablet 06/16/2019 Active albuterol HFA (PROVENTIL;VENTOLIN; PROAIR) 108 (90 Base) MCG/ACT inhaler Inhale 2 puffs by mouth every 6 hours as needed for Shortness of Breath or Wheezing 1 Inhaler 06/16/2019 Active fluticasone-salmeter ol 113-14 MCG/ACT inhaler Inhale 1 puff by mouth 2 times daily 1 Inhaler 06/16/2019 Active traZODone (DESYREL) 50 MG tablet Take 1 tablet by mouth nightly as needed for Insomnia 15 tablet 06/16/2019 Active ondansetron, disintegrating, (ZOFRAN ODT) 4 MG tablet Dissolve 1 tablet under the tongue every 6 hours as needed for Nausea/Vomiting Allow tablet to dissolve on the tongue 15 tablet 06/16/2019 Active nicotine (NICODERM CQ) 21 MG/24HR patch Apply 1 patch to skin once daily 28 patch 06/17/2019 Active nicotine polacrilex (NICORETTE) 2 MG gumIndications:Nicot ine Dependence Take 1 Each by mouth every 2 hours as needed for Smoking Cessation Reasons: Nicotine Addiction 110 Each 06/16/2019 Active methocarbamol (ROBAXIN) 750 MG tablet Take 1 tablet by mouth every 6 hours as needed for Muscle Spasms 15 tablet 06/16/2019 Active Active Problems Problem Noted Date Diagnosed Date Opioid withdrawal 06/14/2019 Social History Tobacco Use Types Packs/Day Years Used Date Smoking Tobacco: Every Day Cigarettes 1 20 Smokeless Tobacco: Never Sex and Gender Information Value Date Recorded Sex Assigned at Not on file Gender Identity Not on file Sexual Orientation Not on file Last Filed Vital Signs Vital Sign Reading Time Taken Comments Blood Pressure 140/92 10/14/2020 3:53 PM CDT Pulse 78 10/14/2020 5:00 PM CDT Temperature 36.6 C (97.9 F) 06/16/2019 8:01 AM DIGITAL PHOTOGRAPHER Respiratory Rate 19 10/14/2020 5:00 PM CDT Oxygen Saturation 95% 10/14/2020 5:00 PM CDT Inhaled Oxygen Concentration - - Weight 90.7 kg (200 lb) 10/14/2020 4:03 PM CDT Height 160 cm (5' 3 ) 10/14/2020 4:03 PM CDT Body Mass Index 35.43 10/14/2020 4:03 PM CDT Functional Status Functional Status Response Date of Assess ment Is person deaf or have serious hearing difficult y? No 06/14/2019 Is person blind or have serious difficulty seein g? No 06/14/2019 Does person have serious dif ficulty walking/climbing stairs? No 06/14/2019 Does person have difficulty dressing/bathing? No 06/14/2019 Does person have difficulty doing errands alone? No 06/14/2019 Cognitive Status Response Date of Assessm ent Does person have difficulty concentrating/remembering/making decisions? No 06/14/2019 Plan of Treatment Not on file Procedures Procedure Name Priority Date/Time Associated Diagnosis Comments HEPATITIS SCREEN ACUTE Routine 06/15/2019 10:47 PM DIGITAL PHOTOGRAPHER HIV-1 HIV-2 ANTIBODY + HIV P24 AG PANEL Routine 06/15/2019 10:47 PM DIGITAL PHOTOGRAPHER from Last 3 Months or Most Recently Relevant to Health Maintenance Results * HIV-1 HIV-2 ANTIBODY + HIV P24 AG PANEL (06/15/2019 10:47 PM DIGITAL PHOTOGRAPHER) Pathologist [facility] HIV1/2 Ab + P24 Ag Non Reactive Non Reactive 06/15/2019 11:32 PM DIGITAL PHOTOGRAPHER [facility] Blood BLOOD SPECIMEN / Unknown Venipuncture / Unknown 06/15/2019 10:47 PM DIGITAL PHOTOGRAPHER 06/15/2019 10:51 PM DIGITAL PHOTOGRAPHER Narrative [facility] - 06/15/2019 11:32 PM DIGITAL PHOTOGRAPHER No Laboratory evidence of HIV infection. Tanvir Felix MD LAB - CHEMISTRY ELLIE ESPINO [facility] [address] [place] [address] * (ABNORMAL) HEPATITIS SCREEN ACUTE (06/15/2019 10:47 PM DIGITAL PHOTOGRAPHER) HAV Antibody IgM Non Reactive Non Reactive 06/15/2019 11:39 PM DIGITAL PHOTOGRAPHER [facility] HBsAg Non Reactive Non Reactive 06/15/2019 11:39 PM DIGITAL PHOTOGRAPHER [facility] HBc Antibody IgM Non Reactive Non Reactive 06/15/2019 11:39 PM DIGITAL PHOTOGRAPHER [facility] HCV Antibody Screen REACTIVE(A) Non Reactive 06/15/2019 11:39 PM DIGITAL PHOTOGRAPHER [facility] Blood BLOOD SPECIMEN / Unknown Venipuncture / Unknown 06/15/2019 10:47 PM DIGITAL PHOTOGRAPHER 06/15/2019 10:51 PM DIGITAL PHOTOGRAPHER Narrative [facility] - 06/15/2019 11:39 PM DIGITAL PHOTOGRAPHER A reactive result is consistent with current HCV infection or past HCV infection that has been resolved. Reflex testing to Hepatitis C Virus RNA Quantitative, Real Time PCR will be performed. See separate report. Tanvir Felix MD LAB - CHEMISTRY ELLIE ESPINO [facility] [address] [place] [address] from Last 3 Months or Most Recently Relevant to Health Maintenance Advance Directives Documents on File Type Date Recorded Patient Maintenance Worker Expl anation Adv Directive/Living Will/POA 11/12/2016 * Full Code (Latest Code Status on File) Date Activated Date Inactivated Comments 06/14/2019 3:49 PM 06/16/2019 11:57 AM Care Teams Pay Per Click Strategist Relationship Specialty Start Date End Date Marina Cerna MD [address] [place] [id number] PCP - General Family Medicine 11/12/16
--- OUTSIDE RECORDS SUMMARY | 2024-09-16 23:01 | XMS_ITS | CONTINUITY OF CARE DOCUMENT ---
Author Name alfreda gant Address Unknown Organization [facility] Address [address] [place] [address] [address] [place] [address] Phone [phone] Care Team Providers Care Advanced Manufacturing Associate Name Role Phone alfreda gant Unavailable Unavailable
--- OUTSIDE RECORDS SUMMARY | 2024-09-16 23:01 | XMS_ITS | Referral Summary ---
Author Organization [facility] Address [address] [place] [id number] Care Team Providers Care Pond Supervisor Name Role Phone Miscellaneous, Not In File Unavailable Unava claireable Misti Leslie Unavailable Unavailable Sagrario Devi NP Primary Care Provider [phone] Allergies Active Allergy Reactions Criticality Noted Date [...] Pt states she had an appt at [facility] to establish methadone treatment, but missed [...] . Pt instructed to follow up with [facility], pt agreed. Narcan prescribed. Walker also [...] seen by cardiology, had prior admission to [facility] found to have CHF with EF of 20%, repeat TTE 07/2022 at follow up showed normal systolic function, cardiology felt likely had Takotsubo cardiomyopathy. -Unclear if patient is compliant with GDMT, will continue while inpatient. Assessment & Plan (10/15/2022 10:01 PM CDT): -Patient was seen by cardiology, had prior admission to [facility] found to have CHF with EF of [...] as needed. Candidiasis of breast Fentanyl dependence Social History Tobacco Use Types Packs/Day Years [...] on file Legal Sex Female 11:38 AM [facility] Gender Identity Not on file Sexual Orientation [...] 03/03/2024 3:44 PM CDT Plan of Treatment Not on file Goals Goal Patient Goal Type Associated Problems Recent Progress Patient-Stated? Author Attend [facility] General No Shelby Kirby Note: Pt will complete an over the phone assessment with GEORGETTE on 10/31/20 at 0800. Procedures Procedure Name Priority Date/Time Associated Diagnosis Comments HEPATITIS PANEL, ACUTE Routine 10/16/2022 10:14 PM CDT from Last 3 Months or Most Recently Relevant to Health Maintenance Results * (ABNORMAL) Hepatitis panel, acute (10/16/2022 10:14 PM CDT) Hep A IgM Nonreactive Nonreactive [facility] Hep B core IgM Nonreactive Nonreactive [facility] Hep C Ab Reactive(A) Nonreactive [facility] Comment: Reactive for HCV antibodies. This may represent current or past HCV infection. Supplemental molecular testing will be automatically performed to determine current infection status in accordance with current CDC screening recommendations. Current interpretive data was last revised on 22 HepBsAg Nonreactive Nonreactive [facility] Blood 10/16/2022 10:1 4 PM CDT 10/16/2022 11:23 PM CDT Tamara Garcia NP LAB MICROBIOLOGY - G ENERAL ORDERABLES Final Result [facility] Department [place] [address] from Last 3 Months or Most Recently Relevant to Health Maintenance Insurance [facility] Advance Directives For more information, please contact: [phone] * Full Code (Latest Code Status on [...] 4:55 PM 01/24/2021 9:55 PM Care Teams Pond Supervisor Relationship Specialty Start Date End Date Sagrario Devi NP [address] [place] [address] PCP - General Family Practice 03/03/24 Miscellaneous, Not In File 10/27/20 Misti Leslie Hand Edger Addiction Medicine 10/24/20
--- OUTSIDE RECORDS SUMMARY | 2024-09-16 23:02 | XMS_ITS | Clinical Summary ---
Author Organization [facility] Address [address] [place] [address] Care Team Providers Care Merchandising Execution Associate Name Role Phone Unavailable Primary Care Provider Unavailabl e Social History Tobacco Use Types Packs/Day Years Used Date Smoking Tobacco: Never Assessed Comments Unknown Sex and Gender Information Value Date Recorded Sex Assigned at Not on file Legal Sex Female 4:38 PM CDT Gender Identity Not on file Sexual Orientation Not on file Plan of Treatment Health Maintenance Due Date Last Done Comments Cervical Cancer Screening Pa p Smear (Age 30 to 64) Every 3 Years 1973 Colorectal Cancer Screening Colonoscopy (10 Years) 1973 Annual Physical 01/31/1976 Hepatitis C 1991 DTaP, Tdap and Td Vaccines ( 1 - Tdap) 01/31/1992 Hepatitis B Vaccines (1 of 3 - 19+ 3-dose series) 01/31/1992 Cervical Cancer Screening Pa p with HPV Testing (Age 30 to 64) Every 5 Years 2003 Cervical Cancer Screening with HPV 2003 Mammogram Screening 2013 Zoster Vaccines (1 of 2) 2023 COVID-19 Vaccine (2023-2 5 season) 2024 Influenza Adult (#1) 2024 Meningococcal B Vaccine Aged Out No l onger eligible based on patient's age to complete this topic Meningococcal Vaccine Aged Out No leda floyd eligible based on patient's age to complete this topic Pneumococcal Vaccine: Pediat rics (0 to 5 Years) and At-Risk Patients (6 to 64 Years) Aged Out No longer eligible b ased on patient's age to complete this topic RSV Immunizations Under 20 Months Aged Out No longer eligible based on patient's age to complete this topic Advance Directives Documents on File Type Date Recorded 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
--- OUTSIDE RECORDS SUMMARY | 2024-09-16 23:02 | XMS_ITS | Clinical Summary ---
Author Organization [facility] [employer] Address [address] [place] [address] Care Team Providers Care Tank Tender Name Role Phone Marina Cerna MD Primary Care Provider [phone] Source Comments [facility] [employer],non-owned Affiliates and Associated Physician Practices is amultiple site organization consisting of ambulatory clinics and hospital sitesin [place], [place], [place] and [place]. This disclosure is being madepursuant to the Care Everywhere program and may not contain all information available regarding this patient. Last updated 18.[facility] [employer] Allergies Active Allergy Reactions Criticality Noted Date [...] Noted Date Diagnosed Date Opioid withdrawal 06/14/2019 Family History Medical History Relation Name Comments Cancer - Lung Father Cancer - Lung Mother Relation Name Status Comments Father Mother [...] 36.6 C (97.9 F) 06/16/2019 8:01 AM LOG CHECK SCALER Respiratory Rate 19 10/14/2020 5:00 PM CDT Oxygen Saturation 95% 10/14/2020 5:00 PM CDT Inhaled Oxygen Concentration - - Weight 90.7 kg (200 lb) 10/14/2020 4:03 PM CDT Height 160 cm (5' 3 ) 10/14/2020 4:03 PM CDT Body Mass Index 35.43 10/14/2020 4:03 PM CDT Plan of Treatment Health Maintenance Due Date Last Done Comments COLOGUARD (AGES 45-75) - COL ON CA SCREENING 1973 COLON MONITORING 1973 COLONOSCOPY - COLON CA SCREENING 1973 CT COLONOGRAPHY - COLON CA SCREENING 1973 Colorectal Cancer Screening 1973 FIT - COLON CA SCREENING 1973 FLEX SIG - COLON CA SCREENING 1973 LIPID TESTING 1973 MAMMOGRAM 1973 PAP SMEAR 1973 DTAP/TDAP/TD VACCINES (1 - Tdap) 01/31/1992 HEPATITIS B VACCINE (1 of 3 - 19+ 3-dose series) 01/31/1992 PNEUMOCOCCAL VACCINE (1 of 2 - PCV) 01/31/1992 PNEUMOCOCCAL VACCINE 50+ (1 of 1 - PCV) 2023 ZOSTER VACCINE (1 of 2) 2023 COVID-19 VACCINE (1 - 2023-2 5 season) 2024 INFLUENZA VACCINE (#1) 2024 DEPRESSION SCREENING 07/06/2024 HEPATITIS C SCREENING Completed 06/15/2019 , 06/15/2019 HIV SCREENING Completed 06/15/2019 HIB VACCINE Aged Out No longer eligi ble based on patient's age to complete this topic HPV VACCINE Aged Out No longer eligi ble based on patient's age to complete this topic MENINGOCOCCAL (Group B) VACCINE SHARED DECISION-MAKING Aged Out No longer eligible based on patient's age to complete this topic MENINGOCOCCAL GROUPS A/C/Y/W VACCINE Aged Out No longer eligible b ased on patient's age to complete this topic Procedures Procedure Name Priority Date/Time Associated Diagnosis Comments HEPATITIS SCREEN ACUTE Routine 06/15/2019 10:47 PM LOG CHECK SCALER HIV-1 HIV-2 ANTIBODY + HIV P24 AG PANEL Routine 06/15/2019 10:47 PM LOG CHECK SCALER from Last 3 Months or Most Recently Relevant to Health Maintenance Results * HIV-1 HIV-2 ANTIBODY + HIV P24 AG PANEL (06/15/2019 10:47 PM LOG CHECK SCALER) HIV1/2 Ab + P24 Ag Non Reactive Non Reactive 06/15/2019 11:32 PM LOG CHECK SCALER [facility] Blood BLOOD SPECIMEN / Unknown Venipuncture / Unknown 06/15/2019 10:47 PM LOG CHECK SCALER 06/15/2019 10:51 PM LOG CHECK SCALER Narrative [facility] - 06/15/2019 11:32 PM LOG CHECK SCALER No Laboratory evidence of HIV infection. Tanvir Felix MD LAB - CHEMISTRY ELLIE ESPINO Performing Organization Address [facility] Co de Phone Number [facility] [address] [place] [address] * (ABNORMAL) HEPATITIS SCREEN ACUTE (06/15/2019 10:47 PM LOG CHECK SCALER) HAV Antibody IgM Non Reactive Non Reactive 06/15/2019 11:39 PM LOG CHECK SCALER [facility] HBsAg Non Reactive Non Reactive 06/15/2019 11:39 PM LOG CHECK SCALER [facility] HBc Antibody IgM Non Reactive Non Reactive 06/15/2019 11:39 PM LOG CHECK SCALER [facility] HCV Antibody Screen REACTIVE(A) Non Reactive 06/15/2019 11:39 PM LOG CHECK SCALER [facility] Blood BLOOD SPECIMEN / Unknown Venipuncture / Unknown 06/15/2019 10:47 PM LOG CHECK SCALER 06/15/2019 10:51 PM LOG CHECK SCALER Narrative [facility] - 06/15/2019 11:39 PM LOG CHECK SCALER A reactive result is consistent with current HCV infection or past HCV infection that has been resolved. Reflex testing to Hepatitis C Virus RNA Quantitative, Real Time PCR will be performed. See separate report. Tanvir Felix MD LAB - CHEMISTRY ELLIE ESPINO Performing Organization Address [facility] de Phone Number [facility] [address] [place] [address] from Last 3 Months or Most Recently Relevant to Health Maintenance Advance Directives Documents on File Type Date Recorded Patient Plastics Process Hand Expl anation Adv Directive/Living Will/POA 11/12/2016 * Full Code (Latest Code Status on File) Date Activated Date Inactivated Comments 06/14/2019 3:49 PM 06/16/2019 11:57 AM Care Teams Tank Tender Relationship Specialty Start Date End Date Marina Cerna MD [address] [place] [id number] PCP - General Family Medicine 11/12/16
--- OUTSIDE RECORDS SUMMARY | 2024-09-16 23:02 | XMS_ITS | Patient Health Summary ---
Author Organization [facility] Address [address] [place] [address] Care Team Providers Care Beverage Server Name Role Phone Marina Cerna MD Primary Care Provider [phone] Note [address] [facility],non-owned Affiliates and Associated Physician Practices is amultiple site organization consisting of ambulatory clinics and hospital sitesin [place], [place], [place] and [place]. This disclosure is being madepursuant to the Care Everywhere program and may not contain all information available regarding this patient. Last updated 18.[facility] Allergies * Augmentin * Prochlorperazine * Contrast-Iodinated Agents For Ct/Other(Rash) -Medium Criticality * Doxycycline * Erythromycin * Sulfa Drugs * Tetracyclines Medications * Be aware that medications may not be up to date on this document. Alwaysverify current medications with the patient. * mirtazapine, disintegrating, (REMERON SOLTAB) 15 MG tablet Take 15 mg by mouth at bedtime * Montelukast Sodium (SINGULAIR PO) * hydrOXYzine hcl (ATARAX) 25 MG tablet(Started 06/16/2019) Take 1 tablet by mouth 4 times daily as needed * albuterol HFA (PROVENTIL;VENTOLIN;PROAIR) 108 (90 Base) MCG/ACT inhaler (Started 06/16/2019) Inhale 2 puffs by mouth every 6 hours as needed for Shortness of Breath or Wheezing * fluticasone-salmeterol 113-14 MCG/ACT inhaler(Started 06/16/2019) Inhale 1 puff by mouth 2 times daily * traZODone (DESYREL) 50 MG tablet(Started 06/16/2019) Take 1 tablet by mouth nightly as needed for Insomnia * ondansetron, disintegrating, (ZOFRAN ODT) 4 MG tablet(Started 06/16/2019) Dissolve 1 tablet under the tongue every 6 hours as needed for Nausea/Vomiting Allow tablet to dissolve on the tongue * nicotine (NICODERM CQ) 21 MG/24HR patch(Started 06/17/2019) Apply 1 patch to skin once daily * nicotine polacrilex (NICORETTE) 2 MG gum(Started 06/16/2019) Take 1 Each by mouth every 2 hours as needed for Smoking Cessation Reasons: Nicotine Addiction * methocarbamol (ROBAXIN) 750 MG tablet(Started 06/16/2019) Take 1 tablet by mouth every 6 hours as needed for Muscle Spasms Active Problems Problem Noted Date Diagnosed Date [...] 36.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 Rate 19 10/14/2020 5:00 PM CDT Oxygen Saturation 95% 10/14/2020 5:00 PM CDT Inhaled Oxygen Concentration - - Weight 90.7 kg (200 lb) 10/14/2020 4:03 PM CDT Height 160 cm (5' 3 ) 10/14/2020 4:03 PM CDT Body Mass Index 35.43 10/14/2020 4:03 PM CDT Procedures * ABO TYPE: RETYPE-PATIENT RESULT ONLY(Performed 10/14/2020) * XR TIBIA FIBULA LEFT 2VW(Performed 10/14/2020) Performed for Trauma * XR KNEE LEFT 2VW OR LESS(Performed 10/14/2020) Performed for Trauma * DIFFERENTIAL MANUAL(Performed 10/14/2020) * PTT [facility](Performed 10/14/2020) * PT-INR [facility](Performed 10/14/2020) * CBC W AUTO DIFFERENTIAL(Performed 10/14/2020) * BASIC METABOLIC PANEL (CALCIUM TOTAL)(Performed 10/14/2020) * ALCOHOL ETHYL BLOOD(Performed 10/14/2020) * CT ANGIO NECK(Performed 10/14/2020) Performed for Trauma * CT FACIAL BONES WO CONTRAST(Performed 10/14/2020) Performed for Trauma * CT LUMBAR SPINE WO CONTRAST(Performed 10/14/2020) Performed for Trauma * CT THORACIC SPINE WO CONTRAST(Performed 10/14/2020) Performed for Trauma * CT CHEST ABDOMEN PELVIS W CONT(Performed 10/14/2020) Performed for Trauma * CT CERVICAL SPINE WO CONTRAST(Performed 10/14/2020) Performed for Trauma * CT HEAD WO CONTRAST(Performed 10/14/2020) Performed for Trauma * TYPE + SCREEN PANEL(Performed 10/14/2020) * XR PELVIS 1 OR 2VW(Performed 10/14/2020) Performed for Trauma * XR CHEST 1VW PORTABLE(Performed 10/14/2020) Performed for Trauma * OXYGEN(Performed 10/14/2020) * HEPATITIS C RNA QUANTITATIVE(Performed 06/15/2019) * MAGNESIUM BLOOD(Performed 06/15/2019) * COMPREHENSIVE METABOLIC PANEL(Performed 06/15/2019) * CBC W AUTO DIFFERENTIAL(Performed 06/15/2019) * HEPATITIS SCREEN ACUTE(Performed 06/15/2019) * HIV-1 HIV-2 ANTIBODY + HIV P24 AG PANEL(Performed 06/15/2019) * URINE DRUG SCREEN IMMUNOASSAY(Performed 06/14/2019) * FENTANYL URINE(Performed 06/14/2019) * DIFFERENTIAL MANUAL(Performed 05/10/2017) * CBC W AUTO DIFFERENTIAL(Performed 05/10/2017) * CBC W AUTO DIFFERENTIAL(Performed 05/10/2017) * VANCOMYCIN LEVEL TROUGH(Performed 05/10/2017) * DIFFERENTIAL MANUAL(Performed 05/09/2017) * CBC W AUTO DIFFERENTIAL(Performed 05/09/2017) * BASIC METABOLIC PANEL (CALCIUM TOTAL)(Performed 05/09/2017) * CBC W AUTO DIFFERENTIAL(Performed 05/09/2017) * BASIC METABOLIC PANEL (CALCIUM TOTAL)(Performed 05/07/2017) * CBC W AUTO DIFFERENTIAL(Performed 05/07/2017) * CBC W AUTO DIFFERENTIAL(Performed 05/07/2017) * VANCOMYCIN LEVEL TROUGH(Performed 05/06/2017) * DIFFERENTIAL MANUAL(Performed 05/06/2017) * CBC W AUTO DIFFERENTIAL(Performed 05/06/2017) * BASIC METABOLIC PANEL (CALCIUM TOTAL)(Performed 05/06/2017) * CBC W AUTO DIFFERENTIAL(Performed 05/06/2017) * BASIC METABOLIC PANEL (CALCIUM TOTAL)(Performed 05/05/2017) * CBC W AUTO DIFFERENTIAL(Performed 05/05/2017) * CBC W AUTO DIFFERENTIAL(Performed 05/05/2017) * ERYTHROCYTE SEDIMENTATION RATE(Performed 05/04/2017) * VANCOMYCIN LEVEL TROUGH(Performed 05/04/2017) * CULTURE BLOOD(Performed 05/04/2017) * C-REACTIVE PROTEIN(Performed 05/04/2017) * CULTURE BLOOD(Performed 05/04/2017) * CBC W AUTO DIFFERENTIAL(Performed 05/04/2017) * DIFFERENTIAL MANUAL(Performed 05/04/2017) * BASIC METABOLIC PANEL (CALCIUM TOTAL)(Performed 05/04/2017) * CBC W AUTO DIFFERENTIAL(Performed 05/04/2017) * XR CHEST 2VW(Performed 05/03/2017) * CT ANKLE RIGHT W CONTRAST(Performed 05/03/2017) * XR ANKLE RIGHT 3VW OR MORE(Performed 05/03/2017) * COMPREHENSIVE METABOLIC PANEL(Performed 05/03/2017) * ECHO COMPLETE(Performed 05/03/2017) Results * RETYPE PATIENT (10/14/2020 3:54 PM CDT) ABO 10/14/2020 5:01 PM CDT [facility]OD [facility] Rh Type 10/14/2020 5:01 PM CDT [facility] Typem 10/14/2020 5:01 PM CDT [facility] Interpretation 10/14/2020 5:01 PM CDT [facility] Blood BLOOD SPECIMEN / Unknown Venipuncture / Unknown 10/14/2020 3:54 PM CDT 10/14/2020 3:59 PM CDT Narrative [facility] - 10/14/2020 5:01 PM CDT Re-type confirmed per [facility] Blood Bank policies & procedures. Results documented in department. Provider Unknown LAB - BLOOD BANK ORD ERABLES [facility] [address] [place] [address], [facility] [place] [phone] * XR TIBIA FIBULA LEFT 2VW (10/14/2020 3:06 PM CDT) Anatomical Region Laterality Modality Lower Extremity Radiographic Sirena ging 10/14/2020 3:02 PM CDT Impressions 10/15/2020 10:33 AM CDT Impression: No acute osseous injury of the left tibia, fibula, or knee. Report dictated by Blade Gutierrez MD (assistant to the president). Dr. JANETTE Allen have personally reviewed and interpreted this examination/study. This report was electronically signed by JANETTE JACKSON on 10/15/2020 10:33 AM . Narrative 10/15/2020 10:33 AM CDT EXAMINATION: XR KNEE LEFT 2VW OR LESS, XR TIBIA FIBULA LEFT 2VW HISTORY: T14.90XA: Trauma COMPARISON: No prior study is available for comparison. FINDINGS: Left knee: No acute fracture. Knee joint is well aligned. The joint spaces are normal. No significant effusion or focal soft tissue swelling. Left tibia/fibula: The tibia and fibula are intact. Imaged joint spaces are preserved. No focal soft tissue swelling. Procedure Note Janette Jackson DO - 10/15/2020 EXAMINATION: XR KNEE LEFT 2VW OR LESS, XR TIBIA FIBULA LEFT 2VW HISTORY: T14.90XA: Trauma COMPARISON: No prior study is available for comparison. FINDINGS: Left knee: No acute fracture. Knee joint is well aligned. The joint spaces are normal. No significant effusion or focal soft tissue swelling. Left tibia/fibula: The tibia and fibula are intact. Imaged joint spaces are preserved. No focal soft tissue swelling. Impression: No acute osseous injury of the left tibia, fibula, or knee. Report dictated by Blade Gutierrez MD (assistant to the president). Dr. JANETTE Allen have personally reviewed and interpreted this examination/study. This report was electronically signed by JANETTE JACKSON on 10/15/2020 10:33 AM . Deacon David Loera MD DIAGNOSTIC IMAGING ORDERABLES * XR KNEE LEFT 2VW OR LESS (10/14/2020 3:06 PM CDT) Anatomical Region Laterality Modality Lower Extremity Radiographic Sirena ging 10/14/2020 3:02 PM CDT Impressions 10/15/2020 10:33 AM CDT Impression: No acute osseous injury of the left tibia, fibula, or knee. Report dictated by Blade Gutierrez MD (assistant to the president). Dr. JANETTE Allen have personally reviewed and interpreted this examination/study. This report was electronically signed by JANETTE JACKSON on 10/15/2020 10:33 AM . Narrative 10/15/2020 10:33 AM CDT EXAMINATION: XR KNEE LEFT 2VW OR LESS, XR TIBIA FIBULA LEFT 2VW HISTORY: T14.90XA: Trauma COMPARISON: No prior study is available for comparison. FINDINGS: Left knee: No acute fracture. Knee joint is well aligned. The joint spaces are normal. No significant effusion or focal soft tissue swelling. Left tibia/fibula: The tibia and fibula are intact. Imaged joint spaces are preserved. No focal soft tissue swelling. Procedure Note Keith Janette DO John - 10/15/2020 EXAMINATION: XR KNEE LEFT 2VW OR LESS, XR TIBIA FIBULA LEFT 2VW HISTORY: T14.90XA: Trauma COMPARISON: No prior study is available for comparison. FINDINGS: Left knee: No acute fracture. Knee joint is well aligned. The joint spaces are normal. No significant effusion or focal soft tissue swelling. Left tibia/fibula: The tibia and fibula are intact. Imaged joint spaces are preserved. No focal soft tissue swelling. Impression: No acute osseous injury of the left tibia, fibula, or knee. Report dictated by Blade Gutierrez MD (assistant to the president). Dr. JANETTE Allen have personally reviewed and interpreted this examination/study. This report was electronically signed by JANETTE JACKSON on 10/15/2020 10:33 AM . Deacon David Loera MD DIAGNOSTIC IMAGING ORDERABLES * PTT [facility] (10/14/2020 2:45 PM CDT) Pathologist [facility] APTT 34.6 23.0 - 38.4 Seconds 10/14/2020 3:08 PM CDT [facility] Comment:Suggested therapeuti c range for full dose I.V. unfractionated heparin therapy for venous thromboembolism is 71 to 109 seconds. Blood BLOOD SPECIMEN / Unknown 10/14/2020 2:45 PM CDT 10/14/2020 2:58 PM CDT Deacon David Loera MD LAB - COAGULATION O RDOTF Performing Organization Address City/[facility]/ZIP Co de Phone Number [address] [address], [facility] [place] [phone] * PT-INR [facility] (10/14/2020 2:45 PM CDT) Pathologist [facility] PT 12.1 12.1 - 14.8 Seconds 10/14/2020 3:07 PM CDT [facility] INR 0.9 See Comment 10/14/2020 3:07 PM CDT [facility] Comment:The suggested therap eutic range for standard coumadin (warfarin) therapy is an INR of 2.0-3.0. For high-risk patients (Mechanical Mitral Valve Prosthesis, etc.), the suggested prophylactic therapeutic range is an INR of 2.5-3.5. Blood BLOOD SPECIMEN / Unknown 10/14/2020 2:45 PM CDT 10/14/2020 2:58 PM CDT Deacon David Loera MD LAB - COAGULATION O LASHAE [address] [address], [facility] [place] [phone] * (ABNORMAL) DIFFERENTIAL MANUAL (10/14/2020 2:45 PM CDT) Only the most recent of5 resultswithin the time period is included. Pathologist [facility] WBC (corrected for NRBC) 11.5 10 3/uL 10/14/2020 3:24 PM [facility] Total Cell Count 100 10/14/2020 3:24 PM [facility] Neutrophils Absolute Manual 6.44 1.60 - 7.00 10 3/uL 10/14/2020 3:24 PM [facility] Comment:(BANDS+SEGS) x WBC = NEUT # (ANC) Lymphocyte Absolute Manual 3.80(H) 0.80 - 2.90 10 3/uL 10/14/2020 3:24 PM [facility] Monocytes Absolute Manual 0.58 0.14 - 0.66 10 3/uL 10/14/2020 3:24 PM [facility] Eosinophils Absolute Manual 0.35(H) 0.00 - 0.22 10 3/uL 10/14/2020 3:24 PM [facility] Basophil Absolute Manual 0.23(H) 0.00 - 0.06 10 3/uL 10/14/2020 3:24 PM [facility] Neutrophil % Manual 56 30 - 60 % 10/14/2020 3:24 PM [facility] Lymphocyte % Manual 33 20 - 45 % 10/14/2020 3:24 PM [facility] Monocytes % Manual 5 2 - 10 % 10/14/2020 3:24 PM [facility] Eosinophils % Manual 3 1 - 6 % 10/14/2020 3:24 PM [facility] Basophils % Manual 2 0 - 3 % 10/14/2020 3:24 PM [facility] Atypical Lymphocyte % Manual 1(H) 0 % 10/14/2020 3:24 PM [facility] Platelet Estimate Increased( A) Adequate 10/14/2020 3:24 PM [facility] RBC Morphology Normal 10/14/2020 3:24 PM [facility] Blood BLOOD SPECIMEN / Unknown 10/14/2020 2:45 PM CDT 10/14/2020 2:49 PM CDT Deacon David Loera MD LAB - HEMATOLOGY OR DERABLES Performing Organization Address City/State/[facility] Co de Phone Number [facility] [address] [place], [place] [id number] [phone] * (ABNORMAL) CBC W AUTO DIFFERENTIAL (10/14/2020 2:45 PM CDT) Only the most recent of14 resultswithin the time period is included. WBC 11.5(H) 3.5 - 10.5 10 3/uL 10/14/2020 2:55 PM [facility] RBC 5.56(H) 3.90 - 5.00 10 6/uL 10/14/2020 2:55 PM [facility] Hemoglobin 15.6(H) 12.0 - 15.5 g/dL 10/14/2020 2:55 PM [facility] Hematocrit 48.0(H) 35.0 - 45.0 % 10/14/2020 2:55 PM [facility] MCV 86.3 81.0 - 97.0 fL 10/14/2020 2:55 PM [facility] MCH 28.1 28.0 - 34.0 pg 10/14/2020 2:55 PM [facility] MCHC 32.5 32.0 - 36.0 g/dL 10/14/2020 2:55 PM [facility] Platelet Count 452(H) 150 - 400 10 3/uL 10/14/2020 2:55 PM [facility] RDW-SD 42.8 36.0 - 50.0 fL 10/14/2020 2:55 PM [facility] RDW-CV 13.5 11.2 - 14.8 % 10/14/2020 2:55 PM [facility] MPV 9.1(L) 9.3 - 12.8 fL 10/14/2020 2:55 PM [facility] nRBC Absolute 0.00 0 10 3/uL 10/14/2020 2:55 PM [facility] nRBC Auto 0.0 0 /100 WBC 10/14/2020 2:55 PM [facility] Blood BLOOD SPECIMEN / Unknown 10/14/2020 2:45 PM CDT 10/14/2020 2:49 PM CDT Deacon David Loera MD LAB - HEMATOLOGY OR DERABLES [facility] [address] [place] [address], [facility] [place] [phone] * (ABNORMAL) BASIC METABOLIC PANEL (CALCIUM TOTAL) (10/14/2020 2:45 PM CDT) Only the most recent of6 resultswithin the time period is included. BUN 6(L) 7 - 26 mg/dL 10/14/2020 3:16 PM T [facility] Creatinine 0.9 0.6 - 1.2 mg/dL 10/14/2020 3:16 PM [facility] Sodium 140 136 - 145 mmol/L 10/14/2020 3:16 PM [facility] Potassium 3.9 3.5 - 4.5 mmol/L 10/14/2020 3:16 PM [facility] Chloride 97(L) 98 - 107 mmol/L 10/14/2020 3:16 PM [facility] CO2 32(H) 22 - 29 mmol/L 10/14/2020 3:16 PM [facility] Glucose 108 70 - 115 mg/dL 10/14/2020 3:16 PM [facility] Calcium 10.2 8.4 - 10.2 mg/dL 10/14/2020 3:16 PM [facility] Anion Gap 15 8 - 18 10/14/2020 3:16 PM [facility] BUN/Creatinine Ratio 7 7 - 23 10/14/2020 3:16 PM [facility] Osmolality Calculated 288 270 - 300 mOsm/kg 10/14/2020 3:16 PM [facility] eGFR >60 >60 mL/min/1.7 3 m2 10/14/2020 3:16 PM [facility] Blood BLOOD SPECIMEN / Unknown 10/14/2020 2:45 PM CDT 10/14/2020 2:49 PM CDT Deacon David Loera MD LAB - CHEMISTRY ORD ERABLES [address] [address], [facility] [place] [phone] * ALCOHOL ETHYL BLOOD (10/14/2020 2:45 PM CDT) Interpretation Ethanol None Detected None Detected mg/dL 10/14/2020 3:16 PM CDT [facility] Comment:Ethanol levels less than 10 mg/dL are resulted as None detected . Blood BLOOD SPECIMEN / Unknown 10/14/2020 2:45 PM CDT 10/14/2020 2:49 PM CDT Deacon David Loera MD LAB - CHEMISTRY ORD ERABLES Performing Organization Address [facility] Co de Phone Number [address] [address], [facility] [place] [phone] * CT CHEST ABDOMEN PELVIS W CONT - Abdomen-pelvis trauma, blunt or penetrating (10/14/2020 2:38 PM CDT) Anatomical Region Laterality Modality Chest, Abdomen, Pelvis Computed Tomography 10/14/2020 2:45 PM CDT Impressions 10/14/2020 8:08 PM CDT Impression: 1.No acute injury in the chest, abdomen, or pelvis. 2.A 1.2 cm right inner upper breast soft tissue density, indeterminant. Further evaluation with breast imaging is recommended. No evidence of axillary lymphadenopathy. 3.A 5 mm right lower lobe pulmonary nodule. Recommend follow-up in one year if the patient is high-risk for malignancy. 4.A 2 cm enhancing lesion in the left hepatic lobe, indeterminate. Recommend follow-up such as hepatic protocol MRI. Final results were discussed with JAIRO Parra from the emergency department at 7:45 PM on 10/14/2020. Report drafted by Nikunj Diop M.D. (resident) This report was approved by Nikunj Diop M.D. on 10/14/2020 7:46 PM . I, Dr. JARRELL DINERO MD have personally reviewed and interpreted this examination/study. This report was electronically signed by JARRELL DINERO MD on 10/14/2020 8:08 PM . Narrative 10/14/2020 8:08 PM CDT Procedure Information DATE: 10/14/2020 2:41 PM EXAMINATION: Computed tomography (CT) of the chest, abdomen, and pelvis with contrast TECHNIQUE: CT of the chest, abdomen, and pelvis was performed after the uneventful administration of 150 mL of Isovue 370 intravenous contrast according to standard protocol. Clinical Information HISTORY: Trauma COMPARISON: None. Findings Chest: Lines/Tubes: None. Lower neck and axillae: A 1.2 cm right upper inner breast soft tissue density is noted (series 3 image 72). Mediastinum and Lilli: No enlarged lymph nodes are present. Heart and Pericardium: The cardiac chambers are normal in size. No pericardial fluid or thickening is present. Lung Parenchyma, Airways, and Pleural Spaces: Minimal dependent atelectasis is noted. There is no focal consolidation. A 5 mm right lower lobe pulmonary nodule is seen (series 5 image 53). There is no pleural effusion or pneumothorax. Abdomen/pelvis: Hepatobiliary: There is a 2 cm enhancing lesion in hepatic segment 2 (series 4 image 34). There is a 6 mm hypodense lesion in hepatic segment 4 (series 4 image 48, too small to characterize but likely a cyst. The gallbladder is surgically absent. Pancreas: Normal. Spleen: Normal. Kidneys: A few bilateral renal cysts are seen measuring up to 1.2 cm on the left. There is no hydronephrosis of hydronephrosis. Adrenals: Normal. Retroperitoneum: Normal. Peritoneum: Normal. Gastrointestinal: The stomach and visualized loops of bowel are unremarkable. Pelvic Structures: Normal. Vasculature: Unremarkable. Bones: The visible osseous structures are intact. Procedure Note Jarrell Dinero MD - 10/14/2020 Procedure Information DATE: 10/14/2020 2:41 PM EXAMINATION: Computed tomography (CT) of the chest, abdomen, and pelvis with contrast TECHNIQUE: CT of the chest, abdomen, and pelvis was performed after the uneventful administration of 150 mL of Isovue 370 intravenous contrast according to standard protocol. Clinical Information HISTORY: Trauma COMPARISON: None. Findings Chest: Lines/Tubes: None. Lower neck and axillae: A 1.2 cm right upper inner breast soft tissue density is noted (series 3 image 72). Mediastinum and Lilli: No enlarged lymph nodes are present. Heart and Pericardium: The cardiac chambers are normal in size. No pericardial fluid or thickening is present. Lung Parenchyma, Airways, and Pleural Spaces: Minimal dependent atelectasis is noted. There is no focal consolidation.A 5 mm right lower lobe pulmonary nodule is seen (series 5 image 53). There is no pleural effusion or pneumothorax. Abdomen/pelvis: Hepatobiliary: There is a 2 cm enhancing lesion in hepatic segment 2 (series 4 image34). There is a 6 mm hypodense lesion in hepatic segment 4 (series 4 image48, too small to characterize but likely a cyst. The gallbladder is surgically absent. Pancreas: Normal. Spleen: Normal. Kidneys: A few bilateral renal cysts are seen measuring up to 1.2 cm on the left. There is no hydronephrosis of hydronephrosis. Adrenals: Normal. Retroperitoneum: Normal. Peritoneum: Normal. Gastrointestinal: The stomach and visualized loops of bowel are unremarkable. Pelvic Structures: Normal. Vasculature: Unremarkable. Bones: The visible osseous structures are intact. Impression: 1.No acute injury in the chest, abdomen, or pelvis. 2.A 1.2 cm right inner upper breast soft tissue density, indeterminant. Further evaluation with breast imaging is recommended. No evidence of axillary lymphadenopathy. 3.A 5 mm right lower lobe pulmonary nodule. Recommend follow-up in one year if the patient is high-risk for malignancy. 4.A 2 cm enhancing lesion in the left hepatic lobe, indeterminate. Recommend follow-up such as hepatic protocol MRI. Final results were discussed with JAIRO Parra from the emergencydepartment at 7:45 PM on 10/14/2020. Report drafted by Nikunj Diop M.D. (resident) This report was approved by Nikunj Diop M.D. on 10/14/2020 7:46PM . I, Dr. JARRELL DINERO MD have personally reviewed and interpreted this examination/study. This report was electronically signed by JARRELL DINERO MD on10/14/2020 8:08 PM . Deajohanna Loera MD CT ORDERABLES * CT LUMBAR SPINE WO CONTRAST - T/L-spine trauma, Spine fracture (10/14/2020 2:38 PM CDT) Anatomical Region Laterality Modality Spine Computed Tomogra phy 10/15/2020 7:17 AM CDT Impressions 10/15/2020 8:19 AM CDT IMPRESSION: 1.No acute intracranial hemorrhage, mass effect, or midline shift. 2.No acute facial bone fractures identified. 3.No evidence of acute fracture in the cervical, thoracic, or lumbar spine. This report was approved by Carolyn Burnham on 10/15/2020 8:19 AM . I, Dr. ANGIE RUIZ have personally reviewed and interpreted this examination/study. This report was electronically signed by ANGIE RUIZ on 10/15/2020 8:19 AM . Narrative 10/15/2020 8:[address] HEAD WO CONTRAST, CT FACIAL BONES WO CONTRAST, CT LUMBAR SPINE WO CONTRAST, CT THORACIC SPINE WO CONTRAST, CT CERVICAL SPINE WO CONTRAST DATE: 10/14/2020 2:41 PM EXAMINATION: 1. Computed tomography (CT) of the head without contrast 2. CT of the maxillofacial bones, orbits, and paranasal sinuses without contrast 3. CT of the cervical spine without contrast 4. CT of the thoracic spine without contrast 5. CT of the lumbar spine without contrast HISTORY: Trauma TECHNIQUE: CT of the head, cervical spine, and maxillofacial bones, orbits, and paranasal sinuses was performed without contrast according to standard protocol. Reformatted axial, sagittal, and coronal images of the thoracic and lumbar spine were obtained by the technologist from a concurrently performed body CT and sent to the workstation for review. COMPARISON: No prior study is available for comparison at the time of this dictation. FINDINGS: Head: No acute intra- or extra-axial fluid collections are identified. There is subjective mild cerebral volume loss with associated ex vacuo ventricular dilatation. The basilar cisterns are patent. No mass effect or midline shift is seen. The anand-white matter differentiation is normal. There is vascular calcification of the carotid siphons. No acute calvarial fracture is identified. Maxillofacial: The orbits appear normal. The paranasal sinuses are clear other than mild mucosal thickening of bilateral maxillary sinuses. The nasal septum is deviated to the left with a septal spur deforming the left inferior turbinate. The patient is edentulous. The hard palate, mandible, and temporomandibular joints appear normal. No acute facial bone fractures are identified. The mastoid air cells are clear. No soft tissue abnormality is identified. Cervical spine: Straightening of the cervical lordosis. The alignment is otherwise maintained. Vertebral bodies are normal in height without evidence of acute fracture. Other than middle atlantoaxial joint osteoarthritis, the craniocervical junction appears normal. There is mild degenerative disc disease. Mild central canal stenosis is seen at C5-C6 due to disc bulge and disc osteophyte complex which is eccentric to the left. There are varying degrees of mild facet osteoarthritis. There are varying degrees of mild uncovertebral joint osteoarthritis, worse at C5-C6, with the same degree of neural foraminal stenosis at this level. No soft tissue abnormality is identified. Thoracic spine: Mild dextrocurvature of the thoracic spine. The alignment is otherwise maintained. Vertebral bodies are normal in height without evidence of acute fracture. The intervertebral discs appear normal. No central canal stenosis is seen. The facets appear normal. No neural foraminal stenosis is seen. No soft tissue abnormality is identified. Lumbar spine: The alignment is contained. Vertebral bodies are normal in height without evidence of acute fracture. The intervertebral discs appear normal. No central canal stenosis is seen. The facets appear normal. No neural foraminal stenosis is seen. There is atherosclerotic calcification of the abdominal aorta and its branch vessels. A 1.3 cm rounded simple cyst is present in the posterior aspect of midportion of left kidney (series 4 image 32). Procedure Note Angie Ruiz MD - 10/15/2020 CT HEAD WO CONTRAST, CT FACIAL BONES WO CONTRAST, CT LUMBAR SPINE WO CONTRAST, CT THORACIC SPINE WO CONTRAST, CT CERVICAL SPINE WO CONTRAST DATE: 10/14/2020 2:41 PM EXAMINATION: 1. Computed tomography (CT) of the head without contrast 2. CT of the maxillofacial bones, orbits, and paranasal sinuses without contrast 3. CT of the cervical spine without contrast 4. CT of the thoracic spine without contrast 5. CT of the lumbar spine without contrast HISTORY: Trauma TECHNIQUE: CT of the head, cervical spine, and maxillofacial bones, orbits, and paranasal sinuses was performed without contrast accordingto standard protocol. Reformatted axial, sagittal, and coronal images ofthe thoracic and lumbar spine were obtained by the technologist from a concurrently performed body CT and sent to the workstation for review. COMPARISON: No prior study is available for comparison at the time ofthis dictation. FINDINGS: Head: No acute intra- or extra-axial fluid collections are identified. Thereis subjective mild cerebral volume loss with associated ex vacuoventricular dilatation. The basilar cisterns are patent. No mass effect or midline shift is seen. The anand-white matter differentiation is normal. There is vascular calcification of the carotid siphons. No acute calvarialfracture is identified. Maxillofacial: The orbits appear normal. The paranasal sinuses are clear other thanmild mucosal thickening of bilateral maxillary sinuses. The nasal septum is deviated to the left with a septal spur deforming the left inferior turbinate. The patient is edentulous. The hard palate, mandible, and temporomandibular joints appear normal. No acute facial bone fracturesare identified. The mastoid air cells are clear. No soft tissue abnormalityis identified. Cervical spine: Straightening of the cervical lordosis. The alignment is otherwise maintained. Vertebral bodies are normal in height without evidence of acute fracture. Other than middle atlantoaxial joint osteoarthritis, the craniocervical junction appears normal. There is mild degenerative disc disease. Mild central canal stenosis is seen at C5-C6 due to disc bulge and disc osteophyte complex which is eccentric to the left. There are varying degrees of mild facet osteoarthritis. There are varying degreesof mild uncovertebral joint osteoarthritis, worse at C5-C6, with the same degree of neural foraminal stenosis at this level. No soft tissue abnormality is identified. Thoracic spine: Mild dextrocurvature of the thoracic spine. The alignment is otherwise maintained. Vertebral bodies are normal in height without evidence of acute fracture. The intervertebral discs appear normal. No centralcanal stenosis is seen. The facets appear normal. No neural foraminalstenosis is seen. No soft tissue abnormality is identified. Lumbar spine: The alignment is contained. Vertebral bodies are normal in heightwithout evidence of acute fracture. The intervertebral discs appear normal. No central canal stenosis is seen. The facets appear normal. No neural foraminal stenosis is seen. There is atherosclerotic calcification ofthe abdominal aorta and its branch vessels. A 1.3 cm rounded simple cyst is present in the posterior aspect of midportion of left kidney (series 4 image 32). IMPRESSION: 1.No acute intracranial hemorrhage, mass effect, or midline shift. 2.No acute facial bone fractures identified. 3.No evidence of acute fracture in the cervical, thoracic, or lumbarspine. This report was approved by Carolyn Burnham on 10/15/2020 8:[address] ANGIE Allen have personally reviewed and interpreted this examination/study. This report was electronically signed by ANGIE RUIZ on10/15/2020 8:19 AM . Deacon David Loera MD CT ORDERABLES * CT THORACIC SPINE WO CONTRAST - T/L-spine trauma, spine fracture (10/14/2020 2:38 PM CDT) Anatomical Region Laterality Modality Spine Computed Tomogra phy 10/15/2020 7:17 AM CDT Impressions 10/15/2020 8:19 AM CDT IMPRESSION: 1.No acute intracranial hemorrhage, mass effect, or midline shift. 2.No acute facial bone fractures identified. 3.No evidence of acute fracture in the cervical, thoracic, or lumbar spine. This report was approved by Carolyn Burnham on 10/15/2020 8:[address] ANGIE Allen have personally reviewed and interpreted this examination/study. This report was electronically signed by ANGIE RUIZ on 10/15/2020 8:19 AM . Narrative 10/15/2020 8:[address] HEAD WO CONTRAST, CT FACIAL BONES WO CONTRAST, CT LUMBAR SPINE WO CONTRAST, CT THORACIC SPINE WO CONTRAST, CT CERVICAL SPINE WO CONTRAST DATE: 10/14/2020 2:41 PM EXAMINATION: 1. Computed tomography (CT) of the head without contrast 2. CT of the maxillofacial bones, orbits, and paranasal sinuses without contrast 3. CT of the cervical spine without contrast 4. CT of the thoracic spine without contrast 5. CT of the lumbar spine without contrast HISTORY: Trauma TECHNIQUE: CT of the head, cervical spine, and maxillofacial bones, orbits, and paranasal sinuses was performed without contrast according to standard protocol. Reformatted axial, sagittal, and coronal images of the thoracic and lumbar spine were obtained by the technologist from a concurrently performed body CT and sent to the workstation for review. COMPARISON: No prior study is available for comparison at the time of this dictation. FINDINGS: Head: No acute intra- or extra-axial fluid collections are identified. There is subjective mild cerebral volume loss with associated ex vacuo ventricular dilatation. The basilar cisterns are patent. No mass effect or midline shift is seen. The anand-white matter differentiation is normal. There is vascular calcification of the carotid siphons. No acute calvarial fracture is identified. Maxillofacial: The orbits appear normal. The paranasal sinuses are clear other than mild mucosal thickening of bilateral maxillary sinuses. The nasal septum is deviated to the left with a septal spur deforming the left inferior turbinate. The patient is edentulous. The hard palate, mandible, and temporomandibular joints appear normal. No acute facial bone fractures are identified. The mastoid air cells are clear. No soft tissue abnormality is identified. Cervical spine: Straightening of the cervical lordosis. The alignment is otherwise maintained. Vertebral bodies are normal in height without evidence of acute fracture. Other than middle atlantoaxial joint osteoarthritis, the craniocervical junction appears normal. There is mild degenerative disc disease. Mild central canal stenosis is seen at C5-C6 due to disc bulge and disc osteophyte complex which is eccentric to the left. There are varying degrees of mild facet osteoarthritis. There are varying degrees of mild uncovertebral joint osteoarthritis, worse at C5-C6, with the same degree of neural foraminal stenosis at this level. No soft tissue abnormality is identified. Thoracic spine: Mild dextrocurvature of the thoracic spine. The alignment is otherwise maintained. Vertebral bodies are normal in height without evidence of acute fracture. The intervertebral discs appear normal. No central canal stenosis is seen. The facets appear normal. No neural foraminal stenosis is seen. No soft tissue abnormality is identified. Lumbar spine: The alignment is contained. Vertebral bodies are normal in height without evidence of acute fracture. The intervertebral discs appear normal. No central canal stenosis is seen. The facets appear normal. No neural foraminal stenosis is seen. There is atherosclerotic calcification of the abdominal aorta and its branch vessels. A 1.3 cm rounded simple cyst is present in the posterior aspect of midportion of left kidney (series 4 image 32). Procedure Note Angie Ruiz MD - 10/15/2020 CT HEAD WO CONTRAST, CT FACIAL BONES WO CONTRAST, CT LUMBAR SPINE WO CONTRAST, CT THORACIC SPINE WO CONTRAST, CT CERVICAL SPINE WO CONTRAST DATE: 10/14/2020 2:41 PM EXAMINATION: 1. Computed tomography (CT) of the head without contrast 2. CT of the maxillofacial bones, orbits, and paranasal sinuses without contrast 3. CT of the cervical spine without contrast 4. CT of the thoracic spine without contrast 5. CT of the lumbar spine without contrast HISTORY: Trauma TECHNIQUE: CT of the head, cervical spine, and maxillofacial bones, orbits, and paranasal sinuses was performed without contrast accordingto standard protocol. Reformatted axial, sagittal, and coronal images ofthe thoracic and lumbar spine were obtained by the technologist from a concurrently performed body CT and sent to the workstation for review. COMPARISON: No prior study is available for comparison at the time ofthis dictation. FINDINGS: Head: No acute intra- or extra-axial fluid collections are identified. Thereis subjective mild cerebral volume loss with associated ex vacuoventricular dilatation. The basilar cisterns are patent. No mass effect or midline shift is seen. The anand-white matter differentiation is normal. There is vascular calcification of the carotid siphons. No acute calvarialfracture is identified. Maxillofacial: The orbits appear normal. The paranasal sinuses are clear other thanmild mucosal thickening of bilateral maxillary sinuses. The nasal septum is deviated to the left with a septal spur deforming the left inferior turbinate. The patient is edentulous. The hard palate, mandible, and temporomandibular joints appear normal. No acute facial bone fracturesare identified. The mastoid air cells are clear. No soft tissue abnormalityis identified. Cervical spine: Straightening of the cervical lordosis. The alignment is otherwise maintained. Vertebral bodies are normal in height without evidence of acute fracture. Other than middle atlantoaxial joint osteoarthritis, the craniocervical junction appears normal. There is mild degenerative disc disease. Mild central canal stenosis is seen at C5-C6 due to disc bulge and disc osteophyte complex which is eccentric to the left. There are varying degrees of mild facet osteoarthritis. There are varying degreesof mild uncovertebral joint osteoarthritis, worse at C5-C6, with the same degree of neural foraminal stenosis at this level. No soft tissue abnormality is identified. Thoracic spine: Mild dextrocurvature of the thoracic spine. The alignment is otherwise maintained. Vertebral bodies are normal in height without evidence of acute fracture. The intervertebral discs appear normal. No centralcanal stenosis is seen. The facets appear normal. No neural foraminalstenosis is seen. No soft tissue abnormality is identified. Lumbar spine: The alignment is contained. Vertebral bodies are normal in heightwithout evidence of acute fracture. The intervertebral discs appear normal. No central canal stenosis is seen. The facets appear normal. No neural foraminal stenosis is seen. There is atherosclerotic calcification ofthe abdominal aorta and its branch vessels. A 1.3 cm rounded simple cyst is present in the posterior aspect of midportion of left kidney (series 4 image 32). IMPRESSION: 1.No acute intracranial hemorrhage, mass effect, or midline shift. 2.No acute facial bone fractures identified. 3.No evidence of acute fracture in the cervical, thoracic, or lumbarspine. This report was approved by Carolyn Burnham on 10/15/2020 8:[address] ANGIE Allen have personally reviewed and interpreted this examination/study. This report was electronically signed by ANGIE RUIZ on10/15/2020 8:19 AM . Deacon David Loera MD CT ORDERABLES * CT CERVICAL SPINE WO CONTRAST - C-Spine Trauma, Spine fracture (10/14/2020 2:38 PM CDT) Anatomical Region Laterality Modality Spine Computed Tomogra phy 10/15/2020 7:17 AM CDT Impressions 10/15/2020 8:19 AM CDT IMPRESSION: 1.No acute intracranial hemorrhage, mass effect, or midline shift. 2.No acute facial bone fractures identified. 3.No evidence of acute fracture in the cervical, thoracic, or lumbar spine. This report was approved by Carolyn Burnham on 10/15/2020 8:[address] ANGIE Allen have personally reviewed and interpreted this examination/study. This report was electronically signed by ANGIE RUIZ on 10/15/2020 8:19 AM . Narrative 10/15/2020 8:[address] HEAD WO CONTRAST, CT FACIAL BONES WO CONTRAST, CT LUMBAR SPINE WO CONTRAST, CT THORACIC SPINE WO CONTRAST, CT CERVICAL SPINE WO CONTRAST DATE: 10/14/2020 2:41 PM EXAMINATION: 1. Computed tomography (CT) of the head without contrast 2. CT of the maxillofacial bones, orbits, and paranasal sinuses without contrast 3. CT of the cervical spine without contrast 4. CT of the thoracic spine without contrast 5. CT of the lumbar spine without contrast HISTORY: Trauma TECHNIQUE: CT of the head, cervical spine, and maxillofacial bones, orbits, and paranasal sinuses was performed without contrast according to standard protocol. Reformatted axial, sagittal, and coronal images of the thoracic and lumbar spine were obtained by the technologist from a concurrently performed body CT and sent to the workstation for review. COMPARISON: No prior study is available for comparison at the time of this dictation. FINDINGS: Head: No acute intra- or extra-axial fluid collections are identified. There is subjective mild cerebral volume loss with associated ex vacuo ventricular dilatation. The basilar cisterns are patent. No mass effect or midline shift is seen. The anand-white matter differentiation is normal. There is vascular calcification of the carotid siphons. No acute calvarial fracture is identified. Maxillofacial: The orbits appear normal. The paranasal sinuses are clear other than mild mucosal thickening of bilateral maxillary sinuses. The nasal septum is deviated to the left with a septal spur deforming the left inferior turbinate. The patient is edentulous. The hard palate, mandible, and temporomandibular joints appear normal. No acute facial bone fractures are identified. The mastoid air cells are clear. No soft tissue abnormality is identified. Cervical spine: Straightening of the cervical lordosis. The alignment is otherwise maintained. Vertebral bodies are normal in height without evidence of acute fracture. Other than middle atlantoaxial joint osteoarthritis, the craniocervical junction appears normal. There is mild degenerative disc disease. Mild central canal stenosis is seen at C5-C6 due to disc bulge and disc osteophyte complex which is eccentric to the left. There are varying degrees of mild facet osteoarthritis. There are varying degrees of mild uncovertebral joint osteoarthritis, worse at C5-C6, with the same degree of neural foraminal stenosis at this level. No soft tissue abnormality is identified. Thoracic spine: Mild dextrocurvature of the thoracic spine. The alignment is otherwise maintained. Vertebral bodies are normal in height without evidence of acute fracture. The intervertebral discs appear normal. No central canal stenosis is seen. The facets appear normal. No neural foraminal stenosis is seen. No soft tissue abnormality is identified. Lumbar spine: The alignment is contained. Vertebral bodies are normal in height without evidence of acute fracture. The intervertebral discs appear normal. No central canal stenosis is seen. The facets appear normal. No neural foraminal stenosis is seen. There is atherosclerotic calcification of the abdominal aorta and its branch vessels. A 1.3 cm rounded simple cyst is present in the posterior aspect of midportion of left kidney (series 4 image 32). Procedure Note Angie Ruiz MD - 10/15/2020 CT HEAD WO CONTRAST, CT FACIAL BONES WO CONTRAST, CT LUMBAR SPINE WO CONTRAST, CT THORACIC SPINE WO CONTRAST, CT CERVICAL SPINE WO CONTRAST DATE: 10/14/2020 2:41 PM EXAMINATION: 1. Computed tomography (CT) of the head without contrast 2. CT of the maxillofacial bones, orbits, and paranasal sinuses without contrast 3. CT of the cervical spine without contrast 4. CT of the thoracic spine without contrast 5. CT of the lumbar spine without contrast HISTORY: Trauma TECHNIQUE: CT of the head, cervical spine, and maxillofacial bones, orbits, and paranasal sinuses was performed without contrast accordingto standard protocol. Reformatted axial, sagittal, and coronal images ofthe thoracic and lumbar spine were obtained by the technologist from a concurrently performed body CT and sent to the workstation for review. COMPARISON: No prior study is available for comparison at the time ofthis dictation. FINDINGS: Head: No acute intra- or extra-axial fluid collections are identified. Thereis subjective mild cerebral volume loss with associated ex vacuoventricular dilatation. The basilar cisterns are patent. No mass effect or midline shift is seen. The anand-white matter differentiation is normal. There is vascular calcification of the carotid siphons. No acute calvarialfracture is identified. Maxillofacial: The orbits appear normal. The paranasal sinuses are clear other thanmild mucosal thickening of bilateral maxillary sinuses. The nasal septum is deviated to the left with a septal spur deforming the left inferior turbinate. The patient is edentulous. The hard palate, mandible, and temporomandibular joints appear normal. No acute facial bone fracturesare identified. The mastoid air cells are clear. No soft tissue abnormalityis identified. Cervical spine: Straightening of the cervical lordosis. The alignment is otherwise maintained. Vertebral bodies are normal in height without evidence of acute fracture. Other than middle atlantoaxial joint osteoarthritis, the craniocervical junction appears normal. There is mild degenerative disc disease. Mild central canal stenosis is seen at C5-C6 due to disc bulge and disc osteophyte complex which is eccentric to the left. There are varying degrees of mild facet osteoarthritis. There are varying degreesof mild uncovertebral joint osteoarthritis, worse at C5-C6, with the same degree of neural foraminal stenosis at this level. No soft tissue abnormality is identified. Thoracic spine: Mild dextrocurvature of the thoracic spine. The alignment is otherwise maintained. Vertebral bodies are normal in height without evidence of acute fracture. The intervertebral discs appear normal. No centralcanal stenosis is seen. The facets appear normal. No neural foraminalstenosis is seen. No soft tissue abnormality is identified. Lumbar spine: The alignment is contained. Vertebral bodies are normal in heightwithout evidence of acute fracture. The intervertebral discs appear normal. No central canal stenosis is seen. The facets appear normal. No neural foraminal stenosis is seen. There is atherosclerotic calcification ofthe abdominal aorta and its branch vessels. A 1.3 cm rounded simple cyst is present in the posterior aspect of midportion of left kidney (series 4 image 32). IMPRESSION: 1.No acute intracranial hemorrhage, mass effect, or midline shift. 2.No acute facial bone fractures identified. 3.No evidence of acute fracture in the cervical, thoracic, or lumbarspine. This report was approved by Carolyn Burnham on 10/15/2020 8:[address] ANGIE Allen have personally reviewed and interpreted this examination/study. This report was electronically signed by ANGIE RUIZ on10/15/2020 8:19 AM . Deacon David Loera MD CT ORDERABLES * CT ANGIO NECK (10/14/2020 2:38 PM CDT) Anatomical Region Laterality Modality Head Computed Tomogra phy 10/15/2020 7:34 AM CDT Impressions 10/15/2020 5:19 PM CDT IMPRESSION: No evidence of large arterial injury identified in the neck. This report was approved by Carolyn Burnham on 10/15/2020 5:[address] ANGIE Allen have personally reviewed and interpreted this examination/study. This report was electronically signed by ANGIE RUIZ on 10/15/2020 5:19 PM . Narrative 10/15/2020 5:[address] ANGIO NECK DATE: 10/14/2020 2:41 PM EXAMINATION: Computed tomographic (CT) angiography of the neck with contrast HISTORY: T14.90XA: Trauma TECHNIQUE: CT angiography of the neck was obtained after the uneventful administration of 150 mL Isovue 370 intravenous contrast. Three dimensional postprocessing was performed by the technologist and sent to the workstation for review. COMPARISON: CT cervical spine without contrast dated 10/14/2020. FINDINGS: Non-angiographic findings: No soft tissue abnormalities are identified in the neck. Angiographic findings: There is atherosclerotic disease of the aortic arch. The configuration of the brachiocephalic vessels is typical. There is atherosclerotic calcification of the innominate and subclavian arteries. Mild atherosclerotic calcifications of the origin of the left common carotid artery. The right common and internal carotid arteries as well as the right carotid bifurcation appear normal. The left common and internal carotid arteries as well as the left carotid bifurcation appear normal. Enema narrowing of the V4 segments of the vertebral arteries. The cervical vertebral arteries appear normal. No evidence of large arterial injury is identified. Procedure Note Angie Ruiz MD - 10/15/2020 CT ANGIO NECK DATE: 10/14/2020 2:41 PM EXAMINATION: Computed tomographic (CT) angiography of the neck with contrast HISTORY: T14.90XA: Trauma TECHNIQUE: CT angiography of the neck was obtained after the uneventful administration of 150 mL Isovue 370 intravenous contrast. Three dimensional postprocessing was performed by the technologist and sent to the workstation for review. COMPARISON: CT cervical spine without contrast dated 10/14/2020. FINDINGS: Non-angiographic findings: No soft tissue abnormalities are identified in the neck. Angiographic findings: There is atherosclerotic disease of the aortic arch. The configurationof the brachiocephalic vessels is typical. There is atherosclerotic calcification of the innominate and subclavian arteries. Mild atherosclerotic calcifications of the origin of the left common carotid artery. The right common and internal carotid arteries as well as the right carotid bifurcation appear normal. The left common and internal carotid arteries as well as the left carotid bifurcation appear normal. Enema narrowing of the V4 segments of the vertebral arteries. Thecervical vertebral arteries appear normal. No evidence of large arterial injuryis identified. IMPRESSION: No evidence of large arterial injury identified in the neck. This report was approved by Carolyn Burnham on 10/15/2020 5:18 PM . Alejandro, Dr. ANGIE RUIZ have personally reviewed and interpreted this examination/study. This report was electronically signed by ANGIE RUIZ on10/15/2020 5:19 PM . Deacon David Loera MD CT ORDERABLES * CT FACIAL BONES WO CONTRAST (10/14/2020 2:38 PM CDT) Anatomical Region Laterality Modality Head Computed Tomogra phy 10/15/2020 7:17 AM CDT Impressions 10/15/2020 8:19 AM CDT IMPRESSION: 1.No acute intracranial hemorrhage, mass effect, or midline shift. 2.No acute facial bone fractures identified. 3.No evidence of acute fracture in the cervical, thoracic, or lumbar spine. This report was approved by Carolyn Burnham on 10/15/2020 8:19 AM . Alejandro, Dr. ANGIE RUIZ have personally reviewed and interpreted this examination/study. This report was electronically signed by ANGIE RUIZ on 10/15/2020 8:19 AM . Narrative 10/15/2020 8:[address] HEAD WO CONTRAST, CT FACIAL BONES WO CONTRAST, CT LUMBAR SPINE WO CONTRAST, CT THORACIC SPINE WO CONTRAST, CT CERVICAL SPINE WO CONTRAST DATE: 10/14/2020 2:41 PM EXAMINATION: 1. Computed tomography (CT) of the head without contrast 2. CT of the maxillofacial bones, orbits, and paranasal sinuses without contrast 3. CT of the cervical spine without contrast 4. CT of the thoracic spine without contrast 5. CT of the lumbar spine without contrast HISTORY: Trauma TECHNIQUE: CT of the head, cervical spine, and maxillofacial bones, orbits, and paranasal sinuses was performed without contrast according to standard protocol. Reformatted axial, sagittal, and coronal images of the thoracic and lumbar spine were obtained by the technologist from a concurrently performed body CT and sent to the workstation for review. COMPARISON: No prior study is available for comparison at the time of this dictation. FINDINGS: Head: No acute intra- or extra-axial fluid collections are identified. There is subjective mild cerebral volume loss with associated ex vacuo ventricular dilatation. The basilar cisterns are patent. No mass effect or midline shift is seen. The anand-white matter differentiation is normal. There is vascular calcification of the carotid siphons. No acute calvarial fracture is identified. Maxillofacial: The orbits appear normal. The paranasal sinuses are clear other than mild mucosal thickening of bilateral maxillary sinuses. The nasal septum is deviated to the left with a septal spur deforming the left inferior turbinate. The patient is edentulous. The hard palate, mandible, and temporomandibular joints appear normal. No acute facial bone fractures are identified. The mastoid air cells are clear. No soft tissue abnormality is identified. Cervical spine: Straightening of the cervical lordosis. The alignment is otherwise maintained. Vertebral bodies are normal in height without evidence of acute fracture. Other than middle atlantoaxial joint osteoarthritis, the craniocervical junction appears normal. There is mild degenerative disc disease. Mild central canal stenosis is seen at C5-C6 due to disc bulge and disc osteophyte complex which is eccentric to the left. There are varying degrees of mild facet osteoarthritis. There are varying degrees of mild uncovertebral joint osteoarthritis, worse at C5-C6, with the same degree of neural foraminal stenosis at this level. No soft tissue abnormality is identified. Thoracic spine: Mild dextrocurvature of the thoracic spine. The alignment is otherwise maintained. Vertebral bodies are normal in height without evidence of acute fracture. The intervertebral discs appear normal. No central canal stenosis is seen. The facets appear normal. No neural foraminal stenosis is seen. No soft tissue abnormality is identified. Lumbar spine: The alignment is contained. Vertebral bodies are normal in height without evidence of acute fracture. The intervertebral discs appear normal. No central canal stenosis is seen. The facets appear normal. No neural foraminal stenosis is seen. There is atherosclerotic calcification of the abdominal aorta and its branch vessels. A 1.3 cm rounded simple cyst is present in the posterior aspect of midportion of left kidney (series 4 image 32). Procedure Note Angie Ruiz MD - 10/15/2020 CT HEAD WO CONTRAST, CT FACIAL BONES WO CONTRAST, CT LUMBAR SPINE WO CONTRAST, CT THORACIC SPINE WO CONTRAST, CT CERVICAL SPINE WO CONTRAST DATE: 10/14/2020 2:41 PM EXAMINATION: 1. Computed tomography (CT) of the head without contrast 2. CT of the maxillofacial bones, orbits, and paranasal sinuses without contrast 3. CT of the cervical spine without contrast 4. CT of the thoracic spine without contrast 5. CT of the lumbar spine without contrast HISTORY: Trauma TECHNIQUE: CT of the head, cervical spine, and maxillofacial bones, orbits, and paranasal sinuses was performed without contrast accordingto standard protocol. Reformatted axial, sagittal, and coronal images ofthe thoracic and lumbar spine were obtained by the technologist from a concurrently performed body CT and sent to the workstation for review. COMPARISON: No prior study is available for comparison at the time ofthis dictation. FINDINGS: Head: No acute intra- or extra-axial fluid collections are identified. Thereis subjective mild cerebral volume loss with associated ex vacuoventricular dilatation. The basilar cisterns are patent. No mass effect or midline shift is seen. The anand-white matter differentiation is normal. There is vascular calcification of the carotid siphons. No acute calvarialfracture is identified. Maxillofacial: The orbits appear normal. The paranasal sinuses are clear other thanmild mucosal thickening of bilateral maxillary sinuses. The nasal septum is deviated to the left with a septal spur deforming the left inferior turbinate. The patient is edentulous. The hard palate, mandible, and temporomandibular joints appear normal. No acute facial bone fracturesare identified. The mastoid air cells are clear. No soft tissue abnormalityis identified. Cervical spine: Straightening of the cervical lordosis. The alignment is otherwise maintained. Vertebral bodies are normal in height without evidence of acute fracture. Other than middle atlantoaxial joint osteoarthritis, the craniocervical junction appears normal. There is mild degenerative disc disease. Mild central canal stenosis is seen at C5-C6 due to disc bulge and disc osteophyte complex which is eccentric to the left. There are varying degrees of mild facet osteoarthritis. There are varying degreesof mild uncovertebral joint osteoarthritis, worse at C5-C6, with the same degree of neural foraminal stenosis at this level. No soft tissue abnormality is identified. Thoracic spine: Mild dextrocurvature of the thoracic spine. The alignment is otherwise maintained. Vertebral bodies are normal in height without evidence of acute fracture. The intervertebral discs appear normal. No centralcanal stenosis is seen. The facets appear normal. No neural foraminalstenosis is seen. No soft tissue abnormality is identified. Lumbar spine: The alignment is contained. Vertebral bodies are normal in heightwithout evidence of acute fracture. The intervertebral discs appear normal. No central canal stenosis is seen. The facets appear normal. No neural foraminal stenosis is seen. There is atherosclerotic calcification ofthe abdominal aorta and its branch vessels. A 1.3 cm rounded simple cyst is present in the posterior aspect of midportion of left kidney (series 4 image 32). IMPRESSION: 1.No acute intracranial hemorrhage, mass effect, or midline shift. 2.No acute facial bone fractures identified. 3.No evidence of acute fracture in the cervical, thoracic, or lumbarspine. This report was approved by Carolyn Burnham on 10/15/2020 8:[address] ANGIE Allen have personally reviewed and interpreted this examination/study. This report was electronically signed by ANGIE RUIZ on10/15/2020 8:19 AM . Deacon David Loera MD CT ORDERABLES * CT HEAD WO CONTRAST - Head Trauma, CSF leak, mental status changes (10/14/2020 2:38 PM CDT) Anatomical Region Laterality Modality Head Computed Tomogra phy 10/15/2020 7:17 AM CDT Impressions 10/15/2020 8:19 AM CDT IMPRESSION: 1.No acute intracranial hemorrhage, mass effect, or midline shift. 2.No acute facial bone fractures identified. 3.No evidence of acute fracture in the cervical, thoracic, or lumbar spine. This report was approved by Carolyn Burnham on 10/15/2020 8:[address] ANGIE Allen have personally reviewed and interpreted this examination/study. This report was electronically signed by ANGIE RUIZ on 10/15/2020 8:19 AM . Narrative 10/15/2020 8:[address] HEAD WO CONTRAST, CT FACIAL BONES WO CONTRAST, CT LUMBAR SPINE WO CONTRAST, CT THORACIC SPINE WO CONTRAST, CT CERVICAL SPINE WO CONTRAST DATE: 10/14/2020 2:41 PM EXAMINATION: 1. Computed tomography (CT) of the head without contrast 2. CT of the maxillofacial bones, orbits, and paranasal sinuses without contrast 3. CT of the cervical spine without contrast 4. CT of the thoracic spine without contrast 5. CT of the lumbar spine without contrast HISTORY: Trauma TECHNIQUE: CT of the head, cervical spine, and maxillofacial bones, orbits, and paranasal sinuses was performed without contrast according to standard protocol. Reformatted axial, sagittal, and coronal images of the thoracic and lumbar spine were obtained by the technologist from a concurrently performed body CT and sent to the workstation for review. COMPARISON: No prior study is available for comparison at the time of this dictation. FINDINGS: Head: No acute intra- or extra-axial fluid collections are identified. There is subjective mild cerebral volume loss with associated ex vacuo ventricular dilatation. The basilar cisterns are patent. No mass effect or midline shift is seen. The anand-white matter differentiation is normal. There is vascular calcification of the carotid siphons. No acute calvarial fracture is identified. Maxillofacial: The orbits appear normal. The paranasal sinuses are clear other than mild mucosal thickening of bilateral maxillary sinuses. The nasal septum is deviated to the left with a septal spur deforming the left inferior turbinate. The patient is edentulous. The hard palate, mandible, and temporomandibular joints appear normal. No acute facial bone fractures are identified. The mastoid air cells are clear. No soft tissue abnormality is identified. Cervical spine: Straightening of the cervical lordosis. The alignment is otherwise maintained. Vertebral bodies are normal in height without evidence of acute fracture. Other than middle atlantoaxial joint osteoarthritis, the craniocervical junction appears normal. There is mild degenerative disc disease. Mild central canal stenosis is seen at C5-C6 due to disc bulge and disc osteophyte complex which is eccentric to the left. There are varying degrees of mild facet osteoarthritis. There are varying degrees of mild uncovertebral joint osteoarthritis, worse at C5-C6, with the same degree of neural foraminal stenosis at this level. No soft tissue abnormality is identified. Thoracic spine: Mild dextrocurvature of the thoracic spine. The alignment is otherwise maintained. Vertebral bodies are normal in height without evidence of acute fracture. The intervertebral discs appear normal. No central canal stenosis is seen. The facets appear normal. No neural foraminal stenosis is seen. No soft tissue abnormality is identified. Lumbar spine: The alignment is contained. Vertebral bodies are normal in height without evidence of acute fracture. The intervertebral discs appear normal. No central canal stenosis is seen. The facets appear normal. No neural foraminal stenosis is seen. There is atherosclerotic calcification of the abdominal aorta and its branch vessels. A 1.3 cm rounded simple cyst is present in the posterior aspect of midportion of left kidney (series 4 image 32). Procedure Note Angie Ruiz MD - 10/15/2020 CT HEAD WO CONTRAST, CT FACIAL BONES WO CONTRAST, CT LUMBAR SPINE WO CONTRAST, CT THORACIC SPINE WO CONTRAST, CT CERVICAL SPINE WO CONTRAST DATE: 10/14/2020 2:41 PM EXAMINATION: 1. Computed tomography (CT) of the head without contrast 2. CT of the maxillofacial bones, orbits, and paranasal sinuses without contrast 3. CT of the cervical spine without contrast 4. CT of the thoracic spine without contrast 5. CT of the lumbar spine without contrast HISTORY: Trauma TECHNIQUE: CT of the head, cervical spine, and maxillofacial bones, orbits, and paranasal sinuses was performed without contrast accordingto standard protocol. Reformatted axial, sagittal, and coronal images ofthe thoracic and lumbar spine were obtained by the technologist from a concurrently performed body CT and sent to the workstation for review. COMPARISON: No prior study is available for comparison at the time ofthis dictation. FINDINGS: Head: No acute intra- or extra-axial fluid collections are identified. Thereis subjective mild cerebral volume loss with associated ex vacuoventricular dilatation. The basilar cisterns are patent. No mass effect or midline shift is seen. The anand-white matter differentiation is normal. There is vascular calcification of the carotid siphons. No acute calvarialfracture is identified. Maxillofacial: The orbits appear normal. The paranasal sinuses are clear other thanmild mucosal thickening of bilateral maxillary sinuses. The nasal septum is deviated to the left with a septal spur deforming the left inferior turbinate. The patient is edentulous. The hard palate, mandible, and temporomandibular joints appear normal. No acute facial bone fracturesare identified. The mastoid air cells are clear. No soft tissue abnormalityis identified. Cervical spine: Straightening of the cervical lordosis. The alignment is otherwise maintained. Vertebral bodies are normal in height without evidence of acute fracture. Other than middle atlantoaxial joint osteoarthritis, the craniocervical junction appears normal. There is mild degenerative disc disease. Mild central canal stenosis is seen at C5-C6 due to disc bulge and disc osteophyte complex which is eccentric to the left. There are varying degrees of mild facet osteoarthritis. There are varying degreesof mild uncovertebral joint osteoarthritis, worse at C5-C6, with the same degree of neural foraminal stenosis at this level. No soft tissue abnormality is identified. Thoracic spine: Mild dextrocurvature of the thoracic spine. The alignment is otherwise maintained. Vertebral bodies are normal in height without evidence of acute fracture. The intervertebral discs appear normal. No centralcanal stenosis is seen. The facets appear normal. No neural foraminalstenosis is seen. No soft tissue abnormality is identified. Lumbar spine: The alignment is contained. Vertebral bodies are normal in heightwithout evidence of acute fracture. The intervertebral discs appear normal. No central canal stenosis is seen. The facets appear normal. No neural foraminal stenosis is seen. There is atherosclerotic calcification ofthe abdominal aorta and its branch vessels. A 1.3 cm rounded simple cyst is present in the posterior aspect of midportion of left kidney (series 4 image 32). IMPRESSION: 1.No acute intracranial hemorrhage, mass effect, or midline shift. 2.No acute facial bone fractures identified. 3.No evidence of acute fracture in the cervical, thoracic, or lumbarspine. This report was approved by Carolyn Burnham on 10/15/2020 8:19 AM . I, Dr. ANGIE RUIZ have personally reviewed and interpreted this examination/study. This report was electronically signed by ANGIE RUIZ on10/15/2020 8:19 AM . Deacon David Loera MD CT ORDERABLES * TYPE + SCREEN PANEL (10/14/2020 2:22 PM CDT) Antibody Screen NEG 4:12 PM CDT [facility] ABO Rh O POS 10/14/2020 4:12 PM CDT [facility] Blood Bank BLOOD SPECIMEN / Unknown 10/14/2020 2:22 PM CDT 10/14/2020 2:49 PM CDT Deacon David Loera MD LAB - BLOOD BANK OR DERABLES [facility] [address] [place] [address], [facility] [place] [phone] * XR PELVIS 1 OR 2VW (10/14/2020 1:44 PM CDT) Anatomical Region Laterality Modality Pelvis Radiographic Sirena ging 10/14/2020 2:04 PM CDT Impressions 10/15/2020 10:30 AM CDT Impression: No acute osseous injury. Report dictated by Blade Gutierrez MD (assistant to the president). Dr. JANETTE Allen have personally reviewed and interpreted this examination/study. This report was electronically signed by JANETTE JACKSON on 10/15/2020 10:30 AM . Narrative 10/15/2020 10:30 AM CDT EXAMINATION: XR PELVIS 1 OR 2VW HISTORY: Trauma Fracture suspected COMPARISON: No prior study is available for comparison. FINDINGS: No acute fracture is seen. The bilateral hip joints appear well aligned. The pubic symphysis and sacroiliac joints are not widened. Procedure Note Janette Jackson, DO - 10/15/2020 EXAMINATION: XR PELVIS 1 OR 2VW HISTORY: Trauma Fracture suspected COMPARISON: No prior study is available for comparison. FINDINGS: No acute fracture is seen. The bilateral hip joints appear well aligned. The pubic symphysis and sacroiliac joints are not widened. Impression: No acute osseous injury. Report dictated by Blade Gutierrez MD (assistant to the president). Dr. JANETTE Allen have personally reviewed and interpreted this examination/study. This report was electronically signed by JANETTE JACKSON on 10/15/2020 10:30 AM . Deacon David Loera MD DIAGNOSTIC IMAGING ORDERABLES * XR CHEST 1VW PORTABLE (10/14/2020 1:43 PM CDT) Anatomical Region Laterality Modality Chest Radiographic Sirena ging 10/14/2020 2:03 PM CDT Impressions 10/15/2020 10:29 AM CDT Impression: No acute pulmonary process. Report dictated by Blade Gutierrez MD (assistant to the president). Dr. JANETTE Allen have personally reviewed and interpreted this examination/study. This report was electronically signed by JANETTE JACKSON on 10/15/2020 10:29 AM . Narrative 10/15/2020 10:29 AM CDT EXAMINATION: XR CHEST 1VW PORTABLE HISTORY: Trauma COMPARISON: 05/03/2017 FINDINGS: No focal consolidation, pleural effusion, or pneumothorax. Heart size and mediastinal contours are normal. No acute osseous abnormality. Procedure Note Janette Jackson, - 10/15/2020 EXAMINATION: XR CHEST 1VW PORTABLE HISTORY: Trauma COMPARISON: 05/03/2017 FINDINGS: No focal consolidation, pleural effusion, or pneumothorax. Heart sizeand mediastinal contours are normal. No acute osseous abnormality. Impression: No acute pulmonary process. Report dictated by Blade Gutierrez MD (assistant to the president). Dr. JANETTE Allen have personally reviewed and interpreted this examination/study. This report was electronically signed by JANETTE JACKSON on 10/15/2020 10:29 AM . Deacon David Loera MD DIAGNOSTIC IMAGING ORDERABLES * HIV-1 HIV-2 ANTIBODY + HIV P24 AG PANEL (06/15/2019 10:47 PM BEHAVIORAL HEALTH ASSISTANT) HIV1/2 Ab + P24 Ag Non Reactive Non Reactive 06/15/2019 11:32 PM BEHAVIORAL HEALTH ASSISTANT [facility] Blood BLOOD SPECIMEN / Unknown Venipuncture / Unknown 06/15/2019 10:47 PM BEHAVIORAL HEALTH ASSISTANT 06/15/2019 10:51 PM BEHAVIORAL HEALTH ASSISTANT Narrative [facility] - 06/15/2019 11:32 PM BEHAVIORAL HEALTH ASSISTANT No Laboratory evidence of HIV infection. Tanvir Felix MD LAB - CHEMISTRY ELLIE ESPINO [facility] Organization Address City/State/ZIP Co de Phone Number [facility] [address] [place] [address] * HEPATITIS C RNA QUANTITATIVE (06/15/2019 10:47 PM BEHAVIORAL HEALTH ASSISTANT) Pathologist [facility] Hepatitis C Virus Quantitation HCV Not Detected IU/mL 06/18/2019 12:06 AM [facility] Test Information Comment 06/18/20 12:06 AM [facility]) Comment:The quantitative ran ge of this assay is 15 IU/mL to 100 million IU/mL. Blood BLOOD SPECIMEN / Unknown Venipuncture / Unknown 06/15/2019 10:47 PM BEHAVIORAL HEALTH ASSISTANT 06/15/2019 11:34 PM BEHAVIORAL HEALTH ASSISTANT Narrative [facility] ([facility]) - 06/18/2019 12:06 AM BEHAVIORAL HEALTH ASSISTANT Performed at: [address] [id number] Outside Sales Representative Insurance: Antolin Pemberton MD, Phone: [phone] Tanvir Felix MD LAB - CHEMISTRY ELLIE ESPINO [facility]) [address] [place] [address] * COMPREHENSIVE METABOLIC PANEL (06/15/2019 10:47 PM [facility]) Only the most recent of2 resultswithin the time period is included. [facility] Glucose 99 70 - 105 mg/dL 06/15/2019 11:12 PM [facility] Sodium 138 136 - 145 mmol/L 06/15/2019 11:12 PM [facility] Potassium 4.3 3.5 - 4.7 mmol/L 06/15/2019 11:12 PM [facility] Chloride 102 98 - 107 mmol/L 06/15/2019 11:12 PM [facility] CO2 28 23 - 31 mmol/L 06/15/2019 11:12 PM [facility] Calcium 9.8 8.4 - 10.4 mg/dL 06/15/2019 11:12 PM [facility] Anion Gap 8 8 - 16 mmol/L 06/15/2019 11:12 PM [facility] BUN 9 7 - 18.7 mg/dL 06/15/2019 11:12 PM [facility] Creatinine 0.91 0.57 - 1.11 mg/dL 06/15/2019 11:12 PM [facility] Alkaline Phosphatase 110 40 - 150 U/L 06/15/2019 11:12 PM BEHAVIORAL HEALTH ASSISTANT [facility] ALT 6 0 - 61 U/L 06/15/2019 11:12 PM BEHAVIORAL HEALTH ASSISTANT [facility] AST 11 5 - 34 U/L 06/15/2019 11:12 PM BEHAVIORAL HEALTH ASSISTANT [facility] Protein Total 8.3 6.4 - 8.3 gm/dL 06/15/2019 11:12 PM BEHAVIORAL HEALTH ASSISTANT [facility] Albumin 4.0 3.5 - 5.2 gm/dL 06/15/2019 11:12 PM BEHAVIORAL HEALTH ASSISTANT [facility] Bilirubin Total 0.6 0.2 - 1.0 mg/dL 06/15/2019 11:12 PM BEHAVIORAL HEALTH ASSISTANT [facility] eGFR by MDRD >60 >60 mL/min/1.7 3m2 06/15/2019 11:12 PM BEHAVIORAL HEALTH ASSISTANT [facility] eGFR by MDRD >60 >60 mL/min/1.7 3m2 06/15/2019 11:12 PM BEHAVIORAL HEALTH ASSISTANT [facility] Blood BLOOD SPECIMEN / Unknown Venipuncture / Unknown 06/15/2019 10:47 PM BEHAVIORAL HEALTH ASSISTANT 06/15/2019 10:51 PM BEHAVIORAL HEALTH ASSISTANT Tanvir Felix MD LAB - CHEMISTRY ELLIE ESPINO Performing Organization Address City/[facility] Co de Phone Number [facility] [address] [place] [address] * MAGNESIUM BLOOD (06/15/2019 10:47 PM BEHAVIORAL HEALTH ASSISTANT) [facility] Magnesium 2.1 1.6 - 2.6 mg/dL 06/15/2019 11:12 PM BEHAVIORAL HEALTH ASSISTANT [facility] Blood BLOOD SPECIMEN / Unknown Venipuncture / Unknown 06/15/2019 10:47 PM BEHAVIORAL HEALTH ASSISTANT 06/15/2019 10:51 PM BEHAVIORAL HEALTH ASSISTANT Tanvir Felix MD LAB - CHEMISTRY ELLIE ESPINO Performing Organization Address [facility]/ZIP Co de Phone Number [facility] [address] [place] [address] * (ABNORMAL) HEPATITIS SCREEN ACUTE (06/15/2019 10:47 PM BEHAVIORAL HEALTH ASSISTANT) Pathologist [facility] HAV Antibody IgM Non Reactive Non Reactive 06/15/2019 11:39 PM BEHAVIORAL HEALTH ASSISTANT [facility] HBsAg Non Reactive Non Reactive 06/15/2019 11:39 PM BEHAVIORAL HEALTH ASSISTANT [facility] HBc Antibody IgM Non Reactive Non Reactive 06/15/2019 11:39 PM BEHAVIORAL HEALTH ASSISTANT [facility] HCV Antibody Screen REACTIVE(A) Non Reactive 06/15/2019 11:39 PM BEHAVIORAL HEALTH ASSISTANT [facility] Blood BLOOD SPECIMEN / Unknown Venipuncture / Unknown 06/15/2019 10:47 PM BEHAVIORAL HEALTH ASSISTANT 06/15/2019 10:51 PM BEHAVIORAL HEALTH ASSISTANT Narrative [facility] - 06/15/2019 11:39 PM BEHAVIORAL HEALTH ASSISTANT A reactive result is consistent with current HCV infection or past HCV infection that has been resolved. Reflex testing to Hepatitis C Virus RNA Quantitative, Real Time PCR will be performed. See separate report. Tanvir Felix MD LAB - CHEMISTRY ELLIE ESPINO [facility] [address] [id number] * FENTANYL URINE (06/14/2019 4:28 PM BEHAVIORAL HEALTH ASSISTANT) Fentanyl >100.0 ng/mL 06/28/2019 2:08 PM BEHAVIORAL HEALTH ASSISTANT [facility] ([facility]) Comment:REFERENCE RANGE: NOT ESTABLISHED Norfentanyl Comment ng/mL 06/28/2019 2:08 PM BEHAVIORAL HEALTH ASSISTANT [facility] ([facility]) Comment: >2000.0 Norfentanyl is an expected metabolite of fentanyl. REFERENCE RANGE: NOT ESTABLISHED Sufentanil Negative ng/mL 06/28/2019 2:08 PM BEHAVIORAL HEALTH ASSISTANT [facility] ([facility]) Comment:REFERENCE RANGE: NOT ESTABLISHED Alfentanil Negative ng/mL 06/28/2019 2:08 PM BEHAVIORAL HEALTH ASSISTANT [facility] ([facility]) Comment:REFERENCE RANGE: NOT ESTABLISHED Norsufentanil Negative ng/mL 06/28/2019 2:08 PM BEHAVIORAL HEALTH ASSISTANT [facility] ([facility]) Comment:REFERENCE RANGE: NOT ESTABLISHED Acetyl Fentanyl Comment NEGATIVE ng/mL 06/28/2019 2:08 PM BEHAVIORAL HEALTH ASSISTANT [facility] ([facility]) Comment:Unable to complete t esting due to unknown interference. Acetyl Norfentanyl Negative NEGATIVE ng/mL 06/28/2019 2:08 PM BEHAVIORAL HEALTH ASSISTANT [facility] ([facility]) Comment: This test was developed and its performance characteristics determined by [facility]. It has not been cleared or approved by the Food and Drug Administration. Urine URINE / Unknown Collection / Unknown 06/14/2019 4:28 PM BEHAVIORAL HEALTH ASSISTANT 06/14/2019 4:40 PM BEHAVIORAL HEALTH ASSISTANT Narrative [facility] ([facility]) - 06/28/2019 2:08 PM BEHAVIORAL HEALTH ASSISTANT Performed at: - [facility] [address] [phone] Outside Sales Representative Insurance: Naty Devi [facility], Phone: [phone] Tanvir Felix MD LAB - URINE CHEMISTR Y ORDERABLES [facility] ([facility]) [address] [place] [address] * (ABNORMAL) DRUG SCREEN TOX URINE PANEL (06/14/2019 4:28 PM BEHAVIORAL HEALTH ASSISTANT) [facility] Amphetamines Screen Urine Not detected Not detected 06/14/2019 4:55 PM [facility] Barbiturates Screen Urine Not detected Not detected 06/14/2019 4:55 PM [facility] Benzodiazepines Screen Urine Not detected Not detected 06/14/2019 4:55 PM [facility] Cannabinoids Screen Urine Not detected Not detected 06/14/2019 4:55 PM [facility] Cocaine Screen Urine Not detected Not detected 06/14/2019 4:55 PM [facility] Fentanyl Urine Detected(A) Not detected 06/14/2019 4:55 PM [facility] Methadone Screen Urine Not detected Not detected 06/14/2019 4:55 PM [facility] Opiate Screen Urine Not detected Not detected 06/14/2019 4:55 PM [facility] Phencyclidine Screen Urine Detected(A) Not detected 06/14/2019 4:55 PM [facility] Urine URINE / Unknown Collection / Unknown 06/14/2019 4:28 PM BEHAVIORAL HEALTH ASSISTANT 06/14/2019 4:40 PM BEHAVIORAL HEALTH ASSISTANT Narrative [facility] - 06/14/2019 4:55 PM [facility] This drug screen is designed for MEDICAL purposes only. It is not to be used for legal purposes, including but not limited to worker's comp, police investigations, occupational issues, child custody, etc. Any positive result is only presumptive and must be confirmed with a separate confirmatory test ordered by the physician. Drug Screening Test Cutoff Values: AMPHETAMINES 1000 ng/mL BARBITURATES 200 ng/mL BENZODIAZEPINES 200 ng/mL CANNABINOIDS(THC) 50 ng/mL COCAINE 300 ng/mL FENTANYL 1 ng/mL METHADONE 300 ng/mL OPIATES 300 ng/mL PHENCYCLIDINE(PCP) 25 ng/mL Tanvir Felix MD LAB - URINE CHEMISTR Y ORDERABLES [facility] [address] [id number] * VANCOMYCIN LEVEL TROUGH (05/10/2017 9:12 AM BEHAVIORAL HEALTH ASSISTANT) Only the most recent of3 resultswithin the time period is included. Vancomycin Trough 17.6 10.0 - 20.0 mcg/mL [facility] Blood specimen (specimen) BLOOD SPECIMEN / Unknown 05/10/2017 9:12 AM BEHAVIORAL HEALTH ASSISTANT 05/10/2017 9:52 AM BEHAVIORAL HEALTH ASSISTANT Tasha Dugan MD LAB - CHEMISTRY ELLIE ESPINO [address] [phone] * (ABNORMAL) ERYTHROCYTE SEDIMENTATION RATE (05/04/2017 6:28 PM CDT) Erythrocyte Sedimentation Rate Westergren 62(H) 0 - 20 MM/HR [facility] Blood specimen (specimen) BLOOD SPECIMEN / Unknown 05/04/2017 6:28 PM CDT 05/04/2017 6:41 PM CDT Tasha Dugan MD LAB - HEMATOLOGY ORD ERABLES [address] [phone] * CULTURE BLOOD (05/04/2017 7:56 AM CDT) Only the most recent of2 resultswithin the time period is included. Culture Blood No Growth at 5 days [facility] Blood specimen (specimen) 05/04/2017 7:56 AM CDT 05/04/2017 7:56 AM CDT Tasha Dugan MD LAB - MICROBIOLOGY O RDERABLES [address] [phone] * (ABNORMAL) C-REACTIVE PROTEIN (05/04/2017 7:55 AM CDT) C-Reactive Protein 27.5(H) <=0.5 mg/dL [facility] Blood specimen (specimen) BLOOD SPECIMEN / Unknown 05/04/2017 7:55 AM CDT 05/04/2017 7:55 AM CDT Tasha Dugan MD LAB - CHEMISTRY ORDE RABLES Performing Organization Address [facility] Co de Phone Number [address] [phone] * XR CHEST 2VW (05/03/2017 11:04 PM CDT) Anatomical Region Laterality Modality Chest Other Impressions 05/04/2017 3:22 PM CDT IMPRESSION: Left basilar opacity may represent atelectasis and/or airspace disease. Small left pleural effusion is present. There is no right pleural effusion or pneumothorax. The cardiomediastinal silhouette is normal. The visible bony thorax is intact. Dictated by Ivis Lan MD (assistant to the president). I, Dr. GIA COLBERT M.D. have personally reviewed and interpreted this examination/study. This report was electronically signed by GIA COLBERT M.D. on 05/04/2017 3:22 PM . Narrative 05/04/2017 3:22 PM CDT EXAMINATION: XR CHEST PA AND LATERAL HISTORY: cough, sputum production COMPARISON: No prior study is available for comparison. FINDINGS/ Procedure Note Gia Colbert MD - 10/02/2017 EXAMINATION: XR CHEST PA AND LATERAL HISTORY: cough, sputum production COMPARISON: No prior study is available for comparison. FINDINGS/ IMPRESSION IMPRESSION: Left basilar opacity may represent atelectasis and/or airspace disease.Small left pleural effusion is present. There is no right pleural effusionor pneumothorax. The cardiomediastinal silhouette is normal. The visiblebony thorax is intact. Dictated by Ivis Lan MD (assistant to the president). Dr. GIA [place] M.D. have personally reviewed and interpreted thisexamination/study. This report was electronically signed by GIA COLBERT M.D. on 05/04/20173:22 PM . Tasha Dugan MD DIAGNOSTIC IMAGING O RDERABLES * CT ANKLE RIGHT W CONTRAST (05/03/2017 11:00 PM CDT) Anatomical Region Laterality Modality Lower Extremity Other Impressions 05/04/2017 8:03 AM CDT IMPRESSION: 1. Small collection containing fluid and gas in communication with the superficial skin at the medial ankle. This may represent an abscess with ulcer, and/or location of incision and drainage. 2. diffuse ankle and dorsal foot cellulitis. 3. No CT evidence of osteomyelitis. Dictated by Clifton Hicks MD (assistant to the president). I, Dr. JARRELL DINERO MD have personally reviewed and interpreted this examination/study. This report was electronically signed by JARRELL DINERO MD on 05/04/2017 8:03 AM . Narrative 05/04/2017 8:03 AM CDT EXAMINATION: Computed tomography (CT) of the right ankle with contrast HISTORY: Right ankle cellulitis, concern for septic joint. TECHNIQUE: CT of the right ankle was performed following the uneventful administration of 100 mL Omnipaque 350 intravenous contrast according to standard protocol. COMPARISON: No prior study is available for comparison. FINDINGS: The toes are not fully included on the images. There is diffuse soft tissue swelling at the ankle and along the dorsum of the foot. Small collection of fluid containing gas and communication with the superficial skin is noted along the medial ankle, and may represent an abscess, ulcer, and/or location of incision and drainage. This measures approximately 1.3 x 1.0 cm in the axial plane (series 4 image 40) and 2 cm craniocaudal (series 5 image 38). No definite extension to the joint space is identified. There is narrowing and luminal irregularity of a vein which passes through the subcutaneous tissues at the medial aspect of ankle in the region of inflammation compatible with phlebitis/thrombophlebitis (series 6 image 32-30, series 4 image 38-52. No acute fracture or dislocation is identified. No cortical destruction or focal demineralization is seen to suggest osteomyelitis. No joint effusion is present. Procedure Note Jarrell Dinero MD - 10/02/2017 EXAMINATION: Computed tomography (CT) of the right ankle with contrast HISTORY: Right ankle cellulitis, concern for septic joint. TECHNIQUE: CT of the right ankle was performed following the uneventfuladministration of 100 mL Omnipaque 350 intravenous contrast according tostandard protocol. COMPARISON: No prior study is available for comparison. FINDINGS: The toes are not fully included on the images. There is diffuse softtissue swelling at the ankle and along the dorsum of the foot. Smallcollection of fluid containing gas and communication with the superficialskin is noted along the medial ankle, and may represent an abscess, ulcer, and/or location of incision and drainage.This measures approximately 1.3 x 1.0 cm in the axial plane (series 4image 40) and 2 cm craniocaudal (series 5 image 38). No definiteextension to the joint space is identified. There is narrowing and luminal irregularity of a vein which passesthrough the subcutaneous tissues at the medial aspect of ankle in theregion of inflammation compatible with phlebitis/thrombophlebitis (series6 image 32-30, series 4 image 38-52. No acute fracture or dislocation is identified. No cortical destruction orfocal demineralization is seen to suggest osteomyelitis. No joint effusionis present. IMPRESSION IMPRESSION: 1. Small collection containing fluid and gas in communication with thesuperficial skin at the medial ankle. This may represent an abscess withulcer, and/or location of incision and drainage. 2. diffuse ankle and dorsal foot cellulitis. 3. No CT evidence of osteomyelitis. Dictated by Clifton Hicks MD (assistant to the president). I, Dr. JARRELL DINERO MD have personally reviewed and interpreted thisexamination/study. This report was electronically signed by JARRELL DINERO MD on05/04/2017 8:03 AM . Tasha Dugan MD CT ORDERABLES * XR ANKLE RIGHT 3VW OR MORE (05/03/2017 8:45 PM CDT) Anatomical Region Laterality Modality Lower Extremity Other Impressions 05/04/2017 3:17 PM CDT IMPRESSION: No acute fracture or dislocation identified. Diffuse soft tissue swelling is present about the ankle with small volume gas in the soft tissues medial to the medial malleolus. Dictated by Jose Velasquez MD (assistant to the president). Dr. GIA [place] M.D. have personally reviewed and interpreted this examination/study. This report was electronically signed by GIA COLBERT M.D. on 05/04/2017 3:17 PM . Narrative 05/04/2017 3:17 PM CDT EXAMINATION: PX ANKLE RIGHT 3+ VW HISTORY: Eval for abscess and septic joint COMPARISON: No prior study is available for comparison. FINDINGS: The osseous structures are intact and well aligned without acute fracture or dislocation. A well-corticated osseous fragment is identified adjacent to the lateral malleolus, likely representing accessory ossicle versus sequela of prior trauma. The ankle mortise is intact. Bone density and texture are normal. Diffuse soft tissue swelling is seen about the ankle. Small volume soft tissue gas is identified medial to the medial malleolus. Procedure Note Gia Colbert MD - 10/02/2017 EXAMINATION: PX ANKLE RIGHT 3+ VW HISTORY: Eval for abscess and septic joint COMPARISON: No prior study is available for comparison. FINDINGS: The osseous structures are intact and well aligned without acute fractureor dislocation. A well-corticated osseous fragment is identified adjacentto the lateral malleolus, likely representing accessory ossicle versussequela of prior trauma. The ankle mortise is intact. Bone density and texture are normal. Diffuse softtissue swelling is seen about the ankle. Small volume soft tissue gas isidentified medial to the medial malleolus. IMPRESSION IMPRESSION: No acute fracture or dislocation identified. Diffuse soft tissue swelling is present about the ankle with small volumegas in the soft tissues medial to the medial malleolus. Dictated by Jose Velasquez MD (assistant to the president). Dr. GIA [place] M.D. have personally reviewed and interpreted thisexamination/study. This report was electronically signed by GIA COLBERT M.D. on 05/04/20173:17 PM . Tasha Dugan MD DIAGNOSTIC IMAGING O RDERABLES * ECHO W DOPPLER AND COLOR FLOW (05/03/2017 12:00 AM CDT) Anatomical Region Laterality Modality Other 05/03/2017 Tasha Dugan MD ECHOCARDIOGRAPHY RAD IANT Care Teams Beverage Server Relationship Specialty Start Date End Date Marina Cerna MD [address] [place] [address] [place] [address] PCP - General Family Medicine 11/12/16
[2024-09-16 23:17] VITALS: BP 125/92; PULSE 75; RESP 18; TEMP 36.6; O2SAT 98
--- NOTE | 2024-09-17 00:28 | PC.NURSE ---
Pt ambulatory to triage desk demanding this RN to call xray to get imaging of her ankle and ribs. This RN educated pt on protocols of seeing provider before she can get imagining completed. Pt then threw urine sample at this RN and started yelling fuck this hospital I will go somewhere else . Pt was ambulatory to grab her belongings and ambulatory out of dept. Security contacted by this RN and asked to come to triage desk.
--- OUTSIDE RECORDS SUMMARY | 2024-09-17 00:41 | XMS_ITS | Continuity of Care Document ---
Author Organization [facility] Address [address] [place] [address] Phone Care Team Providers Care Pan Pusher Name Role Phone Sergio Dugan MD Unavailable Unavailable Advance Directives Directive Yes / No Effective Date File Name No Information Encounters Encounter Description Practice Location Reason(s) For Visit Diagnoses Date Provider Providers Copied on Encounter [facility], [address], [place], [place], [id number], tel:[phone] [facility] Ne No Information [facility]. [address] [place] [address], [address], [place], [place], [id number], . tel:[phone] Referring Provider: Sergio Dugan, [address] [place] [address], [place], [address]. tel:[phone] Family History Family Member Type Diagnosis Age At Onset No Information Payers Payer name Insurance type Covered alliance party ID Authoriza timaged(s) [employer] CI [id number] Social History Type Description Quantity Date Captured [...]
--- OUTSIDE RECORDS SUMMARY | 2024-09-17 00:41 | XMS_ITS | Clinical Summary ---
Author Organization [facility] Care Team Providers Care Community Health Specialist Name Role Phone Unavailable Primary Care Provider [...]
--- OUTSIDE RECORDS SUMMARY | 2024-09-17 00:41 | XMS_ITS | CONTINUITY OF CARE DOCUMENT ---
Author Name alfreda gant Address Unknown Organization [facility] Address [address] [place] [address] [address] [place] [address] Phone [phone] Care Team Providers Care Vice President Quality Name Role Phone alfreda gant Unavailable Unavailable
--- OUTSIDE RECORDS SUMMARY | 2024-09-17 00:41 | XMS_ITS | Clinical Summary ---
Author Organization [facility] Address [address] [place] [address] Care Team Providers Care Alining Inspector Name Role Phone Miscellaneous, Not In File Unavailable Unava claireable Misti Leslie Unavailable Unavailable Sagrario Devi NP Primary Care Provider [phone] Allergies Active Allergy Reactions Criticality Noted Date [...] Pt states she had an appt at [facility] to establish methadone treatment, but missed it [...] . Pt instructed to follow up with [facility], pt agreed. Narcan prescribed. Walker also ordered [...] seen by cardiology, had prior admission to [facility] found to have CHF with EF of 20%, repeat TTE 07/2022 at follow up showed normal systolic function, cardiology felt likely had Takotsubo cardiomyopathy. -Unclear if patient is compliant with GDMT, will continue while inpatient. 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 This may represent current or past HCV infection. Supplemental molecular testing will be automatically performed to determine current infection status in accordance with current CDC screening recommendations. Current interpretive data was last revised on 22 HepBsAg Nonreactive Nonreactive [facility] Blood 10/16/2022 10:1 4 PM CDT 10/16/2022 11:23 PM CDT us Tamara Garcia NP LAB MICROBIOLOGY - G ENERAL ORDERABLES Final Result [facility] Department [place] [address] from Last 3 Months or Most Recently Relevant to Health Maintenance Insurance [facility] Advance Directives For more information, please contact: [phone] * Full Code (Latest Code Status on [...] 4:55 PM 01/24/2021 9:55 PM Care Teams Alining Inspector Relationship Specialty Start Date End Date Sagrario Devi NP [address] [place] [address] PCP - General Family Practice 03/03/24 Miscellaneous, Not In File 10/27/20 Misti Leslie Public Safety Director Addiction Medicine 10/24/20
--- OUTSIDE RECORDS SUMMARY | 2024-09-17 00:41 | XMS_ITS | Encounter Summary ---
Author Organization [facility] Address [address] [place] [address] Care Team Providers Care Technologist Development Name Role Phone Miscellaneous, Not In File Unavailable Unava claireable Misti Leslie Unavailable Unavailable Lee Bright MD Primary Care Provider + Phillip Jeff MD Primary Care Prov ider Sagrario Devi NP Primary Care Provider [phone] Encounter Details Date Type Department Care Team (Late st Contact Info) Description 12/18/2021 Documentation [facility] Warm Hand Off Program [address], [place] [phone] Heather Isbell Social History Tobacco Use Types [...] on file 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 Author Attend [facility] No Shelby Kirby Note: Pt will complete [...] documented as of this encounter Care Teams Technologist Development Relationship Specialty Start Date End Date Lee Bright MD [address] [place] [address] [place] [address] PCP - General Family Medicine 12/16/21 05/08/22 Phillip Jeff MD [address] [place] [address] PCP - General Family Medicine 11/20/22 03/02/24 Sagrario Devi NP [address] [place] [address] PCP - General Family Practice 03/03/24 Miscellaneous, Not In File 10/27/20 Misti Leslie Batch Plant Operator Addiction Medicine 10/24/20 documented as of this encounter
--- OUTSIDE RECORDS SUMMARY | 2024-09-17 00:41 | XMS_ITS | Patient Health Record ---
Author Organization [facility] Address [address] [place] [address] Care Team Providers Care Translator Interpreter Name Role Phone Joanna Donovan Primary Care Provider [phone] Allergies Allergen (clinical drug ingredient) Drug/Non Drug Allergy documented on EMR Reaction Allergy Type Onset Date Status amoxicillin / clavulanate Augmentin rash Drug Allergy Active erythromycin Erythromycin rash Drug Allergy A ctive tetracycline Tetracycline HCl rash Drug Allergy Active Compazine coma Drug Allergy Active doxycycline Doxycycline rash Drug Allergy Act king Reason For Referral No Information Medications Medication SIG (Take, Route, Frequency, Duration) Notes Start Date End Date Status hydrOXYzine HCl 100 MG 1 tablet as needed Orally every 4 hours per protocol Active Clindamycin HCl 300 MG 1 capsule Orally every 8 hrs for 07 days 08/10/2017 Not-Taking tiZANidine HCl 4 MG 2 tablet Orally every 6 hours per protocol Active Suboxone 4-1 MG 1 film under the tongue and allow to dissolve Sublingual twice a day for 7 days 11/25/2017 Not-Taking Thiamine HCl 100 MG 1 tablet Orally Once a day per protocol Active Remeron 45 MG 1 tablet at bedtime Orally Once a day Not-Taking Folic Acid 1 MG 1 tablet Orally Once a day Active hydrALAZINE HCl 100 MG Orally hold while detox Active Divalproex Sodium 125 MG Orally Active ALPRAZolam 1 MG 1 tablet Orally Twice a day hold while detox Active Zofran 8 MG 1 tablet Orally once for 1 days 12/30/2017 Active hydrALAZINE HCl 50 MG 1 tablet with food Orally Three times a day hold while detox Active hydrOXYzine HCl 50 MG 1 tablet Orally once for 1 days 12/30/2017 Active Multivitamin - Orally Activ e cloNIDine HCl 0.1 MG 1 tablet at bedtime Orally Once a day Active Gabapentin 600 MG 1 tablet Orally Once a day per protocol Active Gabapentin 300 MG 1 capsule before bedtime Orally Three times a day per protocol Active Social History Tobacco Use: Social History Observation Description Date Details (start date - stop date) Current Smoker NA - NA Dont use, Tobacco Use/Smoking Question Answer Notes Are you a current smoker How often do you smoke cigarettes? every day Are you interested in quitting? Not ready to krystyna t Additional Findings: Tobacco User Heavy cigarett e smoker (20-39 cigs/day) Problems Problem Type SNOMED Code ICD Code Onset Dates Problem Status W/U Status Risk Notes Problem 72069997 Tobacco dependence (F17.200) Active confirmed Problem 00300971 Substance abuse (F19.10) Active confirmed Problem 63856645 Anxiety (F41.9) Active confirmed Problem 679672345 Bipolar affective disorder, currently depressed, moderate (F31.32) Active confirmed Problem Opioid dependence (78905986) Opioid use disorder, severe (F11.20) Active confirmed Plan Of Treatment No Information Insurance Providers Payer Name Payer Address Payer Phone Subscriber Number Group Number Insured Name Patient Relationship to Insured Coverage Start Date Coverage End Date [facility] [address] [address] [place] [phone] [id number] Sheri Dunne Self - patient is the insured 8 Medical (General) History Medical History History ICD Code heroin use disorder hepatitis C Lupus Fibromyalgia ovarian cancer - hysterectomy 2012 non specific non-hodgkins lymphoma Surgical History Surgery Date(Month/Year) Partial Hysterectomy left ovary 2012
--- OUTSIDE RECORDS SUMMARY | 2024-09-17 00:42 | XMS_ITS | Clinical Summary ---
Author Organization [facility] Address [address] [place] [address] Care Team Providers Care Box Spring Frame Builder Name Role Phone Unavailable Primary Care Provider [...] Documents on File Type Date Recorded Patient Oracle Sql Developer Expl anation Advance Directives and Living Will [...]
--- OUTSIDE RECORDS SUMMARY | 2024-09-17 00:42 | XMS_ITS | Patient Health Summary ---
Author Organization [email or web address] Address [address] [place] [address] Care Team Providers Care Utilization Management Um Nurse Name Role Phone Marina Cerna MD Primary Care Provider [phone] Note from [facility],non-owned Affiliates and Associated Physician Practices is amultiple site organization consisting of ambulatory clinics and hospital sitesin [place] and [place]. This disclosure is being madepursuant to the Care Everywhere program and may not contain all information available regarding this patient. Last updated 18.[facility] Allergies * Augmentin * Prochlorperazine * Contrast-Iodinated [...] 36.6 C (97.9 F) 06/16/2019 8:01 AM [employer]PER[employer] Respiratory Rate 19 10/14/2020 5:00 PM CDT [...] PM CDT) ABO 10/14/2020 5:01 PM CDT [facility] Rh Type 10/14/2020 5:01 PM CDT [facility] Typem 10/14/2020 5:01 PM CDT [facility] Interpretation 10/14/2020 5:01 PM CDT [facility] Blood BLOOD SPECIMEN / Unknown Venipuncture / Unknown 10/14/2020 3:54 PM CDT 10/14/2020 3:59 PM CDT Narrative [facility] - 10/14/2020 5:01 PM CDT Re-type confirmed per [facility] Blood Bank policies & procedures. Results documented in department. Provider Unknown LAB - BLOOD BANK ORD ERABLES [facility] [address] [place] [address], [facility] [phone] * XR TIBIA FIBULA LEFT 2VW (10/14/2020 3:06 PM CDT) Anatomical Region Laterality Modality Lower Extremity Radiographic Sirena ging 10/14/2020 3:02 PM CDT Impressions 10/15/2020 10:33 AM CDT Impression: No acute osseous injury of the left tibia, fibula, or knee. Report dictated by Blade Gutierrez MD (president and cmo). Dr. JANETTE Allen have personally reviewed and [...] knee. Report dictated by Blade Gutierrez MD (president and cmo). Dr. JANETTE Allen have personally reviewed and [...] knee. Report dictated by Blade Gutierrez MD (president and cmo). Dr. JANETTE Allen have personally reviewed and [...] knee. Report dictated by Blade Gutierrez MD (president and cmo). Dr. JANETTE Allen have personally reviewed and interpreted this examination/study. This report was electronically signed by JANETTE JACKSON on 10/15/2020 10:33 AM . Deacon David Loera MD DIAGNOSTIC IMAGING ORDERABLES * PTT [facility] (10/14/2020 2:45 PM CDT) Pathologist [facility] APTT 34.6 23.0 - 38.4 Seconds 10/14/2020 3:08 PM CDT [facility] Comment:Suggested therapeuti c range for full dose I.V. unfractionated heparin therapy for venous thromboembolism is 71 to 109 seconds. Blood BLOOD SPECIMEN / Unknown 10/14/2020 2:45 PM CDT 10/14/2020 2:58 PM CDT Deacon David Loera MD LAB - COAGULATION O RDOTF Performing Organization Address City/[facility]/ZIP Co de Phone Number [address] [address], [facility] [phone] * PT-INR [facility] (10/14/2020 2:45 PM CDT) Pathologist [facility] PT 12.1 12.1 - 14.8 Seconds 10/14/2020 3:07 PM CDT [facility] INR 0.9 See Comment 10/14/2020 3:07 PM CDT [facility] Comment:The suggested therap eutic range for standard coumadin (warfarin) therapy is an INR of 2.0-3.0. For high-risk patients (Mechanical Mitral Valve Prosthesis, etc.), the suggested prophylactic therapeutic range is an INR of 2.5-3.5. Blood BLOOD SPECIMEN / Unknown 10/14/2020 2:45 PM CDT 10/14/2020 2:58 PM CDT Deacon David Loera MD LAB - COAGULATION O LASHAE [address] [address], [facility] [phone] * (ABNORMAL) DIFFERENTIAL MANUAL (10/14/2020 2:45 PM CDT) Only the most recent of5 resultswithin the time period is included. Pathologist [facility] WBC (corrected for NRBC) 11.5 10 3/uL 10/14/2020 3:24 PM [facility] Total Cell Count 100 10/14/2020 3:24 PM [facility] Neutrophils Absolute Manual 6.44 1.60 - 7.00 10 3/uL 10/14/2020 3:24 PM [facility] Comment:(BANDS+SEGS) x WBC = NEUT # (ANC) Lymphocyte Absolute Manual 3.80(H) 0.80 - 2.90 10 3/uL 10/14/2020 3:24 PM [facility] Monocytes Absolute Manual 0.58 0.14 - 0.66 10 3/uL 10/14/2020 3:24 PM [facility] Eosinophils Absolute Manual 0.35(H) 0.00 - 0.22 10 3/uL 10/14/2020 3:24 PM [facility] Basophil Absolute Manual 0.23(H) 0.00 - 0.06 10 3/uL 10/14/2020 3:24 PM [facility] Neutrophil % Manual 56 30 - 60 % 10/14/2020 3:24 PM [facility] Lymphocyte % Manual 33 20 - 45 % 10/14/2020 3:24 PM [facility] Monocytes % Manual 5 2 - 10 % 10/14/2020 3:24 PM [facility] Eosinophils % Manual 3 1 - 6 % 10/14/2020 3:24 PM [facility] Basophils % Manual 2 0 - 3 % 10/14/2020 3:24 PM [facility] Atypical Lymphocyte % Manual 1(H) 0 % 10/14/2020 3:24 PM [facility] Platelet Estimate Increased( A) Adequate 10/14/2020 3:24 PM [facility] RBC Morphology Normal 10/14/2020 3:24 PM [facility] Blood BLOOD SPECIMEN / Unknown 10/14/2020 2:45 PM CDT 10/14/2020 2:49 PM CDT Deacon David Loera MD LAB - HEMATOLOGY OR DERABLES Performing Organization Address City/State/[facility] Co de Phone Number [facility] [address] [place], [place] [id number] [phone] * (ABNORMAL) CBC W AUTO DIFFERENTIAL (10/14/2020 2:45 PM CDT) Only the most recent of14 resultswithin the time period is included. WBC 11.5(H) 3.5 - 10.5 10 3/uL 10/14/2020 2:55 PM [facility] RBC 5.56(H) 3.90 - 5.00 10 6/uL 10/14/2020 2:55 PM [facility] Hemoglobin 15.6(H) 12.0 - 15.5 g/dL 10/14/2020 2:55 PM [facility] Hematocrit 48.0(H) 35.0 - 45.0 % 10/14/2020 2:55 PM [facility] MCV 86.3 81.0 - 97.0 fL 10/14/2020 2:55 PM [facility] MCH 28.1 28.0 - 34.0 pg 10/14/2020 2:55 PM [facility] MCHC 32.5 32.0 - 36.0 g/dL 10/14/2020 2:55 PM [facility] Platelet Count 452(H) 150 - 400 10 3/uL 10/14/2020 2:55 PM [facility] RDW-SD 42.8 36.0 - 50.0 fL 10/14/2020 2:55 PM [facility] RDW-CV 13.5 11.2 - 14.8 % 10/14/2020 2:55 PM [facility] MPV 9.1(L) 9.3 - 12.8 fL 10/14/2020 2:55 PM [facility] nRBC Absolute 0.00 0 10 3/uL 10/14/2020 2:55 PM [facility] nRBC Auto 0.0 0 /100 WBC 10/14/2020 2:55 PM [facility] Blood BLOOD SPECIMEN / Unknown 10/14/2020 2:45 PM CDT 10/14/2020 2:49 PM CDT Deacon David Loera MD LAB - HEMATOLOGY OR DERABLES [facility] [address] [place] [address], [facility] [phone] * (ABNORMAL) BASIC METABOLIC PANEL (CALCIUM TOTAL) (10/14/2020 2:45 PM CDT) Only the most recent of6 resultswithin the time period is included. BUN 6(L) 7 - 26 mg/dL 10/14/2020 3:16 PM T [facility] Creatinine 0.9 0.6 - 1.2 mg/dL 10/14/2020 3:16 PM [facility] Sodium 140 136 - 145 mmol/L 10/14/2020 3:16 PM [facility] Potassium 3.9 3.5 - 4.5 mmol/L 10/14/2020 3:16 PM [facility] Chloride 97(L) 98 - 107 mmol/L 10/14/2020 3:16 PM [facility] CO2 32(H) 22 - 29 mmol/L 10/14/2020 3:16 PM [facility] Glucose 108 70 - 115 mg/dL 10/14/2020 3:16 PM [facility] Calcium 10.2 8.4 - 10.2 mg/dL 10/14/2020 3:16 PM [facility] Anion Gap 15 8 - 18 10/14/2020 3:16 PM [facility] BUN/Creatinine Ratio 7 7 - 23 10/14/2020 3:16 PM [facility] Osmolality Calculated 288 270 - 300 mOsm/kg 10/14/2020 3:16 PM [facility] eGFR >60 >60 mL/min/1.7 3 m2 10/14/2020 3:16 PM [facility] Blood BLOOD SPECIMEN / Unknown 10/14/2020 2:45 PM CDT 10/14/2020 2:49 PM CDT Deacon David Loera MD LAB - CHEMISTRY ORD ERABLES [address] [address], [facility] [phone] * ALCOHOL ETHYL BLOOD (10/14/2020 2:45 PM CDT) Interpretation Ethanol None Detected None Detected mg/dL 10/14/2020 3:16 PM CDT [facility] Comment:Ethanol levels less than 10 mg/dL are resulted as None detected . Blood BLOOD SPECIMEN / Unknown 10/14/2020 2:45 PM CDT 10/14/2020 2:49 PM CDT Deacon David Loera MD LAB - CHEMISTRY ORD ERABLES Performing Organization Address [facility] Co de Phone Number [address] [address], [facility] [phone] * CT CHEST ABDOMEN PELVIS W CONT [...] on 10/15/2020 8:[address] ANGIE lAlen have personally reviewed and interpreted this examination/study. [...] effect or midline shift is seen. The aannd-white matter differentiation is normal. There is vascular [...] CDT) Antibody Screen NEG 4:12 PM CDT [facility] ABO Rh O POS 10/14/2020 4:12 PM CDT [facility] Blood Bank BLOOD SPECIMEN / Unknown 10/14/2020 2:22 PM CDT 10/14/2020 2:49 PM CDT Deacon David Loera MD LAB - BLOOD BANK OR DERABLES [facility] [address] [place] [address], [facility] [phone] * XR PELVIS 1 OR 2VW (10/14/2020 1:44 PM CDT) Anatomical Region Laterality Modality Pelvis Radiographic Sirena ging 10/14/2020 2:04 PM CDT Impressions 10/15/2020 10:30 AM CDT Impression: No acute osseous injury. Report dictated by Blade Gutierrez MD (president and cmo). Dr. JANETTE Allen have personally reviewed and [...] injury. Report dictated by Blade Gutierrez MD (president and cmo). Dr. JANETTE Allen have personally reviewed and [...] process. Report dictated by Blade Gutierrez MD (president and cmo). Dr. JANETTE Allen have personally reviewed and [...] process. Report dictated by Blade Gutierrez MD (president and cmo). Dr. JANETTE Allen have personally reviewed and interpreted this examination/study. This report was electronically signed by JANETTE JACKSON on 10/15/2020 10:29 AM . Deacon David Loera MD DIAGNOSTIC IMAGING ORDERABLES * HIV-1 HIV-2 ANTIBODY + HIV P24 AG PANEL (06/15/2019 10:47 PM [employer]) HIV1/2 Ab + P24 Ag Non Reactive Non Reactive 06/15/2019 11:32 PM [employer]PER[employer] [facility] Blood BLOOD SPECIMEN / Unknown Venipuncture / Unknown 06/15/2019 10:47 PM [employer]PER[employer] 06/15/2019 10:51 PM [employer]PER[employer] Narrative [facility] - 06/15/2019 11:32 PM [employer]PER[employer] No Laboratory evidence of HIV infection. Tanvir Felix MD LAB - CHEMISTRY ELLIE ESPINO [facility] Organization Address City/State/ZIP Co de Phone Number [facility] [address] [place] [address] * HEPATITIS C RNA QUANTITATIVE (06/15/2019 10:47 PM [employer]PER[employer]OR) Pathologist [facility] Hepatitis C Virus Quantitation HCV Not Detected IU/mL 06/18/2019 12:06 AM [facility]) Test Information Comment 06/18/20 12:06 AM [facility]) Comment:The quantitative ran ge of this assay is 15 IU/mL to 100 million IU/mL. Blood BLOOD SPECIMEN / Unknown Venipuncture / Unknown 06/15/2019 10:47 PM [employer]PER[employer] 06/15/2019 11:34 PM [employer]PER[employer]OR Narrative [facility] ([facility]) - 06/18/2019 12:06 AM [employer] SUPERVISOR Performed at: [address] [id number] [employer]illing And Accounting Staff Assistant: Antolin Pemberton MD, Phone: [phone] Tanvir Felix MD LAB - CHEMISTRY ELLIE ESPINO [facility]) [address] [place] [address] * COMPREHENSIVE METABOLIC PANEL (06/15/2019 10:47 PM [facility]) Only the most recent of2 resultswithin the time period is included. [facility] Glucose 99 70 - 105 mg/dL 06/15/2019 11:12 PM [facility] Sodium 138 136 - 145 mmol/L 06/15/2019 11:12 PM [facility] Potassium 4.3 3.5 - 4.7 mmol/L 06/15/2019 11:12 PM [facility] Chloride 102 98 - 107 mmol/L 06/15/2019 11:12 PM [facility] CO2 28 23 - 31 mmol/L 06/15/2019 11:12 PM [facility] Calcium 9.8 8.4 - 10.4 mg/dL 06/15/2019 11:12 PM [facility] Anion Gap 8 8 - 16 mmol/L 06/15/2019 11:12 PM [facility] BUN 9 7 - 18.7 mg/dL 06/15/2019 11:12 PM [facility] Creatinine 0.91 0.57 - 1.11 mg/dL 06/15/2019 11:12 PM [facility] Alkaline Phosphatase 110 40 - 150 U/L 06/15/2019 11:12 PM [employer]PER[employer] [facility] ALT 6 0 - 61 U/L 06/15/2019 11:12 PM [employer] SUPER[employer] [facility] AST 11 5 - 34 U/L 06/15/2019 11:12 PM [employer] SUPER[employer] [facility] Protein Total 8.3 6.4 - 8.3 gm/dL 06/15/2019 11:12 PM [employer] SUPER[employer] [facility] Albumin 4.0 3.5 - 5.2 gm/dL 06/15/2019 11:12 PM [employer] SUPER[employer] [facility] Bilirubin Total 0.6 0.2 - 1.0 mg/dL 06/15/2019 11:12 PM [employer] SUPER[employer] [facility] eGFR by MDRD >60 >60 mL/min/1.7 3m2 06/15/2019 11:12 PM [employer] SUPER[employer] [facility] eGFR by MDRD >60 >60 mL/min/1.7 3m2 06/15/2019 11:12 PM B[employer] SUPER[employer]OR [facility] Blood BLOOD SPECIMEN / Unknown Venipuncture / Unknown 06/15/2019 10:47 PM B[employer] SUPERVISOR 06/15/2019 10:51 PM [employer] SUPERVISOR Tanvir Felix MD LAB - CHEMISTRY ELLIE ESPINO Performing Organization Address City/[facility] Co de Phone Number [facility] [address] [place] [address] * MAGNESIUM BLOOD (06/15/2019 10:47 PM B[employer] SUPERVISOR) [facility] Magnesium 2.1 1.6 - 2.6 mg/dL 06/15/2019 11:12 PM [employer] SUPER[employer] [facility] Blood BLOOD SPECIMEN / Unknown Venipuncture / Unknown 06/15/2019 10:47 PM B[employer] SUPERVISOR 06/15/2019 10:51 PM [employer] SUPERVISOR Tanvir Felix MD LAB - CHEMISTRY ELLIE ESPINO Performing Organization Address [facility]/ZIP Co de Phone Number [facility] [address] [place] [address] * (ABNORMAL) HEPATITIS SCREEN ACUTE (06/15/2019 10:47 PM B[employer] SUPERVISOR) Pathologist [facility] HAV Antibody IgM Non Reactive Non Reactive 06/15/2019 11:39 PM [employer] SUPERVISOR [facility] HBsAg Non Reactive Non Reactive 06/15/2019 11:39 PM B[employer]ING [employer] SUPERVIS[employer] [facility] HBc Antibody IgM Non Reactive Non Reactive 06/15/2019 11:39 PM [employer] SUPER[employer] [facility] HCV Antibody Screen REACTIVE(A) Non Reactive 06/15/2019 11:39 PM B[employer] SUPERVIS[employer] [facility] Blood BLOOD SPECIMEN / Unknown Venipuncture / Unknown 06/15/2019 10:47 PM B[employer] M[employer] SUPERVISOR 06/15/2019 10:51 PM B[employer]ING M[employer] SUPERVISOR Narrative [facility] - 06/15/2019 11:39 PM B[employer] SUPERVISOR A reactive result is consistent with current HCV infection or past HCV infection that has been resolved. Reflex testing to Hepatitis C Virus RNA Quantitative, Real Time PCR will be performed. See separate report. Tanvir Felix MD LAB - CHEMISTRY ELLIE ESPINO [facility] [address] [place] [id number] * FENTANYL URINE (06/14/2019 4:28 PM B[employer] SUPERVISOR) Fentanyl >100.0 ng/mL 06/28/2019 2:08 PM BLOOMING MILL SUPERVISOR [facility] ([facility]) Comment:REFERENCE RANGE: NOT ESTABLISHED Norfentanyl Comment ng/mL 06/28/2019 2:08 PM BLOOMING MILL SUPERVISOR [facility] Comment: >2000.0 Norfentanyl is an expected metabolite of fentanyl. REFERENCE RANGE: NOT ESTABLISHED Sufentanil Negative ng/mL 06/28/2019 2:08 PM B[employer]ING MILL SUPERVISOR [facility] Comment:REFERENCE RANGE: NOT ESTABLISHED Alfentanil Negative ng/mL 06/28/2019 2:08 PM BLOOMING MILL SUPERVISOR [facility] Comment:REFERENCE RANGE: NOT ESTABLISHED Norsufentanil Negative ng/mL 06/28/2019 2:08 PM BLOOMING MILL SUPERVISOR [facility] ([facility]) Comment:REFERENCE RANGE: NOT ESTABLISHED Acetyl Fentanyl Comment NEGATIVE ng/mL 06/28/2019 2:08 PM BLOOMING MILL SUPERVISOR [facility] ([facility]) Comment:Unable to complete t esting due to unknown interference. Acetyl Norfentanyl Negative NEGATIVE ng/mL 06/28/2019 2:08 PM BLOOMING MILL SUPERVISOR [facility] ([facility]) Comment: This test was developed and its performance characteristics determined by [facility]. It has not been cleared or approved by the Food and Drug Administration. Urine URINE / Unknown Collection / Unknown 06/14/2019 4:28 PM [employer] SUPERVISOR 06/14/2019 4:40 PM B[employer] MILL SUPERVISOR Narrative [facility] ([facility]) - 06/28/2019 2:08 PM B[employer]ING MILL SUPERVISOR Performed at: - [facility] [address] [id number] Billing And Accounting Staff Assistant: Naty Devi [facility], Phone: [phone] Tanvir Felix MD LAB - URINE CHEMISTR Y ORDERABLES [facility] ([facility]) [address] [place] [address] * (ABNORMAL) DRUG SCREEN TOX URINE PANEL (06/14/2019 4:28 PM BLOOMING MILL SUPERVISOR) [facility] Amphetamines Screen Urine Not detected Not detected 06/14/2019 4:55 PM [facility] Barbiturates Screen Urine Not detected Not detected 06/14/2019 4:55 PM [facility] Benzodiazepines Screen Urine Not detected Not detected 06/14/2019 4:55 PM [facility] Cannabinoids Screen Urine Not detected Not detected 06/14/2019 4:55 PM [facility] Cocaine Screen Urine Not detected Not detected 06/14/2019 4:55 PM [facility] Fentanyl Urine Detected(A) Not detected 06/14/2019 4:55 PM [facility] Methadone Screen Urine Not detected Not detected 06/14/2019 4:55 PM [facility] Opiate Screen Urine Not detected Not detected 06/14/2019 4:55 PM [facility] Phencyclidine Screen Urine Detected(A) Not detected 06/14/2019 4:55 PM [facility] Urine URINE / Unknown Collection / Unknown 06/14/2019 4:28 PM B[employer] M[employer] SUPERVISOR 06/14/2019 4:40 PM BLOOMING MILL SUPERVISOR Narrative [facility] - 06/14/2019 4:55 PM [facility] This drug screen is designed for MEDICAL [...] MD LAB - URINE CHEMISTR Y ORDERABLES [facility] [address] [place] [id number] * VANCOMYCIN LEVEL TROUGH (05/10/2017 9:12 AM B[employer]ING M[employer] SUPERVISOR) Only the most recent of3 resultswithin the time period is included. Vancomycin Trough 17.6 10.0 - 20.0 mcg/mL [facility] Blood specimen (specimen) BLOOD SPECIMEN / Unknown 05/10/2017 9:12 AM B[employer] MILL SUPERVISOR 05/10/2017 9:52 AM B[employer] MILL SUPERVISOR Tasha Dugan MD LAB - CHEMISTRY ELLIE ESPINO [address] [phone] * (ABNORMAL) ERYTHROCYTE SEDIMENTATION RATE (05/04/2017 6:28 PM CDT) Erythrocyte Sedimentation Rate Westergren 62(H) 0 - 20 MM/HR [facility] Blood specimen (specimen) BLOOD SPECIMEN / Unknown 05/04/2017 6:28 PM CDT 05/04/2017 6:41 PM CDT Tasha Dugan MD LAB - HEMATOLOGY ORD ERABLES [address] [phone] * CULTURE BLOOD (05/04/2017 7:56 AM CDT) Only the most recent of2 resultswithin the time period is included. Culture Blood No Growth at 5 days [facility] Blood specimen (specimen) 05/04/2017 7:56 AM CDT 05/04/2017 7:56 AM CDT Tasha Dugan MD LAB - MICROBIOLOGY O RDERABLES [address] [phone] * (ABNORMAL) C-REACTIVE PROTEIN (05/04/2017 7:55 AM CDT) C-Reactive Protein 27.5(H) <=0.5 mg/dL [facility] Blood specimen (specimen) BLOOD SPECIMEN / Unknown 05/04/2017 7:55 AM CDT 05/04/2017 7:55 AM CDT Tasha Dugan MD LAB - CHEMISTRY ORDE RABLES Performing Organization Address [facility] Co de Phone Number [address] [phone] * XR CHEST 2VW (05/03/2017 11:04 PM CDT) Anatomical Region Laterality Modality Chest Other Impressions 05/04/2017 3:22 PM CDT IMPRESSION: Left basilar opacity may represent atelectasis and/or airspace disease. Small left pleural effusion is present. There is no right pleural effusion or pneumothorax. The cardiomediastinal silhouette is normal. The visible bony thorax is intact. Dictated by Ivis Lan MD (president and cmo). I, Dr. GIA COLBERT M.D. have personally reviewed and interpreted this examination/study. This report was electronically signed by IGA COLBERT M.D. on 05/04/2017 3:22 PM . [...] is intact. Dictated by Ivis Lan MD (president and cmo). Dr. GIA Allen M.D. have personally reviewed [...] of osteomyelitis. Dictated by Clifton Hicks MD (president and cmo). I, Dr. JARRELL DINERO MD have personally [...] of osteomyelitis. Dictated by Clifton Hicks MD (president and cmo). I, Dr. JARRELL DINERO MD have personally [...] medial malleolus. Dictated by Jose Velasquez MD (president and cmo). Dr. GIA Allen M.D. have personally reviewed [...] medial malleolus. Dictated by Jose Velasquez MD (president and cmo). Dr. GIA Allen M.D. have personally reviewed and interpreted thisexamination/study. This report was electronically signed by GIA COLBERT M.D. on 05/04/20173:17 PM . Tasha Dugan MD DIAGNOSTIC IMAGING O RDERABLES * ECHO W DOPPLER AND COLOR FLOW (05/03/2017 12:00 AM CDT) Anatomical Region Laterality Modality Other 05/03/2017 Tasha Dugan MD ECHOCARDIOGRAPHY RAD IANT Care Teams Utilization Management Um Nurse Relationship Specialty Start Date End Date Marina Cerna MD [address] [place] [address] [place] [phone] PCP - General Family Medicine 11/12/16
--- OUTSIDE RECORDS SUMMARY | 2024-09-17 00:42 | XMS_ITS | Referral Summary ---
Author Organization [facility] Address [address] [place] [address] Care Team Providers Care Test Tube Maker Name Role Phone Marina Cerna MD Primary Care Provider [phone] Source Comments [facility],non-owned Affiliates and Associated Physician Practices is amultiple site organization consisting of ambulatory clinics and hospital sitesin [place], [place] and [place]. This disclosure is being madepursuant to the Care Everywhere program and may not contain all information available regarding this patient. Last updated 18.[facility] Allergies Active Allergy Reactions Criticality Noted Date [...] 36.6 C (97.9 F) 06/16/2019 8:01 AM WRAPPER SORTER Respiratory Rate 19 10/14/2020 5:00 PM CDT [...] HEPATITIS SCREEN ACUTE Routine 06/15/2019 10:47 PM WRAPPER SORTER HIV-1 HIV-2 ANTIBODY + HIV P24 AG PANEL Routine 06/15/2019 10:47 PM WRAPPER SORTER from Last 3 Months or Most Recently Relevant to Health Maintenance Results * HIV-1 HIV-2 ANTIBODY + HIV P24 AG PANEL (06/15/2019 10:47 PM WRAPPER SORTER) Pathologist [facility] HIV1/2 Ab + P24 Ag Non Reactive Non Reactive 06/15/2019 11:32 PM WRAPPER SORTER [facility] Blood BLOOD SPECIMEN / Unknown Venipuncture / Unknown 06/15/2019 10:47 PM WRAPPER SORTER 06/15/2019 10:51 PM WRAPPER SORTER Narrative [facility] - 06/15/2019 11:32 PM WRAPPER SORTER No Laboratory evidence of HIV infection. Tanvir Felix MD LAB - CHEMISTRY ELLIE ESPINO [facility] [address] [place] [address] * (ABNORMAL) HEPATITIS SCREEN ACUTE (06/15/2019 10:47 PM WRAPPER SORTER) HAV Antibody IgM Non Reactive Non Reactive 06/15/2019 11:39 PM WRAPPER SORTER [facility] HBsAg Non Reactive Non Reactive 06/15/2019 11:39 PM WRAPPER SORTER [facility] HBc Antibody IgM Non Reactive Non Reactive 06/15/2019 11:39 PM WRAPPER SORTER [facility] HCV Antibody Screen REACTIVE(A) Non Reactive 06/15/2019 11:39 PM WRAPPER SORTER [facility] Blood BLOOD SPECIMEN / Unknown Venipuncture / Unknown 06/15/2019 10:47 PM WRAPPER SORTER 06/15/2019 10:51 PM WRAPPER SORTER Narrative [facility] - 06/15/2019 11:39 PM WRAPPER SORTER A reactive result is consistent with current HCV infection or past HCV infection that has been resolved. Reflex testing to Hepatitis C Virus RNA Quantitative, Real Time PCR will be performed. See separate report. Tanvir Felix MD LAB - CHEMISTRY ELLIE ESPINO [facility] [address] [place] [address] from Last 3 Months or Most Recently Relevant to Health Maintenance Advance Directives Documents on File Type Date Recorded Patient City Comptroller Expl anation Adv Directive/Living Will/POA 11/12/2016 * Full Code (Latest Code Status on File) Date Activated Date Inactivated Comments 06/14/2019 3:49 PM 06/16/2019 11:57 AM Care Teams Test Tube Maker Relationship Specialty Start Date End Date Marina Cerna MD [address] [place] [id number] PCP - General Family Medicine 11/12/16
--- OUTSIDE RECORDS SUMMARY | 2024-09-17 00:42 | XMS_ITS | Clinical Summary ---
Author Organization [facility] Address [address] [place] [address] Care Team Providers Care Telecommunication Tower Technician Name Role Phone Marina Cerna MD Primary Care Provider [phone] Source Comments [facility],non-owned Affiliates and Associated Physician Practices is amultiple site organization consisting of ambulatory clinics and hospital sitesin [place], [place], [place] and [place]. This disclosure is being madepursuant to the Care Everywhere program and may not contain all information available regarding this patient. Last updated 18.[facility] Allergies Active Allergy Reactions Criticality Noted Date [...] 36.6 C (97.9 F) 06/16/2019 8:01 AM ASSOCIATE PROFESSOR OF LIBRARY MEDIA Respiratory Rate 19 10/14/2020 5:00 PM CDT [...] HEPATITIS SCREEN ACUTE Routine 06/15/2019 10:47 PM ASSOCIATE PROFESSOR OF LIBRARY MEDIA HIV-1 HIV-2 ANTIBODY + HIV P24 AG PANEL Routine 06/15/2019 10:47 PM ASSOCIATE PROFESSOR OF LIBRARY MEDIA from Last 3 Months or Most Recently Relevant to Health Maintenance Results * HIV-1 HIV-2 ANTIBODY + HIV P24 AG PANEL (06/15/2019 10:47 PM ASSOCIATE PROFESSOR OF LIBRARY MEDIA) HIV1/2 Ab + P24 Ag Non Reactive Non Reactive 06/15/2019 11:32 PM ASSOCIATE PROFESSOR OF LIBRARY MEDIA [facility] Blood BLOOD SPECIMEN / Unknown Venipuncture / Unknown 06/15/2019 10:47 PM ASSOCIATE PROFESSOR OF LIBRARY MEDIA 06/15/2019 10:51 PM ASSOCIATE PROFESSOR OF LIBRARY MEDIA Narrative [facility] - 06/15/2019 11:32 PM ASSOCIATE PROFESSOR OF LIBRARY MEDIA No Laboratory evidence of HIV infection. Tanvir Felix MD LAB - CHEMISTRY ELLIE ESPINO Performing Organization Address [facility] Co de Phone Number [facility] [address] [place] [address] * (ABNORMAL) HEPATITIS SCREEN ACUTE (06/15/2019 10:47 PM ASSOCIATE PROFESSOR OF LIBRARY MEDIA) HAV Antibody IgM Non Reactive Non Reactive 06/15/2019 11:39 PM ASSOCIATE PROFESSOR OF LIBRARY MEDIA [facility] HBsAg Non Reactive Non Reactive 06/15/2019 11:39 PM ASSOCIATE PROFESSOR OF LIBRARY MEDIA [facility] HBc Antibody IgM Non Reactive Non Reactive 06/15/2019 11:39 PM ASSOCIATE PROFESSOR OF LIBRARY MEDIA [facility] HCV Antibody Screen REACTIVE(A) Non Reactive 06/15/2019 11:39 PM ASSOCIATE PROFESSOR OF LIBRARY MEDIA [facility] Blood BLOOD SPECIMEN / Unknown Venipuncture / Unknown 06/15/2019 10:47 PM ASSOCIATE PROFESSOR OF LIBRARY MEDIA 06/15/2019 10:51 PM ASSOCIATE PROFESSOR OF LIBRARY MEDIA Narrative [facility] - 06/15/2019 11:39 PM ASSOCIATE PROFESSOR OF LIBRARY MEDIA A reactive result is consistent with current HCV infection or past HCV infection that has been resolved. Reflex testing to Hepatitis C Virus RNA Quantitative, Real Time PCR will be performed. See separate report. Tanvir Felix MD LAB - CHEMISTRY ELLIE ESPINO Performing Organization Address [facility] de Phone Number [facility] [address] [place] [address] from Last 3 Months or Most Recently Relevant to Health Maintenance Advance Directives Documents on File Type Date Recorded Patient Internal Carver Expl anation Adv Directive/Living Will/POA 11/12/2016 * Full Code (Latest Code Status on File) Date Activated Date Inactivated Comments 06/14/2019 3:49 PM 06/16/2019 11:57 AM Care Teams Telecommunication Tower Technician Relationship Specialty Start Date End Date Marina Cerna MD [address] [place] [id number] PCP - General Family Medicine 11/12/16
--- OUTSIDE RECORDS SUMMARY | 2024-09-17 00:42 | XMS_ITS | Referral Summary ---
Author Organization [facility] Address [address] [place] [address] Care Team Providers Care Senior Security Engineer Name Role Phone Miscellaneous, Not In File Unavailable Unava claireable Misti Leslie Unavailable Unavailable Sagrario Devi NP Primary Care Provider Allergies Active Allergy Reactions Criticality Noted Date [...] Pt states she had an appt at [facility] to establish methadone treatment, but missed it [...] . Pt instructed to follow up with [facility], pt agreed. Narcan prescribed. Walker also ordered [...] seen by cardiology, had prior admission to [facility] found to have CHF with EF of 20%, repeat TTE 07/2022 at follow up showed normal systolic function, cardiology felt likely had Takotsubo cardiomyopathy. -Unclear if patient is compliant with GDMT, will continue while inpatient. 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 Author Attend [facility] General No Shelby Kirby Note: Pt will complete an over the phone assessment with GEORGETTE on 10/31/20 at 0800. Procedures Procedure Name Priority Date/Time Associated Diagnosis Comments HEPATITIS PANEL, ACUTE Routine 10/16/2022 10:14 PM CDT from Last 3 Months or Most Recently Relevant to Health Maintenance Results * (ABNORMAL) Hepatitis panel, acute (10/16/2022 10:14 PM CDT) Hep A IgM Nonreactive Nonreactive [facility] Hep B core IgM Nonreactive Nonreactive [facility] Hep C Ab Reactive(A) Nonreactive [facility] Comment: Reactive for HCV antibodies. This may represent current or past HCV infection. Supplemental molecular testing will be automatically performed to determine current infection status in accordance with current CDC screening recommendations. Current interpretive data was last revised on 22 HepBsAg Nonreactive Nonreactive [facility] Blood 10/16/2022 10:1 4 PM CDT 10/16/2022 11:23 PM CDT Tamara Garcia NP LAB MICROBIOLOGY - G ENERAL ORDERABLES Final Result [facility] [place] [address] from Last 3 Months or Most Recently Relevant to Health Maintenance Insurance [facility] Advance Directives For more information, please contact: [phone] * Full Code (Latest Code Status on [...] 4:55 PM 01/24/2021 9:55 PM Care Teams Senior Security Engineer Relationship Specialty Start Date End Date Sagrario Devi NP [address] [place] [address] PCP - General Family Practice 03/03/24 Miscellaneous, Not In File 10/27/20 Misti Leslie Electronic Controls Repairer Supervisor Addiction Medicine 10/24/20
== END 2024-09-17 01:30 | disposition left against medical advice (07) ==
PROVIDERS: PCP Nurse Practitioner Family
DX: S99.911A Unspecified injury of right ankle, initial encounter (principal); W19.XXXA Unspecified fall, initial encounter
CPT/HCPCS: 99199

== ENCOUNTER 2025-01-12 16:32 | Outpatient (CLI) | payer OTHER, SELFPAY ==
--- OUTSIDE RECORDS SUMMARY | 2025-01-12 16:36 | XMS_ITS | Clinical Summary ---
Author Organization [facility] Care Team Providers Care Tie In Hand Name Role Phone Unavailable Primary Care Provider [...]
--- OUTSIDE RECORDS SUMMARY | 2025-01-12 16:36 | XMS_ITS | Patient Health Record ---
Author Organization [facility] Address [address] [place] [address] Care Team Providers Care Foot Setter Name Role Phone Joanna Donovan Primary Care Provider [phone] Allergies Allergen (clinical drug ingredient) Drug/Non Drug [...] 300 MG 1 capsule Orally every 8 hrs; Duration: 07 08/10/2017 Not-Taking tiZANidine HCl 4 MG 2 tablet Orally every 6 hours per protocol Active Suboxone 4-1 MG 1 film under the tongue and allow to dissolve Sublingual twice a day; Duration: 7 11/25/2017 Not-Taking Thiamine HCl 100 MG 1 [...] Active Zofran 8 MG 1 tablet Orally once; Duration: 12/30/2017 Active hydrALAZINE HCl 50 MG 1 tablet with food Orally Three times a day hold while detox Active hydrOXYzine HCl 50 MG 1 tablet Orally once; Duration: 12/30/2017 Active Multivitamin - Orally Activ e [...] Problem Status W/U Status Risk Notes Problem Tobacco dependence (08793490) Tobacco dependence (F17.200) Active confirmed Problem Substance abuse (3301275866) Substance abuse (F19.10) Active confirmed Problem Anxiety (89564676) Anxiety (F41.9) Active confirmed Problem Bipolar affective disorder, currently depressed, moderate (918312143) Bipolar affective disorder, currently depressed, moderate (F31.32) Active confirmed Problem Opioid dependence (37947038) Opioid use disorder, severe (F11.20) Active confirmed Plan Of Treatment No Information Insurance Providers Payer Name Payer Address Payer Phone Subscriber Number Group Number Insured Name Patient Relationship to Insured Coverage Start Date Coverage End Date [facility] [address] [address] [place] [address] [id number] Sheri Dunne Self - patient is the insured 8 Medical (General) History Medical History History ICD Code heroin use disorder hepatitis C Lupus Fibromyalgia ovarian cancer - hysterectomy 2012 non specific non-hodgkins lymphoma Surgical History Surgery Date(Month/Year) Partial Hysterectomy left ovary 2012
--- OUTSIDE RECORDS SUMMARY | 2025-01-12 16:36 | XMS_ITS | Clinical Summary ---
Author Organization [facility] Address [address] [place] [address] Care Team Providers Care Bung Driver Name Role Phone Unavailable Primary Care Provider [...] Screening with HPV 2003 Mammogram Screening 2013 Pneumococcal Vaccine: 50+ Ye ars (1 of 1 - PCV) 2023 Zoster Vaccines (1 of 2) 2023 COVID-19 Vaccine (1 - 2023-2 5 season) 2024 Meningococcal B Vaccine Aged Out No l onger eligible based on patient's age to complete this topic Meningococcal Vaccine Aged Out No leda floyd eligible based on patient's age to complete this topic RSV Immunizations Under 20 Months Aged Out No longer eligible based on patient's age to complete this topic Advance Directives Documents on File Type Date Recorded Patient Sustainable Products Marketing Manager Expl anation Advance Directives and Living Will [...]
[2025-01-12 17:46] LABS: Hematocrit 47.7 % (37.0-47.0); Hemoglobin 15.4 g/dL (12.0-15.0); Immature Granulocyte Percent A 0.4 % (0-0.5); Lymphocytes Absolute Auto 3.27 K/mm3 (0.9-3.2); Mean Corpuscular HGB Conc 32.3 g/dl (32-36); Mean Corpuscular Hemoglobin 29.3 pg (26-34); Mean Corpuscular Volume 90.9 fl (80-100); Nucleated Red Blood Cells Absolute Auto 0.000 K/mm3 (0.0-0.012); Nucleated Red Blood Cells Perc 0.0 % (0.0-0.2); Platelet Count Result 343 k/mm3 (150-375); Red Blood Count 5.25 M/mm3 (4.2-5.4); White Blood Count 10.3 K/mm3 (4.5-10.0)
[2025-01-12 18:00] LABS: Alanine Aminotransferase 31 U/L (6-35); Albumin Level 4.3 g/dL (3.5-5.1); Alkaline Phosphatase 91 U/L (38-126); Anion Gap 8 mmol/L (4-12); Aspartate Amino Transferase 36 U/L (14-36); Bilirubin,Total 0.6 mg/dL (0.2-1.3); Blood Urea Nitrogen 11 mg/dL (7-17); Calcium 8.9 mg/dL (8.4-10.2); Carbon Dioxide 29 mmol/L (22-30); Chloride 101 mmol/L (98-107); Cholesterol 148 mg/dL (0-200); Estimated Glomerular Filt Rate > 60; Glucose 116 mg/dL (65-110); HDL Direct 38 mg/dL; Magnesium 2.0 mg/dL (1.6-2.3); Potassium 3.7 mmol/L (3.4-5.0); Sodium 138 mmol/L (137-145); Total Protein 7.5 g/dL (6.3-8.2); Triglycerides 177 mg/dL (<150)
[2025-01-12 18:04] LABS: Iron 56 ug/dL (37-170)
[2025-01-12 18:12] LABS: Hemoglobin A1C 5.4 % (<5.7)
[2025-01-12 18:13] LABS: Percent Iron Saturation 17 % (20-50)
[2025-01-12 18:35] LABS: Thyroid Stimulating Hormone Reflex 5.470 uIU/mL (0.465-4.68)
[2025-01-12 19:22] LABS: Free T4 Free Thyroxine Reflex 1.49 ng/dL (0.78-2.19)
[2025-01-13 00:09] LABS: Total Triiodothyronine (T3) 1.68 NG/ML (0.82-1.58)
== END 2025-01-12 16:33 | disposition home or self-care (01) ==
PROVIDERS: PCP Nurse Practitioner Family; Visit Provider Nurse Practitioner Family
DX: F31.9 Bipolar disorder, unspecified (principal); I10 Essential (primary) hypertension; I51.81 Takotsubo syndrome; E03.8 Other specified hypothyroidism; K62.5 Hemorrhage of anus and rectum; D64.9 Anemia, unspecified
CPT/HCPCS: 36415; 80053; 80061; 83036; 83540; 83550; 83735; 84439; 84443; 84480; 85025

== ENCOUNTER 2025-03-09 16:46 | Outpatient (CLI) | payer OTHER, SELFPAY ==
--- OUTSIDE RECORDS SUMMARY | 2018-02-26 19:00 | XMS_ITS | Continuity of Care Document ---
Author Organization [facility] Address [address] [place] [address] Phone Care Team Providers Care Admissions Representative Name Role Phone Sergio Dugan MD Unavailable Unavailable Advance Directives Directive Yes / No Effective Date File Name No Information Encounters Encounter Description Practice Location Reason(s) For Visit Diagnoses Date Provider Providers Copied on Encounter [facility], [address], [place], [place], [id number], tel:[phone] [facility] Ne No Information Ritchie [facility]. [address] [place] [address], [address], [place], [place], [id number], . tel:[phone] Referring Provider: Sergio Dugan, [address] [place] [address], [place], [address]. tel:[phone] Family History Family Member Type Diagnosis Age At Onset No Information Payers Payer name Insurance type Covered alliance party ID Authoriza timaged(s) [employer] CI [id number] Social History Type Description Quantity Date Captured [...]
--- NOTE | ~2025-03-09 | CT_ITS ---
EXAMINATION: CT lung screening DATE: 03/09/2025 17:19 INDICATION: Personal history of nicotine dependence TECHNIQUE: Computed tomography (CT) of the chest was performed without intravenous contrast. The dose-length product was 101.80 mGy-cm. Automated exposure control and iterative reconstruction technique were employed. COMPARISON: CT dated 09/12/2022 FINDINGS: Mild atherosclerosis of the aorta. No evidence for aneurysm. Heart size normal. No thoracic lymphadenopathy. No significant pleural or pericardial effusion. There are cholecystectomy clips. There are scattered small upper lobe nodules measuring 2 mm or less. There is a 4 mm right lower lobe nodule. There is a 3 mm right lower lobe nodule. No focal consolidation. No endobronchial lesions. No pneumothorax. Mild thoracic spondylosis. No acute osseous abnormality. Mild dextrocurvature of the thoracic spine. IMPRESSION: 1. Lung-RADS category 2: Benign appearance or behavior. Continue annual screening with noncontrast low-dose chest CT in 12 months. Reviewed, dictated and finalized at location O. IMPRESSION: 1. Lung-RADS category 2: Benign appearance or behavior. Continue annual screeni ng with noncontrast low-dose chest CT in 12 months.
--- OUTSIDE RECORDS SUMMARY | 2025-03-09 16:51 | XMS_ITS | Patient Health Record ---
Author Organization [facility] Address [address] [place] [address] Care Team Providers Care Flight Instructor Name Role Phone Joanna Donovan Primary Care Provider Allergies Allergen (clinical drug ingredient) Drug/Non Drug [...] W/U Status Risk Notes Problem Tobacco dependence (57851669) Tobacco dependence (F17.200) Active confirmed Problem Substance abuse (4370150678) Substance abuse (F19.10) Active confirmed Problem Anxiety (75322599) Anxiety (F41.9) Active confirmed Problem Bipolar affective disorder, currently depressed, moderate (113629490) Bipolar affective disorder, currently depressed, moderate (F31.32) Active confirmed Problem Opioid dependence (62074214) Opioid use disorder, severe (F11.20) Active confirmed Plan Of Treatment No Information Insurance Providers Payer Name Payer Address Payer Phone Subscriber Number Group Number Insured Name Patient Relationship to Insured Coverage Start Date Coverage End Date [facility] [address] [address] [place] [address] [id number] Sheri Dunne Self - patient is the insured 8 Medical (General) History Medical History History ICD Code heroin use disorder hepatitis C Lupus Fibromyalgia ovarian cancer - hysterectomy 2012 non specific non-hodgkins lymphoma Surgical History Surgery Date(Month/Year) Partial Hysterectomy left ovary 2012
--- OUTSIDE RECORDS SUMMARY | 2025-03-09 16:51 | XMS_ITS | Clinical Summary ---
Author Organization [facility] Care Team Providers Care Clinical Exercise Specialist Name Role Phone Unavailable Primary Care [...] Cervical Cancer Screening (CCS) 2003 HPV/Cotest 2003 Cologuard 2018 Colonoscopy 2018 Colorectal Cancer Screening 2018 Immunochemical Fecal Occult Blood 2018 Pneumococcal Immunization (5 0+ years) (1 of 1 - PCV) 2023 Zoster Immunization (1 of 2) 2023 SARS-COV-2 Immunization ( - 2023- season) 2024 Influenza Immunization (#1) 2025 Respiratory Syncytial Virus (RSV) Immunization (Adult) (1 - 1-dose 75+ series) 01/31/2048 Human Papillomavirus (HPV) Immunization Aged Out No longer eligible b ased on patient's age to complete this topic Meningococcal Immunization (ACWY) Aged Out No longer eligible based on patient's age to complete this topic Rotavirus Immunization Aged Out No lo nger eligible based on patient's age to complete this topic
--- OUTSIDE RECORDS SUMMARY | 2025-03-09 16:51 | XMS_ITS | Clinical Summary ---
Author Organization [facility] Address [address] [place] [address] Care Team Providers Care Process Improvement Consultant Name Role Phone Unavailable Primary Care Provider [...] Documents on File Type Date Recorded Patient Job Order Clerk Expl anation Advance Directives and Living Will [...]
--- OUTSIDE RECORDS SUMMARY | 2025-03-09 16:51 | XMS_ITS | Encounter Summary ---
Author Organization [facility] Address [address] [place] [address] Care Team Providers Care Abrasive Sawyer Name Role Phone Miscellaneous, Not In File Unavailable Unava claireable Misti Leslie Unavailable Unavailable Lee Bright MD Primary Care Provider + Phillip Jeff MD Primary Care Prov ider Sagrario Devi NP Primary Care Provider [phone] Encounter Details Date Type Department Care Team (Late st Contact Info) Description 12/18/2021 Documentation [facility] Warm Hand Off Program [address] [place], [place] [phone] Heather Isbell Social History Tobacco Use Types [...] on file Legal Sex Female 11:38 AM RELIEF DRILLER Gender Identity Not on file Sexual Orientation Not on file documented as of this encounter Plan of Treatment Not on file documented as of this encounter Goals Goal Patient Goal Type Associated Problems Recent Progress Patient-Stated? Author Attend [facility] No Shelby Kirby Note: Pt will complete [...] documented as of this encounter Care Teams Abrasive Sawyer Relationship Specialty Start Date End Date Lee Bright MD [address] [place] [address] [address] [place] [address] PCP - General Family Medicine 12/16/21 05/08/22 Phillip Jeff MD [address] [place] [address] [place] [address] PCP - General Family Medicine 11/20/22 03/02/24 Sagrario Devi NP [address] [address] PCP - General Family Practice 03/03/24 Miscellaneous, Not In File 10/27/20 Misti Leslie Recruiter Account Manager Addiction Medicine 10/24/20 documented as of this encounter
--- OUTSIDE RECORDS SUMMARY | 2025-03-09 16:51 | XMS_ITS | Clinical Summary ---
Author Organization [facility] Address [address] [place] [address] Care Team Providers Care Armature Winder Repair Name Role Phone Miscellaneous, Not In File Unavailable Unava ilable Misti Leslie Unavailable Unavailable Sagrario Devi NP Primary Care Provider [phone] Allergies Active Allergy Reactions Criticality Noted Date [...] mouth nightly Active gabapentin (NEURONTIN) 300 mg capsuleIndication s:Neuropathic Pain Take 1 capsule (300 mg total) [...] of breath 1 each 10/12/19 23 Active budesonide-formot Shakila (SYMBICORT) 80-4.5 mcg/actuation inhaler Inhale 2 puffs 2 (two) times a day Rinse mouth with water after use. Do not swallow. 1 each 10/12/19 23 Active acetaminophen (TYLENOL) 500 mg tablet Take 1-2 tablets (500-1,000 mg total) by mouth every 6 (six) hours as needed for pain 30 tablet 10/12/19 23 Active methadone HCl (METHADONE IV) Infuse into a venous catheter Active ALPRAZolam (XANAX) 1 mg tablet Take 1 tablet (1 mg total) by mouth daily as needed 09/10/19 24 Active ondansetron ODT (ZOFRAN-ODT) 8 mg disintegrating tablet DISSOLVE 1 TABLET ON THE TONGUE EVERY 8 HOURS NEEDED FOR NAUSEA OR VOMITING 02/25/20 24 Active traZODone (DESYREL) 100 mg tablet Take by mouth nightly 01/26/20 24 Active metoprolol XL (TOPROL-XL) 25 mg extended release tabletIndications :Dilated cardiomyopathy (HCC) TAKE 1/2 TABLET(12.5 MG) BY MOUTH DAILY 45 tablet 3 01/13/20 25 Active atorvastatin (LIPITOR) 40 mg tabletIndications :Dilated cardiomyopathy (HCC) TAKE 1 TABLET(40 MG) BY MOUTH DAILY 90 tablet 1 02/28/20 25 Active atorvastatin (LIPITOR) 40 mg tabletIndications :Dilated cardiomyopathy (HCC) TAKE 1 TABLET(40 MG) BY MOUTH DAILY 90 tablet 1 06/20/20 24 025 Discontinued Active Problems Problem Noted Date Diagnosed Date Nonobstructive atherosclerosis of coronary arter y 11/24/2024 Syncope and collapse 11/24/2024 Hyperlipidemia 09/25/2023 Opioid withdrawal 10/31/2022 Simple chronic [...] Pt states she had an appt at [facility] to establish methadone treatment, but [...] . Pt instructed to follow up with [facility], pt agreed. Narcan prescribed. Walker [...] seen by cardiology, had prior admission to [facility] found to have CHF with EF of 20%, repeat TTE 07/2022 at follow up showed normal systolic function, cardiology felt likely had Takotsubo cardiomyopathy. -Unclear if patient is compliant with GDMT, will continue while inpatient. 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 Gender Identity Not on file Sexual Orientation Not on file Obstetrics History Last Filed Vital Signs Vital Sign Reading Time Taken Comments Blood Pressure 94/60 11/24/2024 1:38 PM CDT Pulse 64 11/24/2024 1:36 PM CDT Temperature 36.7 C (98.1 F) 03/19/2023 8:54 AM CDT Respiratory Rate 19 03/19/2023 8:54 AM CDT Oxygen Saturation 92% 11/24/2024 1:36 PM CDT Inhaled Oxygen Concentration - - Weight 84.4 kg (186 lb) 11/24/2024 1:36 PM CDT Height 162.6 cm (5' 4) 11/24/2024 1:36 PM CDT Body Mass Index 31.93 11/24/2024 1:36 PM CDT Plan of Treatment Health Maintenance [...] (1 of 2) 2023 Influenza Vaccine (#1) 2025 Hepatitis C Screening Completed 10/17/2022, 023 Goals Goal Patient Goal Type Associated Problems Recent Progress Patient-Stated? Author Attend [facility] General No Shelby Kirby Note: Pt will complete an over the phone assessment with [facility] on 10/31/20 at 0800. Procedures Procedure Name Priority Date/Time Associated Diagnosis Comments HEPATITIS PANEL, ACUTE Routine 10/16/2022 10:14 PM CDT from Last 3 Months or Most Recently Relevant to Health Maintenance Results * (ABNORMAL) Hepatitis panel, acute (10/16/2022 10:14 PM CDT) Hep A IgM Nonreactive Nonreactive [facility] Hep B core IgM Nonreactive Nonreactive [facility] Hep C Ab Reactive(A) Nonreactive [facility] Comment: Reactive for HCV antibodies. This may represent current or past HCV infection. Supplemental molecular testing will be automatically performed to determine current infection status in accordance with current CDC screening recommendations. Current interpretive data was last revised on 22 HepBsAg Nonreactive Nonreactive [facility] Blood 10/16/2022 10:1 4 PM CDT 10/16/2022 11:23 PM CDT Tamara Garcia NP LAB MICROBIOLOGY - G ENERAL ORDERABLES Final Result [facility] Department [place] [address] from Last 3 Months or Most Recently Relevant to Health Maintenance Insurance [facility] Advance Directives For more information, please contact: [phone] * Full Code (Latest Code Status on [...] 4:55 PM 01/24/2021 9:55 PM Care Teams Armature Winder Repair Relationship Specialty Start Date End Date Sagrario Devi NP [address] [place] [address] [place] [address] PCP - General Family Practice 03/03/24 Miscellaneous, Not In File 10/27/20 Misti Leslie Car Rental Service Attendant Addiction Medicine 10/24/20
--- OUTSIDE RECORDS SUMMARY | 2025-03-09 16:51 | XMS_ITS | Clinical Summary ---
Author Organization [facility] [employer] Address [address] [place] [address] Care Team Providers Care Window Sash Installer Name Role Phone Marina Cerna MD Primary Care Provider Source Comments [facility] [employer],non-owned Affiliates and Associated Physician Practices is amultiple site organization consisting of ambulatory clinics and hospital sitesin [place], [place], [place] and [place]. This disclosure is being madepursuant to the Care Everywhere program and may not contain all information available regarding this patient. Last updated 18.[facility] [employer] Allergies Active Allergy Reactions Criticality Noted Date [...] document. Alwaysverify current medications with the patient. mirtazapine, disintegrating, (REMERON SOLTAB) 15 MG tablet Take 15 mg by mouth at bedtime Active Montelukast Sodium (SINGULAIR PO) Activ e hydrOXYzine hcl (ATARAX) 25 MG tablet Take 1 tablet by mouth 4 times daily as needed 15 tablet 9 Active albuterol HFA (PROVENTIL;VENT RAMONA;PROAIR) 108 (90 Base) MCG/ACT inhaler Inhale 2 puffs by mouth every 6 hours as needed for Shortness of Breath or Wheezing 1 Inhaler 9 Active fluticasone-ruth meterol 113-14 MCG/ACT inhaler Inhale 1 puff by mouth 2 times daily 1 Inhaler 9 Active traZODone (DESYREL) 50 MG tablet Take 1 tablet by mouth nightly as needed for Insomnia 15 tablet 9 Active ondansetron, disintegrating, (ZOFRAN ODT) 4 MG tablet Dissolve 1 tablet under the tongue every 6 hours as needed for Nausea/Vomitin g Allow tablet to dissolve on the tongue 15 tablet 9 Active nicotine (NICODERM CQ) 21 MG/24HR patch Apply 1 patch to skin once daily 28 patch 9 Active nicotine polacrilex (NICORETTE) 2 MG gumIndications: Nicotine Dependence Take 1 Each by mouth every 2 hours as needed for Smoking Cessation Reasons: Nicotine Addiction 110 Each 9 Active methocarbamol (ROBAXIN) 750 MG tablet Take 1 tablet by mouth every 6 hours as needed for Muscle Spasms 15 tablet 9 Active Active Problems Problem Noted Date Diagnosed Date Opioid withdrawal 06/14/2019 Family History Medical History Relation Name Comments Cancer - Lung Father Cancer - Lung Mother Relation Name Status Comments Father Mother Social History Tobacco Use Types Packs/Day Years Used Date Smoking Tobacco: Every Day Cigarettes 1 20 Smokeless Tobacco: Never Comments No Sex and Gender Information Value Date Recorded Sex Assigned at Not on file Legal Sex Female 6:34 PM CDT Gender Identity Not on file Sexual Orientation Not on file Last Filed Vital Signs Vital Sign Reading Time Taken Comments Blood Pressure 140/92 10/14/2020 3:53 PM CDT Pulse 78 10/14/2020 5:00 PM CDT Temperature 36.6 C (97.9 F) 06/16/2019 8:01 AM CLIENT SERVICES REPRESENTATIVE Respiratory Rate 19 10/14/2020 5:00 PM CDT Oxygen Saturation 95% 10/14/2020 5:00 PM CDT Inhaled Oxygen Concentration - - Weight 90.7 kg (200 lb) 10/14/2020 4:03 PM CDT Height 160 cm (5' 3) 10/14/2020 4:03 PM CDT Body Mass Index [...] SCREENING 1973 LIPID TESTING 1973 MAMMOGRAM 1973 DTAP/TDAP/TD VACCINES (1 - Tdap) 01/31/1992 HEPATITIS B VACCINE (1 of 3 - 19+ 3-dose series) 01/31/1992 PNEUMOCOCCAL VACCINE 50+ (1 of 1 - PCV) 2023 ZOSTER VACCINE (1 of 2) 2023 DEPRESSION SCREENING 07/06/2024 COVID-19 VACCINE (1 - 2023-2 5 season) 2025 INFLUENZA VACCINE (#1) 2025 HEPATITIS C SCREENING Completed 06/15/2019 , 06/15/2019 [...] HEPATITIS SCREEN ACUTE Routine 06/15/2019 10:47 PM CLIENT SERVICES REPRESENTATIVE HIV-1 HIV-2 ANTIBODY + HIV P24 AG PANEL Routine 06/15/2019 10:47 PM CLIENT SERVICES REPRESENTATIVE from Last 3 Months or Most Recently Relevant to Health Maintenance Results * HIV-1 HIV-2 ANTIBODY + HIV P24 AG PANEL (06/15/2019 10:47 PM CLIENT SERVICES REPRESENTATIVE) Pathologist [facility] HIV1/2 Ab + P24 Ag Non Reactive Non Reactive 06/15/2019 11:32 PM CLIENT SERVICES REPRESENTATIVE [facility] Blood BLOOD SPECIMEN / Unknown Venipuncture / Unknown 06/15/2019 10:47 PM CLIENT SERVICES REPRESENTATIVE 06/15/2019 10:51 PM CLIENT SERVICES REPRESENTATIVE Narrative [facility] - 06/15/2019 11:32 PM CLIENT SERVICES REPRESENTATIVE No Laboratory evidence of HIV infection. Tanvir Felix MD LAB - CHEMISTRY ORDERABLES Final Result Performing Organization Address [facility] Co de Phone Number [facility] [address] [place] [address] * (ABNORMAL) HEPATITIS SCREEN ACUTE (06/15/2019 10:47 PM CLIENT SERVICES REPRESENTATIVE) Pathologist [facility] HAV Antibody IgM Non Reactive Non Reactive 06/15/2019 11:39 PM CLIENT SERVICES REPRESENTATIVE [facility] HBsAg Non Reactive Non Reactive 06/15/2019 11:39 PM CLIENT SERVICES REPRESENTATIVE [facility] HBc Antibody IgM Non Reactive Non Reactive 06/15/2019 11:39 PM CLIENT SERVICES REPRESENTATIVE [facility] HCV Antibody Screen REACTIVE(A) Non Reactive 06/15/2019 11:39 PM CLIENT SERVICES REPRESENTATIVE [facility] Blood BLOOD SPECIMEN / Unknown Venipuncture / Unknown 06/15/2019 10:47 PM CLIENT SERVICES REPRESENTATIVE 06/15/2019 10:51 PM CLIENT SERVICES REPRESENTATIVE Narrative [facility] - 06/15/2019 11:39 PM CLIENT SERVICES REPRESENTATIVE A reactive result is consistent with current HCV infection or past HCV infection that has been resolved. Reflex testing to Hepatitis C Virus RNA Quantitative, Real Time PCR will be performed. See separate report. Tanvir Felix MD LAB - CHEMISTRY ORDERABLES Final Result Performing Organization Address [facility] Co de Phone Number [facility] [address] [place] [address] from Last 3 Months or Most Recently Relevant to Health Maintenance Insurance [facility] [employer] PLAN [place] [employer] [facility] TPL THIRD CONSTITUTION PARTY LIABILITY Green Party Liability [place] [employer] [facility] Advance Directives Documents on File Type Date Recorded Patient Digital Asset Manager Expl anation Adv Directive/Living Will/POA 11/12/2016 * Full Code (Latest Code Status on File) Date Activated Date Inactivated Comments 06/14/2019 3:49 PM 06/16/2019 11:57 AM Care Teams Window Sash Installer Relationship Specialty Start Date End Date Marina Cerna MD [address] [place] [address] [place] [id number] PCP - General Family Medicine 11/12/16
== END 2025-03-09 16:47 | disposition home or self-care (01) ==
PROVIDERS: PCP Nurse Practitioner Family; Visit Provider Nurse Practitioner Family
DX: Z12.2 Encounter for screening for malignant neoplasm of respiratory organs (principal); Z87.891 Personal history of nicotine dependence
CPT/HCPCS: 71271

== ENCOUNTER 2025-03-30 13:01 | Outpatient (CLI) | payer OTHER, SELFPAY ==
--- OUTSIDE RECORDS SUMMARY | 2018-02-26 19:00 | XMS_ITS | Continuity of Care Document ---
Author Organization [facility] Address [address] [place] [address] Phone Care Team Providers Care Recycling Attendant Name Role Phone Sergio Dugan MD Unavailable Unavailable Advance Directives Directive Yes / No Effective Date File Name No Information Encounters Encounter Description Practice Location Reason(s) For Visit Diagnoses Date Provider Providers Copied on Encounter [facility], [address], [place], [place], [id number], tel:[phone] [facility] Ne No Information [facility]ie [facility]. [address] [place] [address], [address], [place], [place], [id number], . tel:[phone] Referring Provider: Sergio Dugan, [address] [place] [address], [place], [address]. tel:[phone] Family History Family Member Type Diagnosis Age At Onset No Information Payers Payer name Insurance type Covered green party ID Authoriza timagde(s) [employer] CI [id number] Social History Type Description Quantity Date Captured Comments Sex Female Smoking Status No Information Chief Complaint And Reason For Visit No Information Reason For Referral Reason For Referral No Information History Of Present Illness Encounter Date Complaint History Of Prese nt Illness No Information Functional Status Date Functional Assessmen t No Information Instructions Date Instruction Additional Infor mation No Information Assessments Type Assessment Date No Information Patient Care Teams Name Effective Dates (start - stop) Status Members No Information
--- NOTE | ~2025-03-30 | MMUS_ITS ---
EXAMINATION: MM diagnostic alek BI w harshad, US breast RT limited INDICATION: 50-year old female; Evaluation of right breast palpable lump. COMPARISON: 01/23/2020 and 11/29/2019 TECHNIQUE: Digital breast tomosynthesis CC and MLO views of the BILATERAL breast and True lateral and spot compression of the RIGHT breast were obtained with computer-aided detection to assist in interpretation of the study. A radiopaque skin marker was placed over the area of RIGHT breast palpable lump. FINDINGS: The breasts are almost entirely fatty. There are no suspicious masses, calcifications, architectural distortion or any other abnormality in either breast. Circumscribed mass containing biopsy clip in the inner central right breast is unchanged. No suspicious mammographic abnormality correlates to the radiopaque skin marker. RIGHT BREAST ULTRASOUND FINDINGS: Targeted sonographic evaluation of the palpable lump area was completed. There is no sonographic abnormality that correlates to the area of palpable lump identified by the patient. At 8:00, 10 cm from the nipple, corresponding to the palpable area there is a 0.3 x 0.2 x 0.2 cm hypoechoic circumscribed mass with surrounding echogenic halo located within subcutaneous fat. This finding compatible with an area of fat necrosis. IMPRESSION: An hypoechoic 0.3 cm superficial mass compatible with area of fat necrosis correlates to the palpable lump area in the RIGHT breast. No mammographic evidence of malignancy in either breast. Recommendations: Clinical management of patient's palpable lump. BI-RADS Category 2: Benign finding(s). Reviewed, dictated and finalized at location B. IMPRESSION: An hypoechoic 0.3 cm superficial mass compatible with area of fat necrosis elizabeth elates to the palpable lump area in the RIGHT breast. No mammographic evidence of malignancy in either breast. Recommendations: Clinical management of patient's palpable lump. BI-RADS Category 2: Benign finding(s).
--- OUTSIDE RECORDS SUMMARY | 2025-03-30 15:43 | XMS_ITS | Patient Health Record ---
Author Organization [facility] Address [address] [place] [address] Care Team Providers Care Guardian Family Member Name Role Phone Joanna Donovan Primary Care Provider [phone] Allergies Allergen (clinical drug ingredient) Drug/Non Drug [...] W/U Status Risk Notes Problem Tobacco dependence (14942368) Tobacco dependence (F17.200) Active confirmed Problem Substance abuse (2527623933) Substance abuse (F19.10) Active confirmed Problem Anxiety (22089485) Anxiety (F41.9) Active confirmed Problem Bipolar affective disorder, currently depressed, moderate (819534510) Bipolar affective disorder, currently depressed, moderate (F31.32) Active confirmed Problem Opioid dependence (89867420) Opioid use disorder, severe (F11.20) Active confirmed Plan Of Treatment No Information Insurance Providers Payer Name Payer Address Payer Phone Subscriber Number Group Number Insured Name Patient Relationship to Insured Coverage Start Date Coverage End Date [facility] [address] [address] [place] [address] [id number] Sheri Dunne Self - patient is the insured 8 Medical (General) History Medical History History ICD Code heroin use disorder hepatitis C Lupus Fibromyalgia ovarian cancer - hysterectomy 2012 non specific non-hodgkins lymphoma Surgical History Surgery Date(Month/Year) Partial Hysterectomy left ovary 2012
--- OUTSIDE RECORDS SUMMARY | 2025-03-30 15:43 | XMS_ITS | Clinical Summary ---
Author Organization [facility] [employer] Address [address] [address] Care Team Providers Care Title 1 Tutor Name Role Phone Marina Cerna MD Primary Care Provider [phone] Source Comments [facility] [employer],non-owned Affiliates and Associated Physician Practices is amultiple site organization consisting of ambulatory clinics and hospital sitesin [place], [place], [place] and [place]. This disclosure is being madepursuant to the Care Everywhere program and may not contain all information available regarding this patient. Last updated 18.[facility] [employer] Allergies Active Allergy Reactions Criticality Noted Date [...] 36.6 C (97.9 F) 06/16/2019 8:01 AM FRAMING MILL OPERATOR HELPER Respiratory Rate 19 10/14/2020 5:00 PM CDT [...] HEPATITIS SCREEN ACUTE Routine 06/15/2019 10:47 PM FRAMING MILL OPERATOR HELPER HIV-1 HIV-2 ANTIBODY + HIV P24 AG PANEL Routine 06/15/2019 10:47 PM FRAMING MILL OPERATOR HELPER from Last 3 Months or Most Recently Relevant to Health Maintenance Results * HIV-1 HIV-2 ANTIBODY + HIV P24 AG PANEL (06/15/2019 10:47 PM FRAMING MILL OPERATOR HELPER) Pathologist [facility] HIV1/2 Ab + P24 Ag Non Reactive Non Reactive 06/15/2019 11:32 PM FRAMING MILL OPERATOR HELPER [facility] Blood BLOOD SPECIMEN / Unknown Venipuncture / Unknown 06/15/2019 10:47 PM FRAMING MILL OPERATOR HELPER 06/15/2019 10:51 PM FRAMING MILL OPERATOR HELPER Narrative [facility] - 06/15/2019 11:32 PM FRAMING MILL OPERATOR HELPER No Laboratory evidence of HIV infection. Tanvir Felix MD LAB - CHEMISTRY ORDERABLES Final Result Performing Organization Address [facility] Co de Phone Number [facility] [address] [place] [address] * (ABNORMAL) HEPATITIS SCREEN ACUTE (06/15/2019 10:47 PM FRAMING MILL OPERATOR HELPER) Pathologist [facility] HAV Antibody IgM Non Reactive Non Reactive 06/15/2019 11:39 PM FRAMING MILL OPERATOR HELPER [facility] HBsAg Non Reactive Non Reactive 06/15/2019 11:39 PM FRAMING MILL OPERATOR HELPER [facility] HBc Antibody IgM Non Reactive Non Reactive 06/15/2019 11:39 PM FRAMING MILL OPERATOR HELPER [facility] HCV Antibody Screen REACTIVE(A) Non Reactive 06/15/2019 11:39 PM FRAMING MILL OPERATOR HELPER [facility] Blood BLOOD SPECIMEN / Unknown Venipuncture / Unknown 06/15/2019 10:47 PM FRAMING MILL OPERATOR HELPER 06/15/2019 10:51 PM FRAMING MILL OPERATOR HELPER Narrative [facility] - 06/15/2019 11:39 PM FRAMING MILL OPERATOR HELPER A reactive result is consistent with current HCV infection or past HCV infection that has been resolved. Reflex testing to Hepatitis C Virus RNA Quantitative, Real Time PCR will be performed. See separate report. Tanvir Felix MD LAB - CHEMISTRY ORDERABLES Final Result Performing Organization Address [facility] Co de Phone Number [facility] [address] [place] [address] from Last 3 Months or Most Recently Relevant to Health Maintenance Insurance [facility] [employer] PL[employer] [place] [employer] [facility] TPL THIRD GREEN PARTY LIABILITY Constitution Party Liability [place] [employer] [facility] Advance Directives Documents on File Type Date Recorded Patient Floral Merchandiser Expl anation Adv Directive/Living Will/POA 11/12/2016 * Full Code (Latest Code Status on File) Date Activated Date Inactivated Comments 06/14/2019 3:49 PM 06/16/2019 11:57 AM Care Teams Title 1 Tutor Relationship Specialty Start Date End Date Marina Cerna MD [address] [place] [address] [place] [phone] PCP - General Family Medicine 11/12/16
--- OUTSIDE RECORDS SUMMARY | 2025-03-30 15:43 | XMS_ITS | Encounter Summary ---
Author Organization [facility] Address [address] [place] [address] Care Team Providers Care Corporate Librarian Name Role Phone Miscellaneous, Not In File Unavailable Unava claireable Misti Leslie Unavailable Unavailable Lee Bright MD Primary Care Provider + Phillip Jeff MD Primary Care Prov ider Sagrario Devi NP Primary Care Provider [phone] Encounter Details Date Type Department Care Team (Late st Contact Info) Description 12/18/2021 Documentation [facility] Warm Hand Off Program [address] [place], [place] [phone] Heather Isbell Social History Tobacco Use Types [...] on file Legal Sex Female 11:38 AM FIRE PREVENTION FORESTER Gender Identity Not on file Sexual Orientation Not on file documented as of this encounter Plan of Treatment Not on file documented as of this encounter Goals Goal Patient Goal Type Associated Problems Recent Progress Patient-Stated? Author Attend [facility] No Shelby Kirby Note: Pt will [...] documented as of this encounter Care Teams Corporate Librarian Relationship Specialty Start Date End Date Lee Bright MD [address] [place] [address] [address] [place] [address] PCP - General Family Medicine 12/16/21 05/08/22 Phillip Jeff MD [address] [place] [address] [place] [address] PCP - General Family Medicine 11/20/22 03/02/24 Sagrario Devi NP [address] [place] [address] PCP - General Family Practice 03/03/24 Miscellaneous, Not In File 10/27/20 Misti Leslie Double Surface Operator Addiction Medicine 10/24/20 documented as of this encounter
--- OUTSIDE RECORDS SUMMARY | 2025-03-30 15:44 | XMS_ITS | Clinical Summary ---
Author Organization [facility] Address [address] [place] [phone] Care Team Providers Care Drapery Head Former Name Role Phone Miscellaneous, Not In File Unavailable Unava ilable Misti Leslie Unavailable Unavailable Sagrario Devi NP Primary Care Provider [phone] Allergies Active Allergy Reactions Criticality Noted Date [...] total) by mouth nightly. 30 tablet 5 8 Active hydrOXYzine (VISTARIL) 100 mg capsule Take 1 capsule (100 mg total) by mouth 3 (three) times a day as needed for itching Active aspirin 81 mg enteric coated tablet Take 1 tablet (81 mg total) by mouth daily 90 tablet 3 3 Active albuterol HFA (PROVENTIL HFA,VENTOLIN HFA,PROAIR HFA) 90 mcg/actuation inhaler Inhale 2 puffs every 4 (four) hours as needed for wheezing or shortness of breath 1 each 3 Active budesonide-formote roL (SYMBICORT) 80-4.5 mcg/actuation inhaler Inhale 2 puffs 2 (two) times a day Rinse mouth with water after use. Do not swallow. 1 each 3 Active acetaminophen (TYLENOL) 500 mg tablet Take 1-2 tablets (500-1,000 mg total) by mouth every 6 (six) hours as needed for pain 30 tablet 3 Active methadone HCl (METHADONE IV) Infuse into a venous catheter Active ALPRAZolam (XANAX) 1 mg tablet Take 1 tablet (1 mg total) by mouth daily as needed 4 Active ondansetron ODT (ZOFRAN-ODT) 8 mg disintegrating tablet DISSOLVE 1 TABLET ON THE TONGUE EVERY 8 HOURS NEEDED FOR NAUSEA OR VOMITING 4 Active traZODone (DESYREL) 100 mg tablet Take by mouth nightly 4 Active metoprolol XL (TOPROL-XL) 25 mg extended release tabletIndications: Dilated cardiomyopathy (HCC) TAKE 1/2 TABLET(12.5 MG) BY MOUTH DAILY 45 tablet 3 5 Active atorvastatin (LIPITOR) 40 mg tabletIndications: Dilated cardiomyopathy (HCC) TAKE 1 TABLET(40 MG) BY MOUTH DAILY 90 tablet 1 5 Active Active Problems Problem Noted Date Diagnosed [...] Pt states she had an appt at [facility] to establish methadone treatment, but [...] . Pt instructed to follow up with [facility], pt agreed. Narcan prescribed. Walker [...] seen by cardiology, had prior admission to [facility] found to have CHF with EF of 20%, repeat TTE 07/2022 at follow up showed normal systolic function, cardiology felt likely had Takotsubo cardiomyopathy. -Unclear if patient is compliant with GDMT, will continue while inpatient. Assessment & Plan (10/15/2022 10:01 PM CDT): -Patient was seen by cardiology, had prior admission to [facility] found to have CHF with EF of [...] on file Legal Sex Female 11:38 AM MIDDLEWARE SOLUTIONS ARCHITECT Gender Identity Not on file Sexual Orientation [...] Associated Problems Recent Progress Patient-Stated? Author Attend residential [facility] General No Shelby Kirby Note: Pt will complete an over the phone assessment with [facility] on 10/31/20 at 0800. Procedures Procedure Name Priority Date/Time Associated Diagnosis Comments HEPATITIS PANEL, ACUTE Routine 10/16/2022 10:14 PM CDT from Last 3 Months or Most Recently Relevant to Health Maintenance Results * (ABNORMAL) Hepatitis panel, acute (10/16/2022 10:14 PM CDT) Hep A IgM Nonreactive Nonreactive [facility] Hep B core IgM Nonreactive Nonreactive [facility] Hep C Ab Reactive(A) Nonreactive [facility] Comment: Reactive for HCV antibodies. This may represent current or past HCV infection. Supplemental molecular testing will be automatically performed to determine current infection status in accordance with current CDC screening recommendations. Current interpretive data was last revised on 22 HepBsAg Nonreactive Nonreactive [facility] Blood 10/16/2022 10:1 4 PM CDT 10/16/2022 11:23 PM CDT Tamara Garcia NP LAB MICROBIOLOGY - G ENERAL ORDERABLES Final Result [facility] Department [place] [address] from Last 3 Months or Most Recently Relevant to Health Maintenance Insurance [facility] Advance Directives For more information, please contact: [phone] * Full Code (Latest Code Status on [...] 4:55 PM 01/24/2021 9:55 PM Care Teams Drapery Head Former Relationship Specialty Start Date End Date Sagrario Devi NP [address] [facility] [place] [address] PCP - General Family Practice 03/03/24 Miscellaneous, Not In File 10/27/20 Misti Leslie Housing Management Officer Addiction Medicine 10/24/20
--- OUTSIDE RECORDS SUMMARY | 2025-03-30 15:44 | XMS_ITS | Clinical Summary ---
Author Organization [facility] Care Team Providers Care Gunstock Spray Unit Feeder Name Role Phone Unavailable Primary Care Provider [...] of 2) 2023 SARS-COV-2 Immunization ( - season) 2024 Influenza Immunization (#1) 2025 Respiratory [...]
== END 2025-03-30 13:02 | disposition home or self-care (01) ==
LOC: ANHFOHIMG 13:02
PROVIDERS: PCP Nurse Practitioner Family; Visit Provider Nurse Practitioner Family
DX: N63.10 Unspecified lump in the right breast, unspecified quadrant (principal)
CPT/HCPCS: 76642; 77062; 77066; G0279